=== PATIENT | male | born 1930 | race Caucasian/White ===

== ENCOUNTER 2018-03-20 14:55 | Emergency (ER) | payer OTHER ==
--- NOTE | 2018-03-20 15:31 | EDPHY ---
H & P Stated Complaint: increased tremors, fall, hx parkensons Time Seen by Provider: 03/20/18 15:22 HPI/ROS: CHIEF COMPLAINT: Fall, skin tear, Parkinson's HISTORY OF PRESENT ILLNESS: The patient is a 87-year-old man with a history of Parkinson's as well as atrial fibrillation on Xarelto. According to paramedics the patient had a fall several hours ago and had skin tears to both shins and both forearms. They were dressed. He did not hit his head. He denies neck pain. He is moving all extremities. He denies loss of consciousness or syncope. Family however called paramedics because his parkinsonian tremors or getting worse and he is having more frequent falls. Family is not here currently. Severity: Moderate Modifying factors: None REVIEW OF SYSTEMS: Constitutional: denies: chills, fever, recent illness, recent injury EENTM: denies: blurred vision, double vision, nose congestion Respiratory: denies: cough, shortness of breath Cardiac: denies: chest pain, irregular heart rate, lightheadedness, palpitations Gastrointestinal/Abdominal: denies: abdominal pain, diarrhea, nausea, vomiting, blood streaked stools Genitourinary: denies: dysuria, frequency, hematuria, pain Musculoskeletal: denies: joint pain, muscle pain Skin: Skin tear see above Neurological: denies: headache, numbness, paresthesia, tingling, dizziness, weakness Hematologic/Lymphatic: denies: blood clots, easy bleeding, easy bruising Immunologic/allergic: denies: HIV/AIDS, transplant 10 systems reviewed and negative except as noted EXAM: GENERAL: Well-appearing, well-nourished and in no acute distress. HEAD: Atraumatic, normocephalic. EYES: Pupils equal round and reactive to light, extraocular movements intact, sclera anicteric, conjunctiva are normal. ENT: TMs normal, nares patent, oropharynx clear without exudates. Moist mucous membranes. NECK: Normal range of motion, supple without lymphadenopathy or JVD. LUNGS: Breath sounds clear to auscultation bilaterally and equal. No wheezes rales or rhonchi. HEART: Regular rate and rhythm without murmurs, rubs or gallops. ABDOMEN: Soft, nontender, normoactive bowel sounds. No guarding, no rebound. No masses appreciated. BACK: No CVA tenderness, no spinal tenderness, step-offs or deformities EXTREMITIES: Chronic left shoulder pain but normal movement. Normal range of motion, no pitting or edema. No clubbing or cyanosis. NEUROLOGICAL: Significant intention tremor. Cranial nerves II through XII grossly intact. Normal speech, normal gait. 5/5 strength, normal movement in all extremities, normal sensation, normal reflexes PSYCH: Normal mood, normal affect. SKIN: Medium-sized skin tears to both shins and both forearms.. Source: Patient Exam Limitations: No limitations - Personal History Current Tetanus Diphtheria and Acellular Pertussis (TDAP): Yes - Medical/Surgical History Hx Asthma: No Hx Chronic Respiratory Disease: No Hx Diabetes: No Hx Cardiac Disease: Yes Hx Renal Disease: No Hx Cirrhosis: No Hx Alcoholism: No Hx HIV/AIDS: No Hx Splenectomy or Spleen Trauma: No Other PMH: spinal stenosis, SSS with pacemaker, parkensons, afib - Family History Significant Family History: No pertinent family hx - Social History Smoking Status: Never smoked Alcohol Use: Sober Drug Use: None Constitutional: Initial Vital Signs Temperature (C) 37.1 C 03/20/18 15:00 Heart Rate 70 03/20/18 15:00 Respiratory Rate 16 03/20/18 15:00 Blood Pressure 143/70 H 03/20/18 15:00 O2 Sat (%) 88 L 03/20/18 15:00 O2 Delivery Mode Room Air O2 (L/minute) 2 Allergies/Adverse Reactions: No Known Allergies Allergy (Verified 03/20/18 15:03) Home Medications: Medication Instructions Recorded Carbidopa/Levodopa [Carbidopa-Levo 1 each PO QID 03/20/18 25-100 mg Odt] Diltiazem Cd [Cardizem ER 120 MG 120 mg PO DAILY 03/20/18 (*)] Donepezil HCl [Aricept 5 MG (*)] 5 mg PO HS 03/20/18 Dutasteride [Avodart 0.5 MG (*)] 0.5 mg PO DAILY 03/20/18 Escitalopram Oxalate [Lexapro] 20 mg PO DAILY 03/20/18 Rivaroxaban [Xarelto] 20 mg PO DAILY 03/20/18 Medical Decision Making ED Course/Re-evaluation: 3:35 p.m. The patient's arrived and I spent significant amount of time talking to her and the patient together. They do not feel that his Parkinson's is severe enough that he needs to come into the hospital or be set up for rehabilitation. She wants to have his skin tears cleaned and dressed which is currently happening and then they feel safe going back home and would like to discuss arranging sometime a of home health with our continuous pillowcase cutter sure and who is here currently. They spoke with their Neurology office Dr. Hardwick earlier today who recommended the patient double up on his last 2 doses of Sinemet this evening. He did take a double dose in the afternoon is already having significant improvement. We discussed indications for returning to the ER. I do not find any indications for imaging in this patient. He denies headache or head injury or neck pain. He is moving all extremities at baseline. states that she will keep him downstairs and not let him upstairs until they see Dr. Bird again. 5:00 p.m. I discussed the case with Dr. Alisa Landa who will admit to the medical service. We tried to road test the patient here and he is completely unable to ambulate safely. 5:40 p.m. manager loan was able to get this patient admitted to a rehab facility which is what patient and family originally wanted rather than admission. We will plan to dispo there and discussed indications requiring return to the hospital. Differential Diagnosis: Partial list of the Differential diagnosis considered include but were not limited to; skin tear, Parkinson's, fall and although unlikely based on the history and physical exam, I also considered head injury, neck injury, infection. I discussed these differential diagnoses and the plan with the patient as well as the usual and expected course. The patient understands that the diagnosis is provisional and that in medicine we are not always correct and that further workup is often warranted. Usual and customary warnings were given. All of the patient's questions were answered. The patient was instructed to return to the emergency department should the symptoms at all worsen or return, otherwise to followup with the physician as we discussed. - Data Points Laboratory Results: Laboratory Results 03/20/18 15:00 03/20/18 15:00 03/20/18 03/20/18 15:00 15:00 WBC 10.29 10^3/uL H 10^3/uL (3.80-9.50) RBC 5.09 10^6/uL 10^6/uL (4.40-6.38) Hgb 16.1 g/dL g/dL (13.7-17.5) Hct 46.2 % % (40.0-51.0) MCV 90.8 fL fL (81.5-99.8) MCH 31.6 pg pg (27.9-34.1) MCHC 34.8 g/dL g/dL (32.4-36.7) RDW 12.4 % % (11.5-15.2) Plt Count 143 10^3/uL L 10^3/uL (150-400) MPV 9.8 fL fL (8.7-11.7) Neut % (Auto) 91.4 % H % (39.3-74.2) Lymph % (Auto) 1.9 % L % (15.0-45.0) [place] % (Auto) 6.3 % % (4.5-13.0) Eos % (Auto) 0.0 % L % (0.6-7.6) Baso % (Auto) 0.2 % L % (0.3-1.7) Nucleat RBC Rel Count 0.0 % % (0.0-0.2) Absolute Neuts (auto) 9.41 10^3/uL H 10^3/uL (1.70-6.50) Absolute Lymphs (auto) 0.20 10^3/uL L 10^3/uL (1.00-3.00) Absolute Monos (auto) 0.65 10^3/uL 10^3/uL (0.30-0.80) Absolute Eos (auto) 0.00 10^3/uL L 10^3/uL (0.03-0.40) Absolute Basos (auto) 0.02 10^3/uL 10^3/uL (0.02-0.10) Absolute Nucleated RBC 0.00 10^3/uL 10^3/uL (0-0.01) Immature Gran % 0.2 % % (0.0-1.1) Immature Gran # 0.02 10^3/uL 10^3/uL (0.00-0.10) RBC/WBC/PLT Morphology TNP Platelet Estimate ADEQUATE (ADEQ) Polychromasia 1+ H Tear Drop Cells 1+ H Echinocytes 1+ H Sodium 140 mEq/L mEq/L (135-145) Potassium 4.1 mEq/L mEq/L (3.3-5.0) Chloride 102 mEq/L mEq/L (97-110) Carbon Dioxide 26 mEq/l mEq/l (22-31) Anion Gap 12 mEq/L mEq/L (8-16) BUN 21 mg/dL mg/dL (7-23) Creatinine 1.0 mg/dL mg/dL (0.7-1.3) Estimated GFR > 60 Glucose 141 mg/dL H mg/dL (70-100) Calcium 9.2 mg/dL mg/dL (8.5-10.4) Departure - Departure Disposition: [facility] Inpatient Acute Clinical Impression: Multiple skin tears, Parkinson disease Fall Qualifiers: Encounter type: initial encounter Qualified Code(s): W19.XXXA - Unspecified fall, initial encounter Condition: Fair
[2018-03-20 17:16] LABS: PLATELET COUNT 143 10^3/uL (150-400)
[2018-03-20 18:24] VITALS: BP 138/76
--- NOTE | 2018-03-21 10:02 | ASMTCMCOM ---
CM Note CM Note Notes: Late Entry from 03/20/18 due to Allscripts being down: Pt presented to the ED via EMS after having a fall at home and sustained bilateral skin tears to his forearms and shins. Pt has a history of Parkinsons and per his , Aldo, pt has had increased weakness and falls at home. Pt is not able to ambulate independently while in the ED and is not safe to return home unless 24/7 homecare was arranged. CM spoke w/Aldo about 24/7 homecare and how it would most likely need to be a combination of skilled and non-skilled and that she would have to private pay for the non-skilled private duty to provide the majority of the 24/7 care; Aldo understands and is agreeable to this plan. CM informed her that it will be unlikely to find an agencie(s) that would be able to have available staff on such short notice and on the weekend but that CM was willing to give it a try. Aldo appreciative and really wants to take pt home. This CM sent referrals to various skilled and non-skilled agencies hoping to have a combination/collaboration in order to cover 24/7 care but was unsuccessful. CM spoke kai/ Maya at [facility] and she was very close to arranging 24/7 care to start this evening; Maya says they would definitely be able to start by Thursday; Aldo informed and provided their information to follow up. By that time it had been decided to try to direct admit pt to [facility]. Spoke Homero ([phone]) at and sent referral. Non-triggering PASSR completed. Admission orders scanned into Allscripts. Home med list reconciled by pharmacy. Hard copies of the ED Report, PASSR, Med List and admission order sent with WC transporter, Sedrick. accepted patient and arranged for WC transport. ED RN Kishan called and gave RN report. Aldo was present during WC pickup and provided information/location on . Aldo also provided various other home care resources including a Senior Blue Book. Aldo states pt is followed by Dr Stevo quinn/cardiology and considers him to be pt's PCP. Pt is also followed by Dr Mulu quinn/neurology. CM available for further assistance if needed. Date Signed: 03/21/2018 10:02 AM Electronically Signed By:Poppy Uribe RN
--- NOTE | 2018-03-21 10:06 | ASDISCHSUM ---
Discharge Information Plan Status:SNF Medically Cleared to Leave: Discharge Date: D/C Disposition:Fdc Facility [facility] D/C Disposition: Projected Discharge Date:03/20/2018 07:00 PM Transportation at D/C:Wheelchair Van Discharge Delay Reason: Follow-Up Date:03/20/2018 07:00 PM Discharge Slot: Final Diagnosis: Placement Information Referral Type:*Home Health Care Services Referral ID:[id number] Provider Name: Address 1: Phone Number: Address 2: Fax Number: City: Selection Factors: State: Referral Type:*Snf/SNF Referral ID:[id number] Provider Name:Jessika Thomason/[facility] Address 1:[address] [facility] Address 2: Fax Number: [facility]:[place] Selection Factors: State:[place] Patient Contact Information Contact Name:HERMILA Relationship: Address:[address] Work Phone: City:[place] Alternate Phone: State/Zip Code:[place] [address] Email: Financial Information Financial Class:Medicare [employer] Primary Plan Desc:[facility] [email or web address] ([employer] Primary Plan Number:[id number] Secondary Plan Desc: Secondary Plan Number: Assessment Information [facility] Progress Note CM Note CM Note Notes: Late Entry from 03/20/18 due to Allscripts being down: Pt presented to the ED via EMS after having a fall at home and sustained bilateral skin tears to his forearms and shins. Pt has a history of Parkinsons and per his , Aldo, pt has had increased weakness and falls at home. Pt is not able to ambulate independently while in the ED and is not safe to return home unless 02/02 homecare was arranged. DOMINGO spoke w/Aldo about 247 homecare and how it would most likely need to be a combination of skilled and non-skilled and that she would have to private pay for the non-skilled private duty to provide the majority of the 7 care; Aldo understands and is agreeable to this plan. DOMINGO informed her that it will be unlikely to find an agencie(s) that would be able to have available staff on such short notice and on the weekend but that CM was willing to give it a try. Aldo appreciative and really wants to take pt home. This CM sent referrals to various skilled and non-skilled agencies hoping to have a combination/collaboration in order to cover 24/7 care but was unsuccessful. CM spoke w/ Maya at [facility] and she was very close to arranging 24/7 care to start this evening; Maya says they would definitely be able to start by Thursday; Aldo informed and provided their information to follow up. By that time it had been decided to try to direct admit pt to [facility]. Spoke kai/Bandar ([phone]) at and sent referral. Non-triggering PASSR completed. Admission orders scanned into [employer]. Home med list reconciled by pharmacy. Hard copies of the ED Report, PASSR, Med List and admission order sent with WC transporter, Sedrick. accepted patient and arranged for WC transport. ED RN Kishan called and gave RN report. Aldo was present during WC pickup and provided information/location on . Aldo also provided various other home care resources including a Senior Blue Book. Aldo states pt is followed by Dr Stevo quinn/cardiology and considers him to be pt's PCP. Pt is also followed by Dr Mulu quinn/neurology. CM available for further assistance if needed. Date Signed: 03/21/2018 10:02 AM Electronically Signed By:Poppy Uribe RN Intervention Information Intervention Type:Education Family/Patient Date of Service:03/20/2018 06:00 PM Patient Type:Observation Staff Member:ROLAND Uribe, Poppy Hours:0.5 Discipline:Diesel Truck Driver Severity: Comment: Intervention Type:Community Resources Date of Service:03/20/2018 06:00 PM Patient Type:Observation Staff Member:ROLAND Uribe [place] Hours:0.5 Discipline:Diesel Truck Driver Severity: Comment: Intervention Type:Post Acute Communication Date of Service:03/20/2018 06:00 PM Patient Type:Observation Staff Member:ROLAND Uribe [place] Hours:0.5 Discipline:Diesel Truck Driver Severity: Comment:
== END 2018-03-20 18:30 ==
LOC: EDUNIT# → UNDOADMOB 17:03
DX: T14.8XXA Other injury of unspecified body region, initial encounter (principal); W19.XXXA Unspecified fall, initial encounter; Y99.8 Other external cause status; G20 Parkinson's disease; R29.6 Repeated falls; I48.91 Unspecified atrial fibrillation; Z79.01 Long term (current) use of anticoagulants

== ENCOUNTER 2018-03-21 21:53 | Inpatient (IN) | payer OTHER ==
[2018-03-21] MEDS ORDERED: NS 1,000 ML IV ONE ×2 (22:07→22:40)
[2018-03-21 22:33] LABS: PLATELET COUNT 92 10^3/uL (150-400)
--- NOTE | 2018-03-21 23:42 | EDPHY ---
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 He was seen in the emergency department yesterday after falling out of bed and sustaining abrasions to his legs. This was thought to be secondary to an episode from his Parkinson's disease. Patient was discharged to [facility] for rehabilitation purposes as he was unable to ambulate safely at discharge. Today the patient has become increasingly confused. He has worsening dehydrated has only had a couple small cups of water. He is complaining of low back pain. No nausea or vomiting. No abdominal pain. Family is also concerned that he has not gotten his other medications today. He did also have some urinary incontinence. ROS: 10 systems were reviewed and were negative except those elements noted in the HPI. PMH: Parkinson's disease, pacemaker, atrial fibrillation Social History: No smoking, no alcohol, no recreational drug use Family History: non-contributory Physical Exam: Gen: Awake, oriented x2, anxious HEENT: Nose: no rhinorrhea Eyes: PERRLA, EOMI Mouth: Moist mucosa Neck: Supple, no JVD Chest: nontender, lungs clear to auscultation Heart: S1, S2 normal, no murmur Abd: Soft, non-tender, no guarding Back: no CVA tenderness, no midline tenderness Ext: no edema, dressings on lower shins, no erythema, no discharge Skin: no rash Neuro: CN II-XII intact, Sensation grossly intact, Strength 5/5 in bilateral upper and lower extremities - Personal History Current Tetanus Diphtheria and Acellular Pertussis (TDAP): Yes - Medical/Surgical History Hx Asthma: No Hx Chronic Respiratory Disease: No Hx Diabetes: No Hx Cardiac Disease: Yes Hx Renal Disease: No Hx Cirrhosis: No Hx Alcoholism: No Hx HIV/AIDS: No Hx Splenectomy or Spleen Trauma: No Other PMH: spinal stenosis, SSS with pacemaker, parkensons, afib - Social History Smoking Status: Never smoked Constitutional: Initial Vital Signs Temperature (C) 37.0 C 03/21/18 21:58 Heart Rate 72 03/21/18 21:58 Respiratory Rate 28 H 03/21/18 21:58 Blood Pressure 153/76 H 03/21/18 21:58 O2 Sat (%) 92 03/21/18 21:58 O2 Delivery Mode Nasal Cannula O2 (L/minute) 4 Allergies/Adverse Reactions: No Known Allergies Allergy (Verified 03/20/18 15:03) Home Medications: Medication Instructions Recorded Carbidopa/Levodopa [Carbidopa-Levo 1 each PO QID 03/20/18 25-100 mg Odt] Diltiazem Cd [Cardizem ER 120 MG 120 mg PO DAILY 03/20/18 (*)] Donepezil HCl [Aricept 5 MG (*)] 5 mg PO HS 03/20/18 Dutasteride [Avodart 0.5 MG (*)] 0.5 mg PO DAILY 03/20/18 Escitalopram Oxalate [Lexapro] 20 mg PO DAILY 03/20/18 Rivaroxaban [Xarelto] 20 mg PO DAILY 03/20/18 Medical Decision Making - Diagnostics Imaging Results: Imaging Impressions Chest X-Ray 03/21/18 22:06 Impression: 1. Cardiomegaly and pulmonary venous hypertension. No conor failure. 2. Hypoventilation. 3. No pneumothorax or displaced rib fracture. Head CT 03/21/18 22:07 Impression: 1. No acute intracranial hemorrhage or subdural hematoma. 2. No acute fracture. 3. Atrophy and moderate nonspecific periventricular white matter disease. Findings discussed with Emergency Department physician, Rafael Ann MD at 03/21/2018 23:20. ED Course/Re-evaluation: CT scan of the head is negative. Patient's leukocytosis is noted. Urinalysis is consistent with UTI g of ceftriaxone. Urine cultures have been sent. I have discussed with Dr. Yarbrough, hospitalist. He will admit to his service for further care. - Data Points Laboratory Results: Laboratory Results 03/21/18 22:05 03/21/18 22:05 03/21/18 03/21/18 03/21/18 23:59 22:05 22:05 WBC 14.38 10^3/uL H 10^3/uL (3.80-9.50) RBC 4.71 10^6/uL 10^6/uL (4.40-6.38) Hgb 14.9 g/dL g/dL (13.7-17.5) Hct 42.8 % % (40.0-51.0) MCV 90.9 fL fL (81.5-99.8) MCH 31.6 pg pg (27.9-34.1) MCHC 34.8 g/dL g/dL (32.4-36.7) RDW 12.9 % % (11.5-15.2) Plt Count 92 10^3/uL L 10^3/uL (150-400) MPV 9.9 fL fL (8.7-11.7) Neut % (Auto) 94.9 % H % (39.3-74.2) Lymph % (Auto) 1.0 % L % (15.0-45.0) [place] % (Auto) 3.4 % L % (4.5-13.0) Eos % (Auto) 0.0 % L % (0.6-7.6) Baso % (Auto) 0.1 % L % (0.3-1.7) Nucleat RBC Rel Count 0.0 % % (0.0-0.2) Absolute Neuts (auto) 13.65 10^3/uL H 10^3/uL (1.70-6.50) Absolute Lymphs (auto) 0.14 10^3/uL L 10^3/uL (1.00-3.00) Absolute Monos (auto) 0.49 10^3/uL 10^3/uL (0.30-0.80) Absolute Eos (auto) 0.00 10^3/uL L 10^3/uL (0.03-0.40) Absolute Basos (auto) 0.01 10^3/uL L 10^3/uL (0.02-0.10) Absolute Nucleated RBC 0.00 10^3/uL 10^3/uL (0-0.01) Immature Gran % 0.6 % % (0.0-1.1) Immature Gran # 0.09 10^3/uL 10^3/uL (0.00-0.10) RBC/WBC/PLT Morphology TNP Platelet Estimate TNP Sodium 139 mEq/L mEq/L (135-145) Potassium 3.7 mEq/L mEq/L (3.3-5.0) Chloride 103 mEq/L mEq/L (97-110) Carbon Dioxide 26 mEq/l mEq/l (22-31) Anion Gap 10 mEq/L mEq/L (8-16) BUN 40 mg/dL H mg/dL (7-23) Creatinine 1.4 mg/dL H mg/dL (0.7-1.3) Estimated GFR 48 Glucose 172 mg/dL H mg/dL (70-100) Calcium 9.0 mg/dL mg/dL (8.5-10.4) Urine Color APRIL Urine Appearance MODERATELY TURBID Urine pH 5.0 (5.0-7.5) Ur Specific [place] 1.023 (1.002-1.030) Urine Protein 2+ H (NEGATIVE) Urine Ketones TRACE H (NEGATIVE) Urine Blood 2+ H (NEGATIVE) Urine Nitrate NEGATIVE (NEGATIVE) Urine Bilirubin NEGATIVE (NEGATIVE) Urine Urobilinogen 2.0 EU H EU (0.2-1.0) Ur Leukocyte Esterase 3+ H (NEGATIVE) Urine RBC 10-15 /hpf H /hpf (0-3) Urine WBC 50-182 /hpf H /hpf (0-3) Ur Epithelial Cells TRACE /lpf /lpf (NONE-1+) Granular Casts 5-15 /lpf /lpf (0-1) Urine Glucose NEGATIVE (NEGATIVE) Medications Given: Sodium Chloride (Ns) 1,000 mls @ 100 mls/hr IV CONT AMY Stop: 09/18/18 01:59 Last Admin: 03/22/18 03:15 Dose: 1,000 mls Discontinued Medications Sodium Chloride (Ns) 1,000 mls @ 0 mls/hr IV ONCE ONE; Wide Open PRN Reason: Protocol Stop: 03/21/18 22:08 Last Admin: 03/21/18 22:25 Dose: 1,000 mls Ceftriaxone Sodium/Dextrose (Rocephin 1 Gm (Premix)) 50 mls @ 100 mls/hr IV EDNOW ONE PRN Reason: Protocol Stop: 03/22/18 00:50 Last Admin: 03/22/18 00:10 Dose: 50 mls Sodium Chloride (Ns) 1,000 mls @ 0 mls/hr IV EDNOW ONE; Wide Open PRN Reason: Protocol Stop: 03/21/18 22:41 Last Admin: 03/21/18 22:40 Dose: 1,000 mls Morphine Sulfate (Morphine) 2 mg IVP EDNOW ONE Stop: 03/21/18 22:41 Last Admin: 03/21/18 22:44 Dose: 2 mg Departure - Departure Disposition: [facility] Inpatient Acute Clinical Impression: UTI (urinary tract infection), Dehydration Condition: Fair
[2018-03-22] MEDS ORDERED: ONDANSETRON DISINTEGRATING 4 MG TAB PO PRN (00:58)
[2018-03-22] MEDS ORDERED: ONDANSETRON 4 MG/2 ML VIAL IVP PRN (00:58)
--- NOTE | 2018-03-22 01:48 | PDGENHP ---
History and Physical - Chief Complaint AMS - History of Present Illness 87 yo M w/ hx of PD, AF, dCHF presents with altered mental status. He was seen in the ED yesterday after a fall. Patient was discharged back to [facility]. Today, the patient has become increasingly confused. At the time of my evaluation the patient is somnolent after receiving morphine in the ED. He is unable to provide further history. Work-up notable for UA suggestive of urinary tract infection. Case discussed with Ed physician Dr. Ann. Records reviewed in EMR. History Information - Allergies/Home Medication List Allergies/Adverse Reactions: No Known Allergies Allergy (Verified 03/20/18 15:03) Home Medications: Carbidopa/Levodopa [Carbidopa-Levo 25-100 mg Odt] 1 each PO QID 03/20/18 [Last Taken Unknown] Diltiazem Cd [Cardizem ER 120 MG (*)] 120 mg PO DAILY 03/20/18 [Last Taken Unknown] Donepezil HCl [Aricept 5 MG (*)] 5 mg PO HS 03/20/18 [Last Taken Unknown] Dutasteride [Avodart 0.5 MG (*)] 0.5 mg PO DAILY 03/20/18 [Last Taken Unknown] Escitalopram Oxalate [Lexapro] 20 mg PO DAILY 03/20/18 [Last Taken Unknown] Rivaroxaban [Xarelto] 20 mg PO DAILY 03/20/18 [Last Taken Unknown] I have personally reviewed and updated: family history, medical history - Past Medical History atrial fibrillation, CHF Additional medical history: Parkinson's Disease - Surgical History Additional surgical history: Unable to obtain 2/2 mental status - Family History Additional family history: Unable to obtain 2/2 mental status - Social History Smoking Status: Never smoked Review of Systems Review of Systems: Unable to obtain 2/2 mental status Physical Exam Physical Exam: Temp Pulse Resp BP Pulse Ox 37.0 C 71 18 109/70 94 03/21/18 21:58 03/22/18 01:29 03/22/18 01:29 03/22/18 01:29 03/22/18 01:29 Constitutional: no apparent distress, appears nourished Eyes: PERRL, anicteric sclera Ears, Nose, Mouth, Throat: moist mucous membranes, no oral mucosal ulcers Cardiovascular: regular rate and rhythym, no murmur, rub, or gallop Respiratory: no respiratory distress, clear to auscultation Gastrointestinal: normoactive bowel sounds, soft, non-tender abdomen Skin: warm, normal color Musculoskeletal: no muscle tenderness, no joint effusions Neurologic: CN II-XII Intact, other (Unable to assess orientation due to somnolence) Psychiatric: encephalopathic, poor insight Lab Data & Imaging Review 03/21/18 22:05 03/21/18 22:05 WBC 14.38 10^3/uL (3.80-9.50) H 03/21/18 22:05 RBC 4.71 10^6/uL (4.40-6.38) 03/21/18 22:05 Hgb 14.9 g/dL (13.7-17.5) 03/21/18 22:05 Hct 42.8 % (40.0-51.0) 03/21/18 22:05 MCV 90.9 fL (81.5-99.8) 03/21/18 22:05 MCH 31.6 pg (27.9-34.1) 03/21/18 22:05 MCHC 34.8 g/dL (32.4-36.7) 03/21/18 22:05 RDW 12.9 % (11.5-15.2) 03/21/18 22:05 Plt Count 92 10^3/uL (150-400) L 03/21/18 22:05 MPV 9.9 fL (8.7-11.7) 03/21/18 22:05 Neut % (Auto) 94.9 % (39.3-74.2) H 03/21/18 22:05 Lymph % (Auto) 1.0 % (15.0-45.0) L 03/21/18 22:05 [place] % (Auto) 3.4 % (4.5-13.0) L 03/21/18 22:05 Eos % (Auto) 0.0 % (0.6-7.6) L 03/21/18 22:05 Baso % (Auto) 0.1 % (0.3-1.7) L 03/21/18 22:05 Nucleat RBC Rel Count 0.0 % (0.0-0.2) 03/21/18 22:05 Absolute Neuts (auto) 13.65 10^3/uL (1.70-6.50) H 03/21/18 22:05 Absolute Lymphs (auto) 0.14 10^3/uL (1.00-3.00) L 03/21/18 22:05 Absolute Monos (auto) 0.49 10^3/uL (0.30-0.80) 03/21/18 22:05 Absolute Eos (auto) 0.00 10^3/uL (0.03-0.40) L 03/21/18 22:05 Absolute Basos (auto) 0.01 10^3/uL (0.02-0.10) L 03/21/18 22:05 Absolute Nucleated RBC 0.00 10^3/uL (0-0.01) 03/21/18 22:05 Immature Gran % 0.6 % (0.0-1.1) 03/21/18 22:05 Immature Gran # 0.09 10^3/uL (0.00-0.10) 03/21/18 22:05 RBC/WBC/PLT Morphology TNP 03/21/18 22:05 Platelet Estimate TNP 03/21/18 22:05 Sodium 139 mEq/L (135-145) 03/21/18 22:05 Potassium 3.7 mEq/L (3.3-5.0) 03/21/18 22:05 Chloride 103 mEq/L (97-110) 03/21/18 22:05 Carbon Dioxide 26 mEq/l (22-31) 03/21/18 22:05 Anion Gap 10 mEq/L (8-16) 03/21/18 22:05 BUN 40 mg/dL (7-23) H 03/21/18 22:05 Creatinine 1.4 mg/dL (0.7-1.3) H 03/21/18 22:05 Estimated GFR 48 03/21/18 22:05 Glucose 172 mg/dL (70-100) H 03/21/18 22:05 Calcium 9.0 mg/dL (8.5-10.4) 03/21/18 22:05 Urine Color APRIL 03/21/18 23:59 Urine Appearance MODERATELY TURBID 03/21/18 23:59 Urine pH 5.0 (5.0-7.5) 03/21/18 23:59 Ur Specific [place] 1.023 (1.002-1.030) 03/21/18 23:59 Urine Protein 2+ (NEGATIVE) H 03/21/18 23:59 Urine Ketones TRACE (NEGATIVE) H 03/21/18 23:59 Urine Blood 2+ (NEGATIVE) H 03/21/18 23:59 Urine Nitrate NEGATIVE (NEGATIVE) 03/21/18 23:59 Urine Bilirubin NEGATIVE (NEGATIVE) 03/21/18 23:59 Urine Urobilinogen 2.0 EU (0.2-1.0) H 03/21/18 23:59 Ur Leukocyte Esterase 3+ (NEGATIVE) H 03/21/18 23:59 Urine RBC 10-15 /hpf (0-3) H 03/21/18 23:59 Urine WBC 50-182 /hpf (0-3) H 03/21/18 23:59 Ur Epithelial Cells TRACE /lpf (NONE-1+) 03/21/18 23:59 Granular Casts 5-15 /lpf (0-1) 03/21/18 23:59 Urine Glucose NEGATIVE (NEGATIVE) 03/21/18 23:59 Imaging Review: Imaging Impressions Chest X-Ray 03/21/18 22:06 Impression: 1. Cardiomegaly and pulmonary venous hypertension. No conor failure. 2. Hypoventilation. 3. No pneumothorax or displaced rib fracture. Head CT 03/21/18 22:07 Impression: 1. No acute intracranial hemorrhage or subdural hematoma. 2. No acute fracture. 3. Atrophy and moderate nonspecific periventricular white matter disease. Findings discussed with Emergency Department physician, Rafael Ann MD at 03/21/2018 23:20. Assessment & Plan Assessment: 87 yo M w/ PD, AF, dCHF presents with altered mental status and likely UTI. Plan: 1. Urinary tract infection - Suspected based on appearance of UA; unable to assess for symptoms at this time due to altered mental status. - CTX 1 gD - Urine culture pending 2. Acute metabolic encephalopathy - Presumably 2/2 #1 with likely contribution from dehydration. - Treat infection as above - Continue rehydration with maintenance fluids - Avoid centrally acting medications 3. DESMOND - Serum creatinine 1.4 on admission, baseline appears to be near 1. I suspect this is related to dehydration and infection. - S/p IVF bolus, continue mIVF - Will check FeNa - Monitor BMP 4. Parkinson's Disease - Continue home medications pending reconciliation. 5. AF - On rivaroxaban as outpatient for anticoagulation. 6. dCHF - CXR reveals pulmonary venous hypertension but no conor failure. Diet - NPO pending improvement in mental status Code - Full per MOST form accompanying patient Ppx - rivaroxaban Dispo - Admit under observation status
[2018-03-22] MEDS ORDERED: NS 1,000 ML IV SCH (02:00)
[2018-03-22 07:05] LABS: PLATELET COUNT 82 10^3/uL (150-400)
--- NOTE | 2018-03-22 09:57 | ASMTCASEMG ---
Living Arrangements What is your living Answers: With Spouse arrangement? Who do you live with? Type Of Residence What kind of residence do Answers: House you live in? Discharge Plan Comments Coordination Status Comments Notes: Pt is a 87 y/o man admitted for a UTI, dehydration and AMS. Pt was recently admitted to [facility] this past Thursday for rehab. CM spoke to Bandar at [facility] and he reports that he can return once he is medically stable. Therapies have been ordered. CM to follow. Plan: TBD Date Signed: 03/22/2018 09:56 AM Electronically Signed By:JASMIN Alarcon
[2018-03-22] MEDS: CARBIDOPA/LEVODOPA 25 MG/100 MG TAB PO SCH ×3 (10:27→20:25)
[2018-03-22] MEDS: ACETAMINOPHEN 325 MG TAB PO PRN (10:28)
--- NOTE | 2018-03-22 13:03 | HOSPPROG ---
Hospitalist Progress Note Assessment/Plan: 87 yo M w/ PD, AF, dCHF presents with altered mental status and likely UTI. Plan: 1. Urinary tract infection - Suspected based on appearance of UA; unable to assess for symptoms at this time due to altered mental status. - CTX 1 gD - Urine culture pending 2. Acute metabolic encephalopathy - Presumably 2/2 #1 with likely contribution from dehydration. - Treat infection as above - Continue rehydration with maintenance fluids - Avoid centrally acting medications 3. DESMOND - Serum creatinine 1.4 on admission, baseline appears to be near 1. I suspect this is related to dehydration and infection. - S/p IVF bolus, continue mIVF - Will check FeNa - Monitor BMP 4. Parkinson's Disease - Continue home medications 5. AF - On rivaroxaban as outpatient for anticoagulation. 6. dCHF - CXR reveals pulmonary venous hypertension but no conor failure. Diet - Regular diet, was clear by speech this AM Code - Full per MOST form accompanying patient Ppx - rivaroxaban Dispo - Pending clinical course Subjective: Patient reports feeling improved this AM Objective: Vital Signs Temp Pulse Resp BP Pulse Ox 36.6 C 70 16 117/73 96 03/22/18 12:00 03/22/18 12:00 03/22/18 12:00 03/22/18 12:00 03/22/18 12:00 Laboratory Results 03/22/18 05:40 03/22/18 05:40 03/21/18 03/22/18 03/23/18 05:59 05:59 05:59 Intake Total 2325 Output Total 12 Balance 2313 - Physical Exam Constitutional: no apparent distress Eyes: PERRL Ears, Nose, Mouth, Throat: moist mucous membranes Cardiovascular: irregularly irregular Respiratory: no respiratory distress, clear to auscultation Gastrointestinal: soft, non-tender abdomen Genitourinary: no bladder tenderness, No toth in urethra Skin: warm Musculoskeletal: normal joint ROM Neurologic: AAOx3 Psychiatric: interacting appropriately ICD10 Worksheet Patient Problems: Problems Problem Status Onset Dehydration Acute UTI (urinary tract infection) Acute Fall Acute Multiple skin tears Acute Parkinson disease Acute Paroxysmal a-fib Acute
[2018-03-22] MEDS: ESCITALOPRAM OXALATE 10 MG TAB PO SCH (17:15)
[2018-03-22] MEDS: RIVAROXABAN 20 MG TAB PO SCH (17:16)
[2018-03-22] MEDS: DONEPEZIL HCL 5 MG TAB PO SCH (20:25)
[2018-03-23] MEDS: DUTASTERIDE 0.5 MG CAP PO SCH (07:22)
[2018-03-23] MEDS: DILTIAZEM CD 120 MG CAP PO SCH (07:22)
[2018-03-23] MEDS: CARBIDOPA/LEVODOPA 25 MG/100 MG TAB PO SCH ×4 (07:22→21:42)
[2018-03-23 09:55] LABS: PLATELET COUNT 80 10^3/uL (150-400)
[2018-03-23] MEDS: ACETAMINOPHEN 325 MG TAB PO PRN ×2 (10:59→21:41)
--- NOTE | 2018-03-23 11:37 | ASMTCMCOM ---
CM Note CM Note Notes: CM met w/ pts Aldo. Therapies are recommending HC w/ 24 hr supervision. CM provided Aldo w/ list of non skilled HC and skilled HC. Aldo would like to use [facility]. [facility] is able to accept. Aldo's cell is [phone]. Aldo plans on scheduling non skilled and calling around for places today. CM to follow. Plan: [facility]; PT, OT with private duty HC Date Signed: 03/23/2018 11:37 AM Electronically Signed By:JASMIN Alarcon
--- NOTE | 2018-03-23 13:21 | HOSPPROG ---
Hospitalist Progress Note Assessment/Plan: 87 yo M w/ PD, AF, dCHF presents with altered mental status and likely UTI. Plan: 1. Urinary tract infection - Suspected based on appearance of UA; unable to assess for symptoms at this time due to altered mental status. - CTX 1 gD - Urine culture pending, transition to PO abx based on culture data 2. Acute metabolic encephalopathy - Presumably 2/2 #1 with likely contribution from dehydration. - Treat infection as above - Continue rehydration with maintenance fluids - Avoid centrally acting medications 3. DESMOND - Serum creatinine 1.4 on admission, baseline appears to be near 1. I suspect this is related to dehydration and infection. - S/p IVF bolus, additional IVF prn - Monitor BMP 4. Parkinson's Disease - Continue home medications 5. AF - On rivaroxaban as outpatient for anticoagulation. 6. dCHF - CXR reveals pulmonary venous hypertension but no conor failure. Diet - Regular diet, was clear by speech this AM Code - Full per MOST form accompanying patient Ppx - rivaroxaban Dispo - Pending clinical course, likely transition to PO abx and d/c tomorrow, PT recommending Home with Home healthcare Subjective: Patient AAOx3 this AM Objective: Vital Signs Temp Pulse Resp BP Pulse Ox 36.8 C 80 19 118/64 93 03/23/18 12:00 03/23/18 12:00 03/23/18 12:00 03/23/18 12:00 03/23/18 12:00 Laboratory Results 03/23/18 09:45 03/23/18 09:45 03/22/18 03/23/18 03/24/18 05:59 05:59 05:59 Intake Total 2325 250 225 Output Total 12 200 Balance 2313 50 225 - Physical Exam Constitutional: no apparent distress Ears, Nose, Mouth, Throat: moist mucous membranes Cardiovascular: irregularly irregular Respiratory: no respiratory distress Gastrointestinal: soft, non-tender abdomen Genitourinary: no bladder fullness, no bladder tenderness Skin: warm Musculoskeletal: full muscle strength Neurologic: AAOx3 Psychiatric: interacting appropriately ICD10 Worksheet Patient Problems: Problems Problem Status Onset Dehydration Acute UTI (urinary tract infection) Acute Fall Acute Multiple skin tears Acute Parkinson disease Acute Paroxysmal a-fib Acute
[2018-03-23] MEDS: ESCITALOPRAM OXALATE 10 MG TAB PO SCH (16:43)
[2018-03-23] MEDS: RIVAROXABAN 20 MG TAB PO SCH (16:43)
[2018-03-23] MEDS: DONEPEZIL HCL 5 MG TAB PO SCH (21:42)
[2018-03-24 06:05] LABS: PLATELET COUNT 78 10^3/uL (150-400)
[2018-03-24] MEDS: DILTIAZEM CD 120 MG CAP PO SCH (08:37)
[2018-03-24] MEDS: CARBIDOPA/LEVODOPA 25 MG/100 MG TAB PO SCH ×4 (08:37→20:15)
[2018-03-24] MEDS: DUTASTERIDE 0.5 MG CAP PO SCH (08:37)
--- NOTE | 2018-03-24 10:34 | HOSPPROG ---
Hospitalist Progress Note Assessment/Plan: Mr Sykes is an 87 yo M w/ PD, AF, dCHF presents with altered mental status and likely UTI. Today is my first encounter w the patient, chart reviewed. *Urinary tract infection - - CTX #2 - Urine culture showing staph aureus and enterococcus faecalis - awaiting sensitivities *Acute metabolic encephalopathy - multifactorial, UTI, dehydration - Avoid centrally acting medications - resolved *hypoxia - patient says he is never on O2, will check a chest x ray - will check a BNP in a.m. *back pain -hx of spine surgery -reviewed his back x ray which showed nothing acute * DESMOND -creat on admission was 1.4, now 1.2, base is 1.1 *thrombocytopenia -follow, likely due to acute illness * Parkinson's Disease - Continue home medications * AF - On rivaroxaban as outpatient for anticoagulation. * dCHF - CXR reveals pulmonary venous hypertension but no conor failure. *Diet - Regular diet, was clear by speech this AM *plan: get a chest x ray today, check BNP Subjective: Scottie said his back is hurting, feeling tired. Objective: Vital Signs Temp Pulse Resp BP Pulse Ox 36.7 C 52 L 16 127/70 H 98 03/24/18 08:07 03/24/18 08:37 03/24/18 08:07 03/24/18 08:37 03/24/18 08:07 Laboratory Results 03/24/18 04:47 03/24/18 04:47 03/23/18 03/24/18 03/25/18 05:59 05:59 05:59 Intake Total 300 Balance 300 - Physical Exam Constitutional: uncomfortable, other (slender) Eyes: PERRL Ears, Nose, Mouth, Throat: hearing normal Cardiovascular: regular rate and rhythym Respiratory: no respiratory distress, reduced air movement Skin: warm Musculoskeletal: other (tremors with purposeful movments) Neurologic: AAOx3 Psychiatric: interacting appropriately ICD10 Worksheet Patient Problems: Problems Problem Status Onset Dehydration Acute UTI (urinary tract infection) Acute Fall Acute Multiple skin tears Acute Parkinson disease Acute Paroxysmal a-fib Acute
--- NOTE | 2018-03-24 11:59 | PDMN ---
Medical Necessity Medical necessity: Change to inpt as of 03/23/18 @ 15:13. Pt meets inpt criteria per MD order and MCG M-300, Urinary Tract Infection, A-2 days. Est LOS>2MN for management of acute metabolic encephalopathy and acute kidney injury in setting of UTI. ongoing altered mental status, bradycardia w/HR in 50's, urine cultures + for staph Aureus and Enterococcus Faecalis. IV ABX's, IVF, med nec inpt monitoring and treatment for above conditions.
[2018-03-24] MEDS: ACETAMINOPHEN 325 MG TAB PO PRN ×2 (12:16→20:14)
--- NOTE | 2018-03-24 18:10 | ASMTCMCOM ---
CM Note CM Note Notes: Pts case discussed w/ Ioana Chowdhury NP. Pt is not doing too well today. Pt will have a chest x-ray. CM notified [facility] that pt will most likely not d/c today. CM to follow. Plan: [facility]; PT, OT w02/02 private duty Date Signed: 03/24/2018 11:36 AM Electronically Signed By:JASMIN Alarcon
[2018-03-24] MEDS: ESCITALOPRAM OXALATE 10 MG TAB PO SCH (18:14)
[2018-03-24] MEDS: RIVAROXABAN 20 MG TAB PO SCH (18:15)
[2018-03-24] MEDS: DONEPEZIL HCL 5 MG TAB PO SCH (20:15)
[2018-03-25] MEDS: ACETAMINOPHEN 325 MG TAB PO PRN ×3 (05:54→21:38)
[2018-03-25] MEDS: CARBIDOPA/LEVODOPA 25 MG/100 MG TAB PO SCH ×4 (07:50→21:40)
[2018-03-25] MEDS: DUTASTERIDE 0.5 MG CAP PO SCH (07:50)
[2018-03-25] MEDS: DILTIAZEM CD 120 MG CAP PO SCH (07:50)
[2018-03-25] MEDS: LIDOCAINE 4%/MENTHOL 1% PATCH TD SCH ×2 (07:51→07:52)
[2018-03-25] MEDS ORDERED: FUROSEMIDE 20 MG/2 ML VIAL IVP ONE (09:52)
--- NOTE | 2018-03-25 09:55 | HOSPPROG ---
Hospitalist Progress Note Assessment/Plan: Mr Sykes is an 87 yo M w/ PD, AF, dCHF presents with altered mental status and likely UTI. Today is my first encounter w the patient, chart reviewed. *Urinary tract infection - - CTX #2 change to ancef, then will get doxy PO at time of DC - Urine culture showing staph aureus and enterococcus faecalis *Acute metabolic encephalopathy - multifactorial, UTI, dehydration - Avoid centrally acting medications - resolved *hypoxia - patient says he is never on O2, ATX, effusion - BNP elevated -lasix today *back pain -hx of spine surgery -reviewed his back x ray which showed nothing acute * DESMOND -creat on admission was 1.4, now 1.2, base is 1.1 *thrombocytopenia -follow, likely due to acute illness * Parkinson's Disease - Continue home medications * AF - On rivaroxaban as outpatient for anticoagulation. * dCHF - CXR reveals pulmonary venous hypertension but no conor failure. -dose of IV lasix toady *Diet - Regular diet, was clear by speech *plan: cont IV abx, lasix today -likely DC in am if doing well Subjective: Up in chair. No pain. Feels tired. Objective: Vital Signs Temp Pulse Resp BP Pulse Ox 36.3 C 49 L 14 104/64 99 03/25/18 07:54 03/25/18 07:54 03/25/18 07:54 03/25/18 07:54 03/25/18 07:54 Laboratory Results 03/24/18 04:47 03/24/18 04:47 03/24/18 03/25/18 03/26/18 05:59 05:59 05:59 Intake Total 300 Balance 300 - Physical Exam Constitutional: appears nourished, not in pain, chronically ill appearing Eyes: PERRL, anicteric sclera, EOMI Ears, Nose, Mouth, Throat: moist mucous membranes, hearing normal, ears appear normal Cardiovascular: No JVD, No tachycardia, No edema Respiratory: no respiratory distress, no rales or rhonchi, reduced air movement Gastrointestinal: normoactive bowel sounds, No tenderness, No ascites Skin: warm, rash, No mottled Musculoskeletal: normal joint ROM, no joint effusions, muscular tenderness, generalized weakness Psychiatric: interacting appropriately, not anxious, not encephalopathic, poor memory ICD10 Worksheet Patient Problems: Problems Problem Status Onset Paroxysmal a-fib Acute Multiple skin tears Acute Fall Acute Parkinson disease Acute UTI (urinary tract infection) Acute Dehydration Acute
--- NOTE | 2018-03-25 11:45 | ASMTCMCOM ---
CM Note CM Note Notes: Spoke with pt's Aldo [phone] and pt's hospitalist. Pt will possibly d/c tomorrow if he does well today. Adlo voiced concerns about ongoing back pain. Aldo confirmed she arranged for hospital bed and 02/02 unskilled supervision through [facility]. [facility] notified of potential d/c tomorrow. [facility] to evaluate regarding RN needs, planning on PT needs. Aldo to notify [facility] of potential d/c tomorrow. D/C Plan: Home with , [facility] and 02/02 unlicensed supervision Date Signed: 03/25/2018 11:38 AM Electronically Signed By:Lorraine Shaffer
--- NOTE | 2018-03-25 16:39 | ECHO ---
[email or web address] [address] [address] Main: [phone] Fax: Transthoracic Echocardiogram Name: CHAVEZ SCHUMACHER MR#: [id number] Study Date: 03/25/2018 Study Time: 03:38 PM Date of : 1930 Age: 87 year(s) Height: 182.9 cm (72 in.) Weight: 87.09 kg (192 lb.) BSA: 2.09 m2 Gender: Male Examination: Echo Indication: staph infection Image Quality: Adequate Contrast: Requested by: Sonam Bergeron BP: / Heart Rate: Rhythm: Indication: staph infection Procedure Staff Jump Iron Machine Presser: Nicole Valenzuela [facility] Reading Physician: Herminio Connell MD Requesting Provider: Conclusions: Normal size left ventricle. Mild concentric LV hypertrophy. Normal global systolic LV function. EF is 61 %. No regional wall motion abnormality. There is a pacemaker lead noted in the right ventricle. There is mild thickening of the mitral valve leaflets. Mild mitral valve regurgitation is present. Mild to moderate aortic valve regurgitation. Aortic valve sclerosis. Moderate to severe tricuspid valve regurgitation. The pulmonary artery pressure is moderately increased. Right ventricular systolic pressure measures 56mmHg. Small pericardial effusion. The rhythm appears to be atrial fibrillation. Measurements: Chambers Valvular Assessment AV/MV Valvular Assessment TV/PV Normal Normal Normal Name Value Range Name Value Range Name Value Range Ao Julia (2D): 3.5 cm (1.4 cm-2.6 AV Vmax: 2.00 m/s (1 m/s-1.7 TR Vmax: 3.57 mm/s ( - ) cm) m/s) TR PGmax: 51 mmHg ( - ) IVSd (2D): 1.2 cm (0.6 cm-1.1 AV maxP mmHg ( - ) syst. PAP: 56 mmHg ( - ) cm) AV meanP mmHg ( - ) PV Vmax: 0.83 m/s (0.6 m/s-0.9 LVDd (2D): 5.2 cm (4.2 cm-5.9 KAMERON (VTI): 2.0 cm ( - ) m/s) cm) MV E Vmax: 1.13 m/s ( - ) PV PGmax: 3 mmHg ( - ) LVDs (2D): 3.1 cm (2.1 cm-4 MV A Vmax: 0.29 m/s ( - ) cm) MV E/A: 3.90 ( - ) LVPWd (2D): 1.1 cm (0.6 cm-1 cm) MV PHT: 0.060 s ( - ) MVA (PHT): 3.7 s ( - ) Patient: CHAVEZ SCHUMACHER Study Date: 03/25/2018 Page 1 of 3 03:38 PM LVOTd 2.1 cm 2.1 cm mm LVEF (BP): 61 % (>=55 %) RVDd(2D): 3.3 cm (1.9 cm-3.8 cmmm) Continued Measurements: Chambers Valvular Assessment AV/MV Valvular Assessment TV/PV Name Value Name Value Name Value LADs: 4.3 cm MV DecTime: 208 m/s CVP (est.): 5 mmHg LADs Lon.3 cm MV E' Septal: 0.08 m/s LA Area: 35.4 cm2 MV E/E' Septal: 15.00 LA Volume: 124 ml LA Volume Index: 59.3 ml/m2 RA Area: 32.0 cm2 Additional Vessels Name Value Ao Ascendin.5 cm Inferior Vena Cava: 1.5 cm Findings: Left Ventricle: Normal size left ventricle. Mild concentric LV hypertrophy. Normal global systolic LV function. EF is 61 %. No regional wall motion abnormality. UNABLE TO DETERMINE DIASTOLIC DYSFUNCTION DUE TO CRITERIA. Right Ventricle: Normal size right ventricle. Normal RV function. There is a pacemaker lead noted in the right ventricle. Left Atrium: The left atrium is severely dilated. Right Atrium: Right atrial enlargement. Mitral Valve: The mitral valve is normal in appearance and function. There is mild thickening of the mitral valve leaflets. Mild mitral valve regurgitation is present. No mitral stenosis is present. Aortic Valve: The aortic valve is tri-leaflet. Mild to moderate aortic valve regurgitation. Aortic valve sclerosis. Tricuspid Valve: The tricuspid valve is normal in appearance and function. Moderate to severe tricuspid valve regurgitation. The pulmonary artery pressure is moderately increased. Right ventricular systolic pressure measures 56mmHg. Pulmonic Valve: The pulmonic valve is normal in appearance and function. There is no pulmonic regurgitation seen. Aorta: The aorta is normal. Normal size aortic root measuring 3.5 cm. Normal size ascending aorta measuring 3.5 cm. IVC: The IVC is normal sized. Pericardium: Small pericardial effusion. Exam Comments: The rhythm appears to be atrial fibrillation. (No Signature Object) Patient: CHAVEZ SCHUMACHER Study Date: 03/25/2018 Page 2 of 3 03:38 PM Patient: CHAVEZ SCHUMACHER Study Date: 03/25/2018 Page 3 of 3 03:38 PM [id number]
[2018-03-25] MEDS: ESCITALOPRAM OXALATE 10 MG TAB PO SCH (16:58)
[2018-03-25] MEDS: RIVAROXABAN 20 MG TAB PO SCH (16:58)
--- NOTE | 2018-03-25 17:31 | ASMTCMCOM ---
CM Note CM Note Notes: Addendum to note: Spoke with Nikunj of the [facility] and relayed pt's care needs for 02/02 supervision. Date Signed: 03/25/2018 05:30 PM Electronically Signed By:Lorraine Shaffer
[2018-03-25] MEDS ORDERED: PATCH REMOVAL 1 EA PATCH TD SCH (21:00)
[2018-03-25] MEDS: DONEPEZIL HCL 5 MG TAB PO SCH (21:40)
[2018-03-26] MEDS: DIPHENHYDRAMINE CREAM TP PRN ×2 (02:56→08:35)
[2018-03-26] MEDS ORDERED: DOXYCYCLINE HYCLATE 100 MG CAP/TAB PO SCH (06:00)
[2018-03-26] MEDS: DUTASTERIDE 0.5 MG CAP PO SCH (07:32)
[2018-03-26] MEDS: CARBIDOPA/LEVODOPA 25 MG/100 MG TAB PO SCH (07:32)
[2018-03-26] MEDS: LIDOCAINE 4%/MENTHOL 1% PATCH TD SCH (07:33)
[2018-03-26 08:01] VITALS: BP 120/53
[2018-03-26] MEDS: DILTIAZEM CD 120 MG CAP PO SCH (08:34)
--- NOTE | 2018-03-26 09:43 | PDIAF ---
- Diagnosis Diagnosis: uti Code Status: Full Code - Medication Management Discharge Medications: Medications to Continue on Transfer Diltiazem Cd [Cardizem ER 120 MG (*)] 120 mg PO DAILY@0730 03/20/18 [Last Taken Unknown] Donepezil HCl [Aricept 5 MG (*)] 10 mg PO HS 03/20/18 [Last Taken Unknown] Dutasteride [Avodart 0.5 MG (*)] 0.5 mg PO DAILY@30 03/20/18 [Last Taken Unknown] Escitalopram Oxalate [Lexapro] 20 mg PO DAILY@03/20/18 [Last Taken Unknown] Rivaroxaban [Xarelto] 20 mg PO DAILY@03/20/18 [Last Taken Unknown] Carbidopa/Levodopa 25/100Mg [Sinemet 25/100 MG (*)] 1 tab PO QID@0730,12,17,03/22/18 [Last Taken Unknown] Acetaminophen [Tylenol 325mg (*)] 650 mg PO Q4HRS PRN tab 03/26/18 [Last Taken Unknown] Doxycycline Hyclate [Vibramycin 100 MG (*)] 100 mg PO BID #27 capsule 03/26/18 [ Last Taken Unknown] Lidocaine 4%/Menthol 1% [Icy Hot Lidocaine/Menthol 4%/1% Patch (*)] 1 patch TD DAILY patch 03/26/18 [Last Taken Unknown] Patch Removal 1 ea TD DAILY21 patch 03/26/18 [Last Taken Unknown] diphenhydrAMINE [Benadryl Cream] 1 sarah TP QID PRN cream 03/26/18 [Last Taken Unknown] Telephone Station Repairer Antibiotics: doxy 100mg po bid Discharge Medications: Refer to the Discharge Home Medication list for PRN reason. PICC Care - Routine: N/A - Orders Services needed: Home Care, Registered Nurse, Physical Therapy, Occupational Therapy Home Care Face to Face: I certify that this patient was under my care and that I had the required keib-ti-edap encounter meeting the encounter requirements on the discharge day. My findings support the fact that the patient is homebound as defined in Home Care Face to Face Continued: CMS Chapter 7 Medicare Benefits Manual 30.1.1 , The condition of the patient is such that there exists a normal inability to leave home and consequently, leaving home would require a considerable and taxing effort. Isolation Type: None Diet Recommendation: no restrictions on diet Diet Texture: Regular Texture Diet, Thin Liquids, Meds Whole w/Liquids - Follow Up Care Current Providers and Referrals: Luis Alberto Whiteside MD [Primary Care Provider] - As per Instructions
--- NOTE | 2018-03-26 09:53 | ASMTLACE ---
LACE Length of stay for Answers: 2 days current admission Acuity / Level of Answers: Yes Care: Did the patient have an inpatient admission? Comorbidities - select Answers: Congestive heart failure all that apply Other Notes: Parkinson's disease; AF ib # of Emergency department Answers: 1-2 visits in the last 6 months Score: 9 Date Signed: 03/26/2018 09:52 AM Electronically Signed By:Mirta Good RN
--- NOTE | 2018-03-26 10:00 | ASMTDCNOTE ---
Case Management Discharge Discharge Order Complete? Answers: Yes Patient to Obtain Answers: via Family Medications Transportation Arranged Answers: Family/Friends Faxed Final Orders Answers: Yes Family Notified Answers: Yes Discharge Comments Notes: D/w RN, final orders in. Tamera at [facility] notified, RN to call report. Discussed transportation options with , CM told Medicare does not cover wheelchair and cannot guarantee they will cover stretcher transport. states she has 2 people to help get him in the house. Offered other options for $60 but they cannot help get him in the home. will pick pt up. Pt will have 24/hr care with [facility] and [facility] Date Signed: 03/26/2018 09:59 AM Electronically Signed By:Mirta Good RN
--- NOTE | 2018-03-26 14:44 | ASDISCHSUM ---
Discharge Information Plan Status:Home with Home Health Medically Cleared to Leave: Discharge Date:03/26/2018 11:16 AM CM D/C Disposition:Home Health Service ADT D/C Disposition:Home Health Service Projected Discharge Date:03/24/2018 11:00 AM Transportation at D/C:Family Discharge Delay Reason: Follow-Up Date:03/24/2018 11:00 AM Discharge Slot: Final Diagnosis: Placement Information Referral Type:*Home Health Care Services Referral ID:[facility]-[id number] Provider Name:[facility] Address 1[address] Address 2: City:[place] Selection Factors: State:[place] Patient Contact Information Contact Name:HERMILA Relationship: Address:[address] Work Phone: [facility] General:[place] Alternate Phone: [facility]/Zip Code:[place] [address] Email: Financial Information Financial Class:Medicare Advantage Plans Primary Plan Desc:[facility] I and love and you Primary Plan Number:[id number] Secondary Plan Desc: Secondary Plan Number: Assessment Information LACE LACE Length of stay for Answers: 2 days current admission Acuity / Level of Answers: Yes Care: Did the patient have an inpatient admission? Comorbidities - select Answers: Congestive heart failure all that apply Other Notes: Parkinson's disease; AF ib # of Emergency department Answers: 1-2 visits in the last 6 months Score: 9 Date Signed: 03/26/2018 09:52 AM Electronically Signed By:Mirta Good RN [facility] Initial CM Assessment Living Arrangements What is your living Answers: With Spouse arrangement? Who do you live with? Type Of Residence What kind of residence do Answers: House you live in? Discharge Plan Comments Coordination Status Comments Notes: Pt is a 87 y/o man admitted for a UTI, dehydration and AMS. Pt was recently admitted to [facility] this past Thursday for rehab. CM spoke to Bandar at [facility] and he reports that he can return once he is medically stable. Therapies have been ordered. CM to follow. Plan: TBD Date Signed: 03/22/2018 09:56 AM Electronically Signed By:JASMIN Alarcon [facility] CM Progress Note CM Note CM Note Notes: CM met w/ pts Aldo. Therapies are recommending HC w/ 24 hr supervision. provided Aldo w/ list of non skilled HC and skilled HC. Aldo would like to use [facility]. [facility] is able to accept. Aldo's cell is [phone]. Aldo plans on scheduling non skilled and calling around for places today. CM to follow. Plan: [facility]; PT, OT with private duty HC Date Signed: 03/23/2018 11:37 AM Electronically Signed By:JASMIN Alarcon [facility] CM Progress Note CM Note CM Note Notes: Pts case discussed w/ Ioana Chowdhury NP. Pt is not doing too well today. Pt will have a chest x-ray. CM notified [facility] that pt will most likely not d/c today. CM to follow. Plan: [facility]; PT, OT w/ 02/02 private duty Date Signed: 03/24/2018 11:36 AM Electronically Signed By:JASMIN Alarcon [facility] CM Progress Note CM Note CM Note Notes: Spoke with pt's Aldo [phone] and pt's hospitalist. Pt will possibly d/c tomorrow if he does well today. Aldo voiced concerns about ongoing back pain. Aldo confirmed she arranged for hospital bed and 02/02 unskilled supervision through [employer] [facility] notified of potential d/c tomorrow. [facility] to evaluate regarding RN needs, planning on PT needs. Aldo to notify [place] of potential d/c tomorrow. D/C Plan: Home with , [facility] and 02/02 unlicensed supervision Date Signed: 03/25/2018 11:38 AM Electronically Signed By:Lorraine Shaffer [facility] CM Progress Note CM Note CM Note Notes: Addendum to note: Spoke with Nikunj of the [employer] and relayed pt's care needs for 02/02 supervision. Date Signed: 03/25/2018 05:30 PM Electronically Signed By:Lorraine Shaffer Case Management Discharge Plan Note Case Management Discharge Discharge Order Complete? Answers: Yes Patient to Obtain Answers: via Family Medications Transportation Arranged Answers: Family/Friends Faxed Final Orders Answers: Yes Family Notified Answers: Yes Discharge Comments Notes: D/w RN, final orders inDoyle Philip at [facility] notified, RN to call report. Discussed transportation options with , CM told Medicare does not cover wheelchair and cannot guarantee they will cover stretcher transport. states she has 2 people to help get him in the house. Offered other options for $60 but they cannot help get him in the home. will pick pt up. Pt will have 24/hr care with [facility] and [facility] Date Signed: 03/26/2018 09:59 AM Electronically Signed By:Mirta Good RN Intervention Information Intervention Type:*Incorrect Registration Date of Service:03/22/2018 10:32 AM Patient Type:Inpatient Staff Member:Ana Gordon Hours: Discipline: Severity: Comment:
--- NOTE | 2018-03-26 17:39 | GDS ---
DISCHARGE DIAGNOSES: 1. Staph aureus urinary tract infection. 2. Acute metabolic encephalopathy. 3. Acute hypoxemia. 4. Back pain. 5. Acute kidney injury. 6. Thrombocytopenia. 7. History of Parkinson disease. 8. History of atrial fibrillation. 9. Diastolic congestive heart failure. STUDIES AND PROCEDURES DONE: 1. Echocardiogram. 2. CT of the head. 3. Lumbar spine x-ray. 4. CT of the lumbar spine and cervical spine. PHYSICAL EXAM: GENERAL: The patient is alert. VITAL SIGNS: Afebrile at 36.3, pulse is 55, respira tory rate 16, blood pressure is 120/53, saturating greater than 90% on room air. I have seen and naomi luated patient on the day of discharge. HOSPITAL COURSE: The patient is an 87-year-old male, brought to the hospital secondary to confusion. He was evaluated and diagnosed with: 1. Staph aureus urinary tract infection. During this hospitalization, he had initially been treated with Rocephin. He was transitioned to Ancef where there was potentially a reaction. He has now bee n transitioned to doxycycline. He will continue doxycycline for a total of 14 days given that he is male, and there is unknown source of origin. He is tolerating this medication well and is responding to treatment. 2. Acute metabolic encephalopathy. This is multifactorial in the setting of dehydration, as well as urinary tract infection. This is significantly improved. 3. Acute hypoxemia. This is in the setting of atelectasis, as well as congestive heart failure. He has been diuresed and has responded well. He is no longer hypoxic. 4. Back pain. This is an ongoing problem for the patient. He did have a CT of his lumbar spine, as well as his cervical spine, with no acute abnormalities identified. MRI is unable to be performed s econdary to the patient's pacemaker. 5. Acute kidney injury. Patient is close to baseline at the time of disposition. 6. Thrombocytopenia. This is in the setting of acute illness and has stabilized. 7. History of Parkinson disease. Patient has received physical therapy, as well as occupational the rapy, during this hospitalization. It is recommended that he have 24-hour care at home, which his wi fe has arranged. He will continue his previously prescribed Parkinson's medications. 8. History of atrial fibrillation. The patient is anticoagulated with Xarelto. He will continue th is at the time of disposition. 9. Diastolic congestive heart failure. Chest x-ray, as well as echocardiogram, reveal pleural effus ions. The patient did receive a dose of Lasix and diuresed well. He does not require ongoing Lasix therapy in the outpatient setting at this time. Please refer to echocardiogram report. DISPOSITION: He will be discharged home with his . She has arranged 24-hour care for him at the time of disposition. I have also ordered some home care for the patient prior to discharge. FOLLOWUP: Will be with Dr. Luis Alberto Whiteside, his primary nail feeder. There are no pending studies. DISCHARGE MEDICATIONS: Please refer to EMR form. I have provided the patient a prescription for dox ycycline at the time of disposition. I spent greater than 35 minutes in the care, coordination, and management of this patient's discharge . /[id number]/MODL
== END 2018-03-26 11:16 | disposition home health service (06) | DRG 689 ==
LOC: EDUNIT# → INTOOBSV 03-22 00:51 → F3E 03-22 02:20 → OBSVTOIN 03-23 15:13
PROVIDERS: ADMIT Student in an Organized Health Care Education/Training Program; ATTEND Student in an Organized Health Care Education/Training Program
DX: N39.0 Urinary tract infection, site not specified (principal); B95.8 Unspecified staphylococcus as the cause of diseases classified elsewhere; B95.2 Enterococcus as the cause of diseases classified elsewhere; G93.41 Metabolic encephalopathy; N17.9 Acute kidney failure, unspecified; E86.0 Dehydration; R09.02 Hypoxemia; M54.9 Dorsalgia, unspecified; G20 Parkinson's disease; J98.11 Atelectasis; I50.32 Chronic diastolic (congestive) heart failure; I48.91 Unspecified atrial fibrillation; D69.6 Thrombocytopenia, unspecified; I27.20 Pulmonary hypertension, unspecified; Z95.0 Presence of cardiac pacemaker
CPT/HCPCS: 92507-GN; 92523-GN; 92610-GN; 96365; 97116-GP; 97162-GP; 97166-GO; 97530-GP; 97535-GO; G8978-GP-CJ; G8978-GP-CL; G8979-GP-CJ; G8980-GP-CJ; G8987-GO-CK; G8988-GO-CJ; G8996-GN-CI; G8997-GN-CI; G9165-GN-CI; G9166-GN-CI; G9167-GN-CI; J0690; J0696; J1940; J2270

== ENCOUNTER 2018-03-31 16:09 | Inpatient (IN) | payer OTHER ==
--- NOTE | 2018-03-31 15:56 | EDPHY ---
H & P Time Seen by Provider: 03/31/18 16:12 Constitutional: Initial Vital Signs Temperature (C) 36.9 C 03/31/18 16:22 Heart Rate 47 L 03/31/18 16:22 Respiratory Rate 20 03/31/18 16:22 Blood Pressure 119/61 03/31/18 16:22 O2 Sat (%) 99 03/31/18 16:22 O2 Delivery Mode Room Air Allergies/Adverse Reactions: No Known Allergies Allergy (Verified 03/20/18 15:03) Home Medications: Medication Instructions Recorded Diltiazem Cd [Cardizem ER 120 MG 120 mg PO DAILY@72903/20/18 (*)] Donepezil HCl [Aricept 5 MG (*)] 10 mg PO HS 03/20/18 Dutasteride [Avodart 0.5 MG (*)] 0.5 mg PO DAILY@72903/20/18 Escitalopram Oxalate [Lexapro] 20 mg PO DAILY@03/20/18 Rivaroxaban [Xarelto] 20 mg PO DAILY@03/20/18 Carbidopa/Levodopa 25/100Mg 1 tab PO QID@30,12,17,21 03/22/18 [Sinemet 25/100 MG (*)] Acetaminophen [Tylenol 325mg (*)] 650 mg PO Q4HRS PRN tab 03/26/18 Doxycycline Hyclate [Vibramycin 100 mg PO BID #27 capsule 03/26/18 100 MG (*)] Patch Removal 1 ea TD DAILY21 patch 03/26/18 diphenhydrAMINE [Benadryl Cream] 1 sarah TP QID PRN cream 03/26/18 Lidocaine 4%/Menthol 1% [Icy Hot 1 patch TD DAILY PRN 03/31/18 Lidocaine/Menthol 4%/1% Patch (*)] Medical Decision Making - Diagnostics Imaging Results: Imaging Impressions Chest X-Ray 03/31/18 16:20 Impression:1. Borderline CHF +- right lower lobe pneumonia. 2. Stable pacemaker position x7 days. Imaging: I viewed and interpreted images myself ED Course/Re-evaluation: CHIEF COMPLAINT: Pacemaker malfunction HISTORY OF PRESENT ILLNESS: This patient is an 87 year old male with history of Parkinson's disease with memory impairment and atrial fibrillation s/p pacer placement. He presents today via EMS for evaluation of his pacemaker. 03/21/18, ten days ago, he was admitted here to [facility] for UTI and fall. Today, the patient seemed lethargic and was noted to be bradycardic around 50 beats per minute despite his pacer being set around 70. Reports uploaded to Dr. Whiteside's office suggested pacemaker failure and staff recommended he present to the ED for evaluation. The patient states his pacer is about 5 years old. He denies any other recent falls or trauma. He denies weakness, lightheadedness, chest pain, shortness of breath, or other associated symptoms. REVIEW OF SYSTEMS: A comprehensive 10 system review of systems is otherwise negative aside from elements mentioned in the history of present illness and medical decision making. PHYSICAL EXAM: HR, BP, O2 Sat, RR. Temp noted General Appearance: Alert, well hydrated, appropriate, and non-toxic appearing. Head: Atraumatic without scalp tenderness or obvious injury Eyes: Pupils equal, round, reactive to light and accommodation, EOMI, no trauma , no injection. Ears: Clear bilaterally, no perforation, normal landmarks Nose: Atraumatic, no rhinorrhea, clear. Throat: There is no erythema or exudates, no lesions, normal tonsils, mucus membranes moist. Neck: Supple, 2+ carotid upstroke, nontender, no lymphadenopathy. Respiratory: No retractions, no distress, no wheezes, and no accessory muscle use. Lungs are clear to auscultation bilaterally. Cardiovascular: Regular rate and rhythm, no murmurs, rubs, or gallops. Bilateral carotid, radial, dorsalis pedis, and posterior tibial pulses intact. Good capillary refill all extremities. Gastrointestinal: Abdomen is soft, nontender, non-distended, no masses, no rebound, no guarding, no peritoneal signs. Musculoskeletal: Normal active ROM of all extremities, atraumatic. Neurological: Alert, appropriate, and interactive. The patient has normal DTRs and non-focal cranial nerves, motor, sensory, and cerebellar exam. Skin: No rashes, good turgor, no nodules on palpation. Past medical history: Atrial fibrillation. Parkinson's disease. Congestive heart failure. Recet admission for UTI, fall. Past surgical history: Pacemaker placed. Family history: Noncontributory. Social history: . Lives in [place]. Retired. DIAGNOSTICS/PROCEDURES/CRITICAL CARE TIME: The 12 lead EKG was interpreted by myself. Bradycardia with unassociated pacer spikes. See hard copy and/or "tracemaster" electronic copy for interpretation. DIFFERENTIAL DIAGNOSIS: Includes but not limited to pacemaker malfunction, pacer lead displacement. MEDICAL DECISION MAKIN87 year old male presents with reported pacemaker issue. Plan for EKG. Plan for chest x-ray to evaluate pacemaker lead placement. Plan to consult with cardiology. 16:20 Spoke with Doug BIRD for cardiology. A nurse trained to query the patient's [employer] device will come down. EKG shows bradycardic rhythm with pacer spikes not associated with the patient' s rhythm. 16:49 [employer] nurse at bedside. RV lead does not seem to be functioning properly. Plan to admit patient to PCU for further evaluation. Reviewed x-ray with cardiology PA and [employer] rep. Evidence of pacer lead detachment; this may have occurred during the patients recent fall. Plan to admit for further evaluation and pacer maintenance. 16:54 Consulted with hospitalist service. Dr Irwin accepts admission to PCU for pacemaker malfunction, bradycardia. Cardiology to consult. - Data Points Laboratory Results: Laboratory Results 03/31/18 16:20 18 16:20 03/31/1818 18 16:20 16:20 16:20 WBC 15.61 10^3/uL H 10^3/uL (3.80-9.50) RBC 4.35 10^6/uL L 10^6/uL (4.40-6.38) Hgb 13.6 g/dL L g/dL (13.7-17.5) Hct 40.5 % % (40.0-51.0) MCV 93.1 fL fL (81.5-99.8) MCH 31.3 pg pg (27.9-34.1) MCHC 33.6 g/dL g/dL (32.4-36.7) RDW 13.0 % % (11.5-15.2) Plt Count 229 10^3/uL 10^3/uL (150-400) MPV 10.4 fL fL (8.7-11.7) Neut % (Auto) Not Reported Lymph % (Auto) Not Reported [place] % (Auto) Not Reported Eos % (Auto) Not Reported Baso % (Auto) Not Reported Nucleat RBC Rel Count Not Reported Absolute Neuts (auto) Not Reported Absolute Lymphs (auto) Not Reported Absolute Monos (auto) Not Reported Absolute Eos (auto) Not Reported Absolute Basos (auto) Not Reported Absolute Nucleated RBC Not Reported Immature Gran % Not Reported Seg Neutrophils % 87.9 % % Band Neutrophils % 2.0 % % Lymphocytes % 2.0 % % Monocytes % 6.1 % % Eosinophils % 2.0 % % Basophils % 0.0 % % Metamyelocytes % 0.0 % % Myelocytes % 0.0 % % Promyelocytes % 0.0 % % Blast Cells % 0.0 % % Immature Gran # Not Reported Absolute Seg Neuts 13.72 10^/uL H 10^/uL (1.70-6.50) Absolute Band Neuts 0.31 10^3/uL 10^3/uL (0.00-0.70) Absolute Lymphocytes 0.31 10^3/uL L 10^3/uL (1.00-3.00) Absolute Monocytes 0.95 10^3/uL H 10^3/uL (0.30-0.80) Absolute Eosinophils 0.31 10^3/uL 10^3/uL (0.03-0.40) Absolute Basophils 0.00 10^3/uL L 10^3/uL (0.02-0.10) Absolute Metamyelocyte 0.00 10^3/mL 10^3/mL (0.00-0.00) Absolute Myelocytes 0.00 10^3/mL 10^3/mL (0.00-0.00) Absolute Promyelocytes 0.00 10^3/uL 10^3/uL (0.00-0.00) Absolute Plasma Cells 0.00 10^3/uL 10^3/uL (0.00-0.00) Nucleated RBCs 0 /100 WBC /100 WBC (0-0) Absolute Blast Cells 0.00 10^3/uL 10^3/uL (0.00-0.00) Plasma Cells % 0.0 % % Platelet Estimate ADEQUATE (ADEQ) Polychromasia 1+ H Tear Drop Cells 1+ H Echinocytes 2+ H Smear Review By Pending PT 22.7 SEC H SEC (12.0-15.0) INR 1.99 H (0.83-1.16) Sodium 139 mEq/L mEq/L (135-145) Potassium 4.0 mEq/L mEq/L (3.3-5.0) Chloride 99 mEq/L mEq/L (97-110) Carbon Dioxide 29 mEq/l mEq/l (22-31) Anion Gap 11 mEq/L mEq/L (8-16) BUN 36 mg/dL H mg/dL (7-23) Creatinine 1.1 mg/dL mg/dL (0.7-1.3) Estimated GFR > 60 Glucose 98 mg/dL mg/dL (70-100) Calcium 8.7 mg/dL mg/dL (8.5-10.4) Total Bilirubin 1.0 mg/dL mg/dL (0.1-1.4) AST 21 IU/L IU/L (17-59) ALT 23 IU/L IU/L (21-72) Alkaline Phosphatase 116 IU/L IU/L (38-126) Total Protein 5.4 g/dL L g/dL (6.3-8.2) Albumin 2.6 g/dL L g/dL (3.5-5.0) TSH 1.990 uIU/mL uIU/mL (0.465-4.680) Medications Given: Acetaminophen (Tylenol) 650 mg PO Q4HRS PRN PRN Reason: Pain, Mild/Fever, Can Take PO Stop: 09/27/18 17:29 Last Admin: 03/31/18 19:35 Dose: 650 mg Carbidopa/Levodopa (Sinemet) 1 tab PO QID@0730,12,17,21 AMY Stop: 09/27/18 20:59 Last Admin: 03/31/18 21:42 Dose: 1 tab Donepezil HCl (Aricept) 10 mg PO HS AMY Stop: 09/27/18 20:59 Last Admin: 03/31/18 22:24 Dose: 10 mg Doxycycline Hyclate (Doxycycline Hyclate) 100 mg PO BID AMY PRN Reason: Protocol Stop: 04/30/18 20:59 Last Admin: 03/31/18 21:42 Dose: 100 mg Miscellaneous Information (Patch Removal) 1 ea TD DAILY21 AMY Stop: 09/27/18 20:59 Last Admin: 03/31/18 22:25 Dose: Not Given Discontinued Medications Furosemide (Lasix Injection) 20 mg IVP ONCE ONE Stop: 03/31/18 19:02 Last Admin: 03/31/18 19:35 Dose: 20 mg Departure - Departure Disposition: [facility] Inpatient Acute Clinical Impression: Pacemaker malfunction Qualifiers: Encounter type: initial encounter Qualified Code(s): T82.111A - Breakdown ( mechanical) of cardiac pulse generator (battery), initial encounter Condition: Fair Report Scribed for: Killian Campos Report Scribed by: Susan Roberto Date of Report: 03/31/18 Time of Report: 23:38
[2018-03-31 17:23] LABS: PLATELET COUNT 229 10^3/uL (150-400)
[2018-03-31 17:29] LABS: INR 1.99 (0.83-1.16); PROTIME(PATIENT) 22.7 SEC (12.0-15.0)
[2018-03-31] MEDS ORDERED: ATROPINE SULFATE 1 MG/10 ML SYR IVP PRN (17:37)
[2018-03-31] MEDS ORDERED: DIPHENHYDRAMINE CREAM TP PRN (18:10)
--- NOTE | 2018-03-31 18:43 | CPEKG ---
Test Reason : OPEN Blood Pressure : / mmHG Vent. Rate : 048 BPM Atrial Rate : 000 BPM P-R Int : 140 ms QRS Dur : 089 ms QT Int : 630 ms P-R-T Axes : 000 021 068 degrees QTc Int : 563 ms Bradycardia with irregular rate Abnrm T, consider ischemia, anterolateral lds Prolonged QT interval Confirmed by Killian Campos ([id number]) on 03/31/2018 6:42:35 PM Referred By: Confirmed By:Killian Campos
[2018-03-31] MEDS ORDERED: FUROSEMIDE 20 MG/2 ML VIAL IVP ONE (19:01)
[2018-03-31] MEDS: ACETAMINOPHEN 325 MG TAB PO PRN (19:35)
--- NOTE | 2018-03-31 21:30 | GHP ---
DATE OF ADMISSION: 03/31/2018 HISTORY OF PRESENT ILLNESS: The patient is an 87-year-old gentleman with a history of Parkinson's wi th memory impairment, pacemaker, atrial fibrillation, recent admission for urinary tract infection th at ultimately grew Staphylococcus aureus and Enterococcus. He was sent home and has done well. Ther e was a fall associated with that admission. This enterococcus and Staph aureus were both pansensiti ve organisms. They were MSSA and pansensitive enterococcus faecalis. He was seen in Dr. Whiteside's office today, and he had evidence of failure of capture on his right pacemaker lead. The patient den ies dizziness, falls, weakness, lightheadedness. It is notable that the patient is intelligent, and he held a high-level job, but he is confused and confabulating now. He denies fever, chills, cough, sputum, nausea, vomiting, diarrhea. REVIEW OF SYSTEMS: Complete 10-point review of systems conducted and negative except as noted in the HPI. PAST MEDICAL HISTORY: Atrial fibrillation, Parkinson disease, diastolic congestive heart failure, re cent UTI. He has a Chao catheter in now for unclear reasons. ALLERGIES: No known drug allergies. HOME MEDICATIONS: Acetaminophen, diltiazem, rivaroxaban, carbidopa/levodopa, Benadryl cream, donepez il, doxycycline which was the antibiotic for his last UTI, dutasteride, escitalopram, lidocaine patch . SOCIAL HISTORY: No tobacco, no alcohol. He is originally from [place], [place]. 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 FAMILY HISTORY: Parents . PHYSICAL EXAMINATION: VITAL SIGNS: Temp 37, blood pressure 119/61, pulse in the 40s, breathing 20 t imes a minute, 98% on room air. GENERAL: No acute distress. Sclerae anicteric. Oropharynx clear. Mucous membranes moist. NECK: Supple without lymphadenopathy or JVD. LUNGS: Clear to auscultation bilaterally. HEART: S1, S2. ABDOMEN: Soft, nontender, nondistended. LOWER EXTREMITIES: Without edema. Calves are nontender. SKIN: Without rash. NEUROLOGIC: A patient who is confabulating and somewhat confused but pleasant. LABORATORY DATA: White count 15.6, which is elevated, but he has a chronic leukocytosis. Hematocrit 40, platelets 229,000. INR is 2. Sodium 139, potassium 4.0, chloride 99, bicarb 29, BUN 36, creati nine 1.1. LFTs normal. BNP is 9900, which is up from 4300. Troponin less than 0.012. There is uri nalysis pending. Chest x-ray interpreted by me shows borderline CHF plus or minus right lower lobe pneumonia, per Radi ology with atelectasis and a poor inspiratory effort. EKG interpreted by me shows bradycardia with i rregular rate, pacer spikes that are not capturing. He has no ST or T-wave changes. I discussed the case with Doug Villarreal, Cardiology, PROFESSOR OF PHILOSOPHY. ASSESSMENT AND PLAN: This 87-year-old gentleman with Parkinson's here with pacer lead detachment wit h bradycardia, possible infectious issues. 1. Pacer lead detachment. Note: It was interrogated, showing the right lead had come out. This pro bably occurred during the fall. He is currently stable from a blood pressure standpoint. He is portillo ycardic, , cardiology to see. 2. Query infection. The patient has an abnormal chest x-ray recently that was more consistent with atelectasis. Urinalysis is pending. He is currently on a course of antibiotics. He has a leukocyto sis, but no localizing symptoms. He has evidence of an old wound from a fall on his left mendes which is clean, dry and intact without evidence of infection. 3. Blood cultures have been drawn. Infectious Disease will see him in the morning. We will not com plete further workup at this time. 4. Atelectasis. Add incentive spirometry. 5. Urinary tract infection. Continue his course of doxycycline. DISPOSITION: Inpatient status. Parkinson's. Continue his carbidopa/levodopa. Bradycardia. He rec eived a dose of atropine. We will follow. Cardiology is aware of him. /[id number]/MODL
[2018-03-31] MEDS: DOXYCYCLINE HYCLATE 100 MG CAP/TAB PO SCH (21:42)
[2018-03-31] MEDS: CARBIDOPA/LEVODOPA 25 MG/100 MG TAB PO SCH (21:42)
[2018-03-31] MEDS: DONEPEZIL HCL 5 MG TAB PO SCH (22:24)
[2018-03-31] MEDS: PATCH REMOVAL 1 EA PATCH TD SCH (22:25)
[2018-04-01 03:49] LABS: INR 3.04 (0.83-1.16); PROTIME(PATIENT) 31.3 SEC (12.0-15.0)
[2018-04-01] MEDS ORDERED: ceFAZolin 2 GM/DEXTROSE 100 ML IV ONE (06:00)
[2018-04-01] MEDS ORDERED: NS 1,000 ML IV ONE (06:00)
[2018-04-01] MEDS ORDERED: BACITRACIN IRRIGATION/NS 50,000 UNITS/1,000 ML BTL IRR ONE (06:00)
--- NOTE | 2018-04-01 06:01 | GCON ---
CARDIOLOGY CONSULTATION. REFERRING PHYSICIAN: Killian Campos MD REASON FOR CONSULTATION: RV lead failure to capture. SUPERVISING PHYSICIAN: Dr. Curtis Dickens HISTORY OF PRESENT ILLNESS: Mr. Sykes is an 87-year-old male, who is known to our service. His primary bed bug exterminator is Dr. Luis Alberto Whiteside. He has a significant past history that includes Parkinson's disease, permanent atrial fibrillation, chronic diastolic heart failure, and hypertension. He also has a significant history of recent with hospitalization of urinary tract infection with altered mental status with discharge March 23, 2018. The patient and informed me today that since hospitalization he has been noticing continuation of fatigue symptoms, but his mentality is improved. He remains on oral antibiotics for a recent UTI. He reports no chest pain or pressure. He does report ongoing lightheadedness with positional changes and fatigue. A remote device check was done by our office today showing RV lead failure to capture, and he was advised to come into the hospital for further evaluation. Upon arrival to the ER, electrocardiogram was done, which noted the patient to be with an underlying rhythm of atrial fibrillation and what appears to be a junctional escape rhythm with a rate of 40 BPM with pacemakers spike that are nonconductive. Cristela Lewis NP, [facility]'s device device clinic, evaluated the patient's PPM in the ED, stating that she feels lead is dislodged , she was unable to capture ventricular pacing unless she was at maximum threshold, and this was only partially successful. The patient reports no history of chest pain or pressure, does report ongoing fatigue symptoms and shortness of breath. Denies of any orthopnea, significant edema. Continues to have trace pedal edema but feels that this has not worsened. Reports no symptoms suggestive of recent TIA or CVA. PAST MEDICAL HISTORY: 1. Third-degree heart block, remote pacemaker implantation done in [place], [facility]. 2. From his records permanent atrial fibrillation. 3. Hypertension. 4. Parkinson's disease. 5. Depression. 6. Recent hospitalization with urinary tract infection, Staph aureus. 7. Remote history of brain tumor. PAST SURGICAL HISTORY: 1. Back surgery x2. 2. Brain surgery for tumor removal, patient reports tumor was nonmalignant. SOCIAL HISTORY: The patient denies any tobacco use, occasionally drinks alcohol , denies any illicit drug use. He is . ALLERGIES: He has no known drug allergies. MEDICATIONS: At home include 1. Avodart 0.5 mg p.o. daily. 2. Doxycycline 100 mg p.o. twice daily. 3. 10 mg p.o. h.s. 4. Diltiazem 120 mg p.o. daily. 5. Sinemet 25/100 mg p.o. four times daily. 6. Acetaminophen 650 mg p.o. q.4 hours p.r.n. 7. Benadryl topical four times daily p.r.n. 8. Xarelto 20 mg p.o. daily. 9. Lidocaine IcyHot medicated patch daily p.r.n. 10. Lexapro 20 mg p.o. daily. REVIEW OF SYSTEMS: A 10-point review of systems done on patient all negative except as mentioned above. PHYSICAL EXAMINATION: GENERAL APPEARANCE: Tall, thin, male. He is alert and oriented to person, place, time, and situation, speaks with mild slurred speech and per this is normal. CURRENT VITAL SIGNS: Blood pressure of 128/73, heart rate 44, appears to be junctional escape rhythm, respirations 18, saturating 97% on 2 L nasal cannula, temperature 36.9 degrees Celsius. HEENT: Head is normocephalic. Lips and tongue are pink and moist with no signs of cyanosis. Conjunctivae pink. NECK: Trachea is midline, +2 carotid pulses bilateral, no auscultated bruits, jugular vein elevation 5-6 cm above sternal notch. RESPIRATORY: Mild rales noted in bases bilateral, no rhonchi or wheezing noted. No accessory muscle use, no intercostal muscle retraction noted. CARDIAC: Bradycardic rate, regular rhythm, S1, S2, 2/6 systolic murmur noted along the left sternal border. ABDOMEN: Soft, nontender , bowel sounds x4 quadrants, no organomegaly, no palpable masses. SKIN: [place], warm, dry, no cyanosis, no clubbing, trace to +1 peripheral edema bilateral lower extremities. VASCULAR: +2 carotids bilateral, +2 radials bilateral, +1 dorsal pedal and posterior tibial pulses bilateral. LABORATORY STUDIES: Laboratory studies drawn today show WBC of 15.61, hemoglobin of 13.6, hematocrit 40.5, platelet count 229, INR 1.99, sodium of 139 , potassium 4.0, chloride 99, CO2 of 29, BUN 36, creatinine 1.1, glucose 98, calcium 8.7, total bilirubin 1.0, AST 21, ALT 23, alkaline phosphate 166, currently troponin and BNP pending, total protein 5.4, albumin 2.6. TSH 1.990. IMAGING: Electrocardiogram as mentioned above. Chest x-ray showing stable pacemaker position, borderline CHF with possible right lower lobe pneumonia. Device interrogation as mentioned above. Echocardiogram done on March 25, 2018 showing normal LV size, mild concentric LVH, normal LV systolic function, EF of 61%, with no wall motion abnormalities, mild MR, mild to moderate AI, moderate to severe TR, elevated pulmonary pressures with RVSP at 56 mmHg, small pericardial effusion. ASSESSMENT AND PLAN: 1. Third-degree heart block: Patient's electrocardiogram demonstrates underlying rhythm of atrial fibrillation with junctional escape rhythm in the 40 's, pacemaker is failure to capture. His blood pressure is stable, he does report some shortness of breath and fatigue symptoms for the last 10 days. He does state that he did have a fall approximately 10 days ago in which he landed on his right shoulder. Questioning possible lead dislodgement. Ultimately, would be beneficial for him to have RV lead revision done, but concerning with his recent urinary tract infection and elevated white blood cell count, at this time recommend admission to the PCU, transcutaneous pads should be place, and transcutaneous pacing should be used if necessary, atropine on order. Would like Infectious Disease to evaluate patient tomorrow risks with proceeding with implantable device. Will discontinue his home dose of diltiazem at this time. 2. Permanent atrial fibrillation: Underlying EKG shows that he remains in atrial fibrillation, he has a junctional escape rhythm. Discontinue diltiazem as mentioned above. With potential needing of surgery, will hold his Xarelto at this time. 3. Hypertension: Blood pressure appears to be well within normal limits, will continue to monitor. Discontinue diltiazem as mentioned above. 4. History of chronic diastolic heart failure: BNP is currently pending, chest x-ray appears that he is wet and noted mild rales in bases. Will give him 1 dose of IV Lasix at this time. More than likely, this is caused by his lower heart rate. Most recent echocardiogram did note his LV systolic function at 61% with mild concentric LVH, normal LV systolic function, he was noted to have mild MR, mild to moderate AI, moderate to sever TR (03/25/2018). 5. Parkinson's disease: Patient has been resumed on home medications. 6. Urinary tract infection: Patient has been resumed on doxycycline as ordered post discharge. I defer treatment to hospital services, Infectious Disease consultation requested. Thank you for this consultation. We will be glad to follow along with you. /[id number]/MODL MTDD
[2018-04-01] MEDS: DOXYCYCLINE HYCLATE 100 MG CAP/TAB PO SCH ×2 (08:29→21:17)
[2018-04-01] MEDS: CARBIDOPA/LEVODOPA 25 MG/100 MG TAB PO SCH ×4 (08:29→21:17)
[2018-04-01] MEDS: DUTASTERIDE 0.5 MG CAP PO SCH (08:29)
[2018-04-01] MEDS: ACETAMINOPHEN 325 MG TAB PO PRN (09:40)
[2018-04-01] MEDS: LIDOCAINE 4%/MENTHOL 1% PATCH TD PRN (09:40)
[2018-04-01] MEDS ORDERED: HYDROmorphONE/DILAUDID 1 MG/ML INJ IVP PRN (09:47)
--- NOTE | 2018-04-01 10:17 | PDMN ---
Medical Necessity Medical necessity: Pt meets inpt criteria per MD order and MCG M-510, Supraventricular Arrhythmias. 87 y/o admitted w/bradycardia HR 40's-50's - in third degree heart block, R lead pacemaker detachment, confusion, increasing fatigue, leukocytosis (recent hospitalization for UTI, dc'd 03/23/18). Cardiology consult, RV lead revision pending Inf Disease consult, blood cultures pending. Hx Parkinsons, afib, chronic diastolic heart failure, HTN. Anticipate >2MN stay for further workup/treatment.
--- NOTE | 2018-04-01 10:18 | WOCRNPDOC ---
WOCRN Advanced Assessment Note - Skin Integrity Problem, Advanced Assess Left Anterior Lower Leg Dressing Type: Allevyn Life, Hydrofera Blue Ready Dressing Description: Clean/Dry, Intact Exudate Amount: Scant Exudate Characteristic(s): Serosanguinous Integumentary Issue Intervention: Dressing Changed Wound Bed Color: [place] Wound Bed Constitution: Red/[place] - Non Granular Tissue Site Measurement - Head-to-Toe Length X Width X Depth (cm): 6.5x4.2x0.1 Skin Integrity Problem Comment: Patient confused and unable to clearly report where he had been receiving wound care previously. Category 2B skin tear present with flap re-adhered. Follow skin tear policy. Please reconsult prn. Reported to Lorraine WATKINS. Right Anterior Lower Leg Dressing Type: Open to Air Closure Description: Steri Strips Exudate Amount: None Skin Integrity Problem Comment: Dried skin tear. Do not disturb. Steri strips will fall off at some point. Leave open to air.
--- NOTE | 2018-04-01 12:01 | PDCONSULT ---
Full Time Babysitter Note: # Recent UTI w MSSA and now with elevated WBC, hypoxia. Cardiology requested eval for clearance for replacing pacer. There is concern that prior UTI showing MSSA could have reflected bacteremia at that time but no blood cx were collected. Reviewed TTE from 03/25 which show multi-valve dysfunction which could pre-dispose to endocarditis --Chest CT to eval for pulmonary infiltrates that would be suggestive of right- sided endocarditis --follow blood cx but could be falsely negative because on doxycycline --may need additional cardiac imaging will discuss w cards, significant valve disease on echo from 03/25/2018 --hemodynamically stable, leave on doxycycline; hold off on antibiotic changes at this point as it may just confuse the current picture # Pacemaker dysfunction/bradycardia/nl BP: hold off on fixing pacemaker until above issues can be sorted out Chief complaint: Pacemaker dysfunction, query is there underlying infection MD requested consult: Doug Villarreal PA-C History of presents illness: 87 y/o M, with pacemaker and hx of Parkinsons since January 2017, presents for evaluation of bradycardia and possible systemic infection s/p recent UTI. Pt was hospitalized earlier this month from 03/21 to 03/26/2018 for altered-mental- status and abrasions sustained to R-lower lateral arm s/p fall. At that time, he was dx with UTI with MSSA and Enterococcus spp. and initially given IV ceftriaxone in hospital but DC on doxycycline and reports patient seems to be doing better with this. Of note, no blood cultures were performed. Preceding admission 03/21/18, patient did well all summer while in [place] but pts notes that he became increasing confused and "froze" compared to baseline and initially it was felt to be related to Parkinsons but then returned. He does not admit to any urinary changes such as dysuria that preceded the UTI. Denies hx of bladder infections and never had a toth. Pt was feeling better with improved thought process s/p being d/c on 03/26/2018 for about 4-5 days. He had his physical therapist come and visit him at home who noted his bradycardia preceding exercises and s/p physical exertion. Subsequently, she suggested he come to the hospital for evaluation. Today he states that he is feeling better since being admitted on 03/31/2018, but has difficulty characterizing. Denies associated intestinal issues such has nausea, vomiting, or diarrhea. ID is asked for evaluate for underlying infection. ROS: Complete 10-point review of systems conducted and negative except as noted in the HPI. Allergies: 3 Allergy/AdvReac Type Severity Reaction Status Date / Time No Known Allergies Allergy Verified 03/20/18 15:03 Medications: 3 Generic Name Dose Route Start Last Admin Trade Name Freq PRN Reason Stop Dose Admin Acetaminophen 650 mg 03/31/18 17:30 04/01/18 09:40 Tylenol PO 09/27/18 17:29 650 mg Q4HRS PRN Administration Pain, Mild/Fever, Can Take PO Atropine Sulfate 1 mg 03/31/18 17:37 Atropine 1 Mg/10 Ml Syringe IVP 09/27/18 17:36 ONCE PRN HR <40 and symptoms Carbidopa/Levodopa 1 tab 03/31/18 21:00 04/01/18 08:29 Sinemet PO 09/27/18 20:59 1 tab QID@0730,12,17,21 AMY Administration Diphenhydramine HCl 1 sarah 03/31/18 18:10 Benadryl Cream TP 09/27/18 18:09 QID PRN Itching Donepezil HCl 10 mg 03/31/18 21:00 03/31/18 22:24 Aricept PO 09/27/18 20:59 10 mg HS AMY Administration Doxycycline Hyclate 100 mg 03/31/18 21:00 04/01/18 08:29 Doxycycline Hyclate PO 04/30/18 20:59 100 mg BID AMY Administration Protocol Dutasteride 0.5 mg 04/01/18 07:30 04/01/18 08:29 Avodart PO 09/28/18 07:29 0.5 mg DAILY@0730 AMY Administration Escitalopram Oxalate 20 mg 04/01/18 17:00 Lexapro PO 09/28/18 16:59 DAILY@1700 AMY Hydromorphone HCl 0.5 - 1 mg 04/01/18 09:47 Dilaudid IVP 04/11/18 09:46 Q2HRS PRN Pain, Severe Miscellaneous Information 1 ea 03/31/18 21:00 03/31/18 22:25 Patch Removal TD 09/27/18 20:59 Not Given DAILY21 AMY Miscellaneous Medication 1 patch 03/31/18 18:10 04/01/18 09:40 Icy Hot Lidocaine/Menthol 4%/1% Patch TD 09/27/18 18:09 1 patch DAILY PRN Administration Pain, Breakthrough Oxycodone HCl 5 - 10 mg 04/01/18 09:47 Oxycodone Ir PO 04/11/18 09:46 Q3HRS PRN Pain, Severe Able to Take PO Tramadol HCl 50 mg 04/01/18 09:47 Ultram PO 09/28/18 09:46 Q6HRS PRN Pain, Moderate Able to Take PO PMHx: A. fib, Parkinson disease dx 2017, diastolic congestive heart failure, HTN , recent UTI as per HPI SHx: Pacemaker placement s/p 3rd degree heart block. Back surgery x2. Brain surgery for nonmalignant tumor removal. Family hx: Father of [place] at 86. Mother in 97 with multiple complications including CAD. Grandmother at 97. Social hx: No ETOH or tobacco use. Originally from [place] [employer]. 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 present in the room. Vitals: 3 Temp Pulse Resp BP Pulse Ox 36.3 C 52 L 16 140/76 H 91 L 04/01/18 10:29 04/01/18 10:29 04/01/18 10:29 04/01/18 10:29 04/01/18 10:29 3 O2 (L/minute) 2 Physical exam: General: Well-nourished, well-developed in no acute distress. Appears nontoxic. Delirious - pt waving to this brandt at bedside. HEENT: No scleral icterus, conjunctival injection, conjunctiva petechiae. Oropharynx shows mildly dry MM with no thrush. Neck: Supple without palpable lymphadenopathy. Chest: Clear to auscultation bilaterally without adventitious sounds. Respiratory effort is normal. Pt is currently on oxygen via nasal cannula. Cardiovascular: Bradycardia 55bpm, regular rhythm without murmurs, gallops or rubs. Abdomen: Soft, nontender, nondistended. Normal bowel sounds present. Musculoskeletal: No cyanosis, clubbing or edema. Back: Surgical incision well healed without palpable point tenderness. Skin: Warm and dry. Normal color. No stigmata of endocarditis. Neurological: Oriented to time and place. Microbiology: 03/31/2018 blood cx 1 set, pending. 04/01/2018 blood cx 1 set , pending. Radiology: 03/31/2018 Echocardiogram 03/25/18 : MR : mild thickening, mild MR; AV: mild to mod AVR, AV sclerosis, TVR mod to severe; small pericardial effusion; 03/31/2018 CXR 2V impression: 1) Borderline CHF +- right lower lobe pneumonia. 2 ) Stable pacemaker position x7 days. Laboratory results: 3 WBC 15.61 10^3/uL (3.80-9.50) H 03/31/18 16:20 RBC 4.35 10^6/uL (4.40-6.38) L 03/31/18 16:20 Hgb 13.6 g/dL (13.7-17.5) L 03/31/18 16:20 Hct 40.5 % (40.0-51.0) 03/31/18 16:20 MCV 93.1 fL (81.5-99.8) 03/31/18 16:20 MCH 31.3 pg (27.9-34.1) 03/31/18 16:20 MCHC 33.6 g/dL (32.4-36.7) 03/31/18 16:20 RDW 13.0 % (11.5-15.2) 03/31/18 16:20 Plt Count 229 10^3/uL (150-400) 03/31/18 16:20 MPV 10.4 fL (8.7-11.7) 03/31/18 16:20 Neut % (Auto) Not Reported 03/31/18 16:20 Lymph % (Auto) Not Reported 03/31/18 16:20 [place] % (Auto) Not Reported 03/31/18 16:20 Eos % (Auto) Not Reported 03/31/18 16:20 Baso % (Auto) Not Reported 03/31/18 16:20 Nucleat RBC Rel Count Not Reported 03/31/18 16:20 Absolute Neuts (auto) Not Reported 03/31/18 16:20 Absolute Lymphs (auto) Not Reported 03/31/18 16:20 Absolute Monos (auto) Not Reported 03/31/18 16:20 Absolute Eos (auto) Not Reported 03/31/18 16:20 Absolute Basos (auto) Not Reported 03/31/18 16:20 Absolute Nucleated RBC Not Reported 03/31/18 16:20 Immature Gran % Not Reported 03/31/18 16:20 Seg Neutrophils % 87.9 % 03/31/18 16:20 Band Neutrophils % 2.0 % 03/31/18 16:20 Lymphocytes % 2.0 % 03/31/18 16:20 Monocytes % 6.1 % 03/31/18 16:20 Eosinophils % 2.0 % 03/31/18 16:20 Basophils % 0.0 % 03/31/18 16:20 Metamyelocytes % 0.0 % 03/31/18 16:20 Myelocytes % 0.0 % 03/31/18 16:20 Promyelocytes % 0.0 % 03/31/18 16:20 Blast Cells % 0.0 % 03/31/18 16:20 Immature Gran # Not Reported 03/31/18 16:20 Absolute Seg Neuts 13.72 10^/uL (1.70-6.50) H 03/31/18 16:20 Absolute Band Neuts 0.31 10^3/uL (0.00-0.70) 03/31/18 16:20 Absolute Lymphocytes 0.31 10^3/uL (1.00-3.00) L 03/31/18 16:20 Absolute Monocytes 0.95 10^3/uL (0.30-0.80) H 03/31/18 16:20 Absolute Eosinophils 0.31 10^3/uL (0.03-0.40) 03/31/18 16:20 Absolute Basophils 0.00 10^3/uL (0.02-0.10) L 03/31/18 16:20 Absolute Metamyelocyte 0.00 10^3/mL (0.00-0.00) 03/31/18 16:20 Absolute Myelocytes 0.00 10^3/mL (0.00-0.00) 03/31/18 16:20 Absolute Promyelocytes 0.00 10^3/uL (0.00-0.00) 03/31/18 16:20 Absolute Plasma Cells 0.00 10^3/uL (0.00-0.00) 03/31/18 16:20 Nucleated RBCs 0 /100 WBC (0-0) 03/31/18 16:20 Absolute Blast Cells 0.00 10^3/uL (0.00-0.00) 03/31/18 16:20 Plasma Cells % 0.0 % 03/31/18 16:20 Platelet Estimate ADEQUATE (ADEQ) 03/31/18 16:20 Polychromasia 1+ H 03/31/18 16:20 Tear Drop Cells 1+ H 03/31/18 16:20 Echinocytes 2+ H 03/31/18 16:20 Smear Review By Brenda MARIN MD 03/31/18 16:20 PT 31.3 SEC (12.0-15.0) H 04/01/18 03:15 INR 3.04 (0.83-1.16) H 04/01/18 03:15 APTT 55.7 SEC (23.0-38.0) H 04/01/18 03:15 Sodium 138 mEq/L (135-145) 04/01/18 03:15 Potassium 3.8 mEq/L (3.3-5.0) 04/01/18 03:15 Chloride 100 mEq/L (97-110) 04/01/18 03:15 Carbon Dioxide 29 mEq/l (22-31) 04/01/18 03:15 Anion Gap 9 mEq/L (8-16) 04/01/18 03:15 BUN 32 mg/dL (7-23) H 04/01/18 03:15 Creatinine 1.0 mg/dL (0.7-1.3) 04/01/18 03:15 Estimated GFR > 60 04/01/18 03:15 Glucose 109 mg/dL (70-100) H 04/01/18 03:15 Calcium 8.5 mg/dL (8.5-10.4) 04/01/18 03:15 Magnesium 1.9 mg/dL (1.6-2.3) 04/01/18 03:15 Total Bilirubin 1.0 mg/dL (0.1-1.4) 03/31/18 16:20 AST 21 IU/L (17-59) 03/31/18 16:20 ALT 23 IU/L (21-72) 03/31/18 16:20 Alkaline Phosphatase 116 IU/L (38-126) 03/31/18 16:20 Troponin I < 0.012 ng/mL (0.000-0.034) 03/31/18 17:30 NT-Pro-B Natriuret Pep 9970 pg/mL (0-450) H 03/31/18 17:30 Total Protein 5.4 g/dL (6.3-8.2) L 03/31/18 16:20 Albumin 2.6 g/dL (3.5-5.0) L 03/31/18 16:20 TSH 1.990 uIU/mL (0.465-4.680) 03/31/18 16:20 Urine Color YELLOW 03/31/18 22:55 Urine Appearance HAZY 03/31/18 22:55 Urine pH 5.0 (5.0-7.5) 03/31/18 22:55 Ur Specific [place] 1.012 (1.002-1.030) 03/31/18 22:55 Urine Protein NEGATIVE (NEGATIVE) 03/31/18 22:55 Urine Ketones NEGATIVE (NEGATIVE) 03/31/18 22:55 Urine Blood 3+ (NEGATIVE) H 03/31/18 22:55 Urine Nitrate NEGATIVE (NEGATIVE) 03/31/18 22:55 Urine Bilirubin NEGATIVE (NEGATIVE) 03/31/18 22:55 Urine Urobilinogen NEGATIVE EU (0.2-1.0) 03/31/18 22:55 Ur Leukocyte Esterase 2+ (NEGATIVE) H 03/31/18 22:55 Urine RBC 50-182 /hpf (0-3) H 03/31/18 22:55 Urine WBC 10-15 /hpf (0-3) H 03/31/18 22:55 Ur Epithelial Cells TRACE /lpf (NONE-1+) 03/31/18 22:55 Urine Mucus TRACE /lpf (NONE-1+) 03/31/18 22:55 Urine Glucose NEGATIVE (NEGATIVE) 03/31/18 22:55 Scribe attestation: IDasia, am scribing for, and in the presence of, Maria A Chandler MD I, Amie Meditz, MD, personally performed the services described in this documentation, as scribed by Dasia Dodson in my presence, and it is both accurate and complete. Greater than 70 minutes spent on this patients care, greater than 50% of time spent counseling, educating, and coordinating care regarding the above mentioned plan.
--- NOTE | 2018-04-01 14:48 | ASMTCASEMG ---
Living Arrangements What is your living Answers: With Spouse arrangement? Who do you live with? Type Of Residence What kind of residence do Answers: House you live in? Discharge Plan Comments Coordination Status Comments Notes: Pt is a 87 y/o man admitted for pacemaker malfunction. Pt has a hx of parkinson's with memory impairments, afib, recent admission for UTI. Pt was previously d/c with [facility] and private duty. ID has been consulted.Therapies have been ordered and awaiting recommendations. CM met w/ pts and introduced self. Needs are TBD at this time. CM to follow. Plan: TBD Date Signed: 04/01/2018 02:48 PM Electronically Signed By:JASMIN Alarcon
--- NOTE | 2018-04-01 15:13 | HOSPPROG ---
Hospitalist Progress Note Assessment/Plan: 87 yo M with hx of Parkinson's dementia, permanent a fib presenting with pacer lead detachment # pacer lead detachment: noted to be in a slow junctional escape rhythm and pacer with non capture, will need lead revision however with concerns over possible infection this is being delayed until that can be ruled out. Can proceed to temporary pacer if decompensates, pacer pads in place, atropine if needed # complete heart block/permanent a fib: as above # Recent UTI w MSSA: now with elevated wbc, UA mildly abnormal. Patient has been on doxy and there is a chance that prior UTI actually represented bacteremia and if so that pacer should not be placed now. Chest CT ordered by ID , blood cultures pending, consider GARCIA if lingering uncertainty # PD: with underlying dementia that is currently worse than baseline # acute encephalopathy: with what appears to be delirium in the setting of chronic dementia, monitoring # IP status Patient new to my care. Care plan reviewed with ID/cardiology as above. Further hx obtained from patients present at bedside. Subjective: no acute overnight events, patient confused but denies pain or dizzyness Objective: Vital Signs Temp Pulse Resp BP Pulse Ox 36.5 C 70 16 112/64 91 L 04/01/18 13:15 04/01/18 13:15 04/01/18 13:15 04/01/18 13:15 04/01/18 13:15 Laboratory Results 04/01/18 03:15 03/31/18 04/01/18 04/02/18 05:59 05:59 05:59 Intake Total 200 Output Total 375 Balance -175 PT 31.3 SEC (12.0-15.0) H 04/01/18 03:15 INR 3.04 (0.83-1.16) H 04/01/18 03:15 awake alert anicteric op clear suzanne regular no mrg cta b soft nt nd no cce warm dry well perfused oriented x 1, appears to be hallucinating ICD10 Worksheet Patient Problems: Problems Problem Status Onset Pacemaker malfunction Acute Dehydration Acute Fall Acute Multiple skin tears Acute Parkinson disease Acute Paroxysmal a-fib Acute UTI (urinary tract infection) Acute
--- NOTE | 2018-04-01 15:18 | PDCARPN ---
Cardiology Progress Note Chief Complaint: Patient reports feeling mildly better, but confused Assessment/Plan: Assessment: 87-year-old male with history of Parkinson's dementia, permanent AFib, complete heart block with remote ppm implantation, chronic diastolic heart failure, and hypertension. Admitted 03/31/2018 for fatigue, and remote ppm check showing failure to capture of RV lead, questioning RV lead dislodgement. Patient and state fall approximately 10 days ago, on left side at pacer site. Correspond to when device 1st fail to capture. Patient with also significant history of recent UTI with MSSA and now elevated WBC. Patient noted to be in underlying rhythm of atrial fibrillation, with junctional escape rhythm 40s to 50s on admission. 04/01/2018: Patient more confused today. Continuous cardiac monitoring showing improvement in rate with discontinuation of diltiazem, continues to be accelerated junctional rhythm and 50s. Patient states no chest pressure or pain. Appears to be more euvolemic today. Blood pressure stable. Plan: 1. RV lead dislodgement: Patient continues to be in junctional escape rhythm, but improved rate since the scene diltiazem. Concerns over recent infection, will delay lead revision. Discussed with Dr. Dickens, was noted last evening, in emergency department, of partial capture with maximum output from device. Will set device up into the VVI mode with max output in attempt to increase patient's heart rate. If necessary, patient can be taken to geochemical laboratory technician for temporary transvenous pacing. Transcutaneous pads on standby. P.r.n. Atropine. 2. Complete heart block: Ppm as above. 3. Permanent atrial fibrillation: Underlying rhythm, no RVR. DC diltiazem. Hold anticoagulation (Xarelto), INR noted to be elevated today, questionable beginning of right-sided failure due to bradycardia. Repeat CMP in a.m.. 4. Recent UTI with MSSA: Patient now elevated WBC. Questioning previous hospitalization as bacteremia. Appreciate ID consultation. Patient will remain on doxycycline. Blood cultures are pending. UA mildly abnormal. Chest CT ordered by ID, pending results, may consider GARCIA. 5. Hypertension: Blood pressure appears to be mildly elevated, probably due to discontinue until ties a.m.. Continue to monitor. 6. Chronic diastolic heart failure: Noted elevated BNP on admission with chest x-ray appearing to be wet. Mild rales in bases last evening. Per nursing staff , patient was incontinent, but appears that JVD is improved. Will repeat 20 mg IV Lasix tonight. 04/01/18 15:18 Subjective: He reports no chest pressure or pain. Mildly confused to person place and time. Reviewed/Discussed With: hospitalist (Dr Garza and Dr Chandler), other (Dr Dickens) Objective: Vital Signs (8 Hrs) Temp Pulse Resp BP Pulse Ox 04/01/18 13:15 36.5 C 70 16 112/64 91 L 04/01/18 10:29 36.3 C 52 L 16 140/76 H 91 L Intake/Output (24 Hrs) 03/31/18 04/01/18 04/02/18 05:59 05:59 05:59 Intake Total 200 Output Total 375 Balance -175 Intake: Oral (ml) 200 Output: Urine (ml) 375 Catheter 375 Other: Weight 83.915 kg Number of Voids Incontinence 3 Number of Stools Bedside Commode 1 Result Diagrams: 03/31/18 16:20 04/01/18 03:15 - Physical Exam Constitutional: no apparent distress, obese Ears, Nose, Mouth, Throat: moist mucous membranes Cardiovascular: regular rate and rhythm, jugular vein distention (4-5 cm above sternal notch), pulses symmetric bilat, No carotid bruit Peripheral Pulses: 1+: dorsalis-pedis (R), dorsalis-pedis (L), 2+: carotid (R), carotid (L) Respiratory: other (Diminished in bases bilateral, no wheezing noted. No accessary muscle use.) Gastrointestinal: normoactive bowel sounds Skin: warm, No no edema (Trace pedal edema bilateral lower extremities) Neurologic: No AAOx3 (Answers questions, but not alert of person place or time.) Psychiatric: cooperative, interactive, following commands ICD10 Worksheet Patient Problems: Problems Problem Status Onset Paroxysmal a-fib Acute Multiple skin tears Acute Fall Acute Parkinson disease Acute UTI (urinary tract infection) Acute Dehydration Acute Pacemaker malfunction Acute
[2018-04-01] MEDS: traMADol 50 MG TAB PO PRN (16:36)
[2018-04-01] MEDS: ESCITALOPRAM OXALATE 10 MG TAB PO SCH (16:36)
[2018-04-01] MEDS ORDERED: FUROSEMIDE 20 MG/2 ML VIAL IVP ONE (19:23)
[2018-04-01] MEDS ORDERED: POTASSIUM CL 10 MEQ TAB PO ONE (19:24)
[2018-04-01] MEDS: DONEPEZIL HCL 5 MG TAB PO SCH (21:16)
[2018-04-01] MEDS: oxyCODONE IR 5 MG TAB PO PRN (21:16)
[2018-04-01] MEDS: PATCH REMOVAL 1 EA PATCH TD SCH (21:18)
[2018-04-02 04:22] LABS: PLATELET COUNT 230 10^3/uL (150-400)
[2018-04-02] MEDS: oxyCODONE IR 5 MG TAB PO PRN (04:53)
[2018-04-02 08:07] LABS: INR 1.45 (0.83-1.16); PROTIME(PATIENT) 17.8 SEC (12.0-15.0)
[2018-04-02] MEDS: DUTASTERIDE 0.5 MG CAP PO SCH (08:18)
[2018-04-02] MEDS: DOXYCYCLINE HYCLATE 100 MG CAP/TAB PO SCH (08:18)
[2018-04-02] MEDS: CARBIDOPA/LEVODOPA 25 MG/100 MG TAB PO SCH ×4 (08:18→21:48)
[2018-04-02] MEDS: ACETAMINOPHEN 325 MG TAB PO PRN ×2 (08:19→16:37)
[2018-04-02] MEDS: LIDOCAINE 4%/MENTHOL 1% PATCH TD PRN (08:19)
--- NOTE | 2018-04-02 11:00 | PCMIDPN ---
Assessment/Plan: Assessment/Plan: * Recent MSSA UTI with leukocytosis: Given presence of MSSA in urine, raises question if patient had transient bacteremia leading to finding of MSSA in urine. CT scan of chest shows possibly complex pleural effusion on the right. Echocardiographic findings reviewed. Blood cultures remain negative although potentially impacted by use of doxycycline. Review of prior lumbar CT shows no evidence of renal abscess. Next step will be proceeding with thoracentesis to further assess right pleural effusion. Continue to hold off on pacemaker replacement pending ongoing evaluation although suspect this may be feasible early next week if no evidence of empyema; GARCIA could potentially be done simultaneously with pacemaker changed to ensure no evidence of valvular vegetation. Continue doxycycline in interim. Time spent, 45 min, which greater than half was spent in education/counseling/ coordination of care related to above findings including discussion with Cardiology service, hospitalist service, patient and , and patient's daughter Eladia by phone. 04/02/18 10:54 04/02/18 10:55 Subjective: Patient complains of left-sided shoulder pain. Cardiology notes that pacemaker capturing with higher voltage. Objective: Vital Signs Temp Pulse Resp BP Pulse Ox 36.8 C 70 14 141/90 H 91 L 04/02/18 04:00 04/02/18 04:00 04/02/18 04:00 04/02/18 04:00 04/02/18 04:00 Laboratory Results 04/02/18 04:08 04/02/18 04:08 04/01/18 04/02/18 04/03/18 05:59 05:59 05:59 Intake Total 200 450 240 Output Total 375 775 Balance -175 -325 240 Doxycycline Blood cultures x2 no growth CT scan of chest reviewed and interpreted by me with Radiology showing complex right pleural effusion with small peripheral right upper lobe nodule; small left effusion also present - Physical Exam General Appearance: alert, no apparent distress EENT: No scleral icterus, No thrush, No conjunctival petechiae Respiratory: other (Decreased breath sounds right base), No respiratory distress Cardiac/Chest: regular rate, rhythm, systolic murmur (2/6 right and left upper sternal border), other (Pacemaker site nontender) Extremities: No inflammation Abdomen: non-tender, No distended Skin: other (Skin tear along left anterior mendes without surrounding cellulitis) ICD10 Worksheet Patient Problems: Problems Problem Status Onset Pacemaker malfunction Acute Dehydration Acute Fall Acute Multiple skin tears Acute Parkinson disease Acute Paroxysmal a-fib Acute UTI (urinary tract infection) Acute
--- NOTE | 2018-04-02 11:07 | HOSPPROG ---
Hospitalist Progress Note Assessment/Plan: # pacer lead detachment - currently getting capture at high voltage, presented in junctional escape rhythm - plan revision when infectious concerns sorted out # permanent a-fib - hold xarelto # MSSA UTI - concern that this was d/t bacteremia - echo with abnormal valves - notably he has hardware in his spine # pleural effusion - plan thora today to assess # PD - cont sinement # dementia - unclear how significant this is at baseline - cont aricept # dvt ppx - start lovenox post-thoracentesis, likely tomorrow Subjective: no complaints today; nursing worried about his impulsivity Objective: Vital Signs Temp Pulse Resp BP Pulse Ox 36.8 C 70 14 141/90 H 91 L 04/02/18 04:00 04/02/18 04:00 04/02/18 04:00 04/02/18 04:00 04/02/18 04:00 Laboratory Results 04/02/18 04:08 04/02/18 04:08 04/01/18 04/02/18 04/03/18 05:59 05:59 05:59 Intake Total 200 450 240 Output Total 375 775 Balance -175 -325 240 PT 17.8 SEC (12.0-15.0) H 04/02/18 07:42 INR 1.45 (0.83-1.16) H 04/02/18 07:[address] reviewed discussed with Dr Mi - Physical Exam Constitutional: no apparent distress, not in pain Cardiovascular: regular rate and rhythym, systolic murmur Respiratory: no respiratory distress, no rales or rhonchi, clear to auscultation Gastrointestinal: soft, non-tender abdomen, no palpable masses, No guarding, No rebound, No distension ICD10 Worksheet Patient Problems: Problems Problem Status Onset Pacemaker malfunction Acute Dehydration Acute Fall Acute Multiple skin tears Acute Parkinson disease Acute Paroxysmal a-fib Acute UTI (urinary tract infection) Acute
[2018-04-02] MEDS ORDERED: LIDOCAINE 1% 300 MG/30 ML SDV ONE (13:39)
--- NOTE | 2018-04-02 13:49 | PDCARPN ---
Cardiology Progress Note Chief Complaint: Patient reports no pain, feeling fatigue. Assessment/Plan: Assessment: 87-year-old male with history of Parkinson's dementia, permanent AFib, complete heart block with remote ppm implantation, chronic diastolic heart failure, and hypertension. Admitted 03/31/2018 for fatigue, and remote ppm check showing failure to capture of RV lead, questioning RV lead dislodgement. Patient and state fall approximately 10 days ago, on left side at pacer site. Correspond to when device 1st fail to capture. Patient with also significant history of recent UTI with MSSA and now elevated WBC. Patient noted to be in underlying rhythm of atrial fibrillation, with junctional escape rhythm 40s to 50s on admission. Most recent echocardiogram 03/25/18 showing normal LV size, mild concentric LVH, normal LV systolic function with EF of 61%. No regional wall motion abnormalities. Mild thickening of mitral valve leaflets, mild MR, mild-to- moderate AI, moderate to severe TR, RVSP of 56 mm Hg, small pericardial effusion. Past echocardiogram dated 08/07/2014, normal LV systolic function with EF of 64%, diastolic dysfunction was noted elevated LV filling pressures, LA was [id number] dilated, mitral valve is normal, there is mild MR, trace mild TR, RVSP at 40 mm Hg, trace to mild AI, trivial pericardial effusion. In comparison to more recent echocardiogram done 03/25/2018, MR has not worsen AI has worsened from mild to moderate. TR has worsen from trace/mild to moderate to severe. Pulmonary pressures are also higher at 56 mm Hg. 04/02/2018: Patient is alert but confused to person place time. Reviewing continuous laboratory monitor, with increasing to max output, patient is 100% V paced. Underlying rhythm atrial fibrillation. Chest CT done showing pleural effusion, no definitive septic embolisms noted. Patient's weight is unchanged. He is incontinent. Laboratory studies showing mild improvement of WBCs down to 12.26. INR also improved down to 1.45. No significant JVD on physical examination. Plan: 1. RV lead dislodgement: Concerns over recent infection, will delay lead revision. Yesterday increasing PPM to max output VVI mode, appears to be mostly capturing with improved heart rate. If necessary, patient can be taken to feed mill lab technician for temporary transvenous pacing. Transcutaneous pads on standby. P.r.n. Atropine. Discussed with Dr. Mi of Infectious Disease and Dr. Schulz , may potentially be able to perform lead revision early next week. 2. Complete heart block: PPM as above. 3. Permanent atrial fibrillation: Underlying rhythm, no RVR. DC diltiazem. Hold anticoagulation (Xarelto), 4. Recent UTI with MSSA: Patient now elevated WBC. Questioning previous hospitalization as bacteremia. Appreciate ID consultation. Patient will remain on doxycycline. Blood cultures are negative, but potentially impacted by the use of doxycycline. UA mildly abnormal. CT of chest showing pleural effusion. Thoracentesis planned this afternoon for further evaluation. Patient may need GARCIA prior to ppm implantation for further evaluation of valves ensure no evidence of valvular vegetation. 5. Hypertension: Blood pressure appears to be mildly elevated, probably due to discontinue diltiazem. Continue to monitor. 6. Chronic diastolic heart failure: Appears to be fairly euvolemic today. Improvement probably due to better cardiac output with recent pacemaker adjustment. 04/02/18 13:59 Subjective: Denies of any chest pressure, palpitations, lightheadedness, orthopnea, SOB. Reported ongoing fatigue. Reviewed/Discussed With: hospitalist (Dr Schulz), other (Dr Mi (Infectious Disease), Dr Dickens) Objective: Vital Signs (8 Hrs) Temp Pulse Resp BP Pulse Ox 04/02/18 11:41 36.8 C 70 12 131/74 H 95 04/02/18 08:00 36.9 C 67 19 167/97 H 97 Intake/Output (24 Hrs) 04/01/18 04/02/18 04/03/18 05:59 05:59 05:59 Intake Total 200 450 240 Output Total 375 775 Balance -175 -325 240 Intake: Oral (ml) 200 450 240 Output: Urine (ml) 375 775 Catheter 375 775 Other: Weight 83.915 kg 85.9 kg Number of Voids Incontinence 3 2 1 Number of Stools Bedside Commode 1 Result Diagrams: 04/02/18 04:08 04/02/18 04:08 - Physical Exam Constitutional: no apparent distress Ears, Nose, Mouth, Throat: moist mucous membranes Cardiovascular: regular rate and rhythm (100% V paced), no rubs, no gallops, systolic murmur (2/6 systolic murmur along left sternal border.), pulses symmetric bilat, No jugular vein distention Peripheral Pulses: 0: dorsalis-pedis (L), 1+: dorsalis-pedis (R), 2+: carotid (R ), carotid (L) Respiratory: other (Clear but diminished in bases bilateral, no rhonchi, rales, or wheezing noted.) Gastrointestinal: normoactive bowel sounds, no masses Neurologic: other (Alert, but not orientated to person place or time.) Psychiatric: cooperative, interactive ICD10 Worksheet Patient Problems: Problems Problem Status Onset Pacemaker malfunction Acute Dehydration Acute Fall Acute Multiple skin tears Acute Parkinson disease Acute Paroxysmal a-fib Acute UTI (urinary tract infection) Acute
--- NOTE | 2018-04-02 14:35 | ASMTCMCOM ---
CM Note CM Note Notes: 04/02/2018 Case Management Note Reviewed pt during rounds this morning. Pt to have thoracentesis today. Planning for pacemaker lead revision early next week. Confirmed with [facility] that pt is current. [facility] provides RN PT. Per previous case management note, family also has unskilled care in the home. PT is recommending inpatient rehab. Notified RN for MD order. Left for Ivette. Case Management d/c poc: to be determined. Case Management to follow. Date Signed: 04/02/2018 02:34 PM Electronically Signed By:Jeannine Mcnulty RN
[2018-04-02] MEDS ORDERED: BISACODYL 10 MG SUPP PR PRN (14:40)
[2018-04-02] MEDS ORDERED: MAGNESIUM HYDROXIDE 30 ML UDCUP PO PRN (14:40)
[2018-04-02] MEDS ORDERED: LACTULOSE 20 GM/30 ML UDCUP PO PRN (14:40)
[2018-04-02] MEDS ORDERED: POLYETHYLENE GLYCOL 3350 17 GM PKT PO PRN (14:40)
[2018-04-02] MEDS: ESCITALOPRAM OXALATE 10 MG TAB PO SCH (16:37)
[2018-04-02] MEDS: DONEPEZIL HCL 5 MG TAB PO SCH (21:48)
[2018-04-02] MEDS: SENNOSIDES/DOCUSATE SODIUM TAB PO SCH (21:48)
[2018-04-03 04:28] LABS: PLATELET COUNT 246 10^3/uL (150-400)
[2018-04-03] MEDS: PATCH REMOVAL 1 EA PATCH TD SCH ×2 (05:21→19:47)
[2018-04-03] MEDS: CARBIDOPA/LEVODOPA 25 MG/100 MG TAB PO SCH ×4 (08:08→23:13)
[2018-04-03] MEDS: SENNOSIDES/DOCUSATE SODIUM TAB PO SCH ×2 (08:08→19:47)
[2018-04-03] MEDS: DUTASTERIDE 0.5 MG CAP PO SCH (08:08)
--- NOTE | 2018-04-03 10:19 | HOSPPROG ---
Hospitalist Progress Note Assessment/Plan: # pacer lead detachment - currently getting capture at high voltage, presented in junctional escape rhythm - plan revision when infectious concerns sorted out # permanent a-fib - hold xarelto # MSSA UTI - concern that this was d/t hematogenous spread in setting of bacteremia - echo with abnormal valves - notably he has hardware in his spine - doxy stopped yesterday - follow clinical course # pleural effusion - thoracentesis unsuccessful; will likely just follow clinically # PD - cont sinement # dementia - unclear how significant this is at baseline - cont aricept # dvt ppx - start lovenox today Subjective: no complaints today, wants to watch the [employer] game Objective: Vital Signs Temp Pulse Resp BP Pulse Ox 36.9 C 70 18 156/77 H 99 04/03/18 07:16 04/03/18 07:16 04/03/18 07:16 04/03/18 07:16 04/03/18 07:16 Laboratory Results 04/03/18 03:17 04/03/18 03:17 04/02/18 04/03/18 04/04/18 05:59 05:59 05:59 Intake Total 450 915 Output Total 775 Balance -325 915 PT 17.8 SEC (12.0-15.0) H 04/02/18 07:42 INR 1.45 (0.83-1.16) H 04/02/18 07:42 CXR personally reviewed tele reviewed ICD10 Worksheet Patient Problems: Problems Problem Status Onset Paroxysmal a-fib Acute Multiple skin tears Acute Fall Acute Parkinson disease Acute UTI (urinary tract infection) Acute Dehydration Acute Pacemaker malfunction Acute
--- NOTE | 2018-04-03 11:06 | PCMIDPN ---
Assessment/Plan: Assessment: Right-sided pleural effusion. Appears loculated. Attempted aspiration yesterday was unsuccessful. Appears that VATS procedure would be needed in order to get sampling. Given he does not have any symptoms of infection and negative blood cultures thus far that seems to be somewhat aggressive in an 87- year-old. At this point we will continue the Plan of holding antibiotics and observing over the weekend. If he shows no clinical signs or symptoms of infection we will clear Cardiology to repair the pacer issue. Plan: 1. Continue to observe off antibiotics. 2. Follow blood cultures as well as temp curve and CBC. 04/03/18 10:59 Subjective: Patient is resting in his hospital bed. He reports no new complaints or concerns. Denies fevers or chills. States he normally feels great but the last 3 weeks he has felt very bad. Today he feels fair. Objective: No antibiotics Vital Signs Temp Pulse Resp BP Pulse Ox 36.9 C 70 18 156/77 H 99 04/03/18 07:16 04/03/18 07:16 04/03/18 07:16 04/03/18 07:16 04/03/18 07:16 Laboratory Results 04/03/18 03:17 04/03/18 03:17 04/02/18 04/03/18 04/04/18 05:59 05:59 05:59 Intake Total 450 915 Output Total 775 Balance -325 915 - Physical Exam General Appearance: WD/WN, alert, no apparent distress, non-toxic Respiratory: lungs clear, crackles (Scattered), No normal breath sounds, No respiratory distress Cardiac/Chest: regular rate, rhythm, No tachycardia Skin: normal color, warm/dry, No rash Neuro/Psych: alert, normal mood/affect, oriented x 3 ICD10 Worksheet Patient Problems: Problems Problem Status Onset Pacemaker malfunction Acute Dehydration Acute Fall Acute Multiple skin tears Acute Parkinson disease Acute Paroxysmal a-fib Acute UTI (urinary tract infection) Acute
[2018-04-03] MEDS: ENOXAPARIN 40 MG/0.4 ML SYR SC SCH (11:51)
--- NOTE | 2018-04-03 12:22 | PDCARPN ---
Cardiology Progress Note Chief Complaint: RV lead dislodgment Assessment/Plan: Assessment: 87-year-old male PMH PD, dementia, permanent AFib, complete heart block with remote ppm implantation, chronic diastolic heart failure, and hypertension. Admitted 03/31/2018 for fatigue with remote ppm check showing failure to capture of RV lead, questioning RV lead dislodgement. Patient had a fall approximately 10 days preceding hospitalization. Recent history of UTI with MSSA and leukocytosis on presentation. Initial rhythm in ED was junctional escape 40s to 50s. Most recent echocardiogram 03/25/18 showing normal LV size, mild concentric LVH, normal LV systolic function with EF of 61%. No regional wall motion abnormalities. Mild thickening of mitral valve leaflets, mild MR, mild-to- moderate AI, moderate to severe TR, RVSP of 56 mm Hg, small pericardial effusion. Plan: #. RV lead dislodgement: Concerns over recent infection delaying lead revision. PPM changed to max output VVI mode, appears to be mostly capturing with improved heart rate. If necessary, patient can be taken to track laborer for temporary transvenous pacing. Transcutaneous pads on standby. P.r.n. Atropine. Discussed with Dr. Schulz, may potentially be able to perform lead revision early next week. #. Complete heart block: PPM as above. #. Permanent atrial fibrillation: Underlying rhythm, no RVR. Hold anticoagulation (Xarelto), #. Recent UTI with MSSA: Questioning previous hospitalization as bacteremia. Appreciate ID consultation. Patient may need GARCIA prior to ppm implantation for further evaluation of valves ensure no evidence of valvular vegetation. #. Hypertension: Blood pressure appears to be mildly elevated, probably due to discontinue diltiazem. Continue to monitor. #. Chronic diastolic heart failure: Appears to be fairly euvolemic today. #. Pleural effusion: attempt at thoracentesis unsuccessful due to loculation 04/03/18 12:09 Subjective: No discomfort, no dyspnea/pnd/orthopnea, edema. Objective: Vital Signs (8 Hrs) Temp Pulse Resp BP Pulse Ox 04/03/18 11:45 98.0 F 70 16 142/82 H 97 04/03/18 07:16 98.5 F 70 18 156/77 H 99 Intake/Output (24 Hrs) 04/02/18 04/03/18 04/04/18 05:59 05:59 05:59 Intake Total 450 915 Output Total 775 Balance -325 915 Intake: Oral (ml) 450 915 Output: Urine (ml) 775 Catheter 775 Other: Weight 96 kg 84.8 kg Number of Voids Bedside Commode 1 Incontinence 2 1 1 Toilet 1 Number of Stools Toilet 1 Result Diagrams: 04/03/18 03:17 04/03/18 03:17 Telemetry: paced/ AF - Physical Exam Constitutional: healthy appearing, no apparent distress Eyes: anicteric sclera Ears, Nose, Mouth, Throat: moist mucous membranes Cardiovascular: regular rate and rhythm Respiratory: reduced air movement Skin: warm, no edema Psychiatric: cooperative, interactive ICD10 Worksheet Patient Problems: Problems Problem Status Onset Paroxysmal a-fib Acute Multiple skin tears Acute Fall Acute Parkinson disease Acute UTI (urinary tract infection) Acute Dehydration Acute Pacemaker malfunction Acute
[2018-04-03] MEDS: ESCITALOPRAM OXALATE 10 MG TAB PO SCH (17:56)
[2018-04-03] MEDS: ACETAMINOPHEN 325 MG TAB PO PRN (19:26)
[2018-04-03] MEDS: DONEPEZIL HCL 5 MG TAB PO SCH (19:46)
[2018-04-03] MEDS: traMADol 50 MG TAB PO PRN (23:29)
[2018-04-04 03:45] LABS: PLATELET COUNT 253 10^3/uL (150-400)
[2018-04-04] MEDS: traMADol 50 MG TAB PO PRN ×2 (05:04→20:17)
[2018-04-04] MEDS: ENOXAPARIN 40 MG/0.4 ML SYR SC SCH (07:22)
[2018-04-04] MEDS: DUTASTERIDE 0.5 MG CAP PO SCH (07:22)
[2018-04-04] MEDS: CARBIDOPA/LEVODOPA 25 MG/100 MG TAB PO SCH ×4 (07:22→20:17)
[2018-04-04] MEDS: SENNOSIDES/DOCUSATE SODIUM TAB PO SCH ×2 (07:32→21:08)
--- NOTE | 2018-04-04 09:16 | PDCARPN ---
Cardiology Progress Note Assessment/Plan: Assessment: 1. RV lead dislogement 2. MSSA bactermeia 3. VVI at max out put, (V paced on telemetry) 4. Complete Heart Block 5. Permanent Afib Plan: -plan for RV lead revision once cleared from ID 04/04/18 09:16 Subjective: Mr. Sykes is doing well this AM. No new complaints. Telemetry demonstrates V pacing. Currently at VVI at max output. Underlying CHB. Admitted with MSSA. Currently on Abx. Followed by Hospitalist and ID service. Known RV lead dislodgement most likely due to recent fall. plan for RV lead revision once cleared from ID. Reviewed/Discussed With: hospitalist Objective: Vital Signs (8 Hrs) Temp Pulse Resp BP Pulse Ox 04/04/18 07:30 36.5 C 74 12 154/94 H 92 04/04/18 03:10 35.9 C L 71 12 137/92 H 96 Intake/Output (24 Hrs) 04/03/18 04/04/18 04/05/18 05:59 05:59 05:59 Intake Total 915 980 Output Total 450 400 Balance 915 530 -400 Intake: Oral (ml) 915 980 Output: Urine (ml) 450 400 Urinal 450 400 Other: Weight 96 kg 84.8 kg Number of Voids Bedside Commode 1 Incontinence 1 1 Toilet 1 Number of Stools Toilet 1 Result Diagrams: 04/04/18 03:36 04/04/18 03:36 - Physical Exam Ears, Nose, Mouth, Throat: moist mucous membranes Cardiovascular: other (V paced. ) Neurologic: AAOx3 Psychiatric: cooperative, interactive, following commands ICD10 Worksheet Patient Problems: Problems Problem Status Onset Pacemaker malfunction Acute Dehydration Acute Fall Acute Multiple skin tears Acute Parkinson disease Acute Paroxysmal a-fib Acute UTI (urinary tract infection) Acute
--- NOTE | 2018-04-04 10:08 | HOSPPROG ---
Hospitalist Progress Note Assessment/Plan: # pacer lead detachment - currently getting capture at high voltage, presented in junctional escape rhythm - plan revision when infectious concerns sorted out, likely early next week # permanent a-fib - hold xarelto # MSSA UTI - concern that this was d/t hematogenous spread in setting of bacteremia - echo with abnormal valves - notably he has hardware in his spine - doxy stopped - follow clinical course # pleural effusion - thoracentesis unsuccessful; will likely just follow clinically # PD - cont sinement # dementia - unclear how significant this is at baseline - cont aricept # dvt ppx - start lovenox today Subjective: no complaints; no CP or SOB; tolerating PO Objective: Vital Signs Temp Pulse Resp BP Pulse Ox 36.5 C 74 12 154/94 H 92 04/04/18 07:30 04/04/18 07:30 04/04/18 07:30 04/04/18 07:30 04/04/18 07:30 Laboratory Results 04/04/18 03:36 04/04/18 03:36 04/03/18 04/04/18 04/05/18 05:59 05:59 05:59 Intake Total 915 980 Output Total 450 400 Balance 915 530 -400 PT 17.8 SEC (12.0-15.0) H 04/02/18 07:42 INR 1.45 (0.83-1.16) H 04/02/18 07:[address] Randell khan personally reviewed - lead capture ICD10 Worksheet Patient Problems: Problems Problem Status Onset Paroxysmal a-fib Acute Multiple skin tears Acute Fall Acute Parkinson disease Acute UTI (urinary tract infection) Acute Dehydration Acute Pacemaker malfunction Acute
--- NOTE | 2018-04-04 12:09 | PCMIDPN ---
Assessment/Plan: Assessment/Plan: * Recent MSSA UTI with leukocytosis: Given presence of MSSA in urine, raises question if patient had transient bacteremia leading to finding of MSSA in urine. CT scan of chest shows possibly complex pleural effusion on the right. No fluid was yielded on attempted thoracentesis. Patient currently asymptomatic without active signs of infection. Agree with Dr. Esparza that only way to sample fluid would require VATS which in current circumstances feel risk would outweigh benefits. Given persistently negative blood cultures and stable clinical course, think can proceed with pacemaker revision at this point in time. If feasible, would suggest GARCIA at time of pacemaker revision to ensure no evidence of endocarditis. Plan continued observation off antibiotic therapy. 04/04/18 12:06 Subjective: Patient without specific complaints other than pain from rotator cuff in left shoulder. Objective: Vital Signs Temp Pulse Resp BP Pulse Ox 36.8 C 70 14 151/89 H 96 04/04/18 11:55 04/04/18 11:55 04/04/18 11:55 04/04/18 11:55 04/04/18 11:55 Laboratory Results 04/04/18 03:36 04/04/18 03:36 04/03/18 04/04/18 04/05/18 05:59 05:59 05:59 Intake Total 915 980 Output Total 450 400 Balance 915 530 -400 No antibiotic therapy Blood cultures x2 no growth - Physical Exam General Appearance: alert, no apparent distress EENT: No scleral icterus, No conjunctival petechiae Respiratory: other (Decreased breath sounds left base although overall air movement improved) Cardiac/Chest: regular rate, rhythm, systolic murmur Extremities: No inflammation Abdomen: non-tender, No distended Skin: No embolic lesions ICD10 Worksheet Patient Problems: Problems Problem Status Onset Pacemaker malfunction Acute Dehydration Acute Fall Acute Multiple skin tears Acute Parkinson disease Acute Paroxysmal a-fib Acute UTI (urinary tract infection) Acute
[2018-04-04] MEDS: ESCITALOPRAM OXALATE 10 MG TAB PO SCH (17:58)
[2018-04-04] MEDS: ACETAMINOPHEN 325 MG TAB PO PRN (20:16)
[2018-04-04] MEDS: DONEPEZIL HCL 5 MG TAB PO SCH (20:17)
[2018-04-04] MEDS: PATCH REMOVAL 1 EA PATCH TD SCH (21:07)
[2018-04-05] MEDS: traMADol 50 MG TAB PO PRN (06:10)
[2018-04-05] MEDS: CARBIDOPA/LEVODOPA 25 MG/100 MG TAB PO SCH ×4 (06:11→20:18)
[2018-04-05] MEDS: DUTASTERIDE 0.5 MG CAP PO SCH (06:14)
[2018-04-05 06:16] LABS: PLATELET COUNT 257 10^3/uL (150-400)
[2018-04-05] MEDS: SENNOSIDES/DOCUSATE SODIUM TAB PO SCH ×2 (07:22→20:17)
[2018-04-05] MEDS: LIDOCAINE 4%/MENTHOL 1% PATCH TD PRN (08:09)
--- NOTE | 2018-04-05 08:24 | HOSPPROG ---
Hospitalist Progress Note Assessment/Plan: # pacer lead detachment - currently getting capture at high voltage, presented in junctional escape rhythm/CHB - ok'd for revision by ID - will d/w cards; currently NPO # permanent a-fib - hold xarelto - currently holding dilt given CHB # htn - start low dose norvasc today and follow # MSSA UTI - cleared by ID for ppm - concern that this was d/t hematogenous spread in setting of bacteremia - echo with abnormal valves - notably he has hardware in his spine - doxy stopped - follow clinical course # pleural effusion - thoracentesis unsuccessful; will likely just follow clinically; no indication for VATS # PD - cont sinement # dementia - unclear how significant this is at baseline - cont aricept # dvt ppx - cont lovenox Subjective: complains of thirst Objective: Vital Signs Temp Pulse Resp BP Pulse Ox 36.6 C 75 16 158/90 H 98 04/05/18 07:23 04/05/18 07:23 04/05/18 07:23 04/05/18 07:23 04/05/18 07:23 Laboratory Results 04/05/18 05:50 04/05/18 05:50 04/04/18 04/05/18 04/06/18 05:59 05:59 05:59 Intake Total 980 250 Output Total 450 1100 Balance 530 -850 PT 17.8 SEC (12.0-15.0) H 04/02/18 07:42 INR 1.45 (0.83-1.16) H 04/02/18 07:[address] Mi's note tele personally reviewed - still getting capture - Physical Exam Constitutional: no apparent distress Cardiovascular: systolic murmur, irregularly irregular, No carotid bruit, No tachycardia, No bradycardia Respiratory: no respiratory distress, no rales or rhonchi, clear to auscultation Gastrointestinal: soft, non-tender abdomen, no palpable masses, No guarding, No rebound, No distension ICD10 Worksheet Patient Problems: Problems Problem Status Onset Paroxysmal a-fib Acute Multiple skin tears Acute Fall Acute Parkinson disease Acute UTI (urinary tract infection) Acute Dehydration Acute Pacemaker malfunction Acute
[2018-04-05] MEDS ORDERED: NS 1,000 ML IV ONE (09:15)
--- NOTE | 2018-04-05 09:48 | PCMIDPN ---
Assessment/Plan: Assessment: Right-sided pleural effusion. Appears loculated. Attempted aspiration was unsuccessful likely due to viscosity of the fluid. Appears that VATS procedure would be needed in order to get sampling. Given he does not have any symptoms of infection and negative blood cultures thus far that seems to be somewhat aggressive in an 87-year-old. At this point we will continue holding antibiotics and observing. Planned GARCIA today. Pacer repair tomorrow if GARCIA is reassuring. Plan: 1. Continue to observe off antibiotics. 2. Follow blood cultures as well as temp curve and CBC. Subjective: Patient is sitting up in his chair in his hospital room. He states that he feels great. No new fevers. No new complaints. Objective: No antibiotics Vital Signs Temp Pulse Resp BP Pulse Ox 36.6 C 75 16 158/90 H 98 04/05/18 07:23 04/05/18 07:23 04/05/18 07:23 04/05/18 07:23 04/05/18 07:23 Laboratory Results 04/05/18 05:50 04/05/18 05:50 04/04/18 04/05/18 04/06/18 05:59 05:59 05:59 Intake Total 980 250 Output Total 450 1100 Balance 530 -850 - Physical Exam General Appearance: WD/WN, alert, no apparent distress, non-toxic Neuro/Psych: alert, normal mood/affect, oriented x 3 ICD10 Worksheet Patient Problems: Problems Problem Status Onset Pacemaker malfunction Acute Dehydration Acute Fall Acute Multiple skin tears Acute Parkinson disease Acute Paroxysmal a-fib Acute UTI (urinary tract infection) Acute
--- NOTE | 2018-04-05 09:55 | PDCARPN ---
Cardiology Progress Note Chief Complaint: RV lead dislodgment Assessment/Plan: Assessment: 87-year-old male PMH PD, dementia, permanent AFib, complete heart block with remote ppm implantation, chronic diastolic heart failure, and hypertension. Admitted 03/31/2018 for fatigue with remote ppm check showing failure to capture of RV lead, questioning RV lead dislodgement. Patient had a fall approximately 10 days preceding hospitalization. Recent history of UTI with MSSA and leukocytosis on presentation. Initial rhythm in ED was junctional escape 40s to 50s. Most recent echocardiogram 03/25/18 showing normal LV size, mild concentric LVH, normal LV systolic function with EF of 61%. No regional wall motion abnormalities. Mild thickening of mitral valve leaflets, mild MR, mild-to- moderate AI, moderate to severe TR, RVSP of 56 mm Hg, small pericardial effusion. Plan: #. RV lead dislodgement: Concerns over recent infection delaying lead revision PPM changed to max output VVI mode, appears to be mostly capturing with improved heart rate Plan for GARCIA today and lead revision tomorrow Discussed with Dr. Schulz #. Complete heart block: PPM as above #. Permanent atrial fibrillation: Underlying rhythm, no RVR Hold anticoagulation (Xarelto) #. Recent UTI with MSSA: Questioning previous hospitalization as bacteremia Appreciate ID consultation - spoke with Dr. Esparza who recommends that if no discrete echodensity found on GARCIA to go ahead with lead revision #. Hypertension: Blood pressure appears to be mildly elevated agree with start Amlodipine #. Chronic diastolic heart failure: Appears to be fairly euvolemic today #. Pleural effusion: attempt at thoracentesis unsuccessful due to loculation 04/05/18 09:51 Subjective: No complaints other than back pain. Objective: Vital Signs (8 Hrs) Temp Pulse Resp BP Pulse Ox 04/05/18 07:23 97.8 F 75 16 158/90 H 98 04/05/18 05:40 98.2 F 75 17 175/89 H 94 Intake/Output (24 Hrs) 04/04/18 04/05/18 04/06/18 05:59 05:59 05:59 Intake Total 980 250 Output Total 450 1100 Balance 530 -850 Intake: Oral (ml) 980 250 Output: Urine (ml) 450 1100 Urinal 450 1100 Other: Weight 84.8 kg 84.277 kg Number of Voids Incontinence 1 1 Toilet 1 Urinal 1 Number of Stools Toilet 1 Result Diagrams: 04/05/18 05:50 04/05/18 05:50 Telemetry: Paced - Physical Exam Constitutional: healthy appearing, no apparent distress Eyes: anicteric sclera Cardiovascular: regular rate and rhythm, systolic murmur Respiratory: clear to auscultate bilat, no crackles Gastrointestinal: normoactive bowel sounds Skin: warm, other (wearing compressive stockings) Psychiatric: cooperative, interactive ICD10 Worksheet Patient Problems: Problems Problem Status Onset Paroxysmal a-fib Acute Multiple skin tears Acute Fall Acute Parkinson disease Acute UTI (urinary tract infection) Acute Dehydration Acute Pacemaker malfunction Acute
[2018-04-05] MEDS: ENOXAPARIN 40 MG/0.4 ML SYR SC SCH (09:56)
[2018-04-05] MEDS: POTASSIUM Cl (KCl) 100 ML IV SCH ×2 (10:12→12:42)
[2018-04-05] MEDS ORDERED: PROPOFOL 200 MG/20 ML VIAL ONE (13:53)
[2018-04-05] MEDS ORDERED: MIDAZOLAM 2 MG/2 ML VIAL ONE (13:54)
[2018-04-05] MEDS ORDERED: LIDOCAINE 1% 5 ML SDV ONE (13:54)
--- NOTE | 2018-04-05 14:02 | PDANEPAE ---
ANE History of Present Illness 87 year old male for GARCIA and cardioversion. History significant for htn and parkinson's. ANE Past Medical History - Pulmonary History Hx Oxygen in Use at Home: No Hx Sleep Apnea: No - Endocrine History Hx Diabetes: No - Chronic Pain History Chronic Pain: Yes ANE Review of Systems Review of systems is: negative Review of Systems: - Pacemaker Date Pacemaker Last Checked: 03/31/2018 ANE Patient History - Allergies Allergies/Adverse Reactions: No Known Allergies Allergy (Verified 03/20/18 15:03) - Home Medications Home Medications: Diltiazem Cd [Cardizem ER 120 MG (*)] 120 mg PO DAILY@0730 03/20/18 [Last Taken 03/31/18] Donepezil HCl [Aricept 5 MG (*)] 10 mg PO HS 03/20/18 [Last Taken 03/30/18] Dutasteride [Avodart 0.5 MG (*)] 0.5 mg PO DAILY@0730 03/20/18 [Last Taken 03/31] Escitalopram Oxalate [Lexapro] 20 mg PO DAILY@03/20/18 [Last Taken 03/31/18] Rivaroxaban [Xarelto] 20 mg PO DAILY@17 03/20/18 [Last Taken 03/31/18] Carbidopa/Levodopa 25/100Mg [Sinemet 25/100 MG (*)] 1 tab PO QID@0730,12,17,21 03/22/18 [Last Taken 03/31/18] Lidocaine 4%/Menthol 1% [Icy Hot Lidocaine/Menthol 4%/1% Patch (*)] 1 patch TD DAILY PRN 03/31/18 [Last Taken Unknown] - Smoking Hx Smoking Status: Never smoked ANE Labs/Vital Signs - Labs Result Diagrams: 04/05/18 05:50 04/05/18 05:50 - Vital Signs Blood Pressure: 140/83 Heart Rate: 70 Respiratory Rate: 15 O2 Sat (%): 91 Height: 185.42 cm Weight: 84.277 kg ANE Physical Exam - Airway Neck exam: FROM Mallampati Score: Class 2 - Pulmonary Pulmonary: no respiratory distress - Cardiovascular Cardiovascular: irregularly irregular - ASA Status ASA Status: III ANE Anesthesia Plan Anesthesia Plan: MAC
[2018-04-05] MEDS ORDERED: NALOXONE HCL 0.4 MG/ML INJ IVP PRN (14:03)
--- NOTE | 2018-04-05 14:14 | PDHPUP ---
History & Physical Update H&P update statement: This history and physical update is based on an assessment of the patient which was completed after admission or registration (within 24 hours), but prior to the surgery/procedure. H&P update: H&P reviewed & patient examined, no change in patient's condition since H&P completed (please see Rae Granda, PAC's progress note dated 2017)
--- NOTE | 2018-04-05 16:54 | ASMTCMCOM ---
CM Note CM Note Notes: 04/05/2018 Case Management Note Met w/pt to discuss d/c needs. Pt deferred decision to Aldo, requested case management call daughter Eladia for updates. Eladia identifies as MDPOA, however there is no paperwork to verify and per Aldo, there has not been paperwork signed by pt designating Eladia MDPOA. Requested paperwork from Eladia who repeatedly stated her brother was an trademark attorney and her sister was an trademark attorney. Eladia did not want the fax number for 2W, requested a text with fax number, case management declined and offered instead to send a fax, which Eladia stated she does not have access to a fax machine. Informed Eladia that until MDPOA paperwork was provided she was not designated as spokesperson for pt. Pt is decisional today and is deferring decisions to Aldo. Eladia abruptly ended call with family independence case manager. Aldo prefers pt enter inpatient rehab on [place]. Offerred to private pay. Discussed with Ivette, who is following case. Discussed SNF rehab options. Aldo unhappy with recent pt admission at [facility]. Faxed referrals to 3 facilities in [place]. Aldo to visit facilities and make choice in the morning. Will need auth from [employer]. Pt is current with [facility] RN and PT. Updated on the phone. Aldo and Eladia want to private pay for daily PT. [facility] unable to provide that service. Informed Aldo. Aldo is comfortable with PT visits resuming from [facility]. Pt has unskilled caregivers 02/02 in the home. Aldo prefers pt return home with unskilled supervision and [facility] RN and PT rather than a SNF rehab stay. Discussed above with Eladia. Eladia stated pt is a "man of means" who can afford to pay for private medical transport to [place] where Eladia resides. There are difficult family dynamics at play. Eladia requested several things of case management including placing pt in rehab in [place]. Informed Eladia that it is unclear if pt will be cleared to fly and that case management would need name of facility to send records and pt would need to be agreement with Eladia. Aldo is not in favor of this option, pt declined option immediately as unneccessary. Eladia offered to private pay for inpatient rehab. Eladia offered to private pay for daily PT at home. See above explanation. Pt stated he wanted Aldo to be MDPOA. Informed RN for mems device scientist order and assistance with MDPOA paperwork. Encouraged Aldo to consult with trademark attorney due to pt dementia status and ongoing difficult interactions with Eladia regarding care of patient. Case Management d/c poc: to be determined. Inpatient rehab vs SNF rehab vs home resuming [facility] and unskilled care. Case Management to follow. Date Signed: 04/05/2018 04:54 PM Electronically Signed By:Jeannine Mcnulty RN
[2018-04-05] MEDS: ESCITALOPRAM OXALATE 10 MG TAB PO SCH (17:04)
--- NOTE | 2018-04-05 17:14 | ECHO ---
[email or web address] [address] [address] Main: [phone] Fax: Transesophageal Echocardiography Name: CHAVEZ SCHUMACHER MR#: [id number] Study Date: 04/05/2018 Study Time: 01:57 PM Date of : 1930 Age: 87 year(s) Height: ( ) Weight: ( ) BSA: Gender: Male Examination: GARCIA Indication: Eval Pacer lead Image Quality: Contrast: Requested by: Rae Granda Heart Rate: Rhythm: BP: / Procedure Staff Transportation Lead: Yosef Borges RDCS Reading Physician: Delilah Mi MD Requesting Provider: GARCIA Exam Details Conclusions: Normal global systolic LV function. Normal size right ventricle. There is a pacemaker lead noted in the right ventricle. Spontaneous contrast in the right ventricle. There is no obvious vegetation on the pacemaker wire.. Spontaneous contrast in the left atrium. Good color flow doppler in the left atrial appendage. No thrombus in left appendage. Mild mitral valve regurgitation is present. Trivial to mild aortic valve regurgitation. Mild tricuspid regurgitation is present. The pulmonic valve is normal in appearance and function. No obvious valvular vegetation Measurements: Chambers Valvular Assessment AV/MV Valvular Assessment TV/PV Normal Normal Normal Name Value Range Name Value Range Name Value Range TR Vmax: 2.76 mm/s ( - ) TR PGmax: 30 mmHg ( - ) syst. PAP: 35 mmHg ( - ) Additional Measurements: Valvular Assessment TV/PV Patient: CHAVEZ SCHUMACHER Study Date: 04/05/2018 Page 1 of 2 01:57 PM Name Value CVP (est.): 5 mmHg Findings: Left Ventricle: Normal global systolic LV function. Right Ventricle: Normal size right ventricle. There is a pacemaker lead noted in the right ventricle. Spontaneous contrast in the right ventricle. There is no obvious vegetation on the pacemaker wire.. Left Atrium: Spontaneous contrast in the left atrium. Left Atrial Appendage: Good color flow doppler in the left atrial appendage. No thrombus in left appendage. Mitral Valve: Mild mitral valve regurgitation is present. Aortic Valve: The aortic valve is tri-leaflet. Trivial to mild aortic valve regurgitation. Tricuspid Valve: The tricuspid valve is normal in appearance and function. Mild tricuspid regurgitation is present. Pulmonic Valve: The pulmonic valve is normal in appearance and function. Aorta: The aorta is normal. Pericardium: No pericardial effusion. l1n (No Signature Object) Patient: CHAVEZ SCHUMACHER Study Date: 04/05/2018 Page 2 of 2 01:57 PM [id number]
[2018-04-05] MEDS: DONEPEZIL HCL 5 MG TAB PO SCH (20:17)
[2018-04-05] MEDS: ACETAMINOPHEN 325 MG TAB PO PRN (20:17)
[2018-04-05] MEDS: PATCH REMOVAL 1 EA PATCH TD SCH (20:18)
[2018-04-06] MEDS: ACETAMINOPHEN 325 MG TAB PO PRN ×2 (05:45→20:16)
[2018-04-06] MEDS ORDERED: NS 1,000 ML IV ONE (06:00)
[2018-04-06] MEDS ORDERED: BACITRACIN IRRIGATION/NS 50,000 UNITS/1,000 ML BTL IRR ONE (06:00)
[2018-04-06] MEDS ORDERED: ceFAZolin 2 GM/DEXTROSE 100 ML IV ONE (06:00)
[2018-04-06 06:15] LABS: PLATELET COUNT 272 10^3/uL (150-400)
[2018-04-06 06:23] LABS: INR 1.26 (0.83-1.16)
[2018-04-06] MEDS: CARBIDOPA/LEVODOPA 25 MG/100 MG TAB PO SCH ×4 (06:33→20:16)
--- NOTE | 2018-04-06 07:25 | PDPROPOC ---
Sedation Plan of Care Sedation Plan of Care: vital signs stable, mental status noted, patient educated of risks, benefits, alternatives, patient can tolerate sedation ASA Classification: ASA 3 Planned drugs: fentanyl, midazolam Mallampati Score: Class 1 Mallampati Reference Image: Patient passed 3-3-2 rule?: Yes
--- NOTE | 2018-04-06 07:27 | PDHPUP ---
History & Physical Update H&P update statement: This history and physical update is based on an assessment of the patient which was completed after admission or registration (within 24 hours), but prior to the surgery/procedure. H&P update: H&P reviewed & patient examined (Plan for lead revision today in the setting of recent bacteremia. Patient has been cleared by Infectious Disease for proceeding. On examination today the site is free of erythema or edema. There is no tenderness. Will plan for RV lead revision. Risks and benefits were discussed with the patient his .), no change in patient's condition since H&P completed
[2018-04-06] MEDS ORDERED: IOPAMIDOL (ISOVUE-300) 50 ML VIAL ONE (07:48)
[2018-04-06] MEDS ORDERED: LIDOCAINE 1% 300 MG/30 ML SDV ONE (07:48)
[2018-04-06] MEDS ORDERED: fentaNYL 100 MCG/2 ML INJ ONE ×2 (07:48→08:40)
[2018-04-06] MEDS ORDERED: MIDAZOLAM 2 MG/2 ML VIAL ONE (07:49)
[2018-04-06] MEDS ORDERED: BUPIVACAINE 0.5% 30 ML SDV ONE (07:49)
[2018-04-06] MEDS ORDERED: LIDO/EPI 1% **for epidural** 30 ML SDV ONE (07:49)
--- NOTE | 2018-04-06 08:47 | PDCTREPORT ---
Cardiothoracic Procedure Rpt Cardiothoracic Procedure Report: Procedure: Left subclavian venogram. Implantation of a new right ventricular lead. Pocket revision. Capping of a chronic right ventricular lead. Implantation of a new pulse generator. Indications: Lead fracture in the setting of complete heart block After obtaining informed consent patient was brought to the cardiac catheterization lab in the fasting state. Venogram was performed. The old pacemaker site in the left subclavian fossa was sterilely prepped and draped. The old scar was anesthetized with 2% xylocaine. Using a 10 blade an incision was made through the old scar. Using a combination of sharp and blunt dissection the Bovie catheter the old pacemaker pocket was entered. The device was delivered to the field. The ventricular lead was removed and attached to an external pacing device. There was an underlying escape rhythm of 30 beats per minute. Right atrial lead was removed from the generator. The old device was removed from the field. Using an 18 gauge percutaneous needle subclavian vein on the left was entered again. Guidewire advanced into the right heart. Right ventricular lead was advanced through a tear-away sheath and placed in the RV apex. Appropriate sensitivities and thresholds were confirmed. The sheath was torn away. The lead was secured to the fascia using 0 Ethibond x2. The right ventricular lead was capped. It was coiled into the pocket. A culture was obtained of the pocket. It was then copiously irrigated. A new generator was brought to the field. Right atrial right ventricular leads were attached to the pulse generator. Set screws were tightened per industry standards. The entire system was coiled into the pocket. Standard three-layer closure was used to close the incision. Pressure dressing was applied the patient is taken to recovery for continued care. Chest x-ray pending. The new device is a [employer] [facility] [id number]. The new right ventricular lead is a tendril SDS 2088 PC/58 cm. Serial number [id number] Right ventricular sensing was 12.5 mV. Right ventricular capture was at 0.4 volts with a pulse with a 0.5 milliseconds impedance was 520 Ohms. 10 volt revealed no stimulation of the diaphragm. Conclusions: Successful right ventricular lead placement with pacemaker generator change. Pending: Pocket g stain, a aerobic and anaerobic cultures. Pending: Postoperative chest x-ray. Estimated blood loss less than 10 cc. No complications identified. Patient Problems: Problems Problem Status Onset Paroxysmal a-fib Acute Multiple skin tears Acute Fall Acute Parkinson disease Acute UTI (urinary tract infection) Acute Dehydration Acute Pacemaker malfunction Acute
[2018-04-06] MEDS: SENNOSIDES/DOCUSATE SODIUM TAB PO SCH ×2 (11:45→20:17)
[2018-04-06] MEDS: ENOXAPARIN 40 MG/0.4 ML SYR SC SCH (11:48)
[2018-04-06] MEDS: DUTASTERIDE 0.5 MG CAP PO SCH (12:10)
--- NOTE | 2018-04-06 13:02 | HOSPPROG ---
Hospitalist Progress Note Assessment/Plan: # pacer lead detachment - s/p revision and generator change # permanent a-fib - hold xarelto and diltiazem - restart per cardiology # htn - norvasc was started here; can likely stop norvasc when dilt restarted # MSSA UTI - cleared by ID for ppm - pacer pocket culture sent - concern that this was d/t hematogenous spread in setting of bacteremia - echo with abnormal valves - notably he has hardware in his spine - s/p course of doxy # pleural effusion - thoracentesis unsuccessful; will likely just follow clinically; no indication for VATS # PD - cont sinement # dementia - unclear how significant this is at baseline - cont aricept # dvt ppx - cont lovenox # dispo - should be able to discharge to SNF tomorrow if no procedural complications Subjective: s/p pacemaker; does not complain of pain Objective: Vital Signs Temp Pulse Resp BP Pulse Ox 36.4 C 72 16 127/74 H 91 L 04/06/18 12:32 04/06/18 12:32 04/06/18 12:32 04/06/18 12:32 04/06/18 12:32 Microbiology 04/06/18 08:46 Gram Stain - Final Other - Anaerobic Tube/Swab Anaerobic Culture - Final 04/01/18 03:15 Blood Culture - Final Blood 03/31/18 23:15 Blood Culture - Final Blood Laboratory Results 04/06/18 05:50 04/06/18 05:50 04/05/18 04/06/18 04/07/18 05:59 05:59 05:59 Intake Total 250 300 Output Total 1100 355 50 Balance -850 -55 -50 PT 16.0 SEC (12.0-15.0) H 04/06/18 05:50 INR 1.26 (0.83-1.16) H 04/06/18 05:50 chart reviewed op note reviewed CXR personally reviewed - Physical Exam Constitutional: not in pain Cardiovascular: regular rate and rhythym, no murmur, rub, or gallop Respiratory: no respiratory distress, no rales or rhonchi, clear to auscultation Gastrointestinal: soft, non-tender abdomen, no palpable masses, No guarding, No rebound, No distension ICD10 Worksheet Patient Problems: Problems Problem Status Onset Paroxysmal a-fib Acute Multiple skin tears Acute Fall Acute Parkinson disease Acute UTI (urinary tract infection) Acute Dehydration Acute Pacemaker malfunction Acute
--- NOTE | 2018-04-06 13:46 | ASMTCMCOM ---
CM Note CM Note Notes: Pt is decisional and has deferred d/c placement decisions to his Aldo. Aldo has now decided that she'd like a rehab facility in [place]. [facility] has accepted and is submitting his insurance. D/C is probable for tomorrow. D/C Plan: [facility]. Date Signed: 04/06/2018 01:46 PM Electronically Signed By:Any Hartley
[2018-04-06] MEDS: ESCITALOPRAM OXALATE 10 MG TAB PO SCH (16:38)
[2018-04-06] MEDS: traMADol 50 MG TAB PO PRN (17:11)
--- NOTE | 2018-04-06 17:49 | CPEKG ---
Test Reason : OPEN Blood Pressure : / mmHG Vent. Rate : 070 BPM Atrial Rate : 073 BPM P-R Int : 211 ms QRS Dur : 168 ms QT Int : 506 ms P-R-T Axes : 253 -83 082 degrees QTc Int : 547 ms Ventricular-paced rhythm Confirmed by Abbe Mills ([id number]) on 04/06/2018 5:49:13 PM Referred By: Confirmed By:Abbe Mills
[2018-04-06] MEDS: LIDOCAINE 4%/MENTHOL 1% PATCH TD PRN (20:16)
[2018-04-06] MEDS: DONEPEZIL HCL 5 MG TAB PO SCH (20:16)
[2018-04-06] MEDS: PATCH REMOVAL 1 EA PATCH TD SCH (21:22)
[2018-04-07 04:04] LABS: PLATELET COUNT 261 10^3/uL (150-400)
[2018-04-07] MEDS: CARBIDOPA/LEVODOPA 25 MG/100 MG TAB PO SCH ×2 (07:38→11:56)
[2018-04-07] MEDS: DUTASTERIDE 0.5 MG CAP PO SCH (07:38)
[2018-04-07] MEDS: SENNOSIDES/DOCUSATE SODIUM TAB PO SCH (09:16)
[2018-04-07] MEDS: ENOXAPARIN 40 MG/0.4 ML SYR SC SCH (09:24)
--- NOTE | 2018-04-07 10:46 | PDDCSUM ---
Discharge Summary Discharge Summary: Date of Admission: 03/31/2019 Date of Discharge: 04/07/2018 Consults: Cardiology Procedures: PPM Replacement Followup: Cardiology, PCP, plan to restart Xarelto after 1 week (start date: 04/14/2018), monitor BP- started on Amlodipine during hospitalization Hospital Course Problem List: # pacer lead detachment - s/p revision and generator change on 04/06/2018 # permanent a-fib - hold xarelto - restart per cardiology in 1 week # htn - norvasc was started here; monitor BP, could possibly d/c amlodipine after restarting diltiazem in the future # MSSA UTI - cleared by ID for ppm - pacer pocket culture sent - concern that this was d/t hematogenous spread in setting of bacteremia - echo with abnormal valves - notably he has hardware in his spine - s/p course of doxy # pleural effusion - thoracentesis unsuccessful; will likely just follow clinically; no indication for VATS # PD - cont sinemet # dementia - unclear how significant this is at baseline - cont aricept # dvt ppx - cont lovenox Time spent on discharge >35 minutes with >50% of time spent on patient education and counseling
--- NOTE | 2018-04-07 11:42 | PDIAF ---
- Diagnosis Diagnosis: Pacemaker Replacement Code Status: Full Code - Medication Management Discharge Medications: Medications to Continue on Transfer Diltiazem Cd [Cardizem ER 120 MG (*)] 120 mg PO DAILY@30 03/20/18 [Last Taken 03/31/18] Donepezil HCl [Aricept 5 MG (*)] 10 mg PO HS 03/20/18 [Last Taken 03/30/18] Dutasteride [Avodart 0.5 MG (*)] 0.5 mg PO DAILY@72903/20/18 [Last Taken 03/31] Escitalopram Oxalate [Lexapro] 20 mg PO DAILY@17 03/20/18 [Last Taken 03/31/18] Carbidopa/Levodopa 25/100Mg [Sinemet 25/100 MG (*)] 1 tab PO QID@0730,12,17,03/22/18 [Last Taken 03/31/18] Acetaminophen [Tylenol 325mg (*)] 650 mg PO Q4HRS PRN tab 03/26/18 [Last Taken Unknown] Patch Removal 1 ea TD DAILY21 patch 03/26/18 [Last Taken Unknown] diphenhydrAMINE [Benadryl Cream] 1 sarah TP QID PRN cream 03/26/18 [Last Taken Unknown] Lidocaine 4%/Menthol 1% [Icy Hot Lidocaine/Menthol 4%/1% Patch (*)] 1 patch TD DAILY PRN 03/31/18 [Last Taken Unknown] amLODIPine BESYLATE [Norvasc 2.5 mg (*)] 2.5 mg PO DAILY #0 tab 04/07/18 [Last Taken Unknown] Discharge Medications: Refer to the Discharge Home Medication list for PRN reason. - Orders Services needed: Physical Therapy, Occupational Therapy Isolation Type: None - Follow Up Care Current Providers and Referrals: Patient,NotPresent [Primary Care Provider] - As per Instructions
--- NOTE | 2018-04-07 12:27 | ASMTLACE ---
LACE Length of stay for Answers: 4-6 days current admission Comorbidities - select Answers: Congestive heart failure all that apply History of falls Opioid dependence / Chronic pain Other Notes: Hx of Parkinson's disease; AFib # of Emergency department Answers: 3-4 visits in the last 6 months Score: 17 Date Signed: 04/07/2018 12:26 PM Electronically Signed By:Jeannine Mcnulty RN
--- NOTE | 2018-04-07 12:30 | ASMTDCNOTE ---
Case Management Discharge Discharge Order Complete? Answers: Yes Patient to Obtain Answers: Other Notes: [facility] Medications Transportation Arranged Answers: Other Notes: w/c from [place] arranged by Teressa at [facility] will Pick (Date 04/07/2018 02:30 PM & Time) Faxed Final Orders Answers: Yes Agency/Facility Transfer Answers: Yes Report Printed & Faxed to Receiving Agency Family Notified Answers: Yes Notes: called Aldo [phone] Discharge Comments Notes: 04/07/2018 Case Management Note MDPOA completed by hydraulic jack operator designating Aldo. Sent copy to [facility]. Faxed final orders to [facility]. [facility] RN to call report. Aldo to meet him at [facility]. Date Signed: 04/07/2018 12:29 PM Electronically Signed By:Jeannine Mcnulty RN
--- NOTE | 2018-04-07 12:31 | ASDISCHSUM ---
Discharge Information Plan Status:SNF Medically Cleared to Leave:04/07/2018 Discharge Date:04/07/2018 CM D/C Disposition:Prison Facility ADT D/C Disposition:Prison Facility Projected Discharge Date:04/07/2018 11:00 AM Transportation at D/C:Wheelchair Van Discharge Delay Reason: Follow-Up Date:04/07/2018 11:00 AM Discharge Slot: Final Diagnosis: Placement Information Referral Type:*Home Health Care Services Referral ID:[id number] Provider Name: Address 1: Phone Number: Address 2: Fax Number: City: Selection Factors: State: Referral Type:*Snf/SNF Referral ID:[id number] Provider Name:[facility] Address 1:[address] Address 2: City:[place] Selection Factors: State:[place] Patient Contact Information Contact Name:HERMILA Relationship: Address:[address] Work Phone: City:[place] Alternate Phone: State/Zip Code:[place] [address] Email: Financial Information Financial Class:Medicare Advantage Plans Primary Plan Desc:[employer] Primary Plan Number:[id number] Secondary Plan Desc: Secondary Plan Number: Assessment Information LACE LACE Length of stay for Answers: 4-6 days current admission Comorbidities - select Answers: Congestive heart failure all that apply History of falls Opioid dependence / Chronic pain Other Notes: Hx of Parkinson's disease; AFib # of Emergency department Answers: 3-4 visits in the last 6 months Score: 17 Date Signed: 04/07/2018 12:26 PM Electronically Signed By:Jeannine Mcnulty RN [facility] Initial CM Assessment Living Arrangements What is your living Answers: With Spouse arrangement? Who do you live with? Type Of Residence What kind of residence do Answers: House you live in? Discharge Plan Comments Coordination Status Comments Notes: Pt is a 87 y/o man admitted for pacemaker malfunction. Pt has a hx of parkinson's with memory impairments, afib, recent admission for UTI. Pt was previously d/c with [facility] and private duty. ID has been consulted.Therapies have been ordered and awaiting recommendations. CM met w/ pts and introduced self. Needs are TBD at this time. CM to follow. Plan: TBD Date Signed: 04/01/2018 02:48 PM Electronically Signed By:JASMIN Alarcon [facility] CM Progress Note CM Note CM Note Notes: 04/02/2018 Case Management Note Reviewed pt during rounds this morning. Pt to have thoracentesis today. Planning for pacemaker lead revision early next week. Confirmed with [facility] that pt is current. [facility] provides RN PT. Per previous case management note, family also has unskilled care in the home. PT is recommending inpatient rehab. Notified RN for MD order. Left for Ivette. Case Management d/c poc: to be determined. Case Management to follow. Date Signed: 04/02/2018 02:34 PM Electronically Signed By:Jeannine Mcnulty RN [facility] CM Progress Note CM Note CM Note Notes: 04/05/2018 Case Management Note Met w/pt to discuss d/c needs. Pt deferred decision to Aldo, requested case management call daughter Eladia for updates. Eladia identifies as MDPOA, however there is no paperwork to verify and per Aldo, there has not been paperwork signed by pt designating Eladia MDPPITO. Requested paperwork from Eladia who repeatedly stated her brother was an banking attorney and her sister was an banking attorney. Eladia did not want the fax number for 2W, requested a text with fax number, case management declined and offered instead to send a fax, which Eladia stated she does not have access to a fax machine. Informed Eladia that until MDPOA paperwork was provided she was not designated as spokesperson for pt. Pt is decisional today and is deferring decisions to Aldo. Eladia abruptly ended call with patient case manager. Aldo prefers pt enter inpatient rehab on [facility]. Offerred to private pay. Discussed with Ivette, who is following case. Discussed SNF rehab options. Aldo unhappy with recent pt admission at [facility]. Faxed referrals to 3 facilities in [place]. Aldo to visit facilities and make choice in the morning. Will need auth from [employer]. Pt is current with [facility] RN and PT. Updated on the phone. Aldo and Eladia want to private pay for daily PT. [facility] unable to provide that service. Informed Aldo. Aldo is comfortable with PT visits resuming from [facility]. Pt has unskilled caregivers 02/02 in the home. Aldo prefers pt return home with unskilled supervision and [facility] RN and PT rather than a SNF rehab stay. Discussed above with Eladia. Eladia stated pt is a "man of means" who can afford to pay for private medical transport to [place] where Eladia resides. There are difficult family dynamics at play. Eladia requested several things of case management including placing pt in rehab in [place]. Informed Eladia that it is unclear if pt will be cleared to fly and that case management would need name of facility to send records and pt would need to be agreement with Eladia. Aldo is not in favor of this option, pt declined option immediately as unneccessary. Eladia offered to private pay for inpatient rehab. Eladia offered to private pay for daily PT at home. See above explanation. Pt stated he wanted Aldo to be MDPOA. Informed RN for assistant administrator order and assistance with [facility] paperwork. Encouraged Aldo to consult with banking attorney due to pt dementia status and ongoing difficult interactions with Eladia regarding care of patient. Case Management d/c poc: to be determined. Inpatient rehab vs SNF rehab vs home resuming [facility] and unskilled care. Case Management to follow. Date Signed: 04/05/2018 04:54 PM Electronically Signed By:Jeannine Mcnulty RN [facility] CM Progress Note CM Note CM Note Notes: Pt is decisional and has deferred d/c placement decisions to his Aldo. Aldo has now decided that she'd like a rehab facility in [place]. [facility] has accepted and is submitting his insurance. D/C is probable for tomorrow. D/C Plan: [facility]. Date Signed: 04/06/2018 01:46 PM Electronically Signed By:Any Hartley Case Management Discharge Plan Note Case Management Discharge Discharge Order Complete? Answers: Yes Patient to Obtain Answers: Other Notes: [facility] Medications Transportation Arranged Answers: Other Notes: w/c from [place] arranged by Teressa at [place] or [facility] will Pick (Date 04/07/2018 02:30 PM & Time) Faxed Final Orders Answers: Yes Agency/Facility Transfer Answers: Yes Report Printed & Faxed to Receiving Agency Family Notified Answers: Yes Notes: chely Carlson [phone] Discharge Comments Notes: 04/07/2018 Case Management Note MDPOA completed by designating antoni Carlson. Sent copy to [facility]. Faxed final orders to [facility]. Teressa arranged transport [facility]. RN to call report. Aldo to meet him at [facility]. Date Signed: 04/07/2018 12:29 PM Electronically Signed By:Jeannine Mcnulty RN Intervention Information Intervention Type:*Incorrect Registration Date of Service:04/01/2018 10:24 AM Patient Type:Inpatient Staff Member:ROLAND Perrin, Antonieta Hours: Discipline: Severity: Comment: Intervention Type:*IM-Signed Date of Service:04/07/2018 12:00 PM Patient Type:Inpatient Staff Member:Rosi Rosales Hours: Discipline: Severity: Comment:
[2018-04-07 13:16] VITALS: BP 123/59
--- NOTE | 2018-04-07 13:21 | PDCARPN ---
Cardiology Progress Note Chief Complaint: RV lead dislodgment Assessment/Plan: Assessment: 87-year-old male PMH PD, dementia, permanent AFib, complete heart block with remote ppm implantation, chronic diastolic heart failure, and hypertension. Admitted 03/31/2018 for fatigue with remote ppm check showing failure to capture of RV lead, questioning RV lead dislodgement. Patient had a fall approximately 10 days preceding hospitalization. Recent history of UTI with MSSA and leukocytosis on presentation. Initial rhythm in ED was junctional escape 40s to 50s. Most recent echocardiogram 03/25/18 showing normal LV size, mild concentric LVH, normal LV systolic function with EF of 61%. No regional wall motion abnormalities. Mild thickening of mitral valve leaflets, mild MR, mild-to- moderate AI, moderate to severe TR, RVSP of 56 mm Hg, small pericardial effusion. Plan: #. RV lead dislodgement: Concerns over recent infection delaying lead revision s/p gen change and RV lead replacement will need arm precautions and office visit in a week for wound check #. Complete heart block: PPM as above #. Permanent atrial fibrillation: Underlying rhythm, no RVR Hold Xarelto until 04/12 #. Recent UTI with MSSA: Questioning previous hospitalization as bacteremia Appreciate ID consultation - spoke with Dr. Esparza who recommends that if no discrete echodensity found on GARCIA to go ahead with lead revision #. Hypertension: Blood pressure appears to be mildly elevated agree with start Amlodipine/ stop Dilt CD #. Chronic diastolic heart failure: Appears to be fairly euvolemic today #. Pleural effusion: attempt at thoracentesis unsuccessful due to loculation 04/07/18 13:24 Subjective: Feels well. Objective: Vital Signs (8 Hrs) Temp Pulse Resp BP Pulse Ox 04/07/18 11:15 73 123/59 H 94 04/07/18 07:43 97.2 F 69 18 143/74 H 92 Intake/Output (24 Hrs) 04/06/18 04/07/18 04/08/18 05:59 05:59 05:59 Intake Total 300 550 Output Total 355 325 Balance -55 225 Intake: Oral (ml) 550 IV Infused (ml) 300 POTASSIUM Cl (KCl) 100 ml 300 @ 100 mls/hr IV Q1H AMY Rx#:[id number] Output: Urine (ml) 355 325 Incontinence 200 Urinal 155 325 Other: Weight 84.187 kg 85.1 kg Intake Quantity Yes Yes Sufficient Number of Voids Incontinence 2 Toilet 1 1 Urinal 1 2 Number of Stools Toilet 1 1 Result Diagrams: 04/07/18 03:10 04/07/18 03:10 Telemetry: reviewed. AF with paced rhythm - Physical Exam Constitutional: no apparent distress Eyes: PERRL Ears, Nose, Mouth, Throat: moist mucous membranes Cardiovascular: regular rate and rhythm Respiratory: clear to auscultate bilat Gastrointestinal: normoactive bowel sounds ICD10 Worksheet Patient Problems: Problems Problem Status Onset Paroxysmal a-fib Acute Multiple skin tears Acute Fall Acute Parkinson disease Acute UTI (urinary tract infection) Acute Dehydration Acute Pacemaker malfunction Acute
--- NOTE | 2018-04-07 13:24 | PDIAF ---
- Diagnosis Diagnosis: Pacemaker Replacement Code Status: Full Code - Medication Management Discharge Medications: Medications to Continue on Transfer Diltiazem Cd [Cardizem ER 120 MG (*)] 120 mg PO DAILY@30 03/20/18 [Last Taken 03/31/18] Donepezil HCl [Aricept 5 MG (*)] 10 mg PO HS 03/20/18 [Last Taken 03/30/18] Dutasteride [Avodart 0.5 MG (*)] 0.5 mg PO DAILY@30 03/20/18 [Last Taken 03/31] Escitalopram Oxalate [Lexapro] 20 mg PO DAILY@17 03/20/18 [Last Taken 03/31/18] Carbidopa/Levodopa 25/100Mg [Sinemet 25/100 MG (*)] 1 tab PO QID@0730,12,17,21 03/22/18 [Last Taken 03/31/18] Acetaminophen [Tylenol 325mg (*)] 650 mg PO Q4HRS PRN tab 03/26/18 [Last Taken Unknown] Patch Removal 1 ea TD DAILY21 patch 03/26/18 [Last Taken Unknown] diphenhydrAMINE [Benadryl Cream] 1 sarah TP QID PRN cream 03/26/18 [Last Taken Unknown] Lidocaine 4%/Menthol 1% [Icy Hot Lidocaine/Menthol 4%/1% Patch (*)] 1 patch TD DAILY PRN 03/31/18 [Last Taken Unknown] Rivaroxaban [Xarelto] 20 mg PO DAILY #30 tab 04/12/18 [Last Taken Unknown] Discharge Medications: Refer to the Discharge Home Medication list for PRN reason. - Orders Services needed: Physical Therapy, Occupational Therapy Isolation Type: None Additional Instructions: Left arm precautions for the next 10 days: 1) no lifting arm above head or behind 2) try to wear sling most of the time as reminder to immobilize arm 3) no shower for another 24 hours (until 04/08); after that, try not to saturate pacer site 4) our office will call you to schedule office visit - Follow Up Care Current Providers and Referrals: Patient,NotPresent [Primary Care Provider] - As per Instructions
--- NOTE | 2018-04-08 06:13 | CPEKG ---
Test Reason : OPEN Blood Pressure : / mmHG Vent. Rate : 070 BPM Atrial Rate : 099 BPM P-R Int : 163 ms QRS Dur : 159 ms QT Int : 499 ms P-R-T Axes : 000 269 089 degrees QTc Int : 539 ms Afib/flut and V-paced complexes Confirmed by Abbe Mills ([id number]) on 04/08/2018 6:12:35 AM Referred By: Confirmed By:Abbe Mills
== END 2018-04-07 14:49 | DRG 243 ==
LOC: EDUNIT# → F2W 18:58 → OBSVTOIN 20:29 → F2W 04-02 14:08
PROVIDERS: ADMIT Internal Medicine; ATTEND Internal Medicine
PROC: 0W993ZZ Drainage of Right Pleural Cavity, Percutaneous Approach (ICD-10-PCS; 2018-04-02)
PROC: B246ZZ4 Ultrasonography of Right and Left Heart, Transesophageal (ICD-10-PCS; 2018-04-05)
PROC: 0JPT0PZ Removal of Cardiac Rhythm Related Device from Trunk Subcutaneous Tissue and Fascia, Open Approach (ICD-10-PCS; principal; 2018-04-06)
PROC: 02HK3JZ Insertion of Pacemaker Lead into Right Ventricle, Percutaneous Approach (ICD-10-PCS; principal; 2018-04-06)
PROC: 0JH606Z Insertion of Pacemaker, Dual Chamber into Chest Subcutaneous Tissue and Fascia, Open Approach (ICD-10-PCS; principal; 2018-04-06)
DX: T82.110A Breakdown (mechanical) of cardiac electrode, initial encounter (principal); N39.0 Urinary tract infection, site not specified; B95.61 Methicillin susceptible Staphylococcus aureus infection as the cause of diseases classified elsewhere; I50.32 Chronic diastolic (congestive) heart failure; G20 Parkinson's disease; F02.80 Dementia in other diseases classified elsewhere, unspecified severity, without behavioral disturbance, psychotic disturbance, mood disturbance, and anxiety; I48.2 Chronic atrial fibrillation; I11.0 Hypertensive heart disease with heart failure; M25.512 Pain in left shoulder; Z98.1 Arthrodesis status
CPT/HCPCS: 96374; 97110-GP; 97116-GP; 97162-GP; 97166-GO; 97530-GP; 97535-GO; C1785; C1898; G8978-GP-CL; G8979-GP-CI; G8987-GO-CL; G8988-GO-CJ; J0690; J1650; J1940; J2250; J2704; J3010; J3480; Q9967

== ENCOUNTER 2018-04-20 15:37 | Inpatient (IN) | payer OTHER ==
--- NOTE | 2018-04-20 15:56 | EDPHY ---
H & P Time Seen by Provider: 04/20/18 15:37 HPI/ROS: CHIEF COMPLAINT: From [facility] with renal insufficiency HISTORY OF PRESENT ILLNESS: The patient is an 87-year-old man with a history of atrial fibrillation on Xarelto as well as pacemaker with an admission 1 month ago for urosepsis. He was treated successfully with Levaquin. He was discharged returned 2 weeks ago for a pacemaker bleed that had become displaced. That was repaired and he returned back to [facility]. He was doing well until yesterday when staff said he had decreased mental status and appeared very fatigued. He was unable to urinate. They placed a Chao catheter that revealed clots and hematuria. His creatinine is normal at baseline but yesterday was 2.8. They gave him gentle IV 2 L rehydration because a history of CHF and recheck describe need today and found that it was 3.7. This concerned them enough to sent to the emergency department. Also they obtained a chest x-ray yesterday which was read as a right lower lobe infiltrate. He was started on Levaquin again. He has been requiring 2 L of oxygen which she usually only requires at night. states however that he has had chronic pleural effusions and it is unclear whether was seen on x-ray yesterday represents the chronic pleural effusion. The patient himself has no complaints and states that he feels well. No fevers. No cough. No shortness of breath. No chest pain. No abdominal pain. Patient and do not remember if he had a Chao catheter placed while he was in the hospital. He does have a history of enlarged prostate. Severity: Moderate Modifying factors: None REVIEW OF SYSTEMS: Constitutional: denies: chills, fever, recent illness, recent injury EENTM: denies: blurred vision, double vision, nose congestion Respiratory: See HPI Cardiac: denies: chest pain, irregular heart rate, lightheadedness, palpitations Gastrointestinal/Abdominal: denies: abdominal pain, diarrhea, nausea, vomiting, blood streaked stools Genitourinary: See HPI Musculoskeletal: denies: joint pain, muscle pain Skin: denies: lesions, rash, jaundice, bruising Neurological: denies: headache, numbness, paresthesia, tingling, dizziness, weakness Hematologic/Lymphatic: denies: blood clots, easy bleeding, easy bruising Immunologic/allergic: denies: HIV/AIDS, transplant 10 systems reviewed and negative except as noted EXAM: GENERAL: Well-appearing, well-nourished and in no acute distress. HEAD: Atraumatic, normocephalic. EYES: Pupils equal round and reactive to light, extraocular movements intact, sclera anicteric, conjunctiva are normal. ENT: TMs normal, nares patent, oropharynx clear without exudates. Moist mucous membranes. NECK: Normal range of motion, supple without lymphadenopathy or JVD. LUNGS: Right lower lobe rhonchi HEART: Regular rate and rhythm without murmurs, rubs or gallops. ABDOMEN: Soft, nontender, normoactive bowel sounds. No guarding, no rebound. No masses appreciated. Chao in place with punch colored urine. BACK: No CVA tenderness, no spinal tenderness, step-offs or deformities EXTREMITIES: Normal range of motion, no pitting or edema. No clubbing or cyanosis. NEUROLOGICAL: Cranial nerves II through XII grossly intact. Normal speech, normal gait. 5/5 strength, normal movement in all extremities, normal sensation , normal reflexes PSYCH: Normal mood, normal affect. SKIN: Warm, dry, normal turgor, no visible rashes or lesions. Source: Patient Exam Limitations: No limitations - Medical/Surgical History Hx Asthma: No Hx Chronic Respiratory Disease: No Hx Diabetes: No Hx Cardiac Disease: Yes Hx Renal Disease: No Hx Cirrhosis: No Hx Alcoholism: No Hx HIV/AIDS: No Hx Splenectomy or Spleen Trauma: No Other PMH: spinal stenosis, SSS with pacemaker, parkensons, afib, CHF - Family History Significant Family History: No pertinent family hx - Social History Smoking Status: Never smoked Alcohol Use: Sober Drug Use: None Constitutional: Initial Vital Signs Temperature (C) 36.5 C 04/20/18 15:57 Heart Rate 72 04/20/18 15:57 Respiratory Rate 18 04/20/18 15:57 Blood Pressure 101/57 L 04/20/18 15:57 O2 Sat (%) 97 04/20/18 15:57 O2 Delivery Mode Room Air Allergies/Adverse Reactions: No Known Allergies Allergy (Verified 04/20/18 16:03) Home Medications: Medication Instructions Recorded Diltiazem Cd [Cardizem ER 120 MG 120 mg PO DAILY@0730 03/20/18 (*)] Donepezil HCl [Aricept 5 MG (*)] 10 mg PO HS 03/20/18 Dutasteride [Avodart 0.5 MG (*)] 0.5 mg PO DAILY@0730 03/20/18 Escitalopram Oxalate [Lexapro] 20 mg PO DAILY@17 03/20/18 Carbidopa/Levodopa 25/100Mg 1 tab PO QID@0730,12,17,21 03/22/18 [Sinemet 25/100 MG (*)] Acetaminophen [Tylenol 325mg (*)] 650 mg PO Q4HRS PRN tab 03/26/18 Patch Removal 1 ea TD DAILY21 patch 03/26/18 diphenhydrAMINE [Benadryl Cream] 1 sarah TP QID PRN cream 03/26/18 Lidocaine 4%/Menthol 1% [Icy Hot 1 patch TD DAILY PRN 03/31/18 Lidocaine/Menthol 4%/1% Patch (*)] Rivaroxaban [Xarelto] 20 mg PO DAILY #30 tab 04/12/18 Medical Decision Making - Diagnostics EKG Interpretation: An EKG obtained and was read and documented in trace view. Please see trace view for full reading and report. Atrial fibrillation with ventricular paced rhythm. Imaging Results: Imaging Impressions Chest CT 04/20/18 15:47 Impression: 1. Stable loculated pleural effusions bilaterally right side greater than left.. 2. Mild increase in dependent edema or atelectasis at the lung bases posteriorly. Consider mild fluid overload. 3 stable cardiomegaly with moderate enlargement of the right and left atria and mild enlargement of the right left ventricles. 3. Stable mild splenomegaly. Findings discussed with Antonio Art M.D. at 16:45 hour, 04/20/2018. Imaging: Discussed imaging studies w/ manager call Radiologist ED Course/Re-evaluation: The patient appears not to have pneumonia but a clinic pleural effusion. It is a little bit unclear to me whether he has SIRS criteria. Initially he presented with the report of pneumonia. but he does have an elevated INR and creatinine which would put him in the severe sepsis category. He may have urinary tract infection although it is grossly contaminated with blood. I will send for cultures. I discussed the case with Dr. Nicole Kevin who will admit. I will order the bolus but over a longer period of time because reported history of CHF. Patient and understand and agree with this plan. I will also consult Urology. 7:00 p.m. the patient's Chao placed at the residential was seen on CT scan not completely and in the balloon was inflated in the prostate. This was removed. We attempted to place a new Chao with multiple times with nursing staff and myself with several size of catheter and coude catheter. We were unable to pass the prostate. I will page Urology about coming in for scope. Patient does see to be emptying his bladder now though. His bladder scan is 0. 7:20 p.m. I placed a ultrasound over the patient's bladder. There is a 4 x 4 cm clot in his bladder but no distension and no significant urine collection. I discussed the case with Dr. Saldana from Urology again. He will come to the floor tried to scope the patient. Differential Diagnosis: Partial list of the Differential diagnosis considered include but were not limited to; sepsis, pneumonia, renal insufficiency, obstruction and although unlikely based on the history and physical exam, I also considered PE, dissection. Critical Care Time: Critical care time spent by me, Dr. Art exclusive with this patient was 35 minutes, exclusive of the PA time exclusive of procedures. The organ system that was at risk was cardiovascular renal and I gave medications, fluids, consultation and admission to prevent worsening of the patient's condition - Data Points Laboratory Results: Laboratory Results 04/20/18 16:01 04/20/18 16:01 04/20/18 04/20/18 04/20/18 16:58 16:55 16:01 WBC RBC Hgb Hct MCV MCH MCHC RDW Plt Count MPV Neut % (Auto) Lymph % (Auto) Patrick % (Auto) Eos % (Auto) Baso % (Auto) Nucleat RBC Rel Count Absolute Neuts (auto) Absolute Lymphs (auto) Absolute Monos (auto) Absolute Eos (auto) Absolute Basos (auto) Absolute Nucleated RBC Immature Gran % Seg Neutrophils % Band Neutrophils % Lymphocytes % Monocytes % Eosinophils % Basophils % Metamyelocytes % Myelocytes % Promyelocytes % Blast Cells % Immature Gran # Absolute Seg Neuts Absolute Band Neuts Absolute Lymphocytes Absolute Monocytes Absolute Eosinophils Absolute Basophils Absolute Metamyelocyte Absolute Myelocytes Absolute Promyelocytes Absolute Plasma Cells Nucleated RBCs RBC/WBC/PLT Morphology Absolute Blast Cells Plasma Cells % Platelet Estimate PT 49.9 SEC H SEC (12.0-15.0) INR 5.60 H* (0.83-1.16) APTT 77.3 SEC H SEC (23.0-38.0) VBG Lactic Acid Sodium Potassium Chloride Carbon Dioxide Anion Gap BUN Creatinine Estimated GFR Glucose Calcium Phosphorus Iron TIBC Iron Saturation Total Bilirubin Conjugated Bilirubin Unconjugated Bilirubin AST ALT Alkaline Phosphatase Total Protein Albumin Prolactin Urine Color RED Urine Appearance MODERATELY TURBID Urine pH 6.0 (5.0-7.5) Ur Specific [place] 1.019 (1.002-1.030) Urine Protein 1+ H (NEGATIVE) Urine Ketones NEGATIVE (NEGATIVE) Urine Blood 3+ H (NEGATIVE) Urine Nitrate NEGATIVE (NEGATIVE) Urine Bilirubin NEGATIVE (NEGATIVE) Urine Urobilinogen NEGATIVE EU EU (0.2-1.0) Ur Leukocyte Esterase NEGATIVE (NEGATIVE) Urine RBC 50-182 /hpf H /hpf (0-3) Urine WBC 25-50 /hpf H /hpf (0-3) Ur Epithelial Cells NONE SEEN /lpf /lpf (NONE-1+) Hyaline Casts 50-182 /lpf H /lpf (0-1) Ur Random Creatinine 121.1 mg/dL mg/dL Ur Random Sodium 54 mEq/L mEq/L (30-90) Ur Random Urea Nitrogn 85.0 mg/dL mg/dL Urine Glucose 1+ H (NEGATIVE) 04/20/18 04/20/18 04/20/18 16:01 16:01 16:01 WBC 10.29 10^3/uL H 10^3/uL (3.80-9.50) RBC 2.83 10^6/uL L 10^6/uL (4.40-6.38) Hgb 9.0 g/dL L g/dL (13.7-17.5) Hct 26.8 % L % (40.0-51.0) MCV 94.7 fL fL (81.5-99.8) MCH 31.8 pg pg (27.9-34.1) MCHC 33.6 g/dL g/dL (32.4-36.7) RDW 13.7 % % (11.5-15.2) Plt Count 117 10^3/uL L 10^3/uL (150-400) MPV 9.5 fL fL (8.7-11.7) Neut % (Auto) 88.0 % H % (39.3-74.2) Lymph % (Auto) 3.3 % L % (15.0-45.0) Patrick % (Auto) 6.0 % % (4.5-13.0) Eos % (Auto) 0.8 % % (0.6-7.6) Baso % (Auto) 0.1 % L % (0.3-1.7) Nucleat RBC Rel Count 0.0 % % (0.0-0.2) Absolute Neuts (auto) 9.05 10^3/uL H 10^3/uL (1.70-6.50) Absolute Lymphs (auto) 0.34 10^3/uL L 10^3/uL (1.00-3.00) Absolute Monos (auto) 0.62 10^3/uL 10^3/uL (0.30-0.80) Absolute Eos (auto) 0.08 10^3/uL 10^3/uL (0.03-0.40) Absolute Basos (auto) 0.01 10^3/uL L 10^3/uL (0.02-0.10) Absolute Nucleated RBC 0.00 10^3/uL 10^3/uL (0-0.01) Immature Gran % 1.8 % H % (0.0-1.1) Seg Neutrophils % 87.9 % % Band Neutrophils % 5.1 % % Lymphocytes % 2.0 % % Monocytes % 4.0 % % Eosinophils % 0.0 % % Basophils % 0.0 % % Metamyelocytes % 1.0 % % Myelocytes % 0.0 % % Promyelocytes % 0.0 % % Blast Cells % 0.0 % % Immature Gran # 0.19 10^3/uL H 10^3/uL (0.00-0.10) Absolute Seg Neuts 9.04 10^/uL H 10^/uL (1.70-6.50) Absolute Band Neuts 0.52 10^3/uL 10^3/uL (0.00-0.70) Absolute Lymphocytes 0.21 10^3/uL L 10^3/uL (1.00-3.00) Absolute Monocytes 0.41 10^3/uL 10^3/uL (0.30-0.80) Absolute Eosinophils 0.00 10^3/uL L 10^3/uL (0.03-0.40) Absolute Basophils 0.00 10^3/uL L 10^3/uL (0.02-0.10) Absolute Metamyelocyte 0.10 10^3/mL H 10^3/mL (0.00-0.00) Absolute Myelocytes 0.00 10^3/mL 10^3/mL (0.00-0.00) Absolute Promyelocytes 0.00 10^3/uL 10^3/uL (0.00-0.00) Absolute Plasma Cells 0.00 10^3/uL 10^3/uL (0.00-0.00) Nucleated RBCs 0 /100 WBC /100 WBC (0-0) RBC/WBC/PLT Morphology NORMAL (NORMAL) Absolute Blast Cells 0.00 10^3/uL 10^3/uL (0.00-0.00) Plasma Cells % 0.0 % % Platelet Estimate DECREASED L (ADEQ) PT INR APTT VBG Lactic Acid 1.6 mmol/L mmol/L (0.7-2.1) Sodium 134 mEq/L L mEq/L (135-145) Potassium 4.4 mEq/L mEq/L (3.3-5.0) Chloride 104 mEq/L mEq/L (97-110) Carbon Dioxide 22 mEq/l mEq/l (22-31) Anion Gap 8 mEq/L mEq/L (8-16) BUN 53 mg/dL H mg/dL (7-23) Creatinine 3.5 mg/dL H mg/dL (0.7-1.3) Estimated GFR 17 Glucose 108 mg/dL H mg/dL (70-100) Calcium 8.1 mg/dL L mg/dL (8.5-10.4) Phosphorus Iron TIBC Iron Saturation Total Bilirubin 1.0 mg/dL mg/dL (0.1-1.4) Conjugated Bilirubin Unconjugated Bilirubin AST ALT Alkaline Phosphatase Total Protein Albumin Prolactin Urine Color Urine Appearance Urine pH Ur Specific Sel[place] Urine Protein Urine Ketones Urine Blood Urine Nitrate Urine Bilirubin Urine Urobilinogen Ur Leukocyte Esterase Urine RBC Urine WBC Ur Epithelial Cells Hyaline Casts Ur Random Creatinine Ur Random Sodium Ur Random Urea Nitrogn Urine Glucose 04/20/18 04/20/18 16:00 16:00 WBC RBC Hgb 9.0 g/dL L g/dL (13.7-17.5) Hct 27.3 % L % (40.0-51.0) MCV MCH MCHC RDW Plt Count MPV Neut % (Auto) Lymph % (Auto) Patrick % (Auto) Eos % (Auto) Baso % (Auto) Nucleat RBC Rel Count Absolute Neuts (auto) Absolute Lymphs (auto) Absolute Monos (auto) Absolute Eos (auto) Absolute Basos (auto) Absolute Nucleated RBC Immature Gran % Seg Neutrophils % Band Neutrophils % Lymphocytes % Monocytes % Eosinophils % Basophils % Metamyelocytes % Myelocytes % Promyelocytes % Blast Cells % Immature Gran # Absolute Seg Neuts Absolute Band Neuts Absolute Lymphocytes Absolute Monocytes Absolute Eosinophils Absolute Basophils Absolute Metamyelocyte Absolute Myelocytes Absolute Promyelocytes Absolute Plasma Cells Nucleated RBCs RBC/WBC/PLT Morphology Absolute Blast Cells Plasma Cells % Platelet Estimate PT INR APTT VBG Lactic Acid Sodium Potassium Chloride Carbon Dioxide Anion Gap BUN Creatinine Estimated GFR Glucose Calcium Phosphorus 4.5 mg/dL mg/dL (2.5-4.5) Iron 26.0 mcg/dL L mcg/dL (49.0-199.0) TIBC 201 ug/dL L ug/dL (260-490) Iron Saturation 13 % L % (20-55) Total Bilirubin 1.0 mg/dL mg/dL (0.1-1.4) Conjugated Bilirubin 0.7 mg/dL H mg/dL (0.0-0.5) Unconjugated Bilirubin 0.3 mg/dL mg/dL (0.0-1.1) AST 25 IU/L IU/L (17-59) ALT 25 IU/L IU/L (21-72) Alkaline Phosphatase 154 IU/L H IU/L (38-126) Total Protein 4.8 g/dL L g/dL (6.3-8.2) Albumin 2.1 g/dL L g/dL (3.5-5.0) Prolactin 44.5 ng/mL H ng/mL (3.7-17.9) Urine Color Urine Appearance Urine pH Ur Specific [place] Urine Protein Urine Ketones Urine Blood Urine Nitrate Urine Bilirubin Urine Urobilinogen Ur Leukocyte Esterase Urine RBC Urine WBC Ur Epithelial Cells Hyaline Casts Ur Random Creatinine Ur Random Sodium Ur Random Urea Nitrogn Urine Glucose Medications Given: Discontinued Medications Cefepime HCl 2 gm/ Sodium (Chloride) 100 mls @ 200 mls/hr IV EDNOW ONE PRN Reason: Protocol Stop: 04/20/18 17:55 Last Admin: 04/20/18 18:17 Dose: 100 mls Lactated Ringer's (Lr) 2,500 mls @ 416.6666 mls/hr 30 ml/kg infuse over 6 hr ( 2500 ml) IV EDNOW ONE PRN Reason: Protocol Stop: 04/20/18 23:25 Last Admin: 04/20/18 17:32 Dose: 2,500 mls Departure - Departure Disposition: [facility] Inpatient Acute Clinical Impression: Acute renal insufficiency Sepsis Qualifiers: Sepsis type: sepsis due to unspecified organism Qualified Code(s): A41.9 - Sepsis, unspecified organism Condition: Critical
[2018-04-20 16:16] LABS: PLATELET COUNT 117 10^3/uL (150-400)
--- NOTE | 2018-04-20 17:18 | CPEKG ---
Test Reason : OPEN Blood Pressure : / mmHG Vent. Rate : 069 BPM Atrial Rate : 000 BPM P-R Int : 079 ms QRS Dur : 163 ms QT Int : 474 ms P-R-T Axes : 000 269 116 degrees QTc Int : 508 ms Afib/flutter and ventricular-paced rhythm Confirmed by Antonio Art ([id number]) on 04/20/2018 5:18:10 PM Referred By: Confirmed By:Antonio Art
[2018-04-20] MEDS ORDERED: ONDANSETRON 4 MG/2 ML VIAL IVP PRN (17:25)
[2018-04-20] MEDS ORDERED: ONDANSETRON DISINTEGRATING 4 MG TAB PO PRN (17:25)
[2018-04-20] MEDS ORDERED: CEFEPIME HCL 2 GM in NS 100 ML IV ONE (17:26)
[2018-04-20] MEDS ORDERED: LR 2,500 ML IV ONE (17:26)
[2018-04-20 17:30] LABS: INR 5.6 (0.83-1.16); PROTIME(PATIENT) 49.9 SEC (12.0-15.0)
--- NOTE | 2018-04-20 19:00 | GHP ---
DATE OF ADMISSION: 04/20/2018 CHIEF COMPLAINT: Hematuria, DESMOND. HISTORY OF PRESENT ILLNESS: An 87-year-old male with dementia, permanent atrial fibrillation, diastolic heart failure, who was admitted 03/31-04/07 at [facility] for a failed RV lead and replacement. Discharged to [facility] and has clinically declined over the last couple of days. I spoke to nursing staff there, who said he has been more lethargic and confused for past 2 days. Low-grade fever yesterday, and x-ray revealed infiltrate, thus was started on Levaquin. Urinary catheter was placed due to retention and hematuria was noted. Has been off Xarelto since his procedure. Stopped Xanaflex due to confusion. Per his , he does not eat much and has minimal fluid intake. When I interview him, he endorses fatigue but denies fevers, chills, or sweats. No nausea, vomiting, cough. REVIEW OF SYSTEMS: I completed a 10-point review of systems, negative except as noted in HPI. PAST MEDICAL HISTORY: Dementia, permanent atrial fibrillation, complete heart block status post pacemaker replacement earlier this month, diastolic heart failure, hypertension, recent MSSA UTI, chronic loculated pleural effusions, Parkinson disease. PAST SURGICAL HISTORY: Pacemaker with replacement, spinal surgeries, knee surgeries. SOCIAL HISTORY: Lives at [facility]. He is . 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 Denies alcohol, tobacco, or illicits. FAMILY HISTORY: Noncontributory. HOME MEDICATIONS: Benadryl cream, Xarelto has not been taken since pacemaker revision, lidocaine patch, Lexapro, Avodart, Aricept 10 mg q.h.s., diltiazem 120 mg daily, Sinemet, Tylenol. ALLERGIES: None. PHYSICAL EXAM: VITAL SIGNS: Temperature 36.5, blood pressure is 101/57, heart rate is in the 70s, respirations 18, 97% on room air. GENERAL: He is fatigued , lying in bed, no acute distress. HEENT: PERRLA. Dry mucous membranes. Oropharynx is clear. CV: Regular rate and rhythm. Pacemaker site clean, dry, and intact. Mild ankle edema bilaterally. LUNGS: Decreased breath sounds, right base. No crackles or rhonchi. ABDOMEN: Soft, nontender, nondistended. Positive bowel sounds. : Toth with hematuria. No suprapubic or CVA tenderness. MUSCULOSKELETAL: Moving all 4 extremities. NEUROLOGIC: 2 through 12 intact. PSYCH: Alert and oriented x3. SKIN: Scabbed-over lesions over left mendes. LABS: WBCs 10, hemoglobin 9, hematocrit is 26, platelets 117 (baseline H and H 12 and 36 on 04/07/2018). INR is 5.6, PT is 49. Lactate is 1.6. Sodium 134, potassium 4.4, chloride 104, carbon dioxide 22. BUN is 15, creatinine is 3.5 ( baseline 0.9), glucose 108, calcium 8.1. Bilirubin is 1. Urine 50- RBCs, 25-50 WBCs. Urine culture, 03/21: MSSA, enterococcus. Chest CT: Stable loculated pleural effusions bilaterally, right greater than left. Mild increase in dependent edema or atelectasis at the lung base. Mild stable splenomegaly. EKG is personally reviewed by me. V-paced atrial fibrillation. ASSESSMENT AND PLAN: 1. Acute kidney injury: Multifactorial with decreased p.o. intake, acute blood loss anemia and obstruction. Toth catheter balloon up in prostate. New toth could not be replaced in ER; Urology to do cystoscopy this evening. Gentle hydration 2. Fever: yesterday at NH. Mild pyuria. Lower suspicion for PNA as CT shows stable loculated pleural effusions. ID consulted last admission and thoracentesis was unsuccessful due to loculations. He was monitored off abx. Afebrile here, but procalcitonin 44, so will cover for HCAP & UTI until culture data back, h/o MSSA/Entercocccus UTI sensitive to Vanc, Blood/urine cultures pending. Normal lactate. Acute bleeding can cause fever and review of literature shows procalcitonin can be elevated with hemorrhaging/blood loss. 3. Hematuria: due to toth trauma as stated above. Has been off Xarelto. Urology consulted, serial H/H. 4. Permanent atrial fibrillation: Hold Xarelto and diltiazem with soft blood pressure. 5. History of complete heart block: Right lead was replaced recently. Site healing well. 6. Compensated diastolic heart failure: mild ankle edema. Will monitor closely with IV fluids. 7. Hypertension: Hold antihypertensives with soft blood pressure. 8. History of MSSA UTI: Cultures are pending. Will cover with Vanc, given recent fever yesterday. 9. Loculated pleural effusions: as stated in #2. Blood cultures pending. Next step would be VATs, which could be high-risk given his comorbidities. 10. Parkinson disease: Continue home medications. 11. Dementia: A&Ox 3 now 12. Diet: Low potassium. 13. Deep venous thrombosis prophylaxis: Sequential compression devices. Disposition: Inpatient admission, given acute blood loss anemia, hematuria requiring [facility] Urology consult and hydration. Critical care time spent: 60min bedside examining patient, reviewing records d/ w [facility] staff and Dr. Art. /[id number]/MODL MTDD
[2018-04-20] MEDS: NS 1,000 ML IV SCH (19:50)
[2018-04-20] MEDS ORDERED: LIDOCAINE 2% JELLY 20 ML (UROJECT) ONE (21:41)
[2018-04-20] MEDS ORDERED: LIDOCAINE 2% JELLY 20 ML (UROJECT) UR ONE (21:45)
[2018-04-20] MEDS ORDERED: VANCOMYCIN 1.25 GM in NS 250 ML IV ONE (22:00)
[2018-04-20] MEDS: DONEPEZIL HCL 5 MG TAB PO SCH (22:47)
--- NOTE | 2018-04-21 00:35 | SOAPPROG ---
SOAP Progress Note Assessment/Plan: Assessment: Gross hemturia w/ inability to catheterize. Plan: 1. Unable to catheterize nor dilate urethra at bedside. 2. Proceed with introperative mgmt. in AM. See dictated consult note (# [id number]). Objective: Vital Signs Temp Pulse Resp BP Pulse Ox 36.4 C 68 17 122/73 H 97 04/20/18 23:21 04/20/18 23:21 04/20/18 23:21 04/20/18 23:21 04/20/18 23:21 Laboratory Results 04/20/18 22:24 04/19/18 04/20/18 04/21/18 05:59 05:59 05:59 Intake Total 500 Output Total 200 Balance 300 PT 49.9 SEC (12.0-15.0) H 04/20/18 16:01 INR 5.60 (0.83-1.16) H* 04/20/18 16:01 ICD10 Worksheet Patient Problems: Problems Problem Status Onset Acute renal insufficiency Acute Sepsis Acute Dehydration Acute Fall Acute Multiple skin tears Acute Pacemaker malfunction Acute Parkinson disease Acute Paroxysmal a-fib Acute UTI (urinary tract infection) Acute
--- NOTE | 2018-04-21 02:56 | GCON ---
UROLOGY CONSULTATION. DATE OF CONSULTATION: 04/20/2018 REFERRING PHYSICIAN: Hospitalist service REASON FOR CONSULTATION: Gross hematuria, inability to catheterize. HISTORY: This is an 87-year-old gentleman who has a history of gross hematuria historically thought to be due to BPH based on prior office evaluation by Dr. Dumont in approximately 2014. More recently, the patient was noted to have gross hematuria in the [facility]. The patient was also noted to have elevation in his baseline creatinine. A Chao catheter was inserted; however, the patient continued to have gross hematuria without improvement in his creatinine after 24 hours of catheterization. The patient was brought to the operating room for further management. The patient underwent radiographic imaging in the emergency room, which revealed indwelling Chao catheter to be incorrectly placed. This catheter was removed and subsequent attempts to replace the Chao catheter in the emergency room were unsuccessful. I was asked to see the patient as a result. The patient is unaware of experiencing recent gross hematuria. He denies any pain nor tenderness currently. According to review of the chart, the patient recently underwent pacemaker replacement earlier this month at [facility] where he was hospitalized from March 31 to April 07. Patient prior to that time was on Xarelto, but this has not been restarted since hospital discharge. A review of [facility] office notes reveals that the patient underwent transrectal and prostate ultrasonography in May 2014 and was found have a prostate volume of approximately 60 mL at that time. Cystoscopy was also performed around that same time, which revealed mild BPH but no other abnormalities, other than possibly some friability to the prostatic fossa mucosa that resulted in gross hematuria at that time. The patient was subsequently placed on Avodart in an effort to reduce his risk of subsequent BPH-related gross hematuria. According to admission records, it does appear the patient was placed on finasteride 5 mg daily while hospitalized since Avodart is not on formulary. PAST MEDICAL HISTORY: Notable for atrial fibrillation, dementia, heart block, diastolic heart failure, hypertension, recent methicillin sensitive Staph aureus UTI, Parkinson's disease, chronic pleural effusions. PAST SURGICAL HISTORY: Includes orthopedic procedures along with recent pacemaker replacement (as noted above). ADMISSION MEDICATIONS: Include lidocaine patch, Lexapro, dutasteride, Aricept, diltiazem, Sinemet. ALLERGIES: None known. FAMILY HISTORY: Unknown. SOCIAL HISTORY: According to review of records, the patient lives at [facility]. He is and denies current use of alcohol nor tobacco products. His Aldo lives in [place]. REVIEW OF SYSTEMS: Unable to obtain from the patient due to confusion. PHYSICAL EXAM: GENERAL: Pleasant, alert white male lying supine in bed in no acute distress presently. VITAL SIGNS: Blood pressure 122/73, pulse 68, respirations 17, oxygen saturations 97% on 2 L nasal cannula, temperature 36.4 Celsius. HEENT: Normocephalic, atraumatic. NECK: Normal appearance. HEART: Regular rate. CHEST: Unlabored respiratory pattern. ABDOMEN: Soft without palpable masses. No obvious organomegaly. There is no significant suprapubic tenderness nor distention consistent with conor retention. GENITALIA: Circumcised phallus with normal urethral meatus in proper position. Scrotal structures are normal. VASCULAR: Normal femoral pulses bilaterally. BACK: No CVA tenderness. NEUROLOGIC: He is alert and answers questions when asked. IMAGING: Noncontrast abdominopelvic CT scan today: Upon my review, notable for solitary small right upper pole renal calculus, no hydronephrosis, no obvious abnormal renal cortical masses. Evaluation of the bladder reveals a fair amount of clot within the bladder, but the bladder does not appear to be distended nor full of urine. There is a Chao catheter where the balloon and tip terminate within the prostatic urethra (this catheter has been subsequently removed). The prostate is noted to be mildly enlarged. LABORATORIES: CBC this evening notable for hemoglobin 8.5 and hematocrit 25.6, compared to 9.0 and 27.3 at 4:00 p.m. today, respectively. INR today is 5.6, PTT 50, PTT 77. Chemistry panel today notable for creatinine 3.5. Urinalysis today notable for 50-182 red blood cells, 25-50 white blood cells, but no bacteria noted. IMPRESSION: 1. Gross hematuria with bladder clot. 2. Acute kidney injury. 3. Recurrent history of gross hematuria, thought to be secondary to benign prostatic hypertrophy. 4. Prostatic urethral trauma due to incorrect Chao placement. PROCEDURES: Under sterile conditions, 20 mL of 2% lidocaine was injected transurethrally followed by placement of a penile clamp for approximately 15 minutes. I then attempted to place a 22-Guatemalan through a 3-way Chao catheter. Resistance was met in the proximal urethra through which I was unable to further advance the catheter. This catheter was withdrawn. I then attempted to place a 4-Guatemalan spiral tip filiform; however, resistance was met in the same location within the proximal urethra. The procedure was then terminated at this time. PLAN: 1. Attempted but unsuccessful complex urethral catheterization and urethral dilation. 2. Since the patient has not been n.p.o. and is currently comfortable without evidence of conor retention, we will wait until the morning, and at that time we will proceed with intraoperative cystoscopy, evacuation of bladder clot, possible bladder or prostatic fossa fulguration, and Chao catheter placement at that time. 3. Patient will remain n.p.o. at this time in preparation for surgery tomorrow. Thank you for this consultation. /[id number]/MODL MTDMalini
[2018-04-21] MEDS: DICLOFENAC SODIUM 1% 100 GM GEL TP SCH ×4 (06:19→21:47)
--- NOTE | 2018-04-21 06:30 | PDMN ---
Medical Necessity Medical necessity: Pt meets inpt criteria per MD order and [id number], Renal Failure, Acute, 3 days. 87 y/o admitted w/acute kidney injury, creatinine 3.5 ( baseline is 0.9), BUN 53: multi factorial w/decreased po intake, acute blood loss anemia (H&H9,26), and obstruction w/gross hematuria, urology consult: unsuccessful complex urethral catheterization and urethral dilation, plan for intraoperative cystoscopy today. Hx recent hospitalization (03/31/18-04/07/18) for failed RV lead and replacement, diastolic heart failure, dementia, recent MSSA UTI, chronic loculated pleural effusions, and Parkinsons. Anticipate>2MN given acute blood loss anemia, hematuria requiring surg intervention, DESMOND, and comorbidities.
[2018-04-21] MEDS: DILTIAZEM CD 120 MG CAP PO SCH (07:45)
[2018-04-21] MEDS: CARBIDOPA/LEVODOPA 25 MG/100 MG TAB PO SCH ×4 (07:46→21:46)
[2018-04-21] MEDS: FINASTERIDE 5 MG TAB PO SCH (07:46)
[2018-04-21] MEDS: NS 1,000 ML IV SCH ×2 (07:48→08:38)
[2018-04-21] MEDS ORDERED: LR 1,000 ML IV ONE (08:22)
[2018-04-21] MEDS ORDERED: NS 1,000 ML IV ONE (08:35)
[2018-04-21] MEDS ORDERED: Herbals/Supplements -Info Only PO SCH (09:00)
--- NOTE | 2018-04-21 09:17 | ASMTCMCOM ---
CM Note CM Note Notes: 87yr old male recently admitted to replace pacemaker, now with Lethargy, DESMOND. Patient has a Hx of Chronic Afib, Hrt block, HTN, MSSA, UTI, PE's, Parkinson's, Dementia. He was at [facility] for Rehab before admitting to [facility]. Patient has a and a son. CM to follow for possible discharge needs. Date Signed: 04/21/2018 09:16 AM Electronically Signed By:Nicolette Lopez LCSW
--- NOTE | 2018-04-21 09:18 | PDANEPAE ---
ANE History of Present Illness 87 yo for cyst evac hematoma ANE Past Medical History - Cardiovascular History Hx Hypertension: Yes Hx Arrhythmias: Yes Hx Coronary Artery / Peripheral Vascular Disease: No Hx CHF / Valvular Disease: No Hx Palpitations: No - Pulmonary History Hx COPD: No Hx Asthma/Reactive Airway Disease: No Hx Oxygen in Use at Home: No Hx Sleep Apnea: Yes Sleep Apnea Screening Result - Last Documented: Positive - Endocrine History Hx Diabetes: No - Chronic Pain History Chronic Pain: Yes ANE Review of Systems Review of Systems: - Exercise capacity METS (RN): 2 METS - Pacemaker Pacemaker Sybase Developer: Abbot Pacemaker Model: [id number] Date Pacemaker Last Checked: 04/06/18 ANE Patient History - Allergies Allergies/Adverse Reactions: No Known Allergies Allergy (Verified 04/20/18 16:03) - Home Medications Home Medications: Diltiazem Cd [Cardizem ER 120 MG (*)] 120 mg PO DAILY@0730 03/20/18 [Last Taken 04/20/18 09:00] Donepezil HCl [Aricept 5 MG (*)] 10 mg PO HS 03/20/18 [Last Taken 04/19/18] Carbidopa/Levodopa 25/100Mg [Sinemet 25/100 MG (*)] 1 tab PO QID@0730,12,17,21 03/22/18 [Last Taken 04/20/18 12:00] Lidocaine 4%/Menthol 1% [Icy Hot Lidocaine/Menthol 4%/1% Patch (*)] 1 patch TD DAILY PRN 03/31/18 [Last Taken 04/20/18 05:00] Acetaminophen [Tylenol 325mg (*)] 650 mg PO TID 04/20/18 [Last Taken 04/20/18 14 :00] Diclofenac Sodium 1% [Voltaren Gel (*)] 4 gm TP QID 04/20/18 [Last Taken 12:00] Escitalopram Oxalate [Lexapro] 20 mg PO 1700 04/20/18 [Last Taken 04/19/18 17:00 ] Finasteride [Proscar 5 MG (*)] 5 mg PO DAILY 04/20/18 [Last Taken 04/20/18 09:00 ] Gabapentin [Neurontin 100 MG (*)] 200 mg PO TID 04/20/18 [Last Taken 04/20/18 12 :00] Herbals/Supplements -Info Only 1 ea PO DAILY 04/20/18 [Last Taken 04/20/18 09:00 ] amLODIPine BESYLATE [Norvasc 2.5 mg (*)] 2.5 mg PO DAILY 04/20/18 [Last Taken 09:00] levOFLOXACIN [Levaquin] 500 mg PO DAILY 04/20/18 [Last Taken 04/20/18 09:00] - NPO status NPO Since - Liquids (Date): 04/21/18 NPO Since - Liquids (Time): 00:00 NPO Since - Solids (Date): 04/20/18 NPO Since - Solids (Time): 07:54 - Smoking Hx Smoking Status: Never smoked - Alcohol Use Alcohol Use: Sober ANE Labs/Vital Signs - Labs Result Diagrams: 04/21/18 04:30 04/21/18 04:30 - Vital Signs Blood Pressure: 124/70 Heart Rate: 73 Respiratory Rate: 16 O2 Sat (%): 92 Height: 6 ft Weight: 91 kg ANE Physical Exam - Airway Mallampati Score: Class 2 Mouth exam: normal dental/mouth exam - Pulmonary Pulmonary: no respiratory distress - Cardiovascular Cardiovascular: regular rate and rhythym - ASA Status ASA Status: III ANE Anesthesia Plan Anesthesia Plan: GA w LMA
[2018-04-21] MEDS ORDERED: PROPOFOL/EMULSION 500 MG/50 ML BOTTLE IV ONE (09:27)
[2018-04-21] MEDS ORDERED: fentaNYL 100 MCG/2 ML INJ ONE (09:27)
--- NOTE | 2018-04-21 09:54 | POSTOPPROG ---
Post Op Note Date of Operation: 04/21/18 Surgeon: Andrea Arana Anesthesia: LMA Pre-op Diagnosis: Clot retention, urethral trauma Findings: See op note Inf/Abcess present in the surg proc area at time of surgery?: No EBL: Minimal Complications: None
[2018-04-21] MEDS ORDERED: fentaNYL 100 MCG/2 ML INJ IVP PRN (10:18)
[2018-04-21] MEDS ORDERED: ONDANSETRON 4 MG/2 ML VIAL IVP PRN (10:18)
[2018-04-21] MEDS ORDERED: NALOXONE HCL 0.4 MG/ML INJ IVP PRN (10:18)
--- NOTE | 2018-04-21 11:18 | GOP ---
DATE OF OPERATION: 04/21/2018 SURGEON: Andrea Arana MD ANESTHESIA: Laryngeal mask. PREOPERATIVE DIAGNOSIS: 1. Clot urinary retention. 2. Urethral trauma due to incorrect Chao catheter placement. POSTOPERATIVE DIAGNOSIS: 1. Clot urinary retention. 2. Urethral trauma due to incorrect Chao catheter placement. 3. Small left lateral wall bladder perforation. 4. Mild bladder neck contracture. PROCEDURE PERFORMED: Cystourethroscopy with evacuation of multiple obstructing bladder clots. FINDINGS: 1. Large amount of organized clot within the bladder. 2. Membranous urethral trauma related to prior unsuccessful Chao catheter placement. 3. Mildly restricting bladder neck contracture. 4. Small left lateral wall bladder perforation. It is unclear where this perforation was present prior to surgery or developed during the course of evacuation of clot during surgery. SPECIMENS: None. ESTIMATED BLOOD LOSS: Intraoperative, minimal. INDICATIONS: This gentleman who was admitted yesterday with gross hematuria and a bladder full of clot. Chao catheter had been placed at an outside facility was noted to be incorrectly placed within the prostatic urethra. Subsequent attempts on the floor to replace a Chao catheter last night were unsuccessful due to urethral trauma. It was recommended the patient undergo intraoperative management at this time. The indications for the procedures, as well as potential risks and complications were discussed with the patient preoperatively. He appeared to understand, his questions were answered, and he wished to proceed. Written informed surgical consent was thereafter obtained. DESCRIPTION OF PROCEDURE: The patient was brought to the operating room and administered laryngeal mask anesthesia. He was carefully placed in the dorsal lithotomy position on the cystoscopic table. The genital area was sterilely prepped with Betadine scrub and paint and then draped in the usual sterile fashion. Cystoscopy was performed with a 30-degree lens through a 25-Luxembourger sheath. Anterior urethra was normal until the bulbar region was reached, at which point there was some slight disruption of the mucosa at the 6 o'clock position. There was some associated edema of the membranous urethra. There was some small blood clot noted along the floor of the prostatic urethra. I was able to advance the scope through the prostatic urethra and into the bladder. The prostatic urethra revealed mild BPH. There was some mildly restricting bladder neck contracture. The bladder was noted to be a full of a large amount of organized clot. I used an [employer] evacuator to systematically evacuated all the clot from the bladder. This required a fair amount of time with the Ellik evacuator. It should be mentioned that prior to evacuating the clot, I was unable to examine the bladder due to the extent of the clot that inhibited visualization of the bladder. It should be mentioned that prior to evacuating the clot, I replaced the cystoscope with a 28-Luxembourger resectoscopic sheath using the visual obturator and the 30-degree lens. Once the clot was evacuated, the Luc resectoscope with a standard resecting loop were inserted. My thought was to resect the bladder neck contracture as this was possibly reason why a Chao catheter could not be placed in proper position prior to admission; however, I examined the bladder before doing so looking for any tumors or areas of bleeding. There was no active bleeding appreciated; however, along the left lateral wall, there did appear to be a small bladder perforation that extended through the bladder wall. Ureteral orifices were normal in regards to shape and position along the trigone. The bladder was mildly to moderately trabeculated. No other areas of abnormal erythema, nor tumors were definitely identified. Because of the small perforation, I decided not to perform the bladder neck resection. The instruments were removed and I attempted to insert a 22-Luxembourger, 3-way Chao catheter; however, some resistance was met at the membranous urethra. Therefore , I reinserted the cystoscope and advanced a 0.035 inch Amplatz superstiff guidewire into the bladder. The cystoscope was removed while keeping the guidewire in place. The tip of the 3-way Chao catheter was cut free. The catheter was advanced over the Amplatz guidewire and into the bladder successfully. 20 cc of sterile fluid was placed in the balloon. The catheter irrigated manually and the return was clear to light pink. Continuous irrigation was started and the catheter was connected to bag drainage. I am quite hopeful that the bladder perforation will spontaneous heal with bladder decompression using a properly placed indwelling Chao catheter. COMPLICATIONS: None. DISPOSITION: He was transferred to the recovery room in stable condition and will be maintained on continuous bladder irrigation at least until tomorrow. He will also need to maintain an indwelling Chao catheter for approximately 2 weeks with a cystogram performed prior to removal to ensure bladder integrity is intact. /[id number]/MODL MTDD
--- NOTE | 2018-04-21 13:28 | WOCRNPDOC ---
WOCRN Advanced Assessment Note - Skin Integrity Problem, Advanced Assess Left Lower Leg Scab Dressing Type: Open to Air Wound Bed Constitution: Scab Site Measurement - Head-to-Toe Length X Width X Depth (cm): [id number] Skin Integrity Problem Comment: Healing traumatic injury. No concerns. Leave DRESS CAP MAKER. Wound care will sign off. Right Lower Leg Scab Dressing Type: Open to Air Closure Description: Steri Strips Site Measurement - Head-to-Toe Length X Width X Depth (cm): [id number] Skin Integrity Problem Comment: Healing skin tear. Do not disturb area. Wound care will sign off.
[2018-04-21] MEDS ORDERED: CEFEPIME HCL 1 GM in NS 50 ML IV SCH (17:30)
--- NOTE | 2018-04-21 17:44 | HOSPPROG ---
Hospitalist Progress Note Assessment/Plan: 87yo M with permanent atrial fibrillation on AC, Parkinson's disease, 2 recent hospitalizations (1st for encephalopathy in setting of MSSA UTI, 2nd for pacemaker lead dislodgment and replacement) who re-presents for hematuria and DESMOND after being recently diagnosed with urinary infection at his living facility and having toth placement. #DESMOND: Obstructive and possibly pre-renal. - S/p cystoscopy with removal of bladder clots - IVF #Hematuria: Related to toth urethral trauma and small left lateral bladder wall perforation. - CBI per urology #Acute blood loss anemia: Hgb 9, down from 12 previously - Recheck H/H in AM #Coagulopathy: INR 5.6 on admit, unclear etiology. - Repeat in AM, if still elevated or issues with bladder bleeding will give vitamin K #Fever: Reported at [facility], none here. Mild leukocytosis. Reportedly diagnosed with UTI recently. - Stop vancomycin/cefepime - Start ceftriaxone for urinary infection, track down records with recent UA - Follow up blood/urine cultures #Atrial fibrillation: Permanent. [id number] = at least 3. Has been on xarelto - Holding xarelto with above bleeding. Had discussion with patient and family re: weighing risks and benefits of xarelto moving forward. They would like to think about this. #Loculated pleural effusions: Bilateral.Unclear etiology of these. Not changed on CT. #Parkinson's disease: Continue home meds. There is reports of him having mild dementia related to this. Per family, he is mentally sharp at baseline. #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 Diet: renal VTE ppx: SCDs Code: full Dispo: Remain inpatient, transfer to med/surg for ongoing management of above. Subjective: Doing well after procedure. He denies pain or abdominal fullness. Minimal blood in toth bag. Had long discussion with patient and 2 daughters. They are concerned about his re-admissions. Objective: Vital Signs Temp Pulse Resp BP Pulse Ox 36.9 C 78 14 99/64 L 97 04/21/18 12:00 04/21/18 17:05 04/21/18 17:05 04/21/18 17:05 04/21/18 17:05 Laboratory Results 04/21/18 04:30 04/21/18 04:30 04/20/18 04/21/18 04/22/18 05:59 05:59 05:59 Intake Total 2335 580 Output Total 350 20 Balance 1984 560 PT 49.9 SEC (12.0-15.0) H 04/20/18 16:01 INR 5.60 (0.83-1.16) H* 04/20/18 16:01 - Physical Exam Constitutional: no apparent distress, appears nourished, not in pain Eyes: PERRL, anicteric sclera, EOMI Ears, Nose, Mouth, Throat: moist mucous membranes, hearing normal, ears appear normal, no oral mucosal ulcers Cardiovascular: regular rate and rhythym, no murmur, rub, or gallop Respiratory: no respiratory distress, no rales or rhonchi, clear to auscultation Gastrointestinal: normoactive bowel sounds, soft, non-tender abdomen, no palpable masses Genitourinary: toth in urethra Skin: no rashes or abrasions, no fluctuance, no induration Musculoskeletal: full muscle strength, no muscle tenderness, normal joint ROM Neurologic: AAOx3, other (intermittent mild arm tremors) Psychiatric: interacting appropriately, not anxious, not encephalopathic, thought process linear ICD10 Worksheet Patient Problems: Problems Problem Status Onset Acute renal insufficiency Acute Sepsis Acute Dehydration Acute Fall Acute Multiple skin tears Acute Pacemaker malfunction Acute Parkinson disease Acute Paroxysmal a-fib Acute UTI (urinary tract infection) Acute
[2018-04-21] MEDS: ESCITALOPRAM OXALATE 10 MG TAB PO SCH (19:04)
[2018-04-21] MEDS: DONEPEZIL HCL 5 MG TAB PO SCH (21:46)
[2018-04-21] MEDS: PATCH REMOVAL 1 EA PATCH TD SCH (21:55)
[2018-04-22] MEDS: NS 1,000 ML IV SCH ×2 (00:04→09:35)
[2018-04-22] MEDS: DICLOFENAC SODIUM 1% 100 GM GEL TP SCH ×4 (05:58→22:33)
[2018-04-22 06:14] LABS: INR 2.11 (0.83-1.16); PROTIME(PATIENT) 23.7 SEC (12.0-15.0)
[2018-04-22] MEDS: DILTIAZEM CD 120 MG CAP PO SCH (09:33)
[2018-04-22] MEDS: CARBIDOPA/LEVODOPA 25 MG/100 MG TAB PO SCH ×4 (09:33→22:31)
[2018-04-22] MEDS: FINASTERIDE 5 MG TAB PO SCH (09:33)
--- NOTE | 2018-04-22 10:28 | HOSPPROG ---
Hospitalist Progress Note Assessment/Plan: 87yo M with permanent atrial fibrillation on AC, Parkinson's disease, 2 recent hospitalizations (1st for MSSA UTI, 2nd for pacemaker wire replacement) here with hematuria and DESMOND after being diagnosed with urinary infection and urinary retention at his living facility and having toth placed. He now has MSSA growing in his blood. #MSSA bacteremia: Had MSSA in urine 1 month ago, blood cultures not checked at that time. Then had pacemaker lead revision about 2 weeks ago. At this point, may need to treat as bacterial endocarditis and thus need PICC. He has been clinically stable without fever or leukocytosis. - ID consulted, switched to cefazolin - Needs repeat cultures to monitor for clearance #DESMOND: Improving with hydration and removal of obstruction (clots). - Decrease IVF, encourage PO intake, recheck in AM #Hematuria: Related to toth urethral trauma and small left lateral bladder wall perforation. - CBI per urology #Acute blood loss anemia: H/H stable but lower than baseline. - Recheck H/H in AM #Coagulopathy: INR 5.6->2. - No indication for vit K at present #Atrial fibrillation: Permanent. [id number] = at least 3. Has been on xarelto - Holding xarelto with above bleeding. Had discussion with patient and family re: weighing risks and benefits of xarelto moving forward. They would like to think about this. #Loculated pleural effusions: Bilateral. Unclear etiology of these. Unable to tap last admission. Not changed on CT. #Parkinson's disease: Continue home meds. There is reports of him having mild dementia related to this. Per family, he is mentally sharp at baseline. - PT/OT #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 Diet: renal VTE ppx: SCDs Code: full Dispo: Remain inpatient (med/surg) for ongoing management of above. PT/OT ordered to determine needs. I updated patient and daughters at bedside. Subjective: Feeling well this morning. Had some back pain last night. Nurse helped him eat breakfast this morning. Minimal blood in toth bag. Objective: Vital Signs Temp Pulse Resp BP Pulse Ox 36.5 C 72 20 102/49 L 90 L 04/22/18 08:00 04/22/18 08:00 04/22/18 08:00 04/22/18 08:00 04/22/18 08:00 Laboratory Results 04/22/18 05:23 04/22/18 05:23 04/21/18 04/22/18 04/23/18 05:59 05:59 05:59 Intake Total 2335 1887 1363 Output Total 350 545 450 Balance 1985 1342 913 PT 23.7 SEC (12.0-15.0) H 04/22/18 05:23 INR 2.11 (0.83-1.16) H 04/22/18 05:23 - Physical Exam Constitutional: no apparent distress, appears nourished, not in pain Eyes: PERRL, anicteric sclera, EOMI Ears, Nose, Mouth, Throat: moist mucous membranes, hearing normal, ears appear normal, no oral mucosal ulcers Cardiovascular: regular rate and rhythym, no murmur, rub, or gallop, No JVD, No edema Respiratory: no respiratory distress, no rales or rhonchi, clear to auscultation Gastrointestinal: normoactive bowel sounds, soft, non-tender abdomen, no palpable masses Genitourinary: toth in urethra Musculoskeletal: full muscle strength, no muscle tenderness, normal joint ROM Neurologic: other (alert, answers questions appropriately, occasional upper extremity pill rolling tremor) Psychiatric: interacting appropriately, not encephalopathic ICD10 Worksheet Patient Problems: Problems Problem Status Onset Acute renal insufficiency Acute Sepsis Acute Dehydration Acute Fall Acute Multiple skin tears Acute Pacemaker malfunction Acute Parkinson disease Acute Paroxysmal a-fib Acute UTI (urinary tract infection) Acute
[2018-04-22] MEDS: ceFAZolin 2 GM/DEXTROSE 100 ML IV SCH ×2 (11:41→22:45)
--- NOTE | 2018-04-22 12:46 | PCMIDPN ---
Assessment/Plan: # MSSA bacteremia, unclear source. Past urine culture with MSSA unclear if this is primary or secondary. More likely his source is the skin as patient has longstanding issues with skin tears and clumsiness due to Parkinson's. --would obtain a TTE --adjust antibiotics to renal dosed cefazolin 2 g IV q.12. 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 Would be important to know if vegetation present on lead as my experience shows that this increases likelihood of failure/breakthru of suppressive antibiotics. --repeat blood cultures after 48 hr of antibiotics --continue to assess the need for BHAVIK based on result of TTE and concern for pacemaker endocarditis # back pain: I reviewed CT scans with radiology no clear evidence of osteomyelitis diskitis on non contrasted CT scan. At this point it is not clear whether patient could undergo an MRI with pacemaker in place, will discuss with Cardiology # LUE swelling: Doppler is negative for DVT # ARF due to obstruction now s/p evacuation of clot within bladder. Renal dose antibiotics, suspect will adjust have to adjust going forward with recovery of renal function. Subjective: 87 y/o M, with pacemaker and hx of Parkinsons since January 2017, presents for evaluation of bradycardia and possible systemic infection s/p recent UTI. Pt was hospitalized earlier this month from 03/21 to 03/26/2018 for altered-mental- status and abrasions sustained to R-lower lateral arm s/p fall. At that time, he was dx with UTI with MSSA and Enterococcus spp. and initially given IV ceftriaxone in hospital but DC on doxycycline. ID was consulted during his last hospitalization from 03/31/2018 through 04/07/2018 to evaluate safety of replacement of his right atrial lead associated with his pacemaker. To evaluate this patient underwent a CT of his chest, blood cultures and a BHAVIK. A loculated effusion was identified in his right lower chest that was unable to be tapped. Blood cultures were negative but patient was on doxycycline when there were collected on the and 01 of April. Bhavik was negative for evidence of endocarditis. The following procedures were performed on 04/06/2018 : Left subclavian venogram. Implantation of a new right ventricular lead. Pocket revision. Capping of a chronic right ventricular lead. Implantation of a new pulse generator. Patient was discharged from the hospital off antibiotics. The day prior to this current admission 04/19/2018 patient had decreased mental status, malaise and inability to urinate, underwent chest x-ray where a right lower lobe infiltrate was identified, patient received 1 dose of Levaquin and was transferred to [facility] for further evaluation. Patient underwent blood cultures on admission 04/20/2018 which grew MSSA. Patient was started on ceftriaxone 1 g IV daily. Patient is feeling significantly improved today and is back to his baseline mental status. His most significant complaint is lumbar back pain. ID is asked to consult regarding therapy of MSSA bacteremia in the setting of pacemaker. Objective: Vital Signs Temp Pulse Resp BP Pulse Ox 36.5 C 72 20 102/49 L 90 L 04/22/18 08:00 04/22/18 08:00 04/22/18 08:00 04/22/18 08:00 04/22/18 08:00 Laboratory Results 04/22/18 05:23 04/22/18 05:23 04/21/18 04/22/18 04/23/18 05:59 05:59 05:59 Intake Total 2335 1887 1363 Output Total 350 545 450 Balance 1985 1342 913 - Physical Exam General Appearance: alert EENT: pale conjunctiva, dry mucous membranes, No scleral icterus, No thrush Respiratory: other (Decreased breath sounds in the bilateral base), No accessory muscle use Cardiac/Chest: regular rate, rhythm, systolic murmur Extremities: pedal edema (Mild), swelling (Left arm) Abdomen: normal bowel sounds, non-tender, soft Male Genitalia: toth Skin: pallor, other (Scattered ecchymosis), No diaphoresis, No jaundice, No rash Neuro/Psych: alert, normal mood/affect, oriented x 3 - Time Spent With Patient Time Spent with Patient: greater than 35 minutes (Reviewed planned therapy with patient and his 2 daughters at bedside.) Time Spent with Patient: Greater than 35 minutes spent on this patients care, greater than 50% of time spent counseling, educating, and coordinating care regarding the above mentioned plan. ICD10 Worksheet Patient Problems: Problems Problem Status Onset Acute renal insufficiency Acute Sepsis Acute Dehydration Acute Fall Acute Multiple skin tears Acute Pacemaker malfunction Acute Parkinson disease Acute Paroxysmal a-fib Acute UTI (urinary tract infection) Acute
[2018-04-22] MEDS ORDERED: PERFLUTREN LIPID MICROSPHERES 1.1 MG/ML VIAL IV ONE (14:00)
--- NOTE | 2018-04-22 15:57 | ECHO ---
[email or web address] [address] [address] Main: [phone] Fax: Transthoracic Echocardiogram Name: CHAVEZ SCHUMACHER MR#: [id number] Study Date: 04/22/2018 Study Time: 01:20 PM Date of : 1930 Age: 87 year(s) Height: 182.9 cm (72 in.) Weight: 90.72 kg (200 lb.) BSA: 2.13 m2 Gender: Male Examination: Echo with Contrast Indication: MSSA bacteremia w pacemaker in place Image Quality: Adequate Contrast: 0.165 mg I.V. dose of Definity was administered to improve endocardial border definition. Requested by: Maria A Chandler BP: / Heart Rate: Rhythm: Indication: MSSA bacteremia w pacemaker in place Procedure Staff Station Chief: Nicole Valenzuela RDCS Reading Physician: Grant Somers MD Requesting Provider: Conclusions: Mildly reduced systolic LV function. EF is 47 %. Mild to moderate mitral regurgitation. Mild aortic valve regurgitation is present. Moderate to severe tricuspid valve regurgitation. Right ventricular systolic pressure measures 60mmHg. Trivial pericardial effusion. Measurements: Chambers Valvular Assessment AV/MV Valvular Assessment TV/PV Normal Normal Normal Name Value Range Name Value Range Name Value Range Ao Julia (2D): 3.5 cm (1.4 cm-2.6 AV Vmax: 1.36 m/s (1 m/s-1.7 TR Vmax: 3.71 mm/s ( - ) cm) m/s) TR PGmax: 55 mmHg ( - ) IVSd (2D): 1.2 cm (0.6 cm-1.1 AV maxP mmHg ( - ) syst. PAP: 60 mmHg ( - ) cm) AV meanP mmHg ( - ) PV Vmax: 0.79 m/s (0.6 m/s-0.9 LVDd (2D): 5.2 cm (4.2 cm-5.9 KAMERON (VTI): 2.0 cm ( - ) m/s) cm) MV E Vmax: 0.99 m/s ( - ) PV PGmax: 2 mmHg ( - ) LVDs (2D): 3.9 cm (2.1 cm-4 MV PHT: 0.053 s ( - ) cm) MVA (PHT): 4.2 s ( - ) LVPWd (2D): 1.2 cm (0.6 cm-1 cm) LVOTd 2.1 cm 2.1 cm mm LVEF (MOD4): 47 % (>=55 %) RVDd(2D): 3.4 cm (1.9 cm-3.8 cmmm) Continued Measurements: Patient: CHAVEZ SCHUMACHER Study Date: 04/22/2018 Page 1 of 2 01:20 PM Chambers Valvular Assessment AV/MV Valvular Assessment TV/PV Name Value Name Value Name Value LADs: 4.5 cm MV DecTime: 180 m/s CVP (est.): 5 mmHg LADs Lon.5 cm LA Area: 29.8 cm2 LA Volume: 123 ml LA Volume Index: 57.7 ml/m2 RA Area: 30.6 cm2 Additional Vessels Name Value Ao Ascendin.8 cm Findings: Left Ventricle: Normal size left ventricle. Mild concentric LV hypertrophy. Mildly reduced systolic LV function. EF is 47 %. No regional wall motion abnormality. Unable to assess diastolic dysfunction. Right Ventricle: Normal size right ventricle. Normal RV function. Left Atrium: The left atrium is severely dilated. Right Atrium: The right atrium is moderately dilated. Mitral Valve: The mitral valve is normal in appearance and function. Mild to moderate mitral regurgitation. No mitral stenosis is present. Aortic Valve: The aortic valve is tri-leaflet. Aortic sclerosis is present. Mild aortic valve regurgitation is present. No aortic valve stenosis is present. Tricuspid Valve: The tricuspid valve is normal in appearance and function. Moderate to severe tricuspid valve regurgitation. The pulmonary artery pressure is moderately to severely increased. Right ventricular systolic pressure measures 60mmHg. Pulmonic Valve: The pulmonic valve is normal in appearance and function. Trivial pulmonic valve regurgitation. Aorta: The aorta is normal. Normal size aortic root measuring 3.5 cm. Normal size ascending aorta measuring 3.8 cm. Pericardium: Trivial pericardial effusion. There is pericardial fat. No pleural effusion. (No Signature Object) Patient: CHAVEZ SCHUMACHER Study Date: 04/22/2018 Page 2 of 2 01:20 PM [id number]
[2018-04-22] MEDS: ESCITALOPRAM OXALATE 10 MG TAB PO SCH (17:18)
--- NOTE | 2018-04-22 22:02 | SOAPPROG ---
SOAP Progress Note Assessment/Plan: Assessment: 1. Gross hemautria & clot retention w/ urethral trauma (the latter due to incorrectly-positioned Chao catheter), s/p intraoperative cystoscopy w/ clot evacuation on 04/21. Appears stable from this standpoint. 2. Left lateral wall, probable retroperitoneal, bladder perforation -- noted intraoperatively. This should spontaneously heal w/ indwelling Chao. Plan: 1. Continue indwelling Chao for 2 weeks. Will stop CBI in AM. 2. He will need to undergo cystogram in 2 weeks (to ensure bladder perforation resolution) then FU in my office thereafter for Chao removal. Subjective: Denies abdominal nor bladder pain. Objective: Vital Signs Temp Pulse Resp BP Pulse Ox 36.5 C 73 16 118/68 96 04/22/18 19:19 04/22/18 20:49 04/22/18 21:05 04/22/18 19:19 04/22/18 21:05 Laboratory Results 04/22/18 05:23 04/22/18 05:23 04/21/18 04/22/18 04/23/18 05:59 05:59 05:59 Intake Total 2335 1887 1413 Output Total 350 545 450 Balance 1985 1342 963 PT 23.7 SEC (12.0-15.0) H 04/22/18 05:23 INR 2.11 (0.83-1.16) H 04/22/18 05:23 Physical Exam - Physical Exam General Appearance: alert, no apparent distress Abdomen: non-tender, soft Male Genitalia: other (mild penile edema, Chao in place draining clear urine on low-rate CBI) ICD10 Worksheet Patient Problems: Problems Problem Status Onset Acute renal insufficiency Acute Sepsis Acute Dehydration Acute Fall Acute Multiple skin tears Acute Pacemaker malfunction Acute Parkinson disease Acute Paroxysmal a-fib Acute UTI (urinary tract infection) Acute
[2018-04-22] MEDS: DONEPEZIL HCL 5 MG TAB PO SCH (22:31)
[2018-04-22] MEDS: PATCH REMOVAL 1 EA PATCH TD SCH (22:34)
[2018-04-23] MEDS: DICLOFENAC SODIUM 1% 100 GM GEL TP SCH ×4 (05:24→20:02)
[2018-04-23] MEDS: ACETAMINOPHEN 325 MG TAB PO PRN (07:41)
[2018-04-23] MEDS: CARBIDOPA/LEVODOPA 25 MG/100 MG TAB PO SCH ×4 (07:41→20:05)
[2018-04-23] MEDS: DILTIAZEM CD 120 MG CAP PO SCH (07:41)
[2018-04-23] MEDS: LIDOCAINE 4%/MENTHOL 1% PATCH TD PRN (07:42)
[2018-04-23] MEDS: ceFAZolin 2 GM/DEXTROSE 100 ML IV SCH ×2 (09:40→19:59)
[2018-04-23] MEDS: FINASTERIDE 5 MG TAB PO SCH (09:49)
--- NOTE | 2018-04-23 10:39 | PCMIDPN ---
Assessment/Plan: Assessment/Plan: * MSSA bacteremia with recent pacemaker revision, loculated right pleural fluid , and low back pain: Continue cefazolin at 2 g IV q.12 hours with likelihood can change to q.8 hours if creatinine continues to improve. Given recent pacemaker revision, think GARCIA would be of utility to ensure no evidence of pacemaker involvement as previously outlined by Dr. Chandler. In discussion with him this morning, he is amenable to this study. Given low back pain which is his primary complaint, think further imaging would be of utility to assess for diskitis/osteomyelitis or epidural abscess; cardiology to review his pacemaker to determine if it allows for MRI versus if he will need to have repeat CT studies. Favor allowing creatinine to improved prior to imaging as this would allow for use of gadolinium if MRI possible. Repeat blood cultures performed today to assess for clearing of bacteremia. Pleural fluid has similar characteristics to that noted previously which was not amenable to thoracentesis. Will continue to observe this with antibiotic therapy. Time spent, greater than 35 min, of which greater than half was spent in education/counseling/coordination of care related to MSSA bacteremia and plan of care. Care coordinated with hospitalist and power supply engineer services and also discussed ongoing plan with daughter by phone. 04/23/18 10:36 04/23/18 14:44 Subjective: Patient known to me from recent hospitalization as outlined by Dr. Chandler in her note yesterday. Prior hospitalization and clinical course have been reviewed. Patient currently complains of low back pain. States he felt "lousy " this morning but better as the day has gone on. Chao trauma and possible perforation of bladder as outlined by Dr. Arana also reviewed. Objective: Vital Signs Temp Pulse Resp BP Pulse Ox 36.4 C 73 20 145/77 H 88 L 04/23/18 10:04 04/23/18 07:41 04/23/18 07:32 04/23/18 07:41 04/23/18 07:32 Laboratory Results 04/23/18 04:44 04/23/18 04:44 04/22/18 04/23/18 04/24/18 05:59 05:59 05:59 Intake Total 1887 2578 Output Total 545 1100 Balance 1342 1478 Cefazolin # 2 Blood cultures x2 04/20/2018 2/2 MSSA Blood cultures 04/23/2018 pending Urine culture 3000 colony-forming units of yeast - Physical Exam General Appearance: alert, no apparent distress EENT: No scleral icterus, No thrush, No conjunctival petechiae Respiratory: crackles (Bilaterally), No respiratory distress Cardiac/Chest: regular rate, rhythm, systolic murmur (2/6 right upper sternal border), other (Pacemaker site without erythema, tenderness, or drainage with intact incision line present) Extremities: No inflammation Abdomen: non-tender, No distended Back: spine tenderness (Lumbosacral region) ICD10 Worksheet Patient Problems: Problems Problem Status Onset Acute renal insufficiency Acute Sepsis Acute Dehydration Acute Fall Acute Multiple skin tears Acute Pacemaker malfunction Acute Parkinson disease Acute Paroxysmal a-fib Acute UTI (urinary tract infection) Acute
--- NOTE | 2018-04-23 11:29 | HOSPPROG ---
Hospitalist Progress Note Assessment/Plan: 87yo M with permanent atrial fibrillation on AC, Parkinson's disease diagnosed with UTI at living facility and had toth placed with urethral trauma leading to bleeding and obstructive nephropathy. He now has MSSA growing in his blood. Of note, had MSSA in urine 1 month ago, blood cultures not checked at that time. Then had pacemaker lead revision about 2 weeks ago. #MSSA bacteremia: Unclear source. He has been clinically stable without fever or leukocytosis. - ID consulted, continue cefazolin, dosed per renal function - Plan for GARCIA - Needs back imaging, discuss with cardiology if able to get MRI vs CT with pacemaker - Surveillance blood cultures sent this morning, if remain negative will need PICC #DESMOND: Improving with hydration and removal of obstruction (clots). - Decrease IVF, encourage PO intake #Acute hypoxemic resp insufficiency: On 4-5L now. - CXR, slow down fluids, would like to improve resp status prior to GARCIA #Hematuria: Related to toth urethral trauma and small left lateral bladder wall perforation. - CBI now stopped per urology #Deconditioning: Very weak - PT/OT #Acute blood loss anemia: H/H stable but lower than baseline. - Monitor #Coagulopathy: INR 5.6->2. - No indication for vit K at present #Atrial fibrillation: Permanent. [id number] = at least 3. Has been on xarelto - Continue home diltiazem. - Holding xarelto with above bleeding. Had discussion with patient and family re: weighing risks and benefits of xarelto moving forward. They would like to think about this. #Loculated pleural effusions: Bilateral. Unclear etiology of these. Unable to tap last admission. Not changed on CT. #Parkinson's disease, mild cog impairment: Fully oriented. Per family, he is mentally sharp at baseline. 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 Diet: renal VTE ppx: SCDs Code: full Dispo: Remain inpatient for ongoing management of above. PT/OT ordered to determine needs, will likely need outpatient IV antibiotics. Subjective: Was "out of it this morning" but feeling better now. Had some shortness of breath. No pain at moment. Objective: Vital Signs Temp Pulse Resp BP Pulse Ox 36.4 C 88 18 126/76 H 86 L 10/12/18 10:04 04/23/18 08:00 04/23/18 08:00 04/23/18 08:00 04/23/18 08:00 Laboratory Results 04/23/18 04:44 04/23/18 04:44 04/22/18 04/23/18 04/24/18 05:59 05:59 05:59 Intake Total 1887 2578 50 Output Total 545 1100 560 Balance 1342 1478 -510 PT 23.7 SEC (12.0-15.0) H 04/22/18 05:23 INR 2.11 (0.83-1.16) H 04/22/18 05:23 - Physical Exam Constitutional: no apparent distress, appears nourished, not in pain Eyes: PERRL, anicteric sclera, EOMI Ears, Nose, Mouth, Throat: moist mucous membranes, hearing normal, ears appear normal, no oral mucosal ulcers Cardiovascular: regular rate and rhythym, no murmur, rub, or gallop, No edema Respiratory: no respiratory distress, reduced air movement, rhonchi ( anterolaterally) Gastrointestinal: normoactive bowel sounds, soft, non-tender abdomen, no palpable masses Genitourinary: toth in urethra Skin: no rashes or abrasions, no fluctuance, no induration Musculoskeletal: other (LUE mild edema) Neurologic: AAOx3, weakness (generalized) Psychiatric: interacting appropriately, not anxious, not encephalopathic, thought process linear ICD10 Worksheet Patient Problems: Problems Problem Status Onset Acute renal insufficiency Acute Sepsis Acute Dehydration Acute Fall Acute Multiple skin tears Acute Pacemaker malfunction Acute Parkinson disease Acute Paroxysmal a-fib Acute UTI (urinary tract infection) Acute
--- NOTE | 2018-04-23 14:48 | ASMTCMCOM ---
CM Note CM Note Notes: Family states that pt is "mentally sharp" at baseline. He will likely need out-pt IV antibiotics. PT and OT recommend rehab. [facility] is planning to accept him back when he is ready for d/c. CM to follow. D/C Plan: Anticipate [facility]. Date Signed: 04/23/2018 02:47 PM Electronically Signed By:Any Hartley
[2018-04-23] MEDS ORDERED: FUROSEMIDE 40 MG/4 ML VIAL IVP ONE (14:55)
[2018-04-23] MEDS: ESCITALOPRAM OXALATE 10 MG TAB PO SCH (17:04)
[2018-04-23] MEDS: DONEPEZIL HCL 5 MG TAB PO SCH (20:04)
[2018-04-23] MEDS: PATCH REMOVAL 1 EA PATCH TD SCH (20:19)
[2018-04-24] MEDS: DICLOFENAC SODIUM 1% 100 GM GEL TP SCH ×4 (05:26→21:04)
[2018-04-24] MEDS: CARBIDOPA/LEVODOPA 25 MG/100 MG TAB PO SCH ×4 (09:11→21:04)
[2018-04-24] MEDS: ceFAZolin 2 GM/DEXTROSE 100 ML IV SCH ×3 (09:11→23:38)
[2018-04-24] MEDS: DILTIAZEM CD 120 MG CAP PO SCH (09:11)
[2018-04-24] MEDS: FINASTERIDE 5 MG TAB PO SCH (09:12)
[2018-04-24] MEDS: ACETAMINOPHEN 325 MG TAB PO PRN ×2 (09:16→16:46)
[2018-04-24] MEDS: LIDOCAINE 4%/MENTHOL 1% PATCH TD PRN (09:17)
--- NOTE | 2018-04-24 13:11 | PCMIDPN ---
Assessment/Plan: Assessment/Plan: * MSSA bacteremia with recent pacemaker revision, loculated right pleural fluid , and low back pain: Creatinine improved today so will increase cefazolin to 2 g IV Q 8 hr. Plan GARCIA and MRI of L/S spine once pulmonary edema improved. Reviewed with Cardiology yesterday and pacemaker allows for MRI. Continue to follow repeat blood cultures to document clearing of bacteremia. * Confusion: Intermittent confusion consistent with delirium. Continue to monitor over time. 04/24/18 13:08 Subjective: Patient without complaints. Notes back pain has decreased. Intermittently confused and noted to be restless overnight. Objective: Vital Signs Temp Pulse Resp BP Pulse Ox 36.6 C 73 15 143/83 H 94 04/24/18 08:00 04/24/18 09:11 04/24/18 08:00 04/24/18 09:11 04/24/18 08:00 Laboratory Results 04/24/18 08:25 04/24/18 08:25 04/23/18 04/24/18 04/25/18 05:59 05:59 05:59 Intake Total 2578 650 Output Total 1100 3260 Balance 1478 -2610 Cefazolin # 3 Blood cultures x2 04/20/2018 2/2 MSSA Blood cultures 04/23/2018 pending Chest x-ray with pulmonary edema - Physical Exam General Appearance: non-toxic, other (Sleepy but interacts when engaged) EENT: No scleral icterus, No thrush, No conjunctival petechiae Respiratory: crackles (Bilateral) Cardiac/Chest: regular rate, rhythm, systolic murmur, other (Pacemaker site nontender without erythema) Extremities: No inflammation Abdomen: non-tender, No distended Back: No spine tenderness ICD10 Worksheet Patient Problems: Problems Problem Status Onset Acute renal insufficiency Acute Sepsis Acute Dehydration Acute Fall Acute Multiple skin tears Acute Pacemaker malfunction Acute Parkinson disease Acute Paroxysmal a-fib Acute UTI (urinary tract infection) Acute
--- NOTE | 2018-04-24 13:54 | HOSPPROG ---
Hospitalist Progress Note Assessment/Plan: 87yo M with permanent atrial fibrillation on AC, Parkinson's disease diagnosed with UTI at living facility and had toth placed with urethral trauma leading to bleeding and obstructive nephropathy. He now has MSSA growing in his blood. Of note, had MSSA in urine 1 month ago, blood cultures not checked at that time. Then had pacemaker lead revision about 2 weeks ago. #MSSA bacteremia: Unclear source. He has been clinically stable without fever or leukocytosis. - ID consulted, continue cefazolin - Plan for GARCIA, MRI L spine when resp status better - Surveillance blood cultures sent this morning, if remain negative will need PICC #DESMOND: Improving with hydration and removal of obstruction (clots). - Decrease IVF, encourage PO intake #Acute hypoxemic resp insufficiency: On 4-5L now. - CXR shows pulm edema * lasix x 3 doses #Hematuria: Related to toth urethral trauma and small left lateral bladder wall perforation. - CBI now stopped per urology #Deconditioning: Very weak - PT/OT #Acute blood loss anemia: H/H stable but lower than baseline. - Monitor #Coagulopathy: INR 5.6->2. - No indication for vit K at present #Atrial fibrillation: Permanent. [id number] = at least 3. Has been on xarelto - Continue home diltiazem. - Holding xarelto with above bleeding. Had discussion with patient and family re: weighing risks and benefits of xarelto moving forward. They would like to think about this. #Loculated pleural effusions: Bilateral. Unclear etiology of these. Unable to tap last admission. Not changed on CT. #Parkinson's disease, mild cog impairment: Fully oriented. Per family, he is mentally sharp at baseline. 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 Diet: renal VTE ppx: SCDs Code: full Dispo: Remain inpatient for ongoing management of above. PT/OT ordered to determine needs, will likely need outpatient IV antibiotics. Subjective: Intermittent delirium Objective: Vital Signs Temp Pulse Resp BP Pulse Ox 36.6 C 73 15 143/83 H 94 04/24/18 08:00 04/24/18 09:11 04/24/18 08:00 04/24/18 09:11 04/24/18 08:00 Laboratory Results 04/24/18 08:25 04/24/18 08:25 04/23/18 04/24/18 04/25/18 05:59 05:59 05:59 Intake Total 2578 650 100 Output Total 1100 3260 650 Balance 1478 -2610 -550 PT 23.7 SEC (12.0-15.0) H 04/22/18 05:23 INR 2.11 (0.83-1.16) H 04/22/18 05:23 - Physical Exam Constitutional: no apparent distress, appears nourished, not in pain Eyes: anicteric sclera, EOMI Ears, Nose, Mouth, Throat: moist mucous membranes, hearing normal Cardiovascular: regular rate and rhythym Respiratory: no respiratory distress, inspiratory crackles Gastrointestinal: normoactive bowel sounds, soft, non-tender abdomen, no palpable masses Genitourinary: other (pink urine in toth bag) Skin: warm Psychiatric: interacting appropriately, not anxious, not encephalopathic ICD10 Worksheet Patient Problems: Problems Problem Status Onset Acute renal insufficiency Acute Sepsis Acute Dehydration Acute Fall Acute Multiple skin tears Acute Pacemaker malfunction Acute Parkinson disease Acute Paroxysmal a-fib Acute UTI (urinary tract infection) Acute
[2018-04-24] MEDS: ESCITALOPRAM OXALATE 10 MG TAB PO SCH (16:46)
[2018-04-24] MEDS: FUROSEMIDE 40 MG/4 ML VIAL IVP SCH (16:47)
[2018-04-24] MEDS: DONEPEZIL HCL 5 MG TAB PO SCH (21:04)
[2018-04-24] MEDS: PATCH REMOVAL 1 EA PATCH TD SCH (21:06)
[2018-04-25] MEDS ORDERED: LORazepam 0.5 MG TAB PO ONE (02:34)
[2018-04-25] MEDS: DICLOFENAC SODIUM 1% 100 GM GEL TP SCH ×4 (05:00→21:08)
[2018-04-25 05:55] LABS: PLATELET COUNT 149 10^3/uL (150-400)
[2018-04-25] MEDS: CARBIDOPA/LEVODOPA 25 MG/100 MG TAB PO SCH ×4 (07:51→21:14)
[2018-04-25] MEDS: DILTIAZEM CD 120 MG CAP PO SCH (07:51)
[2018-04-25] MEDS: ceFAZolin 2 GM/DEXTROSE 100 ML IV SCH ×2 (07:52→15:36)
[2018-04-25] MEDS: ACETAMINOPHEN 325 MG TAB PO PRN (07:52)
[2018-04-25] MEDS: FINASTERIDE 5 MG TAB PO SCH (07:52)
[2018-04-25] MEDS: FUROSEMIDE 40 MG/4 ML VIAL IVP SCH ×2 (07:52→15:36)
--- NOTE | 2018-04-25 09:54 | PCMIDPN ---
Assessment/Plan: Assessment: Plan: Objective: Vital Signs Temp Pulse Resp BP Pulse Ox 35.6 C L 74 18 140/80 H 97 04/25/18 04:42 04/25/18 08:00 04/25/18 08:00 04/25/18 08:00 04/25/18 08:00 Laboratory Results 04/25/18 05:44 04/25/18 05:44 04/24/18 04/25/18 04/26/18 05:59 05:59 05:59 Intake Total 650 575 Output Total 6111 1727 Balance -2610 -1150 ICD10 Worksheet Patient Problems: Problems Problem Status Onset Acute renal insufficiency Acute Sepsis Acute Dehydration Acute Fall Acute Multiple skin tears Acute Pacemaker malfunction Acute Parkinson disease Acute Paroxysmal a-fib Acute UTI (urinary tract infection) Acute
--- NOTE | 2018-04-25 14:29 | HOSPPROG ---
Hospitalist Progress Note Assessment/Plan: DIAGNOSES: # MSSA bacteremia: Unclear source, though organism was seen in urine recently. - on IV cefazolin at present; Surveillance blood cultures 04/23 with no growth so far - Plan for GARCIA to assess for possible endocarditis when CHF and respiratory status stabilized - regarding MRI of spine, I reviewed our records and I can confirm that his new right ventricular pacer lead is MRI compatible, but so far I am unable to find documentation related to his old remaining left ventricular lead, so will not order MRI till can confirm - duration of antibiotics depending on further diagnostic findings as above # Acute hypoxemic resp insufficiency/acute systolic congestive heart failure and pulmonary edema - likely triggered in part by IV fluid resuscitation here -continue diuresis for now -repeat chest x-ray in the morning # new onset of left ventricular systolic dysfunction 61% EF last month now 47% without chest pain, paced EKG at presentation -will review with Cardiology regarding assessment of this change and to arrange careful follow-up -will add low-dose Coreg, and consider possible lisinopril low-dose as renal function allows # acute urinary retention causing acute renal failure # subsequent urethral injury with attempted placement of urethral catheter at nursing facility / gross hematuria due to above / status post removal of catheter, cystoscopy with removal of multiple bladder clots followed by continuous bladder irrigation - at this time does not appear to have any significant ongoing bleeding -small bladder perforation was noted at the time surgery unclear if this was complication of the surgery or the initial Chao catheter placement efforts, repaired intraoperatively; Chao drainage until urology f/u due to presence of this cystotomy # acute encephalopathy in the setting of Parkinson's disease and acute illness as above -multifactorial etiology -did have significant sundowning overnight last 2 nights with considerable agitation # Deconditioning, gait instability and high fall risk # Acute blood loss anemia due to above -currently stable # chronic atrial fibrillation with anticoagulation on Xarelto; diltiazem rate control -Xarelto currently held due to his bleeding episode # Loculated pleural effusions, chronic: Bilateral -these appear stable at present # Parkinson's disease, mild cog impairment -home meds include aricept, lexapro #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 Seen by me today on hospitals rounds as well as multidisciplinary team rounds Reviewed with Dr. 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: Exam: alert oriented with good attention span, normal interactions and is fairly conversant skin warm dry color ok resps not labored lungs diminished but clear BSs heart regular abd soft nondistended nontender, bowel sounds present limbs warm, still with mild bilateral ankle edema iv site ok Laboratory data: Potassium low at 3.1 otherwise stable basic met panel Stable platelets and hemoglobin on CBC White count remains elevated at 10,000 IMAGING: I reviewed most recent chest x-ray from 2 days ago, which shows market pulmonary edema and some pleural effusions Microbiology: Blood cultures from 04/23 are negative to date Original blood cultures with MSSA Negative respiratory pathogen panel I reviewed his medical records at this hospital from March of this year. He did indeed have replacement of his pacemaker generator and broken right ventricular lead at that time. We have the model number serial number from the pacemaker generator and the right ventricular lead. However it looks like the original left ventricular lead placed 5 years ago in [place] is still in place, and we do have in our hospital records here specific information regarding the left ventricular lead, so that I cannot confirm MRI compatibility of that lead at this time. Objective: Vital Signs Temp Pulse Resp BP Pulse Ox 35.6 C L 74 18 140/80 H 97 04/25/18 04:42 04/25/18 08:00 04/25/18 08:00 04/25/18 08:00 04/25/18 08:00 Laboratory Results 04/25/18 05:44 04/25/18 05:44 04/24/18 04/25/18 04/26/18 06:59 06:59 06:59 Intake Total 650 575 Output Total 3260 1725 Balance -2610 -1150 PT 23.7 SEC (12.0-15.0) H 04/22/18 05:23 INR 2.11 (0.83-1.16) H 04/22/18 05:23 - Time Spent With Patient Time Spent with Patient: greater than 35 minutes Time Spent with Patient: Greater than 35 minutes spent on this patients care, greater than 50% of time spent counseling, educating, and coordinating care regarding the above mentioned plan. ICD10 Worksheet Patient Problems: Problems Problem Status Onset Acute renal insufficiency Acute Sepsis Acute Dehydration Acute Fall Acute Multiple skin tears Acute Pacemaker malfunction Acute Parkinson disease Acute Paroxysmal a-fib Acute UTI (urinary tract infection) Acute
[2018-04-25] MEDS ORDERED: PROTOCOL POTASSIUM 1 DOSE MISC PRN (15:24)
[2018-04-25] MEDS ORDERED: POTASSIUM CL 10 MEQ TAB PO ONE ×3 (15:39→23:15)
[2018-04-25] MEDS: ESCITALOPRAM OXALATE 10 MG TAB PO SCH (17:07)
[2018-04-25] MEDS: DONEPEZIL HCL 5 MG TAB PO SCH (21:14)
[2018-04-25] MEDS: PATCH REMOVAL 1 EA PATCH TD SCH (21:15)
[2018-04-26] MEDS: ceFAZolin 2 GM/DEXTROSE 100 ML IV SCH ×3 (00:05→16:06)
[2018-04-26] MEDS: DICLOFENAC SODIUM 1% 100 GM GEL TP SCH ×4 (05:44→22:20)
[2018-04-26] MEDS ORDERED: POTASSIUM CL 10 MEQ TAB PO ONE ×3 (07:41→22:15)
[2018-04-26] MEDS: CARBIDOPA/LEVODOPA 25 MG/100 MG TAB PO SCH ×4 (08:02→22:14)
[2018-04-26] MEDS: DILTIAZEM CD 120 MG CAP PO SCH (08:02)
[2018-04-26] MEDS: FINASTERIDE 5 MG TAB PO SCH (09:12)
[2018-04-26] MEDS ORDERED: MAGNESIUM SULF 2 GM/WATER 50 ML IV ONE (10:30)
--- NOTE | 2018-04-26 10:44 | PCMIDPN ---
Assessment/Plan: Assessment: MSSA bacteremia-in setting of recent pacemaker revision and left pleural space collection that was not drainable at prior admission. Patient is continuing on cefazolin 2 g IV q.8 hours. Creatinine had normalized as of yesterday. He continues to have some shortness of breath greater than baseline. His chest x- ray that was repeated this morning shows improvement of pulmonary edema but moderate amount is still present. We are interested in doing a transesophageal echocardiogram as well as a possible MRI of his spine given the Staph aureus bacteremia however it is probably sen to wait another 1-2 days for improvement in the pulmonary edema before attempting either of the studies. Regardless we are still investigating the MRI compatibility of an old pacemaker lead that is in his left ventricle. Plan: 1. Continue IV Ancef at present dose. 2. Follow his shortness of breath improvement. 3. Transesophageal echocardiogram as well as an MRI (if compatible) of his back once clinically more improved. 04/26/18 10:40 04/26/18 10:43 Subjective: Patient is resting comfortably in his hospital bed. He is awake alert and pleasantly conversant. His is present in the room. He has no new complaints and states that he is feeling better than yesterday and even better than the day before. He still has some shortness of breath but is interested in increasing his physical activity and effort today. Objective: Cefazolin # 5 Vital Signs Temp Pulse Resp BP Pulse Ox 36.9 C 74 16 137/85 H 97 04/26/18 07:59 04/26/18 08:02 04/26/18 07:59 04/26/18 08:02 04/26/18 07:59 Laboratory Results 04/25/18 05:44 04/26/18 04:40 04/25/18 04/26/18 04/27/18 05:59 05:59 05:59 Intake Total 575 800 Output Total 1725 3550 Balance -1150 -2750 - Physical Exam General Appearance: WD/WN, alert, no apparent distress, non-toxic Respiratory: lungs clear, crackles, No normal breath sounds, No respiratory distress, No stridor, No coarse breath sounds Cardiac/Chest: regular rate, rhythm, No tachycardia Skin: normal color, warm/dry, No rash Neuro/Psych: alert, normal mood/affect, oriented x 3 ICD10 Worksheet Patient Problems: Problems Problem Status Onset Acute renal insufficiency Acute Sepsis Acute Dehydration Acute Fall Acute Multiple skin tears Acute Pacemaker malfunction Acute Parkinson disease Acute Paroxysmal a-fib Acute UTI (urinary tract infection) Acute
--- NOTE | 2018-04-26 14:54 | ASMTCMCOM ---
CM Note CM Note Notes: Pt referred to [facility]; there is a mtg at hospital Thursday at 1:30PM. CM to follow. D/C Plan: [facility] Date Signed: 04/26/2018 02:54 PM Electronically Signed By:Any Hartley
[2018-04-26] MEDS: ESCITALOPRAM OXALATE 10 MG TAB PO SCH (16:52)
[2018-04-26] MEDS ORDERED: FUROSEMIDE 40 MG/4 ML VIAL IVP ONE (17:10)
--- NOTE | 2018-04-26 17:20 | HOSPPROG ---
Hospitalist Progress Note Assessment/Plan: DIAGNOSES: # MSSA bacteremia: Unclear source, though organism was seen in urine recently. - on IV cefazolin at present; Surveillance blood cultures 04/23 with no growth so far - Plan for GARCIA to assess for possible endocarditis when CHF and respiratory status stabilized - regarding MRI of spine, I reviewed our records and I can confirm that his new right ventricular pacer lead is MRI compatible, but so far I am unable to find documentation related to his old remaining left ventricular lead, so will not order MRI till can confirm - duration of antibiotics depending on further diagnostic findings as above # Acute hypoxemic resp insufficiency/acute systolic congestive heart failure and pulmonary edema -likely triggered in part by IV fluid resuscitation here -responding well to Lasix diuresis which will continue at this time # new onset of left ventricular systolic dysfunction 61% EF last month now 47% without chest pain, paced EKG at presentation -will review with Cardiology regarding assessment of this change and to arrange careful follow-up -will add low-dose Coreg, and consider possible lisinopril low-dose as renal function allows # acute urinary retention causing acute renal failure # subsequent urethral injury with attempted placement of urethral catheter at nursing facility / gross hematuria due to above / status post removal of catheter, cystoscopy with removal of multiple bladder clots followed by continuous bladder irrigation - at this time does not appear to have any significant ongoing bleeding -small bladder perforation was noted at the time surgery unclear if this was complication of the surgery or the initial Chao catheter placement efforts, repaired intraoperatively; Chao drainage until urology f/u due to presence of this cystotomy # acute encephalopathy in the setting of Parkinson's disease and acute illness as above -multifactorial etiology, resolving very nicely so far with treatment of acute illnesses # Deconditioning, gait instability and high fall risk -improving with physical therapy and treatment of acute conditions but still fairly debilitated # Acute blood loss anemia due to above -currently stable # chronic atrial fibrillation with anticoagulation on Xarelto; diltiazem rate control -Xarelto currently held due to his bleeding episode - will review with Dr. 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 Seen by me today on hospitals rounds as well as multidisciplinary team rounds Reviewed with Dr. 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: Exam: alert oriented conversant relaxed skin warm dry color ok resps not labored, lungs diminished breath sounds with some rales heart regular abd soft nondistended nontender, bowel sounds present limbs warm, still with bilateral ankle edema iv site ok Laboratory data: Potassium good at 3.6, magnesium low 1.3 IMAGING: Repeat chest x-ray today I reviewed images and there is still significant pulmonary edema though notably improved from the previous x-ray Microbiology: Blood cultures from 04/23 are negative to date Original blood cultures with MSSA Negative respiratory pathogen panel I reviewed his medical records at this hospital from March of this year. He did indeed have replacement of his pacemaker generator and broken right ventricular lead at that time. We have the model number serial number from the pacemaker generator and the right ventricular lead. However it looks like the original left ventricular lead placed 5 years ago in [place] is still in place, and we do have in our hospital records here specific information regarding the left ventricular lead, so that I cannot confirm MRI compatibility of that lead at this time. Objective: Vital Signs Temp Pulse Resp BP Pulse Ox 36.4 C 73 18 128/76 H 95 04/26/18 16:54 04/26/18 16:54 04/26/18 16:54 04/26/18 16:54 04/26/18 16:54 Laboratory Results 04/25/18 05:44 04/26/18 04:40 04/25/18 04/26/18 04/27/18 06:59 06:59 06:59 Intake Total 575 800 Output Total 1725 3550 Balance -1150 -2750 PT 23.7 SEC (12.0-15.0) H 04/22/18 05:23 INR 2.11 (0.83-1.16) H 04/22/18 05:23 - Time Spent With Patient Time Spent with Patient: greater than 35 minutes Time Spent with Patient: Greater than 35 minutes spent on this patients care, greater than 50% of time spent counseling, educating, and coordinating care regarding the above mentioned plan. ICD10 Worksheet Patient Problems: Problems Problem Status Onset Acute renal insufficiency Acute Sepsis Acute Dehydration Acute Fall Acute Multiple skin tears Acute Pacemaker malfunction Acute Parkinson disease Acute Paroxysmal a-fib Acute UTI (urinary tract infection) Acute
[2018-04-26 18:49] LABS: PLATELET COUNT 188 10^3/uL (150-400)
[2018-04-26] MEDS: DONEPEZIL HCL 5 MG TAB PO SCH (22:14)
[2018-04-26] MEDS: PATCH REMOVAL 1 EA PATCH TD SCH (22:25)
[2018-04-27] MEDS: ceFAZolin 2 GM/DEXTROSE 100 ML IV SCH ×4 (00:05→23:59)
[2018-04-27] MEDS: DICLOFENAC SODIUM 1% 100 GM GEL TP SCH ×4 (06:34→21:00)
[2018-04-27] MEDS ORDERED: POTASSIUM CL 10 MEQ TAB PO ONE ×2 (08:13→10:15)
[2018-04-27] MEDS: CARBIDOPA/LEVODOPA 25 MG/100 MG TAB PO SCH ×4 (10:07→20:59)
[2018-04-27] MEDS: DILTIAZEM CD 120 MG CAP PO SCH (10:07)
[2018-04-27] MEDS: FUROSEMIDE 40 MG/4 ML VIAL IVP SCH ×2 (10:08→15:53)
[2018-04-27] MEDS: CARVEDILOL 3.125 MG TAB PO SCH (10:08)
[2018-04-27] MEDS: FINASTERIDE 5 MG TAB PO SCH (10:08)
--- NOTE | 2018-04-27 15:01 | ASMTCMCOM ---
CM Note CM Note Notes: Patient plan of care reviewed in rounds. He is to have a palliative care evaluation today with the plan being going to [facility] as previously planned. CM to follow for needs, Plan: TBD Date Signed: 04/27/2018 02:38 PM Electronically Signed By:Ebony Polo RN
--- NOTE | 2018-04-27 15:13 | PCMIDPN ---
Assessment/Plan: # MSSA bacteremia, unclear source. Past urine culture with MSSA unclear if this is primary or secondary. More likely his source is the skin as patient has longstanding issues with skin tears and clumsiness due to Parkinson's. Blood cx cleared 04/23 --can place PICC Line --requested GARCIA --still assessing if can get MRI of back, probably cannot due to old lead # ARF :resolved. Large hematoma and bladder due to bladder trauma, urology recommending a urogram in 2 weeks with possible Chao removal following that # Ploy in the urine consistent with colonization. meds cefazolin 2gm IV q8h #5 Microbiology 04/20 blood cultures 2 sets MSSA 04/20 urine cultures Poly 04/23 blood cultures 2 sets no growth to maurice Subjective: patient doing well, less back pain no diarrhea Objective: Vital Signs Temp Pulse Resp BP Pulse Ox 36.6 C 76 18 143/83 H 94 04/27/18 08:00 04/27/18 12:07 04/27/18 08:00 04/27/18 10:08 04/27/18 12:07 Laboratory Results 04/26/18 18:30 04/27/18 04:35 04/26/18 04/27/18 04/28/18 05:59 05:59 05:59 Intake Total 800 1230 Output Total 3550 2100 1300 Balance -2750 870 1300 - Physical Exam General Appearance: alert, no apparent distress Respiratory: other (decreased BS bases), No accessory muscle use Neck: supple Cardiac/Chest: regular rate, rhythm, other (L upper chest pacer pocket with steri strips) Extremities: No pedal edema Abdomen: non-tender, soft Skin: other (Scattered ecchymosis) Neuro/Psych: alert, normal mood/affect, oriented x 3 - Time Spent With Patient Time Spent with Patient: greater than 35 minutes (Care coordinated with hospitalist and Cardiology. Reviewed plan of care with patient, in person. Also called daughter over the phone,Hilton at [phone]. Reviewed the risks and benefits of antibiotics, PICC line placement and plan for further evaluation with GARCIA. Specifically discussed implications of finding vegetation on the pacer wire.) Time Spent with Patient: Greater than 35 minutes spent on this patients care, greater than 50% of time spent counseling, educating, and coordinating care regarding the above mentioned plan. ICD10 Worksheet Patient Problems: Problems Problem Status Onset Acute renal insufficiency Acute Sepsis Acute Dehydration Acute Fall Acute Multiple skin tears Acute Pacemaker malfunction Acute Parkinson disease Acute Paroxysmal a-fib Acute UTI (urinary tract infection) Acute
[2018-04-27] MEDS ORDERED: ALTEPLASE 2 MG VIAL IVP PRN (15:24)
[2018-04-27] MEDS: ESCITALOPRAM OXALATE 10 MG TAB PO SCH (18:10)
--- NOTE | 2018-04-27 19:22 | HOSPPROG ---
Hospitalist Progress Note Assessment/Plan: DIAGNOSES: # MSSA bacteremia: Unclear source, though organism was seen in urine recently. - on IV cefazolin at present; Surveillance blood cultures 04/23 with no growth so far - Plan for GARCIA to assess for possible endocarditis probably on 04/28 ( reviewed today with Dr. Serg English) - regarding MRI of spine (has back pain), it appears we likely can safely do an MRI due to pacer, but will check further with Cardiology -if GARCIA without signs of endocarditis or lead infection, likely give 8 weeks of antibiotics to cover for possibility of the spine infection But if GARCIA shows any concerning signs will need to assess for possible need for other interventions based on the specifics seen # Acute hypoxemic resp insufficiency/acute systolic congestive heart failure and pulmonary edema -likely triggered in part by IV fluid resuscitation here -responding well to Lasix diuresis which will continue at this time # left ventricular systolic dysfunction 61% EF last month now 47% without chest pain, paced EKG at presentation -I had Dr. Serg English review all the echocardiograms from this admission and last month, it does not appear that there is likely a real change in systolic function, but technical issues leading to difficult images for interpretation at this time # acute urinary retention causing acute renal failure -currently resolved and has Chao catheter in place # subsequent urethral injury with attempted placement of urethral catheter at nursing facility / gross hematuria due to above / status post removal of catheter, cystoscopy with removal of multiple bladder clots followed by continuous bladder irrigation - at this time does not appear to have any significant ongoing bleeding -a small bladder perforation was noted at the time surgery unclear if this was complication of the surgery or the initial Chao catheter placement efforts, repaired intraoperatively; Chao drainage until urology f/u due to presence of this cystotomy # acute encephalopathy in the setting of Parkinson's disease and acute illness as above -multifactorial etiology, resolving very nicely so far with treatment of acute illnesses -much improved probably at baseline now # Deconditioning, gait instability and high fall risk -improving with physical therapy and treatment of acute conditions but still fairly debilitated # Acute blood loss anemia due to above -currently stable # chronic atrial fibrillation with anticoagulation on Xarelto; diltiazem rate control -Xarelto currently held due to his bleeding episode - currently urology is recommending 3 4 weeks off Xarelto, probably restart after Chao catheter removed in clinic as outpatient # Loculated pleural effusions, chronic: Bilateral -these appear stable at present # Parkinson's disease, mild cog impairment -home meds include aricept, lexapro #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 Seen by me today on hospitals rounds as well as multidisciplinary team rounds Reviewed with Dr. Maria A Chandler and Serg English SUBJECTIVE: States he feels better today Walked a bit better today eating okay OBJECTIVE Vitals reviewed: All stable without fever Psych Rn, my review: Sinus I& O number showing ongoing excellent diuresis Exam: alert oriented conversant relaxed skin warm dry color ok resps not labored, lungs diminished breath sounds with currently heart regular abd soft nondistended nontender, bowel sounds present limbs warm, still with bilateral ankle edema but notably better iv site ok Laboratory data: Metabolic panel unremarkable Microbiology: Blood cultures from 04/23 are negative to date Original blood cultures with MSSA Negative respiratory pathogen panel Objective: Vital Signs Temp Pulse Resp BP Pulse Ox 36.4 C 77 16 121/70 H 97 04/27/18 18:20 04/27/18 18:20 04/27/18 18:20 04/27/18 18:20 04/27/18 18:20 Laboratory Results 04/26/18 18:30 04/27/18 18:32 04/26/18 04/27/18 04/28/18 06:59 06:59 06:59 Intake Total 800 1230 Output Total 3550 2100 2100 Balance -2750 -870 -2100 PT 23.7 SEC (12.0-15.0) H 04/22/18 05:23 INR 2.11 (0.83-1.16) H 04/22/18 05:23 - Time Spent With Patient Time Spent with Patient: greater than 35 minutes Time Spent with Patient: Greater than 35 minutes spent on this patients care, greater than 50% of time spent counseling, educating, and coordinating care regarding the above mentioned plan. ICD10 Worksheet Patient Problems: Problems Problem Status Onset Acute renal insufficiency Acute Sepsis Acute Dehydration Acute Fall Acute Multiple skin tears Acute Pacemaker malfunction Acute Parkinson disease Acute Paroxysmal a-fib Acute UTI (urinary tract infection) Acute
[2018-04-27] MEDS: DONEPEZIL HCL 5 MG TAB PO SCH (21:00)
[2018-04-27] MEDS: PATCH REMOVAL 1 EA PATCH TD SCH (21:04)
[2018-04-28 03:39] LABS: PLATELET COUNT 171 10^3/uL (150-400)
[2018-04-28] MEDS: DICLOFENAC SODIUM 1% 100 GM GEL TP SCH ×3 (05:46→20:55)
[2018-04-28] MEDS: FUROSEMIDE 40 MG/4 ML VIAL IVP SCH (08:52)
[2018-04-28] MEDS: CARVEDILOL 3.125 MG TAB PO SCH (08:53)
[2018-04-28] MEDS: DILTIAZEM CD 120 MG CAP PO SCH (08:53)
[2018-04-28] MEDS: CARBIDOPA/LEVODOPA 25 MG/100 MG TAB PO SCH ×4 (08:53→20:57)
[2018-04-28] MEDS: FINASTERIDE 5 MG TAB PO SCH (08:53)
[2018-04-28] MEDS: ceFAZolin 2 GM/DEXTROSE 100 ML IV SCH ×3 (09:01→23:56)
[2018-04-28] MEDS ORDERED: BENZOCAINE UNIT DOSE SPRAY HURRICAINE MM ONE (10:33)
[2018-04-28] MEDS ORDERED: fentaNYL 100 MCG/2 ML INJ IVP ONE (10:33)
[2018-04-28] MEDS ORDERED: NS 500 ML IV ONE (10:33)
[2018-04-28] MEDS ORDERED: MIDAZOLAM 2 MG/2 ML VIAL IVP ONE (10:33)
--- NOTE | 2018-04-28 11:24 | PDPROPOC ---
Sedation Plan of Care Sedation Plan of Care: vital signs stable, mental status noted, patient educated of risks, benefits, alternatives, patient can tolerate sedation ASA Classification: ASA 2 Planned drugs: fentanyl, midazolam Mallampati Score: Class 2 Mallampati Reference Image:
--- NOTE | 2018-04-28 11:24 | PDHPUP ---
History & Physical Update H&P update statement: This history and physical update is based on an assessment of the patient which was completed after admission or registration (within 24 hours), but prior to the surgery/procedure. H&P update: H&P reviewed & patient examined, no change in patient's condition since H&P completed
--- NOTE | 2018-04-28 13:01 | PDCARPN ---
Cardiology Progress Note Assessment/Plan: 87 year old male with dementia, chronic atrial fibrillation, chronic diastolic CHF, and sick sinus syndrome with prior pacemaker implantation and recent revision. Discussed with Dr. Grubbs yesterday and Dr. Chandler this a.m. He had a methicillin sensitive staph aureus UTI last month. Currently, he has a methicillin sensitive staph aureus bacteremia. Possible Endocarditis: A GARCIA was just repeated and is concerning for a vegitation attached to the base of the septal leaflet of the tricuspid valve. Will review at our case conference tomorrow morning. Chronic Diastolic CHF: Dr. Grubbs had expressed concerns that a transthoracic echo report from earlier in this hospital stay indicated a decrease in his left ventricular systolic function compared to last month. I personally reviewed both sets of images. The most recent TTE was somewhat technically limited. His LV function does not appear to have changed. This is confirmed by the images on today's GARCIA. Permanent Pacemaker: Various notes in the chart indicate that the patient has a left ventricular lead. To clarify, he underwent dual chamber pacemaker implantation in November of 2013 in [place]. At that time, standard right atrial and right ventricular leads were placed. Last month, he presented with failure to capture and was felt to have had a right ventricular lead fracture. He underwent pacemaker revision consisting of generator replacement and implantation of a new right ventricular lead. The original right ventricular lead was capped and coiled in the pocket. There is a current diagnostic consideration of spinal discitis. The question was posed as to her whether or not the patient could safely undergo an MRI scan. His current pacemaker system is an MRI contingent system. The FUNCTION of his original RA and RV leads is not relevant since he is in chronic a-fib and his device is programmed for ventricular pacing only. However, I spoke with Dr. Mills yesterday. When a patient has an abandoned pacemaker lead coiled in the pocket it can act as an electromagnet in an MRI field. This is a contraindication to MRI imaging. 04/28/18 13:01 Subjective: No complaints. Objective: Vital Signs (8 Hrs) Temp Pulse Resp BP Pulse Ox 04/28/18 07:41 36.8 C 74 16 150/90 H 96 Intake/Output (24 Hrs) 04/27/18 04/28/18 04/29/18 05:59 05:59 05:59 Intake Total 1230 100 Output Total 2100 2900 Balance -870 -2900 100 Intake: Oral (ml) 1030 IV Intake (ml) 100 IV Infused (ml) 200 ceFAZolin 2 GM/DEXTROSE 200 100 ml @ 200 mls/hr IV Q8H [facility] Rx#:[id number] Output: Urine (ml) 2100 2900 Catheter 2100 2900 Result Diagrams: 04/28/18 03:30 04/28/18 03:30 - Physical Exam Constitutional: no apparent distress Eyes: anicteric sclera Ears, Nose, Mouth, Throat: moist mucous membranes Cardiovascular: regular rate and rhythm, no murmurs, no gallops Respiratory: clear to auscultate bilat Gastrointestinal: normoactive bowel sounds, no tenderness, no masses Skin: other (mild edema) ICD10 Worksheet Patient Problems: Problems Problem Status Onset Acute renal insufficiency Acute Sepsis Acute Dehydration Acute Fall Acute Multiple skin tears Acute Pacemaker malfunction Acute Parkinson disease Acute Paroxysmal a-fib Acute UTI (urinary tract infection) Acute
--- NOTE | 2018-04-28 15:11 | ASMTCMCOM ---
CM Note CM Note Notes: Patient plan of care reviewed in rounds. He is currently in [facility] for GARCIA with Dr. English. I met with his earlier and she voices concerns about his grown children having separate wishes from hers. I verified that she is the acting POA and we also discussed that the ultimate decision is up to Scottie as long as he has the ability to make his decisions. ID also following for bacteremia,PICC placed yesterday. expressed she was fine with the care he was receiving at [facility]. Plan: TBD Date Signed: 04/28/2018 03:11 PM Electronically Signed By:Ebony Polo RN
--- NOTE | 2018-04-28 15:55 | HOSPPROG ---
Hospitalist Progress Note Assessment/Plan: #MSSA Bacteremia -source unclear -cont IV Cefazolin -Await GARCIA today -ID is following -unable to obtain an MRI, cannot r/o discitis #Systolic CHF with pulm edema -on IV Lasix BID -We may be able to slow this down -will repeat a CXR in a.m. to eval #Acute kidney injury, resolved #urethral injury with attempted placement of urethral catheter at nursing facility / gross hematuria due to above / status post removal of catheter, cystoscopy with removal of multiple bladder clots followed by continuous bladder irrigation - at this time does not appear to have any significant ongoing bleeding -a small bladder perforation was noted at the time surgery unclear if this was complication of the surgery or the initial Toth catheter placement efforts, repaired intraoperatively; Toth drainage until urology f/u due to presence of this cystotomy #Encephalopathy resolved #Parkinsons #ABLA, stable #chronic Afib with AC -holding Xarelto x 3-4 weeks. probably restart after toth catheter removed in clinic as outpatient #Hx of SSS, s/p PPM Subjective: Had GARCIA today. Results pending. Cr ok. Does not feel SOB. no cp. Objective: Vital Signs Temp Pulse Resp BP Pulse Ox 36.4 C 76 18 123/73 H 98 04/28/18 13:25 04/28/18 13:25 04/28/18 13:25 04/28/18 13:25 04/28/18 13:25 Laboratory Results 04/28/18 03:30 04/28/18 03:30 04/27/18 04/28/18 04/29/18 05:59 05:59 05:59 Intake Total 1230 100 Output Total 2100 2900 Balance -870 -2900 100 PT 23.7 SEC (12.0-15.0) H 04/22/18 05:23 INR 2.11 (0.83-1.16) H 04/22/18 05:23 - Physical Exam Constitutional: no apparent distress Eyes: PERRL Ears, Nose, Mouth, Throat: moist mucous membranes, hearing normal Cardiovascular: regular rate and rhythym Respiratory: no respiratory distress, reduced air movement Gastrointestinal: normoactive bowel sounds, soft, non-tender abdomen Skin: warm Neurologic: AAOx3 Psychiatric: interacting appropriately, not anxious, not encephalopathic Lymph, Heme, Immunologic: No petechiae ICD10 Worksheet Patient Problems: Problems Problem Status Onset Acute renal insufficiency Acute Sepsis Acute Dehydration Acute Fall Acute Multiple skin tears Acute Pacemaker malfunction Acute Parkinson disease Acute Paroxysmal a-fib Acute UTI (urinary tract infection) Acute
--- NOTE | 2018-04-28 16:02 | ECHO ---
[email or web address] [address] [address] Main: [phone] Fax: Transesophageal Echocardiography Name: CHAVEZ SCHUMACHER MR#: [id number] Study Date: 04/28/2018 Study Time: 11:43 AM Date of : 1930 Age: 87 year(s) Height: ( ) Weight: ( ) BSA: Gender: Male Examination: GARCIA Indication: bacteremia; r/o vegetation Image Quality: Adequate Contrast: Requested by: Serg English Heart Rate: Rhythm: BP: / Procedure Staff Regional Agronomist: Trini Evans [facility] Reading Physician: Serg English MD Requesting Provider: GARCIA Exam Details Conclusions: Normal size left ventricle. Normal global systolic LV function. Normal size right ventricle. Normal RV function. The left atrium is severely dilated. Spontaneous contrast in the left atrium. The right atrium is severely dilated. 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 The mitral valve is normal in appearance. Mild to moderate mitral regurgitation. There is no mitral valve vegetation. Mild aortic valve regurgitation is present. There is no aortic valve vegetation. There is a large mobile vegetation which appears to be attached to the atrial side of the septal tricuspid leaflet and or annulus. The vegetation protudes through the TV leaflets during diastole. Measurements: Chambers Valvular Assessment AV/MV Valvular Assessment TV/PV Normal Normal Normal Name Value Range Name Value Range Name Value Range TR Vmax: 2.64 mm/s ( - ) TR PGmax: 28 mmHg ( - ) Additional Measurements: Patient: CHAVEZ SCHUMACHER Study Date: 04/28/2018 Page 1 of 2 11:43 AM Findings: Left Ventricle: Normal size left ventricle. Normal global systolic LV function. Right Ventricle: Normal size right ventricle. Normal RV function. Left Atrium: The left atrium is severely dilated. Spontaneous contrast in the left atrium. Right Atrium: The right atrium is severely dilated. 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 Mitral Valve: The mitral valve is normal in appearance. Mild to moderate mitral regurgitation. There is no mitral valve vegetation. Aortic Valve: The aortic valve is tri-leaflet. Mild aortic valve regurgitation is present. There is no aortic valve vegetation. Tricuspid Valve: Moderate to severe tricuspid valve regurgitation. There is a large mobile vegetation which appears to be attached to the atrial side of the septal tricuspid leaflet and or annulus. The vegetation protudes through the TV leaflets during diastole. Pulmonic Valve: The pulmonic valve is normal in appearance. There is no pulmonary valve vegetation. l1n (No Signature Object) Patient: CHAVEZ SCHUMACHER Study Date: 04/28/2018 Page 2 of 2 11:43 AM [id number]
--- NOTE | 2018-04-28 17:05 | PCMIDPN ---
Assessment/Plan: # MSSA bacteremia, unclear source. Past urine culture with MSSA unclear if this is primary or secondary. More likely his source is the skin as patient has longstanding issues with skin tears and clumsiness due to Parkinson's. Blood cx cleared 04/23. Back pain much improved --discussed GARCIA findings w family, somewhat surprising findings of TV veg; awaiting review by cardiology group tomorrow --plan 6-8 weeks IV high cefazolin followed by suppressive antibiotics --Cannot get MRI due to retained old pacer lead that is not MRI compatible # ARF :resolved. Large hematoma and bladder due to bladder trauma, urology recommending a urogram in 2 weeks with possible Chao removal following that # Poly in the urine consistent with colonization. meds cefazolin 2gm IV q8h #6 Microbiology 04/20 blood cultures 2 sets MSSA 04/20 urine cultures Poly 04/23 blood cultures 2 sets no growth to date Subjective: no c/o back pain much better Objective: Vital Signs Temp Pulse Resp BP Pulse Ox 36.8 C 79 16 95/52 L 93 04/28/18 16:29 04/28/18 16:29 04/28/18 16:29 04/28/18 16:29 04/28/18 16:29 Laboratory Results 04/28/18 03:30 04/28/18 03:30 04/27/18 04/28/18 04/29/18 05:59 05:59 05:59 Intake Total 1230 100 Output Total 2100 2900 Balance -870 -2900 100 General Appearance: alert, no apparent distress Respiratory: decreased BS bases, No accessory muscle use Neck: supple Cardiac/Chest: regular rate, rhythm, L upper chest pacer pocket with steri strips c/d/i Extremities: No pedal edema Abdomen: non-tender, soft Skin: Scattered ecchymosis Neuro/Psych: alert, normal mood/affect, oriented x 3 RUE PICC c/d/i - Time Spent With Patient Time Spent with Patient: greater than 35 minutes Time Spent with Patient: Greater than 35 minutes spent on this patients care, greater than 50% of time spent counseling, educating, and coordinating care regarding the above mentioned plan. ICD10 Worksheet Patient Problems: Problems Problem Status Onset Acute renal insufficiency Acute Sepsis Acute Dehydration Acute Fall Acute Multiple skin tears Acute Pacemaker malfunction Acute Parkinson disease Acute Paroxysmal a-fib Acute UTI (urinary tract infection) Acute
[2018-04-28] MEDS: ESCITALOPRAM OXALATE 10 MG TAB PO SCH (19:11)
[2018-04-28] MEDS: DONEPEZIL HCL 5 MG TAB PO SCH (20:55)
[2018-04-28] MEDS: PATCH REMOVAL 1 EA PATCH TD SCH (20:59)
[2018-04-29] MEDS: FUROSEMIDE 40 MG/4 ML VIAL IVP SCH (02:14)
[2018-04-29] MEDS: DICLOFENAC SODIUM 1% 100 GM GEL TP SCH ×4 (06:01→20:42)
[2018-04-29] MEDS ORDERED: POTASSIUM CL 10 MEQ TAB PO ONE ×3 (06:41→20:27)
[2018-04-29] MEDS: ceFAZolin 2 GM/DEXTROSE 100 ML IV SCH ×2 (08:47→16:34)
[2018-04-29] MEDS: FINASTERIDE 5 MG TAB PO SCH (08:49)
[2018-04-29] MEDS: CARVEDILOL 3.125 MG TAB PO SCH (08:49)
[2018-04-29] MEDS: DILTIAZEM CD 120 MG CAP PO SCH (08:50)
[2018-04-29] MEDS: CARBIDOPA/LEVODOPA 25 MG/100 MG TAB PO SCH ×4 (08:51→20:42)
--- NOTE | 2018-04-29 14:32 | ASMTCMCOM ---
CM Note CM Note Notes: Patient plan of care reviewed in interdisciplinary rounds. 87 year old male admitted from [facility] with bacteremia. He has had a palliative consult with Viviana. His grown children would like to see him return to [place]. His Aldo would prefer to stay in this area. He may have some vegetation on his valve per GARCIA. ID following . Plan of care still uncertain at this time. CM to follow for needs. Plan: TBD Date Signed: 04/29/2018 02:30 PM Electronically Signed By:Ebony Pool RN
--- NOTE | 2018-04-29 14:44 | PCMIDPN ---
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 For cure will need lead extraction, which could be quite difficult and require open heart as back up. Patient currently does not want lead extraction. Blood cx 04/23 are negative establishing clearance --this is now a MSSA prosthetic valve equivalent and would change to Nafcillin bc it is the gold standard. I will discuss addition synergistic agents Rif and gent with rest of ID team. Risk of renal toxicity with Gentamicin probably not worth the risk, but could be reasonable to add rifampin --labs to be checked tomorrow # large veg: may have to reconsider re-starting anticoag earlier, hospitalist to discuss anticoag w urology # ARF :resolved. Large hematoma and bladder due to bladder trauma, urology recommending a urogram in 2 weeks with possible Chao removal following that # Poly in the urine consistent with colonization. meds cefazolin 2gm IV q8h #7 Microbiology 04/20 blood cultures 2 sets MSSA 04/20 urine cultures Poly 04/23 blood cultures negative Subjective: had episode of hypotension today but "feels better" Objective: Vital Signs Temp Pulse Resp BP Pulse Ox 36.6 C 76 14 80/53 L 97 04/29/18 12:24 04/29/18 12:24 04/29/18 12:24 04/29/18 12:24 04/29/18 12:24 Microbiology 04/23/18 09:10 Blood Culture - Final Blood 04/23/18 09:00 Blood Culture - Final Blood Laboratory Results 04/28/18 03:30 04/29/18 06:00 04/28/18 04/29/18 04/30/18 05:59 05:59 05:59 Intake Total 100 Output Total 2900 1050 Balance -2900 -950 - Physical Exam General Appearance: alert, no apparent distress Respiratory: No respiratory distress, No accessory muscle use Neuro/Psych: alert, normal mood/affect - Time Spent With Patient Time Spent with Patient: greater than 35 minutes (reviewed results of GARCIA with patient and his daughter Eladia over phone with Dr. English.) Time Spent with Patient: Greater than 35 minutes spent on this patients care, greater than 50% of time spent counseling, educating, and coordinating care regarding the above mentioned plan. ICD10 Worksheet Patient Problems: Problems Problem Status Onset Acute renal insufficiency Acute Sepsis Acute Dehydration Acute Fall Acute Multiple skin tears Acute Pacemaker malfunction Acute Parkinson disease Acute Paroxysmal a-fib Acute UTI (urinary tract infection) Acute
--- NOTE | 2018-04-29 15:00 | HOSPPROG ---
Hospitalist Progress Note Assessment/Plan: #MSSA Bacteremia -source unclear -cont IV Cefazolin -Awaiting official GARCIA results -ID is following -unable to obtain an MRI, cannot r/o discitis #Systolic CHF with pulm edema -off IV Lasix -CXR reviewed today c/w pulm edema but on minimal O2 supplemental requirements. -Plan was to restart oral Lasix but became hypotensive first #Hypotension -not symptomatic -no resp issues, afebrile -appears to have responded appropriately to a 500 ml bolus. If recurs, will attempt more fluid -Hold CCB tomorrow if still hypotensive #Acute kidney injury, resolved #urethral injury with attempted placement of urethral catheter at nursing facility / gross hematuria due to above / status post removal of catheter, cystoscopy with removal of multiple bladder clots followed by continuous bladder irrigation - at this time does not appear to have any significant ongoing bleeding -a small bladder perforation was noted at the time surgery unclear if this was complication of the surgery or the initial Toth catheter placement efforts, repaired intraoperatively; Toth drainage until urology f/u due to presence of this cystotomy. #Encephalopathy resolved #Parkinsons #ABLA, stable #chronic Afib with AC -holding Xarelto x 3-4 weeks. probably restart after toth catheter removed in clinic as outpatient #Hx of SSS, s/p PPM Subjective: no cp or sob. no n/v Objective: Vital Signs Temp Pulse Resp BP Pulse Ox 36.6 C 76 14 80/53 L 97 04/29/18 12:24 04/29/18 12:24 04/29/18 12:24 04/29/18 12:24 04/29/18 12:24 Microbiology 04/23/18 09:10 Blood Culture - Final Blood 04/23/18 09:00 Blood Culture - Final Blood Laboratory Results 04/28/18 03:30 04/29/18 06:00 04/28/18 04/29/18 04/30/18 05:59 05:59 05:59 Intake Total 100 Output Total 2900 1050 Balance -2900 -950 PT 23.7 SEC (12.0-15.0) H 04/22/18 05:23 INR 2.11 (0.83-1.16) H 04/22/18 05:23 - Physical Exam Constitutional: no apparent distress Eyes: PERRL Ears, Nose, Mouth, Throat: moist mucous membranes, hearing normal Cardiovascular: regular rate and rhythym, No edema Respiratory: no respiratory distress, no rales or rhonchi, reduced air movement Gastrointestinal: normoactive bowel sounds, soft, non-tender abdomen Skin: warm Musculoskeletal: generalized weakness Neurologic: AAOx3 Psychiatric: interacting appropriately, not anxious, not encephalopathic Lymph, Heme, Immunologic: No petechiae ICD10 Worksheet Patient Problems: Problems Problem Status Onset Acute renal insufficiency Acute Sepsis Acute Dehydration Acute Fall Acute Multiple skin tears Acute Pacemaker malfunction Acute Parkinson disease Acute Paroxysmal a-fib Acute UTI (urinary tract infection) Acute
--- NOTE | 2018-04-29 15:03 | HOSPPROG ---
Hospitalist Progress Note Assessment/Plan: called to pts bedside as BP is 78/50 x 2 the pt feels weak but unchanged from earlier all other vital signs are appropriate no signs of resp distress. no cp normal work of breathing NAD RRR DECREASED LUNGS SOUNDS S/NT/ND NO LE EDEMA Acute hypotension, unclear etiology -provided a stat 500ml bolus which he responded well. If it recurs, he will need another 500 ml. -hold off on diuretics today d/w nursing total critical care time spent on this pt with acute hypotension is 35 mins Objective: Vital Signs Temp Pulse Resp BP Pulse Ox 36.6 C 76 14 80/53 L 97 04/29/18 12:24 04/29/18 12:24 04/29/18 12:24 04/29/18 12:24 04/29/18 12:24 Microbiology 04/23/18 09:10 Blood Culture - Final Blood 04/23/18 09:00 Blood Culture - Final Blood Laboratory Results 04/28/18 03:30 04/29/18 06:00 04/28/18 04/29/18 04/30/18 05:59 05:59 05:59 Intake Total 100 Output Total 2900 1050 Balance -2900 -950 PT 23.7 SEC (12.0-15.0) H 04/22/18 05:23 INR 2.11 (0.83-1.16) H 04/22/18 05:23 ICD10 Worksheet Patient Problems: Problems Problem Status Onset Acute renal insufficiency Acute Sepsis Acute Dehydration Acute Fall Acute Multiple skin tears Acute Pacemaker malfunction Acute Parkinson disease Acute Paroxysmal a-fib Acute UTI (urinary tract infection) Acute
[2018-04-29] MEDS: ESCITALOPRAM OXALATE 10 MG TAB PO SCH (16:34)
[2018-04-29] MEDS: NAFCILLIN SODIUM 2 GM in D5W 100 ML IV SCH ×2 (17:36→21:06)
[2018-04-29] MEDS: DONEPEZIL HCL 5 MG TAB PO SCH (20:42)
[2018-04-29] MEDS: PATCH REMOVAL 1 EA PATCH TD SCH (20:42)
--- NOTE | 2018-04-29 22:13 | PDCARPN ---
Cardiology Progress Note Assessment/Plan: Late entry: patient beginning at 16:[address] Chandler. 87 year old male with Parkinson's disease with a component of dementia, chronic atrial fibrillation, chronic diastolic CHF, and sick sinus syndrome with prior pacemaker implantation and recent revision. Had a methicillin sensitive staph aureus UTI last month. Currently, he has a methicillin sensitive staph aureus bacteremia. Endocarditis: GARCIA on 04/28 demonstrated a large, serpiginous vegetation in the right atrium with an attachment point the base of the septal leaflet of the tricuspid valve. The patient's pacemaker leads were not visualized well enough to determine whether or not the infectious vegetation is contiguous with his hardware. The patient's case was reviewed this morning at our cardiology case conference. The consensus opinion was that the patient needs explantation of his entire pacemaker system including the generator, his recently placed right ventricular lead, and his chronic right atrial and right ventricular leads from 2013. An explantation of his magnitude entails significantly increased risk of a complication which could require major open heart surgery. Had a conference call this afternoon with the patient, his daughter Eladia, and Dr. Chandler from Infectious Disease. Options are for explantation of his pacemaker system which would entail increased risk and could only be done if the patient were a candidate for and willing to accept the possibility of emergency open-heart surgery should there be a life-threatening complication. If such a procedure was to be considered, it should ideally be performed at a center with experience in explantation of chronic pacemaker leads. Given patient's advanced age, Parkinson's disease, and mild dementia, I am not sure that he is a candidate for such a procedure. His daughter, Eladia, has significant hospital administrative experience in [facility]. She inquired as to the best places to have a complicated pacemaker extraction performed. Following our phone conversation, I spoke with Dr. Mills from our electrophysiology service. If he wished to have such a procedure performed locally, the recommendation would be for Dr. Damion Sevilla at [facility]. If a nationally, medically-renowned center was preferred, the recommendation would be for Dr. Emmanuel Pritchard at [facility]. During our phone call, the patient expressed that he was not interested in pursuing an aggressive procedural approach. The alternative would be for continued intravenous antibiotics for a few weeks followed by chronic, oral suppressive antibiotic therapy. However, in that scenario, the concern is for breakthrough/failure of antibiotic therapy with potential for progressive and life-threatening infection. The patient and his family will discuss the options. Tentatively, we plan for another phone conference tomorrow to help clarify his treatment path. Chronic Diastolic CHF: Dr. Grubbs had expressed concerns that a transthoracic echo report from earlier in this hospital stay indicated a decrease in his left ventricular systolic function compared to last month. I personally reviewed both sets of images. The most recent TTE was somewhat technically limited. His LV function does not appear to have changed. This is confirmed by the images on 04/28 GARCIA. Permanent Pacemaker: Various notes in the chart indicate that the patient has a left ventricular lead. To clarify, he underwent dual chamber pacemaker implantation in November of 2013 in [place]. At that time, standard right atrial and right ventricular leads were placed. Last month, he presented with failure to capture and was felt to have had a right ventricular lead fracture. He underwent pacemaker revision consisting of generator replacement and implantation of a new right ventricular lead. The original right ventricular lead was capped and coiled in the pocket. There is a current diagnostic consideration of spinal discitis. The question was posed as to her whether or not the patient could safely undergo an MRI scan. His current pacemaker system is an MRI contingent system. The FUNCTION of his original RA and RV leads is not relevant since he is in chronic a-fib and his device is programmed for ventricular pacing only. However, I spoke with Dr. Mills yesterday. When a patient has an abandoned pacemaker lead coiled in the pocket it can act as an electromagnet in an MRI field. This is a contraindication to MRI imaging. 04/28/18 13:01 04/29/18 20:52 Subjective: No complaints. Reviewed/Discussed With: family Objective: Vital Signs (8 Hrs) Temp Pulse Resp BP Pulse Ox 04/29/18 20:32 36.5 C 73 16 114/69 98 04/29/18 15:54 36.8 C 72 14 97/53 L 100 04/29/18 13:30 74 76/47 L 98 Intake/Output (24 Hrs) 04/28/18 04/29/18 04/30/18 05:59 05:59 05:59 Intake Total 100 200 Output Total 2900 1050 250 Balance -2900 -950 -50 Intake: Oral (ml) 200 IV Intake (ml) 100 Output: Urine (ml) 2900 1050 250 Catheter 2900 1050 250 Other: Number of Stools Catheter 1 Result Diagrams: 04/28/18 03:30 04/29/18 19:25 - Physical Exam Constitutional: no apparent distress Eyes: anicteric sclera Ears, Nose, Mouth, Throat: moist mucous membranes Cardiovascular: regular rate and rhythm, no murmurs, no gallops Respiratory: clear to auscultate bilat Gastrointestinal: normoactive bowel sounds, no tenderness, no masses Skin: no edema Psychiatric: not anxious ICD10 Worksheet Patient Problems: Problems Problem Status Onset Acute renal insufficiency Acute Sepsis Acute Dehydration Acute Fall Acute Multiple skin tears Acute Pacemaker malfunction Acute Parkinson disease Acute Paroxysmal a-fib Acute UTI (urinary tract infection) Acute
[2018-04-30] MEDS: NAFCILLIN SODIUM 2 GM in D5W 100 ML IV SCH ×6 (01:38→22:06)
[2018-04-30] MEDS: ACETAMINOPHEN 325 MG TAB PO PRN ×2 (01:40→16:09)
[2018-04-30 06:01] LABS: PLATELET COUNT 168 10^3/uL (150-400)
[2018-04-30 06:10] LABS: INR 1.3 (0.83-1.16); PROTIME(PATIENT) 16.4 SEC (12.0-15.0)
[2018-04-30] MEDS: DICLOFENAC SODIUM 1% 100 GM GEL TP SCH ×4 (06:36→22:13)
[2018-04-30] MEDS: FINASTERIDE 5 MG TAB PO SCH (08:13)
[2018-04-30] MEDS: CARVEDILOL 3.125 MG TAB PO SCH ×2 (08:14→20:58)
[2018-04-30] MEDS: CARBIDOPA/LEVODOPA 25 MG/100 MG TAB PO SCH ×4 (08:14→20:58)
--- NOTE | 2018-04-30 12:51 | ASMTCMCOM ---
CM Note CM Note Notes: Patient plan of care reviewed in rounds. He has large vegetation on valve. Cardiology and ID involved and had prolonged discussion with family . Curative treatment would require the removal of his pacemaker apparatus and potentially emergency open heart surgery. No definitive plans yet. MD to start anti-coagulation . Patient wishes to remain Full Code as that is what family wishes. CM to follow. Plan: TBD Date Signed: 04/30/2018 12:51 PM Electronically Signed By:Ebony Polo RN
--- NOTE | 2018-04-30 16:01 | PCMIDPN ---
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 For cure will need lead extraction, which could be quite difficult and require open heart as back up. At this point, patient currently does not want lead extraction. Blood cx 04/23 are negative establishing clearance --this is now a MSSA prosthetic valve equivalent , continue Nafcillin bc it is the gold standard. Risk of renal toxicity with Gentamicin probably not worth the risk, but could be reasonable to add rifampin, but will first assess tolerance of Nafcillin --wbc up a bit, will recheck Thursday # large veg: may have to reconsider re-starting anticoag await urologic studies # ARF :resolved. Large hematoma and bladder due to bladder trauma, urology recommending a urogram in 2 weeks with possible Chao removal following that meds, Abx #8 nafcillin 2gm IV q4h Microbiology 04/20 blood cultures 2 sets MSSA 04/20 urine cultures Poly 04/23 blood cultures negative Time 25 min >50% time spent with family meeting including Dr. English, Dr Zuñiga, discussed GARCIA findings options of lead extraction and medical therapy alone. Discussed indications for anticoagulation. Subjective: no specific c/o today Objective: Vital Signs Temp Pulse Resp BP Pulse Ox 36.3 C 75 16 122/79 H 95 04/30/18 08:51 04/30/18 08:51 04/30/18 08:51 04/30/18 08:51 04/30/18 08:51 Laboratory Results 04/30/18 05:45 04/30/18 05:45 04/29/18 04/30/18 05/01/18 05:59 05:59 05:59 Intake Total 100 450 210 Output Total 1050 250 500 Balance -950 200 -290 - Physical Exam General Appearance: alert, non-toxic Respiratory: No accessory muscle use ICD10 Worksheet Patient Problems: Problems Problem Status Onset Acute renal insufficiency Acute Sepsis Acute Dehydration Acute Fall Acute Multiple skin tears Acute Pacemaker malfunction Acute Parkinson disease Acute Paroxysmal a-fib Acute UTI (urinary tract infection) Acute
[2018-04-30] MEDS ORDERED: POTASSIUM CL 10 MEQ TAB PO ONE ×2 (16:04→21:14)
[2018-04-30] MEDS: ESCITALOPRAM OXALATE 10 MG TAB PO SCH (16:09)
--- NOTE | 2018-04-30 16:15 | HOSPPROG ---
Hospitalist Progress Note Assessment/Plan: #MSSA Bacteremia, Tricuspid Valve Endocarditis -abx per ID #Systolic CHF with pulm edema -off IV Lasix -BP better today, but no resp issues. Will recheck CXR in a.m. Hold diuretics today #Hypotension -resolved -cont to hold CCB #Acute kidney injury, resolved #urethral injury with attempted placement of urethral catheter at nursing facility / gross hematuria due to above / status post removal of catheter, cystoscopy with removal of multiple bladder clots followed by continuous bladder irrigation - Hematuria resolved -a small bladder perforation was noted at the time surgery unclear if this was complication of the surgery or the initial Chao catheter placement efforts, repaired intraoperatively; Chao drainage until urology f/u due to presence of this cystotomy. #Encephalopathy resolved #Parkinsons #ABLA, stable #chronic Afib with AC -holding Xarelto #Hx of SSS, s/p PPM Plan: It is unclear if the TV vegetation is contiguous with the PM leads. Options include explantation of the PM vs antibiotic treatment. The pt does not want surgery. IR is managing antibiotics. Eventually make have breakthrough He needs anticoagulation restarted and Dr. Arana will evaluate if ok from Urological standpoint He is still a full code. The family will discuss this Ok to increase BB. Holding CCB repeat CXR in a.m.. May need more diuretics Objective: Vital Signs Temp Pulse Resp BP Pulse Ox 36.3 C 75 16 122/79 H 95 04/30/18 08:51 04/30/18 08:51 04/30/18 08:51 04/30/18 08:51 04/30/18 08:51 Laboratory Results 04/30/18 05:45 04/30/18 05:45 04/29/18 04/30/18 05/01/18 05:59 05:59 05:59 Intake Total 100 450 210 Output Total 1050 250 500 Balance -950 200 -290 PT 16.4 SEC (12.0-15.0) H 04/30/18 05:45 INR 1.30 (0.83-1.16) H 04/30/18 05:45 - Time Spent With Patient Time Spent with Patient: greater than 35 minutes Time Spent with Patient: Greater than 35 minutes spent on this patients care, greater than 50% of time spent counseling, educating, and coordinating care regarding the above mentioned plan. - Physical Exam Constitutional: no apparent distress Eyes: PERRL Ears, Nose, Mouth, Throat: moist mucous membranes, hearing normal Cardiovascular: regular rate and rhythym, No edema Respiratory: no respiratory distress, no rales or rhonchi Gastrointestinal: normoactive bowel sounds, soft, non-tender abdomen Skin: warm Musculoskeletal: generalized weakness Neurologic: AAOx3 Psychiatric: interacting appropriately, not anxious, not encephalopathic Lymph, Heme, Immunologic: No petechiae ICD10 Worksheet Patient Problems: Problems Problem Status Onset Acute renal insufficiency Acute Sepsis Acute Dehydration Acute Fall Acute Multiple skin tears Acute Pacemaker malfunction Acute Parkinson disease Acute Paroxysmal a-fib Acute UTI (urinary tract infection) Acute
[2018-04-30] MEDS ORDERED: HEPARIN 10,000 UNIT/10 ML MDV (1,000 UNIT/ML) IVP PRN (16:21)
[2018-04-30 17:36] LABS: PLATELET COUNT 176 10^3/uL (150-400)
--- NOTE | 2018-04-30 17:43 | SOAPPROG ---
SOAP Progress Note Assessment/Plan: Assessment: 1. Gross hemautria & clot retention w/ urethral trauma (the latter due to incorrectly-positioned Chao catheter), s/p intraoperative cystoscopy w/ clot evacuation on 04/21. Remains stable from this standpoint. 2. Left lateral wall, probable retroperitoneal, bladder perforation -- noted intraoperatively on 04/21. This should spontaneously heal w/ indwelling Chao. Plan: 1. Continue indwelling Chao until next week. 2. Will schedule cystogram for Thursday (to ensure bladder perforation resolution ). 3. Okay to anticoagulate from my standpoint. Chart reviewed and discussed w/ Dr. Chandler and hospitalist service. Objective: Vital Signs Temp Pulse Resp BP Pulse Ox 36.3 C 73 16 102/59 L 95 04/30/18 08:51 04/30/18 16:00 04/30/18 16:00 04/30/18 16:00 04/30/18 16:00 Laboratory Results 04/30/18 17:15 04/29/18 04/30/18 05/01/18 05:59 05:59 05:59 Intake Total 100 450 710 Output Total 0971 345 0428 Balance -950 200 -340 PT 16.4 SEC (12.0-15.0) H 04/30/18 05:45 INR 1.30 (0.83-1.16) H 04/30/18 05:45 ICD10 Worksheet Patient Problems: Problems Problem Status Onset Acute renal insufficiency Acute Sepsis Acute Dehydration Acute Fall Acute Multiple skin tears Acute Pacemaker malfunction Acute Parkinson disease Acute Paroxysmal a-fib Acute UTI (urinary tract infection) Acute
[2018-04-30 18:00] LABS: INR 1.76 (0.83-1.16); PROTIME(PATIENT) 20.6 SEC (12.0-15.0)
[2018-04-30] MEDS: DONEPEZIL HCL 5 MG TAB PO SCH (20:58)
[2018-04-30] MEDS: HEPARIN/DEXTROSE 500 ML IV SCH (20:59)
[2018-04-30] MEDS: PATCH REMOVAL 1 EA PATCH TD SCH (21:00)
[2018-05-01] MEDS: NAFCILLIN SODIUM 2 GM in D5W 100 ML IV SCH ×6 (02:46→21:03)
[2018-05-01 04:03] LABS: PLATELET COUNT 160 10^3/uL (150-400)
[2018-05-01] MEDS: CARBIDOPA/LEVODOPA 25 MG/100 MG TAB PO SCH ×4 (06:16→20:21)
[2018-05-01] MEDS: DICLOFENAC SODIUM 1% 100 GM GEL TP SCH ×4 (06:16→20:23)
[2018-05-01] MEDS: FINASTERIDE 5 MG TAB PO SCH (09:34)
[2018-05-01] MEDS: CARVEDILOL 3.125 MG TAB PO SCH ×2 (09:34→20:25)
--- NOTE | 2018-05-01 14:59 | PCMIDPN ---
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 For cure will need lead extraction, which could be quite difficult and require open heart as back up. confirms today that he does not want lead extraction. Blood cx 04/23 are negative establishing clearance --continue Nafcillin 2gm IV q4. Holding off on Rifampin for now to assess tolerance of Nafcillin --updated daughter # ARF :resolved. Slight trend up to Cr 0.7-->1.0, monitor closely in light of nafcillin therapy # mild hypoxia, abnormal chest x-ray:I personally reviewed chest x-ray, some findings may be related to right-sided endocarditis. O2 requirements have been stable meds, Abx #9 nafcillin 2gm IV q4h, #2 Microbiology 04/20 blood cultures 2 sets MSSA 04/20 urine cultures Poly 04/23 blood cultures negative Subjective: Patient is doing well. States he has had no change in his desire for medical therapy alone. He does not even wish to hear from an expert who can perform a lead extraction Objective: Vital Signs Temp Pulse Resp BP Pulse Ox 36.5 C 84 16 106/71 94 05/01/18 12:43 05/01/18 12:43 05/01/18 12:43 05/01/18 12:43 05/01/18 12:43 Laboratory Results 05/01/18 03:50 05/01/18 00:22 04/30/18 05/01/18 05/02/18 05:59 05:59 05:59 Intake Total 450 910 Output Total 250 1550 Balance 200 -640 - Physical Exam General Appearance: alert, no apparent distress Respiratory: coarse breath sounds, other (Decreased breath sounds right base), No accessory muscle use Cardiac/Chest: regular rate, rhythm, other (No pain or abnormality over left chest wall pacer pocket) Extremities: pedal edema (Minimal, much improved) Abdomen: non-tender, soft Male Genitalia: toth (No hematuria) Skin: other (Ecchymosis in various stages of healing), No rash Neuro/Psych: alert, normal mood/affect - Line/s RUE PICC Lines: No drainage, No erythema - Time Spent With Patient Time Spent with Patient: greater than 35 minutes Time Spent with Patient: Greater than 35 minutes spent on this patients care, greater than 50% of time spent counseling, educating, and coordinating care regarding the above mentioned plan. ICD10 Worksheet Patient Problems: Problems Problem Status Onset Acute renal insufficiency Acute Sepsis Acute Dehydration Acute Fall Acute Multiple skin tears Acute Pacemaker malfunction Acute Parkinson disease Acute Paroxysmal a-fib Acute UTI (urinary tract infection) Acute
--- NOTE | 2018-05-01 15:08 | HOSPPROG ---
Hospitalist Progress Note Assessment/Plan: #MSSA Bacteremia, Tricuspid Valve Endocarditis -abx per ID #Systolic CHF with pulm edema -off IV Lasix -BP better today, but no resp issues. -Has been doing well off Lasix and has not needed any over the past 3 days. #Hypotension -resolved -cont to hold CCB #Acute kidney injury, resolved #urethral injury with attempted placement of urethral catheter at nursing facility / gross hematuria due to above / status post removal of catheter, cystoscopy with removal of multiple bladder clots followed by continuous bladder irrigation - Hematuria resolved -a small bladder perforation was noted at the time surgery unclear if this was complication of the surgery or the initial Chao catheter placement efforts, repaired intraoperatively; Chao drainage until urology f/u due to presence of this cystotomy. -cystogram to be done on Thursday #Encephalopathy resolved #Parkinsons #ABLA, stable #chronic Afib with AC -holding Xarelto -did not tolerate CCB due to hypotension -now on BB #Hx of SSS, s/p PPM Plan: -He does not want PM extraction or heart surgery -cont with IV abx -AC restarted yesterday. He has tolerated well with no hematuria. Will cont for now. At the time of discharge could consider changing to Lovenox vs Coumadin -Cystogram on Thursday per Urology -Lasix PRN. none today Still a full code. He initially wanted to change to a DNR but then decided that he would defer to his family Subjective: no cp or sob. no hematuria Objective: Vital Signs Temp Pulse Resp BP Pulse Ox 36.5 C 84 16 106/71 94 05/01/18 12:43 05/01/18 12:43 05/01/18 12:43 05/01/18 12:43 05/01/18 12:43 Laboratory Results 05/01/18 03:50 05/01/18 00:22 04/30/18 05/01/18 05/02/18 05:59 05:59 05:59 Intake Total 450 910 Output Total 250 1550 Balance 200 -640 PT 20.6 SEC (12.0-15.0) H 04/30/18 17:15 INR 1.76 (0.83-1.16) H 04/30/18 17:15 - Physical Exam Constitutional: no apparent distress Eyes: PERRL, EOMI Ears, Nose, Mouth, Throat: moist mucous membranes, hearing normal Cardiovascular: regular rate and rhythym, No edema Respiratory: no respiratory distress, no rales or rhonchi Gastrointestinal: normoactive bowel sounds, soft, non-tender abdomen Skin: warm Neurologic: AAOx3 Psychiatric: interacting appropriately, not anxious, not encephalopathic Lymph, Heme, Immunologic: No petechiae ICD10 Worksheet Patient Problems: Problems Problem Status Onset Acute renal insufficiency Acute Sepsis Acute Dehydration Acute Fall Acute Multiple skin tears Acute Pacemaker malfunction Acute Parkinson disease Acute Paroxysmal a-fib Acute UTI (urinary tract infection) Acute
[2018-05-01] MEDS: HEPARIN/DEXTROSE 500 ML IV SCH (15:38)
[2018-05-01] MEDS: ESCITALOPRAM OXALATE 10 MG TAB PO SCH (18:03)
[2018-05-01] MEDS: DONEPEZIL HCL 5 MG TAB PO SCH (20:21)
[2018-05-01] MEDS: PATCH REMOVAL 1 EA PATCH TD SCH (20:26)
[2018-05-01] MEDS ORDERED: POTASSIUM CL 10 MEQ TAB PO ONE (21:47)
[2018-05-02] MEDS: NAFCILLIN SODIUM 2 GM in D5W 100 ML IV SCH ×6 (02:04→22:48)
[2018-05-02] MEDS: DICLOFENAC SODIUM 1% 100 GM GEL TP SCH ×4 (05:41→21:10)
[2018-05-02 05:48] LABS: PLATELET COUNT 186 10^3/uL (150-400)
[2018-05-02] MEDS: HEPARIN/DEXTROSE 500 ML IV SCH (08:58)
[2018-05-02] MEDS: CARBIDOPA/LEVODOPA 25 MG/100 MG TAB PO SCH ×4 (08:59→20:43)
[2018-05-02] MEDS: FINASTERIDE 5 MG TAB PO SCH (09:00)
[2018-05-02] MEDS: CARVEDILOL 3.125 MG TAB PO SCH ×2 (09:00→20:43)
--- NOTE | 2018-05-02 09:03 | PDIAF ---
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 Code Status: Full Code - Medication Management Discharge Medications: Medications to Continue on Transfer Diltiazem Cd [Cardizem ER 120 MG (*)] 120 mg PO DAILY@0730 03/20/18 [Last Taken 04/20/18 09:00] Donepezil HCl [Aricept 5 MG (*)] 10 mg PO HS 03/20/18 [Last Taken 04/19/18] Carbidopa/Levodopa 25/100Mg [Sinemet 25/100 MG (*)] 1 tab PO QID@0730,12,17,21 03/22/18 [Last Taken 04/20/18 12:00] Patch Removal 1 ea TD DAILY21 patch 03/26/18 [Last Taken 04/19/18] Lidocaine 4%/Menthol 1% [Icy Hot Lidocaine/Menthol 4%/1% Patch (*)] 1 patch TD DAILY PRN 03/31/18 [Last Taken 04/20/18 05:00] Rivaroxaban [Xarelto] 20 mg PO DAILY #30 tab 04/12/18 [Last Taken 04/20/18 09:00 ] Acetaminophen [Tylenol 325mg (*)] 650 mg PO TID 04/20/18 [Last Taken 04/20/18 14 :00] Diclofenac Sodium 1% [Voltaren Gel (*)] 4 gm TP QID 04/20/18 [Last Taken 12:00] Escitalopram Oxalate [Lexapro] 20 mg PO 1700 04/20/18 [Last Taken 04/19/18 17:00 ] Finasteride [Proscar 5 MG (*)] 5 mg PO DAILY 04/20/18 [Last Taken 04/20/18 09:00 ] Gabapentin [Neurontin 100 MG (*)] 200 mg PO TID 04/20/18 [Last Taken 04/20/18 12 :00] Herbals/Supplements -Info Only 1 ea PO DAILY 04/20/18 [Last Taken 04/20/18 09:00 ] amLODIPine BESYLATE [Norvasc 2.5 mg (*)] 2.5 mg PO DAILY 04/20/18 [Last Taken 09:00] Public Policy Associate Antibiotics: nafcillin 2gm IV [id number] Public Policy Associate Antibiotic Stop Date: 06/10/18 Discharge Medications: Refer to the Discharge Home Medication list for PRN reason. PICC Care - Routine: Yes - Orders Isolation Type: None Diet Texture: Regular Texture Diet, Thin Liquids, Meds Whole in Puree - Labs/Radiology CBC w/diff Date: 05/10/18 (Weekly Thursday) CMP Date: 05/10/18 (Weekly Thursday) Call or Fax Lab and Imaging Results to: Dr Maria A Chandler at [facility] [phone] - Follow Up Care Current Providers and Referrals: Patient,NotPresent [Unknown] - As per Instructions Maria A Chandler MD [Medical Doctor] - 05/12/18 2:00 pm
[2018-05-02] MEDS ORDERED: POTASSIUM CL 10 MEQ TAB PO ONE ×3 (09:47→20:23)
--- NOTE | 2018-05-02 10:25 | HOSPPROG ---
Hospitalist Progress Note Assessment/Plan: #MSSA Bacteremia: very large TR vegetation involving pacer leads. On Nafcillin, but Cr rising. -Dr. Chandler reviewed echo with Dr. Mi who will contact CT surg for surgical options. #Chronic diastolic HF: Dr. English reviewed echo and no significant change in EF from prior -did not tolerate CCB due to hypotension #Hypotension -resolved -cont to hold CCB #DESMOND: Cr up a little 1.1 #Urethral injury with attempted placement of urethral catheter at nursing facility. Hematuria resolved. -s/p cystoscopy with removal of multiple bladder clots complicated by small bladder perforation; unclear if due to surgery or the initial Toth -cystogram to be done on Thursday #Encephalopathy: resolved #Parkinson's: stable #ABLA, stable #Permanent Afib with AC -currently on heparin gtt. Will have to determine if Lovenox or Coumadin safer agent based on cystogram results #h/o of SSS, s/p PPM #Deconditioning: plan for SNF Inpatient admission for IV abx Subjective: no acute issues overnight Objective: Vital Signs Temp Pulse Resp BP Pulse Ox 36.8 C 72 16 130/81 H 96 05/02/18 07:29 05/02/18 07:29 05/02/18 07:29 05/02/18 07:29 05/02/18 07:29 Laboratory Results 05/02/18 05:40 05/02/18 05:40 05/01/18 05/02/18 05/03/18 05:59 05:59 05:59 Intake Total 910 200 Output Total 1550 1500 Balance -640 -1300 PT 20.6 SEC (12.0-15.0) H 04/30/18 17:15 INR 1.76 (0.83-1.16) H 04/30/18 17:15 - Time Spent With Patient Time Spent with Patient: greater than 35 minutes Time Spent with Patient: Greater than 35 minutes spent on this patients care, greater than 50% of time spent counseling, educating, and coordinating care regarding the above mentioned plan. - Physical Exam Constitutional: no apparent distress Eyes: PERRL Ears, Nose, Mouth, Throat: moist mucous membranes Cardiovascular: regular rate and rhythym Respiratory: no respiratory distress Gastrointestinal: normoactive bowel sounds Genitourinary: no bladder fullness, toth in urethra (clear, yellow urine) Skin: warm Neurologic: AAOx3, CN II-XII Intact Psychiatric: interacting appropriately ICD10 Worksheet Patient Problems: Problems Problem Status Onset Acute renal insufficiency Acute Sepsis Acute Dehydration Acute Fall Acute Multiple skin tears Acute Pacemaker malfunction Acute Parkinson disease Acute Paroxysmal a-fib Acute UTI (urinary tract infection) Acute
--- NOTE | 2018-05-02 12:07 | PCMIDPN ---
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 For cure will need lead extraction, which could be quite difficult and require open heart as back up. confirms today that he does not want lead extraction. Blood cx 04/23 are negative establishing clearance --continue Nafcillin 2gm IV q4. LFTs stable today, ANC 4400 Holding off on Rifampin for now to assess tolerance of Nafcillin --updated daughter --will have CT surgery come by and give opinion # ARF :Trending up to Cr 0.7-->1.0-->1.1, monitor closely in light of nafcillin therapy # mild hypoxia, abnormal chest x-ray:I personally reviewed chest x-ray, some findings may be related to right-sided endocarditis. O2 requirements have been stable meds, Abx #10 nafcillin 2gm IV q4h, #3 Microbiology 04/20 blood cultures 2 sets MSSA 04/20 urine cultures Poly 04/23 blood cultures negative Subjective: patient continuing to feel well Objective: Vital Signs Temp Pulse Resp BP Pulse Ox 36.8 C 72 16 130/81 H 96 05/02/18 07:29 05/02/18 07:29 05/02/18 07:29 05/02/18 07:29 05/02/18 07:29 Laboratory Results 05/02/18 05:40 05/02/18 05:40 05/01/18 05/02/18 05/03/18 05:59 05:59 05:59 Intake Total 910 200 Output Total 1550 1500 Balance -640 -1300 - Physical Exam General Appearance: alert, no apparent distress EENT: No scleral icterus Cardiac/Chest: regular rate, rhythm Male Genitalia: toth (no hematuria) Skin: No rash Neuro/Psych: alert, normal mood/affect, oriented x 3 - Line/s RUE PICC Lines: No drainage, No erythema - Time Spent With Patient Time Spent with Patient: greater than 35 minutes Time Spent with Patient: Greater than 35 minutes spent on this patients care, greater than 50% of time spent counseling, educating, and coordinating care regarding the above mentioned plan. ICD10 Worksheet Patient Problems: Problems Problem Status Onset Acute renal insufficiency Acute Sepsis Acute Dehydration Acute Fall Acute Multiple skin tears Acute Pacemaker malfunction Acute Parkinson disease Acute Paroxysmal a-fib Acute UTI (urinary tract infection) Acute
[2018-05-02] MEDS: ESCITALOPRAM OXALATE 10 MG TAB PO SCH (17:01)
[2018-05-02] MEDS: DONEPEZIL HCL 5 MG TAB PO SCH (20:43)
[2018-05-02] MEDS: PATCH REMOVAL 1 EA PATCH TD SCH (20:56)
[2018-05-03] MEDS: NAFCILLIN SODIUM 2 GM in D5W 100 ML IV SCH ×6 (02:43→21:18)
[2018-05-03] MEDS: HEPARIN/DEXTROSE 500 ML IV SCH ×2 (04:48→23:39)
[2018-05-03] MEDS: ACETAMINOPHEN 325 MG TAB PO PRN (06:32)
[2018-05-03] MEDS: DICLOFENAC SODIUM 1% 100 GM GEL TP SCH ×4 (06:39→21:30)
[2018-05-03] MEDS ORDERED: IOTHALAMATE MEG (CYSTO-CONRAY II) 250 ML VIAL BLADIN ONE ×2 (08:29→08:43)
[2018-05-03] MEDS: CARBIDOPA/LEVODOPA 25 MG/100 MG TAB PO SCH ×4 (08:32→21:20)
[2018-05-03] MEDS: FINASTERIDE 5 MG TAB PO SCH (08:32)
[2018-05-03] MEDS: CARVEDILOL 3.125 MG TAB PO SCH ×2 (08:32→21:20)
--- NOTE | 2018-05-03 09:26 | HOSPPROG ---
Hospitalist Progress Note Assessment/Plan: #MSSA Bacteremia: 3-4 cm TR vegetation involving pacer leads. On Nafcillin, note rising creatinine. -cont nafcillin per ID -CT surgery to consult today, discussed with Dr. Guzmán #Chronic diastolic HF: Dr. English reviewed echo and no significant change in EF from prior -did not tolerate CCB due to hypotension #Hypotension -resolved -cont to hold CCB #DESMOND: Cr up a little to 1.1 though down from 3.5 on arrival #Urethral injury with attempted placement of urethral catheter at nursing facility. Hematuria resolved. s/p cystoscopy with removal of multiple bladder clots complicated by small bladder perforation; unclear if due to surgery or the initial Chao -cystogram today shows persistent bladder wall injury, Dr. Arana notified #Encephalopathy: resolved #Parkinson's: stable #ABLA, stable #Permanent Afib with AC -currently on heparin gtt. Will have to determine if Lovenox or Coumadin safer agent based on cystogram results -cont heparin for now until decision made regarding CT surgery #h/o of SSS, s/p PPM #Deconditioning: planning for SNF Cont inpatient admission for IV abx, CT surgery evaluation Subjective: Pt feels well. No fevers/chills. No CP or SOB. Eating well. He is not sure he would want surgery if offered. Objective: Vital Signs Temp Pulse Resp BP Pulse Ox 36.9 C 73 18 129/82 H 98 05/03/18 07:57 05/03/18 07:57 05/03/18 07:57 05/03/18 07:57 05/03/18 07:57 Laboratory Results 05/02/18 05:40 05/03/18 06:30 05/02/18 05/03/18 05/04/18 05:59 05:59 05:59 Intake Total 200 1731 Output Total 1500 1400 Balance -1300 331 PT 20.6 SEC (12.0-15.0) H 04/30/18 17:15 INR 1.76 (0.83-1.16) H 04/30/18 17:15 - Physical Exam Constitutional: no apparent distress Eyes: PERRL Ears, Nose, Mouth, Throat: moist mucous membranes Cardiovascular: regular rate and rhythym Respiratory: no respiratory distress, clear to auscultation Gastrointestinal: normoactive bowel sounds, soft, non-tender abdomen Skin: warm Musculoskeletal: full muscle strength Neurologic: AAOx3 Psychiatric: interacting appropriately ICD10 Worksheet Patient Problems: Problems Problem Status Onset Acute renal insufficiency Acute Sepsis Acute Dehydration Acute Fall Acute Multiple skin tears Acute Pacemaker malfunction Acute Parkinson disease Acute Paroxysmal a-fib Acute UTI (urinary tract infection) Acute
[2018-05-03] MEDS ORDERED: POTASSIUM CL 10 MEQ TAB PO ONE ×2 (09:45→22:27)
--- NOTE | 2018-05-03 14:59 | PCMIDPN ---
Assessment/Plan: Assessment: MSSA right-sided endocarditis. Large tricuspid lesion which will likely need cardiothoracic surgery's input on removal. Pacer leads will need to be removed. Depending on the course chosen for the treatment of the endocarditis lesion these may be removed intraoperatively. Plan to continue the treatment with IV nafcillin. Patient clinically is doing very well currently on this medication. He feels like his strength has returned. They will be having a discussion with the surgeon later today about the course going forward. Plan: 1. Continue IV nafcillin at present dose. 2. Follow-up on cardiothoracic surgery recommendations. 04/26/18 10:40 04/26/18 10:43 05/03/18 14:56 Subjective: Patient is sitting up in a chair in his hospital room. Multiple family members are present. He states that he feels fairly well. Denies any fevers or chills. No rash. Objective: Nafcillin # 4 Vital Signs Temp Pulse Resp BP Pulse Ox 36.9 C 73 18 129/82 H 98 05/03/18 07:57 05/03/18 07:57 05/03/18 07:57 05/03/18 07:57 05/03/18 07:57 Laboratory Results 05/02/18 05:40 05/03/18 06:30 05/02/18 05/03/18 05/04/18 05:59 05:59 05:59 Intake Total 200 1731 800 Output Total 1500 1400 Balance -1300 331 800 - Physical Exam General Appearance: WD/WN, alert, no apparent distress, non-toxic Respiratory: lungs clear, normal breath sounds, No respiratory distress Cardiac/Chest: regular rate, rhythm, No tachycardia, No irregularly irregular Extremities: non-tender, normal inspection Skin: normal color, warm/dry, No rash Neuro/Psych: alert, normal mood/affect, oriented x 3 ICD10 Worksheet Patient Problems: Problems Problem Status Onset Acute renal insufficiency Acute Sepsis Acute Dehydration Acute Fall Acute Multiple skin tears Acute Pacemaker malfunction Acute Parkinson disease Acute Paroxysmal a-fib Acute UTI (urinary tract infection) Acute
--- NOTE | 2018-05-03 15:48 | ASMTCMCOM ---
CM Note CM Note Notes: Family requesting notary services as they wish to have a new POA drawn up. Per our notary, by law she can not assist them with this service as it has components of an advanced directive. She has given them outside sources to call. Per family they have seen Dr. Urban of [facility] and patient is not felt to be a surgical candidate CM to follow. Plan: Dc to [facility] when medically ready for discharge. Date Signed: 05/03/2018 03:47 PM Electronically Signed By:Ebony Polo RN
--- NOTE | 2018-05-03 17:32 | ECHO ---
[email or web address] [address] [address] Main: [phone] Fax: Transthoracic Echocardiogram Name: CHAVEZ SCHUMACHER MR#: [id number] Study Date: 05/03/2018 Study Time: 03:46 PM Date of : 1930 Age: 87 year(s) Height: 182.9 cm (72 in.) Weight: 90.72 kg (200 lb.) BSA: 2.13 m2 Gender: Male Examination: Limited Echo Indication: Eval Rt Image Quality: Contrast: Requested by: Delilah Mi BP: 129 mmHg/82 mmHg Heart Rate: Rhythm: Indication: Eval Rt Procedure Staff Application Support Developer: Yosef Borges RDCS Reading Physician: Delilah Mi MD Requesting Provider: Conclusions: Normal global systolic LV function. Eustachian valve discernible in right atrium. Moderate tricuspid regurgitation is present. The pulmonary artery pressure is mild to moderately increased. In some views there is a small, independently mobile structure associated with the tricuspid valve. No other vegetation seen, specifically no vegetation associated with the tricuspid valve annulus. Trivial pericardial effusion. Compared with GARCIA dated 04/28/2018 the TV vegetation is not well seen on current study Measurements: Chambers Valvular Assessment AV/MV Valvular Assessment TV/PV Normal Normal Normal Name Value Range Name Value Range Name Value Range TR Vmax: 3.43 mm/s ( - ) TR PGmax: 47 mmHg ( - ) syst. PAP: 52 mmHg ( - ) Continued Measurements: Valvular Assessment TV/PV Name Value CVP (est.): 5 mmHg Findings: Left Ventricle: Normal global systolic LV function. Right Atrium: Eustachian valve discernible in right atrium. Patient: CHAVEZ SCHUMACHER Study Date: 05/03/2018 Page 1 of 2 03:46 PM Tricuspid Valve: Moderate tricuspid regurgitation is present. The pulmonary artery pressure is mild to moderately increased. In some views there is a small, independently mobile structure associated with the tricuspid valve. No other vegetation seen, specifically no vegetation associated with the tricuspid valve annulus. Pericardium: Trivial pericardial effusion. Exam Comments: This is a limited echo to eval the right heart and pacemaker leads. Off axis views were obtained to get multiple views.. (No Signature Object) Patient: CHAVEZ SCHUMACHER Study Date: 05/03/2018 Page 2 of 2 03:46 PM [id number]
[2018-05-03] MEDS: ESCITALOPRAM OXALATE 10 MG TAB PO SCH (17:41)
[2018-05-03] MEDS: PATCH REMOVAL 1 EA PATCH TD SCH (19:54)
[2018-05-03] MEDS: DONEPEZIL HCL 5 MG TAB PO SCH (21:20)
[2018-05-04] MEDS: NAFCILLIN SODIUM 2 GM in D5W 100 ML IV SCH ×6 (01:25→21:18)
[2018-05-04] MEDS: DICLOFENAC SODIUM 1% 100 GM GEL TP SCH ×4 (04:40→21:21)
[2018-05-04] MEDS: CARVEDILOL 3.125 MG TAB PO SCH ×2 (08:55→21:19)
[2018-05-04] MEDS: CARBIDOPA/LEVODOPA 25 MG/100 MG TAB PO SCH ×4 (08:55→21:18)
[2018-05-04] MEDS: FINASTERIDE 5 MG TAB PO SCH (08:55)
--- NOTE | 2018-05-04 10:21 | PCMIDPN ---
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 Blood cx 04/23 are negative establishing clearance --continue Nafcillin 2gm IV q4. stop date 06/10/18 --CT surgery and lead extraction too high risk at this point based on assessment with Cardiology and CT surgery. In addition patient does not desire heart surgery and prefers medical therapy alone. --discussed code status with family # ARF :Trending up to Cr 0.7-->1.0-->1.1, now stable at 1.1 for a couple days # mild hypoxia, abnormal chest x-ray:I personally reviewed chest x-ray, some findings may be related to right-sided endocarditis. O2 requirements have been stable meds, Abx #12 nafcillin 2gm IV q4h, #5 Microbiology 04/20 blood cultures 2 sets MSSA 04/20 urine cultures Poly 04/23 blood cultures negative Time 40 min >50% time spent w care coordination with Dr. Landa, Dr. Guzmán and Cardiology Service. Reviewed results w patient, and family over phone. discussed risk associated w open heart surgery due to his poor functional status and comorbid conditions. Plan to continue with medical therapy alone. Subjective: no specific c/o having 3 loose BMs/day but not bothersome. Objective: Vital Signs Temp Pulse Resp BP Pulse Ox 36.9 C 77 14 133/84 H 92 05/04/18 07:39 05/04/18 08:55 05/04/18 07:39 05/04/18 08:55 05/04/18 07:39 Laboratory Results 05/04/18 04:35 05/04/18 04:35 05/03/18 05/04/18 05/05/18 05:59 05:59 05:59 Intake Total 1731 2766 Output Total 1400 650 600 Balance 331 2116 -600 - Physical Exam General Appearance: alert, no apparent distress EENT: pale conjunctiva, No scleral icterus Respiratory: lungs clear, No accessory muscle use Cardiac/Chest: regular rate, rhythm, systolic murmur Extremities: pedal edema (very mild) Abdomen: non-tender, soft Skin: pallor, No jaundice, No rash Neuro/Psych: alert, normal mood/affect, oriented x 3 - Line/s RUE PICC Lines: No drainage, No erythema - Time Spent With Patient Time Spent with Patient: greater than 35 minutes Time Spent with Patient: Greater than 35 minutes spent on this patients care, greater than 50% of time spent counseling, educating, and coordinating care regarding the above mentioned plan. ICD10 Worksheet Patient Problems: Problems Problem Status Onset Acute renal insufficiency Acute Sepsis Acute Dehydration Acute Fall Acute Multiple skin tears Acute Pacemaker malfunction Acute Parkinson disease Acute Paroxysmal a-fib Acute UTI (urinary tract infection) Acute
[2018-05-04] MEDS ORDERED: POTASSIUM CL 10 MEQ TAB PO ONE ×2 (11:13→21:23)
--- NOTE | 2018-05-04 11:36 | GCON ---
DATE OF CONSULTATION: 05/03/2018 The patient is seen at the request of Dr. Mi with the patient's permission. IMPRESSION: 1. Methicillin-sensitive Staphylococcus aureus bacteremia of uncertain source. The patient has indwe lling pacer leads 4 in total, 2 recent and 2 greater than 4 years old. 2. Questionable vegetation on tricuspid valve with an obvious thrombus/vegetation on the pacer lead. 3. Episode of acute hypoxemic respiratory insufficiency and acute systolic congestive heart failure. 4. Urinary retention requiring indwelling Chao and a recent acute renal failure, resolving, and sec ondary to hematuria. 5. Acute encephalopathy with Parkinson disease without evidence of known dementia. RECOMMENDATIONS: This is a rather complex situation. This is an elderly gentleman who is quite debil itated and has had decreasing mobility over the last 4 years due to mostly orthopedic and balance iss ues. The family denies any evidence of documented dementia, although the has been concerned abou t him over the last several years with short-term memory. At the present time, he is quite conversant and very oriented and alert and participates in this discussion along with multiple family members. On repeat echo on 05/03, there was no evidence of valve involvement or vegetation as suggested on tra nsesophageal echo done prior, but there is a persistent serpiginous thrombus or vegetation emanating likely from a permanent pacing wire. This patient did present with bacteremia, although he cleared qu ite easily with antibiotics and has no further fevers, no chills, and a normal white count, and he lomas s been culture positive for close to a week. Given these findings and his high risk for surgical inte rvention including laser or mechanical drawing teacher extraction, I would suggest that we continue antibiotics, complete the course, and then see how he does. We could revisit the options of lead extraction, alth ough I think he is at significant risk for perforation and necessitating cardiopulmonary bypass to re solve his indwelling infection. At the present time, I think the risk exceeds the benefit. The patien t does not want open heart surgery under any circumstances, and his family is in agreement. Therefore , I suggest we try antibiotics first, and if he fails that, we could proceed with high-senior risk analyst extr action and have that discussion at a later time. CHIEF COMPLAINT: A complicated patient with MSSA bacteremia, multiple bladder interventions and comp lications related to Chao placement, and a previous UTI. He does have a 4-year-old pacemaker, which required revision and 2 new leads placed several weeks ago because of malfunction of that pacer and l alfonso. At the present time, he has 4 indwelling leads. The remainder of his medical and surgical histo ry is as per documented in chart. /[id number]/MODL
[2018-05-04] MEDS: ENOXAPARIN 100 MG/ML SYR SC SCH ×2 (12:02→21:18)
--- NOTE | 2018-05-04 13:28 | HOSPPROG ---
Hospitalist Progress Note Assessment/Plan: #MSSA Bacteremia: 3-4 cm TR vegetation involving pacer leads. CT surgery consulted and advises surgical supplies sterilizer extraction poses risks that may outweigh benefits given patients overall debility and comorbidities. In addition, pt does not want surgery. -plan is to treat medically with IV atbx and if infection persists, revisit surgical option -cont nafcillin through 06/10 per ID #Chronic diastolic HF: Dr. English reviewed echo and no significant change in EF from prior. Euvolemic here. #Hypotension - resolved -cont to hold dilt #DESMOND: Cr up a little to 1.1 though down from 3.5 on arrival #Urethral injury with attempted placement of urethral catheter at nursing facility. Hematuria resolved. s/p cystoscopy with removal of multiple bladder clots complicated by small bladder perforation; unclear if due to surgery or the initial Toth -cystogram today shows persistent bladder wall injury, Dr. Arana notified and recommends to maintain toth for 2 weeks, then f/u with him in clinic #Encephalopathy: resolved #Parkinson's: stable #ABLA, stable #Permanent Afib with AC -dc heparin drip, transition to lovenox for now -will likely resume xarelto at discharge #h/o of SSS, s/p PPM #Deconditioning: planning for SNF, ADD tomorrow #Dispo - likely SNF in am Subjective: Pt feels well, eating lunch. No complaints. Denies CP or SOB. No fevers/chills or rigors. Objective: Vital Signs Temp Pulse Resp BP Pulse Ox 36.9 C 77 14 133/84 H 92 05/04/18 07:39 05/04/18 08:55 05/04/18 07:39 05/04/18 08:55 05/04/18 07:39 Laboratory Results 05/04/18 04:35 05/04/18 04:35 05/03/18 05/04/18 05/05/18 05:59 05:59 05:59 Intake Total 1731 2766 Output Total 1400 650 600 Balance 331 2116 -600 PT 20.6 SEC (12.0-15.0) H 04/30/18 17:15 INR 1.76 (0.83-1.16) H 04/30/18 17:15 - Physical Exam Constitutional: no apparent distress Eyes: PERRL Ears, Nose, Mouth, Throat: moist mucous membranes Cardiovascular: regular rate and rhythym Respiratory: no respiratory distress, clear to auscultation Gastrointestinal: normoactive bowel sounds, soft, non-tender abdomen Skin: warm Musculoskeletal: generalized weakness Psychiatric: interacting appropriately ICD10 Worksheet Patient Problems: Problems Problem Status Onset Acute renal insufficiency Acute Sepsis Acute Dehydration Acute Fall Acute Multiple skin tears Acute Pacemaker malfunction Acute Parkinson disease Acute Paroxysmal a-fib Acute UTI (urinary tract infection) Acute
[2018-05-04] MEDS: ESCITALOPRAM OXALATE 10 MG TAB PO SCH (17:31)
[2018-05-04] MEDS: ACETAMINOPHEN 325 MG TAB PO PRN (21:18)
[2018-05-04] MEDS: DONEPEZIL HCL 5 MG TAB PO SCH (21:19)
[2018-05-04] MEDS: PATCH REMOVAL 1 EA PATCH TD SCH (21:21)
[2018-05-05] MEDS: NAFCILLIN SODIUM 2 GM in D5W 100 ML IV SCH ×2 (01:47→05:43)
[2018-05-05] MEDS: DICLOFENAC SODIUM 1% 100 GM GEL TP SCH ×4 (05:32→21:58)
[2018-05-05] MEDS ORDERED: POTASSIUM CL 10 MEQ TAB PO ONE (07:23)
[2018-05-05] MEDS ORDERED: ACETAMINOPHEN 650 MG SUPP PR PRN (09:15)
--- NOTE | 2018-05-05 09:18 | PCMIDPN ---
Assessment/Plan: # High fever, AMS without non-focal neuro exam, elevated WBC and ARF: DDX recurrent bacteremia, drug reaction, episode followed toth trauma could consider CAUTI. Pulm source seems unlikely due to stable O2 sats. 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 Blood cx 04/23 are negative establishing clearance --hold Nafcillin, will have coverage w broader abx as above meds, Abx #13 nafcillin 2gm IV q4h, #6 Microbiology 04/20 blood cultures 2 sets MSSA 04/20 urine cultures Poly 04/23 blood cultures negative Patient examined at bedside with Dr. Landa and nursing team Subjective: Patient accidentally pulled his Toth last night and developed hematuria, subsequently high fever this a.m. And altered mental status. Few soft stools yesterday Objective: Vital Signs Temp Pulse Resp BP Pulse Ox 37.9 C 78 18 122/58 H 92 05/05/18 07:59 05/05/18 07:59 05/05/18 07:59 05/05/18 07:59 05/05/18 07:59 Laboratory Results 05/04/18 04:35 05/04/18 18:35 Laboratory Tests 05/05/18 05/05/18 09:15 09:15 WBC 13.63 H Hct 25.6 L Plt Count 171 Creatinine 1.9 H Total Bilirubin 2.0 H AST 18 ALT 19 L 05/04/18 05/05/18 05/06/18 05:59 05:59 05:59 Intake Total 2766 50 Output Total 650 1150 Balance 2116 -1100 - Physical Exam General Appearance: apparent distress, thin, other (rigors at time of my exam) EENT: pale conjunctiva, other (Dry mucous membranes) Respiratory: No accessory muscle use Cardiac/Chest: regular rate, rhythm, systolic murmur (Stable exam) Extremities: No pedal edema Abdomen: non-tender, soft Male Genitalia: toth (hematuria) Neuro/Psych: confused, No abnormal CN, No facial droop, No motor weakness - Line/s RUE PICC Lines: No drainage, No erythema - Time Spent With Patient Time Spent with Patient: greater than 35 minutes Time Spent with Patient: Greater than 35 minutes spent on this patients care, greater than 50% of time spent counseling, educating, and coordinating care regarding the above mentioned plan. ICD10 Worksheet Patient Problems: Problems Problem Status Onset Acute renal insufficiency Acute Sepsis Acute Dehydration Acute Fall Acute Multiple skin tears Acute Pacemaker malfunction Acute Parkinson disease Acute Paroxysmal a-fib Acute UTI (urinary tract infection) Acute
[2018-05-05 09:26] LABS: PLATELET COUNT 171 10^3/uL (150-400)
--- NOTE | 2018-05-05 09:27 | HOSPPROG ---
Hospitalist Progress Note Assessment/Plan: #MSSA Bacteremia: 3-4 cm TR vegetation involving pacer leads. CT surgery consulted and advises surgical physician assistant extraction poses risks that likely outweighs benefits given patients overall debility and comorbidities. In addition, pt does not want surgery. -plan is to treat medically with IV atbx and if infection persists, revisit surgical option -per ID, changing atbx from nafcillin to cefepime, see below #Fever - recurred this am with T 102 and associated rigors. No hypotension or tachycardia. No hypoxemia to suggest septic pulmonary emboli from TV veg. Discussed with ID and suspect either drug fever versus recurrent bacteremia 2/2 endocarditis versus CAUTI with fever following toth trauma -stat cbc, cmp, ua, BCxs -change atbx as above #Acute encephalopathy - suspect related to fever. -treat fever and if confusion persists, send for head CT #Chronic diastolic HF: Dr. English reviewed echo and no significant change in EF from prior. Euvolemic here. #Hypotension - resolved -cont to hold dilt, also hold BB with recurrent fever and bacteremic presentation #DESMOND: Cr up a little to 1.1 possibly related to nafcillin, though down from 3.5 on arrival -renally dose meds, avoid nephrotoxic agents #Urethral injury with attempted placement of urethral catheter at SNF. s/p cystoscopy with removal of multiple bladder clots complicated by small bladder perforation; unclear if due to surgery or the initial Toth. F/U cystogram yesterday showed persistent bladder wall injury, Dr. Arana notified and recommends to maintain toth for 2 weeks, then f/u with him in clinic. Had recurrent toth trauma overnight with new hematuria. -irrigate bladder -send ua -hold lovenox #Encephalopathy: resolved #Parkinson's: stable #ABLA, stable #Permanent Afib with AC - on xarelto at home. He was transitioned from heparin drip to lovenox yesterday. -holding lovenox due to hematuria #h/o of SSS, s/p PPM #Deconditioning: planning for SNF when stable #Dispo - cont inpt Subjective: Pt with fever to 102, rigors, confusion. Unable to open eyes to command or answer questions. Accidentally pulled on toth overnight and now with gross hematuria, RN irrigated clots from bladder, now draining conor blood. No hypotension or tachycardia. Objective: Vital Signs Temp Pulse Resp BP Pulse Ox 37.9 C 78 18 122/58 H 92 05/05/18 07:59 05/05/18 07:59 05/05/18 07:59 05/05/18 07:59 05/05/18 07:59 Laboratory Results 05/04/18 04:35 05/04/18 18:35 05/04/18 05/05/18 05/06/18 05:59 05:59 05:59 Intake Total 2766 50 Output Total 650 1150 Balance 2116 -1100 PT 20.6 SEC (12.0-15.0) H 04/30/18 17:15 INR 1.76 (0.83-1.16) H 04/30/18 17:15 - Physical Exam Constitutional: no apparent distress Eyes: PERRL Ears, Nose, Mouth, Throat: moist mucous membranes Cardiovascular: regular rate and rhythym, systolic murmur Respiratory: no respiratory distress, clear to auscultation Gastrointestinal: normoactive bowel sounds, soft, non-tender abdomen Skin: warm Psychiatric: encephalopathic ICD10 Worksheet Patient Problems: Problems Problem Status Onset Acute renal insufficiency Acute Sepsis Acute Dehydration Acute Fall Acute Multiple skin tears Acute Pacemaker malfunction Acute Parkinson disease Acute Paroxysmal a-fib Acute UTI (urinary tract infection) Acute
[2018-05-05] MEDS ORDERED: CEFEPIME HCL 2 GM in NS 100 ML IV SCH (10:00)
[2018-05-05] MEDS: CARVEDILOL 3.125 MG TAB PO SCH (10:08)
[2018-05-05] MEDS: CARBIDOPA/LEVODOPA 25 MG/100 MG TAB PO SCH ×4 (10:08→21:56)
[2018-05-05] MEDS: ENOXAPARIN 100 MG/ML SYR SC SCH (10:08)
[2018-05-05] MEDS: FINASTERIDE 5 MG TAB PO SCH (10:09)
[2018-05-05] MEDS: CEFEPIME HCL 2 GM in NS 100 ML IV SCH (12:31)
[2018-05-05] MEDS ORDERED: LIDOCAINE 2% JELLY 20 ML (UROJECT) UR ONE (13:45)
[2018-05-05] MEDS ORDERED: IOPAMIDOL (ISOVUE-300) 100 ML BTL ONE (14:04)
[2018-05-05] MEDS ORDERED: NS 1,000 ML IV ONE (14:15)
--- NOTE | 2018-05-05 14:17 | ASMTCMCOM ---
CM Note CM Note Notes: Patient plan of care reviewed in rounds. Unfortunately Scottie has experienced a significant decline over the past several hours starting with a change in mentation followed by high fever and rigors. He has been seen by STEFFEN Chandler who is following his valvular vegetation as well as hospital medicine Dr. Landa. Blood cultures have been sent, CXR done, UA sent and CT of head pending. Plan: TBD Date Signed: 05/05/2018 02:16 PM Electronically Signed By:Ebony Polo RN
[2018-05-05] MEDS ORDERED: HYDROmorphONE/DILAUDID 2 MG/ML INJ ONE (16:20)
[2018-05-05] MEDS: HYDROmorphONE/DILAUDID 1 MG/ML INJ IVP PRN (16:26)
[2018-05-05] MEDS: ESCITALOPRAM OXALATE 10 MG TAB PO SCH (16:59)
[2018-05-05] MEDS ORDERED: HYDROmorphONE/DILAUDID 1 MG/ML INJ IVP ONE (18:00)
--- NOTE | 2018-05-05 18:20 | SOAPPROG ---
SOAP Progress Note Assessment/Plan: Assessment: 1. Recurrent gross hematuria & urethral trauma due to severe acute catheter traction last night. Pt. is s/p intraoperative cystoscopy w/ clot evacuation on 04/21. Chao replaced this evening under cystoscopic guidance (see dictated Procedure note -- # [id number]). No active hematuria nor significant bladder clot appreciated at this time. Pelvic CT from earlier today does not reveal significant clot within the bladder, but there is evidence of retroperitoneal air focally in small pockets in the immediate perivesicular tissue as well as in the inguinal canals bilaterally (discussed & reviewed w/ Dr. Castano). 2. Left lateral wall retroperitoneal bladder perforation -- noted intraoperatively on 04/21. Follow-up cystogram on 05/03 reveals possible persistence with localized extravasation vs. an usual-appearing multiloculated bladder diverticulum. Plan: 1. Continue indwelling Chao for at least 2 more weeks. 2. Depending on clinical course, will tentatively plan on repeat cystogram vs. office cystoscopy in ~ 2 weeks. 3. Manually irrigate Chao prn. Subjective: Here to assess obstructed catheter and gross hematuria that began last night after pt. unknowingly placed excessive traction on indwelling Chao. Objective: Vital Signs Temp Pulse Resp BP Pulse Ox 37.8 C 76 18 113/56 L 96 05/05/18 15:20 05/05/18 15:20 05/05/18 15:20 05/05/18 16:34 05/05/18 15:20 Laboratory Results 05/05/18 09:15 05/05/18 09:15 05/04/18 05/05/18 05/06/18 05:59 05:59 05:59 Intake Total 2766 50 1000 Output Total 650 1150 500 Balance 2116 -1100 500 PT 20.6 SEC (12.0-15.0) H 04/30/18 17:15 INR 1.76 (0.83-1.16) H 04/30/18 17:15 Physical Exam - Physical Exam General Appearance: other (pt. minimally verbally responsive, does respond to tactile stimuli, appears to be in intermittently mild discomfort) Abdomen: non-tender, soft Male Genitalia: other (mild penile shaft edema, 22 Fr. 3-way Chao catheter not draining) ICD10 Worksheet Patient Problems: Problems Problem Status Onset Acute renal insufficiency Acute Sepsis Acute Dehydration Acute Fall Acute Multiple skin tears Acute Pacemaker malfunction Acute Parkinson disease Acute Paroxysmal a-fib Acute UTI (urinary tract infection) Acute
[2018-05-05] MEDS: DONEPEZIL HCL 5 MG TAB PO SCH (21:56)
[2018-05-05] MEDS: PATCH REMOVAL 1 EA PATCH TD SCH (22:10)
[2018-05-06 05:42] LABS: PLATELET COUNT 145 10^3/uL (150-400)
[2018-05-06] MEDS: CARBIDOPA/LEVODOPA 25 MG/100 MG TAB PO SCH ×5 (06:40→20:35)
[2018-05-06] MEDS: DICLOFENAC SODIUM 1% 100 GM GEL TP SCH ×4 (06:40→20:36)
--- NOTE | 2018-05-06 06:56 | GPN ---
DATE OF PROCEDURE: 05/05/2018 POSTOPERATIVE DIAGNOSIS: Urethral trauma and gross hematuria, status post complex urethral catheterization with cystoscopic guidance. DESCRIPTION OF PROCEDURE: I initially attempted to manually irrigate the existing indwelling 3-way silastic Chao catheter, but this was unsuccessful. I decided to replace the existing catheter in the event that a clot was adherent to the bladder aspect of the catheter, not allowing it to drain. After removing the existing indwelling 3-way catheter, I was unable to reinsert a 3-way 22-Faroese latex catheter due to resistance met in the region of the prostatic urethra. I then instilled 20 cc of 2% lidocaine jelly and clamped the penis for approximately 15 minutes. I then attempted to pass a 22-Faroese 2- way coude tipped catheter, but again met resistance within the prostatic urethra and this was unsuccessful. I then decided to proceed with bedside flexible cystoscopy. The cystoscope was inserted into the urethral meatus. Anterior urethra was unremarkable. There appeared to be a false passage in the region of the prostatic apex in the 6 o'clock position. I was able to navigate around this false passage and directe the cystoscope into the bladder. There did not appear to be a significant amount of clot obviously present within the bladder, athough visualization was limited due to the bedside circumstances of the procedure. A 0.032 inch guidewire was then inserted through the cystoscope and into the bladder. The cystoscope was withdrawn while keeping the guidewire in place. A 22-Faroese [place] tip catheter was then advanced over the guidewire into the bladder with return of relatively clear urine. Approximately 20 cc of sterile fluid was placed in the balloon. The guidewire was removed and the catheter was connected to bag drainage. The patient tolerated the procedure well overall. /[id number]/MODL MTDD
--- NOTE | 2018-05-06 08:02 | PCMIDPN ---
Assessment/Plan: # Fever, AMS without non-focal neuro exam, elevated WBC and ARF - overall better today, mentation much improved, fever appears to be trending down, white count improved, same DDX as yesterday including recurrent bacteremia from MSSA tricuspid valve endocarditis, episode followed toth trauma could consider CAUTI /bacteremia. Pulm source seems unlikely due to stable O2 sats but chest x-ray was worse yesterday. --cont. to hold nafcillin --cont. 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 Blood cx 04/23 are negative establishing clearance --hold Nafcillin, broader coverage as above will cover endocarditis meds, Abx #14 cefepime 2gm IV daily, # 2 Microbiology 04/20 blood cultures 2 sets MSSA 04/20 urine cultures Poly 04/23 blood cultures negative 05/05 blood cultures (2): Pending 05/05 urine culture: Pending (massive hematuria and pyuria on UA) Subjective: Patient much more awake, complaining of back pain Objective: Vital Signs Temp Pulse Resp BP Pulse Ox 36.6 C 75 16 129/71 H 92 05/06/18 05:18 05/06/18 05:18 05/06/18 05:18 05/06/18 05:18 05/06/18 05:18 Laboratory Results 05/06/18 05:00 05/06/18 05:00 05/05/18 05/06/18 05/07/18 05:59 05:59 05:59 Intake Total 50 1000 Output Total 1150 1100 Balance -1100 -100 - Physical Exam General Appearance: alert, no apparent distress EENT: dry mucous membranes Respiratory: coarse breath sounds, No accessory muscle use Cardiac/Chest: regular rate, rhythm Extremities: No pedal edema Abdomen: normal bowel sounds, non-tender, soft Male Genitalia: toth Neuro/Psych: alert - Line/s RUE PICC Lines: No drainage, No erythema - Time Spent With Patient Time Spent with Patient: greater than 35 minutes (Called daughter and updated on status and reviewed status with at bedside) Time Spent with Patient: Greater than 35 minutes spent on this patients care, greater than 50% of time spent counseling, educating, and coordinating care regarding the above mentioned plan. ICD10 Worksheet Patient Problems: Problems Problem Status Onset Acute renal insufficiency Acute Sepsis Acute Dehydration Acute Fall Acute Multiple skin tears Acute Pacemaker malfunction Acute Parkinson disease Acute Paroxysmal a-fib Acute UTI (urinary tract infection) Acute
[2018-05-06] MEDS: FINASTERIDE 5 MG TAB PO SCH (08:27)
[2018-05-06] MEDS: HYDROmorphONE/DILAUDID 1 MG/ML INJ IVP PRN (10:54)
[2018-05-06] MEDS: CEFEPIME HCL 2 GM in NS 100 ML IV SCH (10:57)
--- NOTE | 2018-05-06 13:21 | HOSPPROG ---
Hospitalist Progress Note Assessment/Plan: #MSSA Bacteremia: 3-4 cm TR vegetation involving pacer leads. CT surgery consulted and advises surgical asst extraction poses risks that likely outweighs benefits given patients overall debility and comorbidities. In addition, pt does not want surgery. -plan is to treat medically with IV atbx and if infection persists, revisit surgical option -per ID, changing atbx from nafcillin to cefepime, see below #Fever - recurred this am with Tmax 38. No hypotension or tachycardia. No hypoxemia to suggest septic pulmonary emboli from TV veg. Discussed with ID and suspect either drug fever versus recurrent bacteremia 2/2 endocarditis versus CAUTI with fever following toth trauma -change abx as above #Acute encephalopathy - suspect related to fever. -treat fever and if confusion persists, send for head CT #Chronic diastolic HF: Dr. English reviewed echo and no significant change in EF from prior. Euvolemic here. #Hypotension - resolved -cont to hold dilt, also hold BB with recurrent fever and bacteremic presentation #DESMOND: Cr up a little to 2.0 possibly related to nafcillin, though down from 3.5 on arrival -renally dose meds, avoid nephrotoxic agents #Urethral injury with attempted placement of urethral catheter at SNF. s/p cystoscopy with removal of multiple bladder clots complicated by small bladder perforation; unclear if due to surgery or the initial Toth. F/U cystogram yesterday showed persistent bladder wall injury, Dr. Arana notified and recommends to maintain toth for 2 weeks, then f/u with him in clinic. Had recurrent toth trauma overnight with new hematuria. -irrigate bladder -hold lovenox #Encephalopathy: resolved #Parkinson's: stable #ABLA, stable #Permanent Afib with AC - on xarelto at home. He was transitioned from heparin drip to lovenox yesterday. -holding lovenox due to hematuria #h/o of SSS, s/p PPM #Deconditioning: planning for SNF when stable #Dispo - cont inpt Subjective: Patient lethargic this morning, per RN was up eating breakfast earlier, did received IV Dilaudid Objective: Vital Signs Temp Pulse Resp BP Pulse Ox 37.1 C 76 17 113/69 93 05/06/18 13:04 05/06/18 13:04 05/06/18 13:04 05/06/18 13:04 05/06/18 13:04 Laboratory Results 05/06/18 05:00 05/06/18 05:00 05/05/18 05/06/18 05/07/18 05:59 05:59 05:59 Intake Total 50 1000 Output Total 1150 1100 Balance -1100 -100 PT 20.6 SEC (12.0-15.0) H 04/30/18 17:15 INR 1.76 (0.83-1.16) H 04/30/18 17:15 - Physical Exam Constitutional: no apparent distress, chronically ill appearing Cardiovascular: regular rate and rhythym Respiratory: no respiratory distress, clear to auscultation Gastrointestinal: soft, non-tender abdomen Genitourinary: toth in urethra Skin: warm Musculoskeletal: no joint effusions Neurologic: No AAOx3 Psychiatric: encephalopathic, No interacting appropriately ICD10 Worksheet Patient Problems: Problems Problem Status Onset Acute renal insufficiency Acute Sepsis Acute Dehydration Acute Fall Acute Multiple skin tears Acute Pacemaker malfunction Acute Parkinson disease Acute Paroxysmal a-fib Acute UTI (urinary tract infection) Acute
--- NOTE | 2018-05-06 15:00 | SOAPPROG ---
SOAP Progress Note Assessment/Plan: Assessment: 1. Recurrent gross hematuria & urethral trauma due to severe acute catheter traction on the night of 05/05. Pt. is s/p intraoperative cystoscopy w/ clot evacuation on 04/21. Chao replaced on 05/06 under cystoscopic guidance (see dictated Procedure note -- # [id number]). No active hematuria nor significant bladder clot appreciated at this time. Pelvic CT from yesterday does not reveal significant clot within the bladder, but there is evidence of retroperitoneal air focally in small pockets in the immediate perivesicular tissue as well as in the inguinal canals bilaterally (discussed & reviewed w/ Dr. Castano). 2. Left lateral wall retroperitoneal bladder perforation -- noted intraoperatively on 04/21. Follow-up cystogram on 05/03 reveals possible persistence with localized extravasation vs. an usual-appearing multiloculated bladder diverticulum. Plan: 1. Continue indwelling Chao for at least 2 more weeks, although may need to consider leaving indwelling Chao indefinitely, depending on his overall clinical course. I discussed & reviewed the pt's situation w/ his in detail today. 2. Depending on clinical course, will tentatively plan on repeat cystogram vs. office cystoscopy in ~ 2 weeks. 3. Manually irrigate Chao prn. Subjective: Doing better from a standpoint today. Pt. unable to answer questions at this time. I spoke extensively w/ his today. Objective: Vital Signs Temp Pulse Resp BP Pulse Ox 37.1 C 76 17 113/69 93 05/06/18 13:04 05/06/18 13:04 05/06/18 13:04 05/06/18 13:04 05/06/18 13:04 Laboratory Results 05/06/18 05:00 05/06/18 05:00 05/05/18 05/06/18 05/07/18 05:59 05:59 05:59 Intake Total 50 1000 Output Total 1150 1100 Balance -1100 -100 PT 20.6 SEC (12.0-15.0) H 04/30/18 17:15 INR 1.76 (0.83-1.16) H 04/30/18 17:15 Physical Exam - Physical Exam General Appearance: no apparent distress (decreased responsiveness (unchanged from last night)) Abdomen: soft Male Genitalia: other (urine completely clear via Chao) ICD10 Worksheet Patient Problems: Problems Problem Status Onset Acute renal insufficiency Acute Sepsis Acute Dehydration Acute Fall Acute Multiple skin tears Acute Pacemaker malfunction Acute Parkinson disease Acute Paroxysmal a-fib Acute UTI (urinary tract infection) Acute
[2018-05-06] MEDS: ESCITALOPRAM OXALATE 10 MG TAB PO SCH (18:28)
[2018-05-06] MEDS: DONEPEZIL HCL 5 MG TAB PO SCH (20:35)
[2018-05-06] MEDS: PATCH REMOVAL 1 EA PATCH TD SCH (20:36)
[2018-05-07] MEDS: HYDROmorphONE/DILAUDID 1 MG/ML INJ IVP PRN (01:30)
[2018-05-07 04:43] LABS: PLATELET COUNT 126 10^3/uL (150-400)
[2018-05-07] MEDS: DICLOFENAC SODIUM 1% 100 GM GEL TP SCH ×4 (05:08→19:53)
[2018-05-07] MEDS: CARBIDOPA/LEVODOPA 25 MG/100 MG TAB PO SCH ×4 (10:29→19:53)
[2018-05-07] MEDS: FINASTERIDE 5 MG TAB PO SCH (10:29)
[2018-05-07] MEDS: ACETAMINOPHEN 325 MG TAB PO PRN (10:43)
--- NOTE | 2018-05-07 10:51 | PCMIDPN ---
Assessment/Plan: Assessment: MSSA right-sided endocarditis. Decision made to forego cardiothoracic surgery in favor of medical option. Empiric change to cefepime given fever. Workup shows positive blood culture for Poly species. Will change his main therapy back to cefazolin 2 g q.8 hours for now. Cefazolin chosen over nafcillin secondary to continue creatinine increase. Will introduce micafungin 100 mg IV daily for treatment of fungemia. Will order PICC line to be removed. Will place a peripheral IV for access for the next couple of days prior to PICC line replacement if blood cultures clear. Plan: 1. Discontinue cefepime. 2. Start cefazolin 2 g IV q.8 hours. 3. Start micafungin 100 mg IV q.day. 4. Discontinue PICC line. 5. Start peripheral IV. 6. Anticipate redraw blood cultures to check clearance in 1-2 days. 05/07/18 10:48 Subjective: Patient is resting in his hospital bed. He states that he feels fair. No fevers over the last 24 hr. Denies any new particular complaint. Objective: Cefepime # 1 Vital Signs Temp Pulse Resp BP Pulse Ox 36.7 C 70 15 126/67 H 97 05/07/18 08:00 05/07/18 08:00 05/07/18 08:00 05/07/18 08:00 05/07/18 08:00 Microbiology 05/05/18 09:15 Blood Panel (PCR) - Final Blood Poly Albicans Laboratory Results 05/07/18 04:15 05/07/18 04:15 05/06/18 05/07/18 05/08/18 05:59 05:59 05:59 Intake Total 1000 120 Output Total 1100 700 Balance -100 -580 - Physical Exam General Appearance: WD/WN, alert, no apparent distress, non-toxic Respiratory: lungs clear, normal breath sounds, No respiratory distress Cardiac/Chest: regular rate, rhythm, No tachycardia, No diastolic murmur, No systolic murmur, No irregularly irregular Extremities: non-tender, normal inspection Skin: normal color, warm/dry, No rash Neuro/Psych: alert, normal mood/affect, oriented x 3 ICD10 Worksheet Patient Problems: Problems Problem Status Onset Acute renal insufficiency Acute Sepsis Acute Dehydration Acute Fall Acute Multiple skin tears Acute Pacemaker malfunction Acute Parkinson disease Acute Paroxysmal a-fib Acute UTI (urinary tract infection) Acute
[2018-05-07] MEDS: MICAFUNGIN NA 100 MG in NS 100 ML IV SCH (11:02)
--- NOTE | 2018-05-07 11:16 | ASMTLACE ---
LACE Length of stay for Answers: 14 days or more current admission Acuity / Level of Answers: Yes Care: Did the patient have an inpatient admission? Comorbidities - select Answers: Congestive heart failure all that apply Coronary Artery Disease Dementia Opioid dependence / Chronic pain Other Notes: AFib; Parkinson's disea se # of Emergency department Answers: 3-4 visits in the last 6 months Score: 25 Date Signed: 05/07/2018 11:15 AM Electronically Signed By:Juju Wu
--- NOTE | 2018-05-07 13:16 | ASMTCMCOM ---
CM Note CM Note Notes: ID following for treatment of patient's right-sided MSSA endocarditis. His PICC will be discontinued in favor of peripheral IVs for now. Repeat blood cultures in a few days. Patient is more awake and alert than in the past few days. Spiritual care has been checking in with his , Aldo. Discharge plan continues to be [facility]; however, date is TBD. Case Management will follow. Date Signed: 05/07/2018 01:15 PM Electronically Signed By:Catalina Abebe RN
[2018-05-07] MEDS: ceFAZolin 2 GM/DEXTROSE 100 ML IV SCH ×2 (13:22→23:37)
--- NOTE | 2018-05-07 14:40 | HOSPPROG ---
Hospitalist Progress Note Assessment/Plan: #MSSA Bacteremia: 3-4 cm TR vegetation involving pacer leads. CT surgery consulted and advises surgical clinical reviewer extraction poses risks that likely outweighs benefits given patients overall debility and comorbidities. In addition, pt does not want surgery. -plan is to treat medically with IV atbx and if infection persists, revisit surgical option -per ID, changing atbx from nafcillin to cefepime, see below * candidemia * New diagnosis * Micofungin started #Acute encephalopathy - suspect related to fever/fungemia * Will see how he does over the next day or 2 after treatment #Chronic diastolic HF: Dr. English reviewed echo and no significant change in EF from prior. Euvolemic here. #Hypotension - resolved -cont to hold dilt, also hold BB with recurrent fever and bacteremic presentation #DESMOND: * Creatinine trending up slightly * Will continue to monitor #Urethral injury with attempted placement of urethral catheter at SNF. s/p cystoscopy with removal of multiple bladder clots complicated by small bladder perforation; unclear if due to surgery or the initial Toth. F/U cystogram yesterday showed persistent bladder wall injury, Dr. Arana notified and recommends to maintain toth for 2 weeks, then f/u with him in clinic. Had recurrent toth trauma overnight with new hematuria. -irrigate bladder -hold lovenox #Encephalopathy: resolved #Parkinson's: stable #ABLA, stable #Permanent Afib with AC - on xarelto at home. He was transitioned from heparin drip to lovenox yesterday. -holding lovenox due to hematuria #h/o of SSS, s/p PPM #Deconditioning: planning for SNF when stable Subjective: A little bit more awake this morning but this afternoon more obtunded Objective: Vital Signs Temp Pulse Resp BP Pulse Ox 36.6 C 75 14 95/56 L 96 05/07/18 12:00 05/07/18 12:00 05/07/18 12:00 05/07/18 12:00 05/07/18 12:00 Microbiology 05/05/18 13:05 Urine Culture - Final Urine,Clean Catch Poly Albicans 05/05/18 09:15 Blood Panel (PCR) - Final Blood Poly Albicans Laboratory Results 05/07/18 04:15 05/07/18 04:15 1005/07/18 05/08/18 05:59 05:59 05:59 Intake Total 1000 120 Output Total 1100 700 Balance -100 -580 PT 20.6 SEC (12.0-15.0) H 04/30/18 17:15 INR 1.76 (0.83-1.16) H 04/30/18 17:15 - Physical Exam Constitutional: no apparent distress, appears nourished, not in pain Ears, Nose, Mouth, Throat: hearing normal Cardiovascular: regular rate and rhythym, edema (1+) Respiratory: no respiratory distress Skin: warm Neurologic: other (Currently sleeping) ICD10 Worksheet Patient Problems: Problems Problem Status Onset Acute renal insufficiency Acute Sepsis Acute Dehydration Acute Fall Acute Multiple skin tears Acute Pacemaker malfunction Acute Parkinson disease Acute Paroxysmal a-fib Acute UTI (urinary tract infection) Acute
[2018-05-07] MEDS: ESCITALOPRAM OXALATE 10 MG TAB PO SCH (18:05)
[2018-05-07] MEDS: DONEPEZIL HCL 5 MG TAB PO SCH (19:53)
[2018-05-07] MEDS: PATCH REMOVAL 1 EA PATCH TD SCH (22:50)
[2018-05-08 05:07] LABS: PLATELET COUNT 123 10^3/uL (150-400)
[2018-05-08] MEDS: ceFAZolin 2 GM/DEXTROSE 100 ML IV SCH ×3 (05:55→22:13)
[2018-05-08] MEDS: CARBIDOPA/LEVODOPA 25 MG/100 MG TAB PO SCH ×4 (05:55→22:14)
[2018-05-08] MEDS: DICLOFENAC SODIUM 1% 100 GM GEL TP SCH ×4 (05:56→23:57)
[2018-05-08] MEDS: FINASTERIDE 5 MG TAB PO SCH (09:45)
--- NOTE | 2018-05-08 09:51 | PCMIDPN ---
Assessment/Plan: Assessment: MSSA right-sided endocarditis. Decision made to forego cardiothoracic surgery in favor of medical option. Now on cefazolin 2 g q.8 hours and tolerating well. Creatinine is improving but not back to baseline yet. He is tolerating micafungin 100 mg IV daily for treatment of fungemia in appears to feel some clinical improvement. No fevers overnight. Currently has just a peripheral IV for access. We will redraw blood cultures today to try to document clearance of fungemia and if negative will have a PICC line replaced. Plan: 1. Continue cefazolin. 2. Continue micafungin 100 mg IV q.day. 3. Continue the use of peripheral IV. 4. Recheck blood cultures today. Subjective: Patient is resting comfortably in his hospital bed. He states that he is feeling somewhat better. He is in better spirits. States his energy is coming back. Also says his appetite is improving. No diarrhea. No rashes. No fevers. Objective: Cefazolin #1 Micafungin #2 Vital Signs Temp Pulse Resp BP Pulse Ox 36.6 C 70 96 H 118/73 2 L 05/08/18 07:48 05/08/18 07:48 05/08/18 07:48 05/08/18 07:48 05/08/18 07:48 Microbiology 05/05/18 09:15 Blood Panel (PCR) - Final Blood Poly Albicans 05/05/18 13:05 Urine Culture - Final Urine,Clean Catch Poly Albicans Laboratory Results 05/08/18 04:51 05/08/18 04:51 05/07/18 05/08/18 05/09/18 05:59 05:59 05:59 Intake Total 120 750 Output Total 700 300 Balance -580 450 - Physical Exam General Appearance: WD/WN, alert, no apparent distress, non-toxic Respiratory: lungs clear, normal breath sounds, No respiratory distress Cardiac/Chest: regular rate, rhythm, No tachycardia Extremities: non-tender, normal inspection Skin: normal color, warm/dry, No rash Neuro/Psych: alert, normal mood/affect, oriented x 3 ICD10 Worksheet Patient Problems: Problems Problem Status Onset Acute renal insufficiency Acute Sepsis Acute Dehydration Acute Fall Acute Multiple skin tears Acute Pacemaker malfunction Acute Parkinson disease Acute Paroxysmal a-fib Acute UTI (urinary tract infection) Acute
[2018-05-08] MEDS: MICAFUNGIN NA 100 MG in NS 100 ML IV SCH (09:59)
--- NOTE | 2018-05-08 15:29 | HOSPPROG ---
Hospitalist Progress Note Assessment/Plan: #MSSA Bacteremia: 3-4 cm TR vegetation involving pacer leads. CT surgery consulted and advises assistant professor surgical technology extraction poses risks that likely outweighs benefits given patients overall debility and comorbidities. In addition, pt does not want surgery. -plan is to treat medically with IV abx and if infection persists, revisit surgical option -per ID, changing abx from nafcillin to cefepime, see below * candidemia * Micofungin started * Repeat blood cultures performed this AM #Acute encephalopathy - suspect related to fever/fungemia * Continues to wax and wane, will see how he does over the next day or 2 after treatment #Chronic diastolic HF: Dr. English reviewed echo and no significant change in EF from prior. Euvolemic here. #Hypotension - resolved -cont to hold dilt, also hold BB with recurrent fever and bacteremic presentation #DESMOND: * Creatinine 1.2 this AM from peak of 2.0 * Will continue to monitor #Urethral injury with attempted placement of urethral catheter at SNF. s/p cystoscopy with removal of multiple bladder clots complicated by small bladder perforation; unclear if due to surgery or the initial Toth. F/U cystogram yesterday showed persistent bladder wall injury, Dr. Arana notified and recommends to maintain toth for 2 weeks, then f/u with him in clinic. Had recurrent toth trauma overnight with new hematuria. -irrigate bladder -hold lovenox #Parkinson's: stable #ABLA, stable #Permanent Afib with AC - on xarelto at home. He was transitioned from heparin drip to lovenox -holding lovenox due to hematuria #h/o of SSS, s/p PPM #Deconditioning: planning for SNF when stable Subjective: Patient reports no complaints this AM Objective: Vital Signs Temp Pulse Resp BP Pulse Ox 36.6 C 70 96 H 118/73 2 L 05/08/18 07:48 05/08/18 07:48 05/08/18 07:48 05/08/18 07:48 05/08/18 07:48 Microbiology 05/05/18 09:15 Blood Panel (PCR) - Final Blood Poly Albicans 05/05/18 13:05 Urine Culture - Final Urine,Clean Catch Poly Albicans Laboratory Results 05/08/18 04:51 05/08/18 04:51 05/07/18 05/08/18 05/09/18 05:59 05:59 05:59 Intake Total 120 750 Output Total 700 300 Balance -580 450 PT 20.6 SEC (12.0-15.0) H 04/30/18 17:15 INR 1.76 (0.83-1.16) H 04/30/18 17:15 - Physical Exam Constitutional: chronically ill appearing Eyes: PERRL Ears, Nose, Mouth, Throat: moist mucous membranes Cardiovascular: regular rate and rhythym, systolic murmur Respiratory: no respiratory distress Gastrointestinal: soft, non-tender abdomen Genitourinary: no bladder tenderness Skin: warm Musculoskeletal: generalized weakness Neurologic: No AAOx3 Psychiatric: interacting appropriately ICD10 Worksheet Patient Problems: Problems Problem Status Onset Acute renal insufficiency Acute Sepsis Acute Dehydration Acute Fall Acute Multiple skin tears Acute Pacemaker malfunction Acute Parkinson disease Acute Paroxysmal a-fib Acute UTI (urinary tract infection) Acute
[2018-05-08] MEDS: ESCITALOPRAM OXALATE 10 MG TAB PO SCH (16:51)
[2018-05-08] MEDS: DONEPEZIL HCL 5 MG TAB PO SCH (22:13)
[2018-05-08] MEDS: ACETAMINOPHEN 325 MG TAB PO PRN (22:14)
[2018-05-08] MEDS: PATCH REMOVAL 1 EA PATCH TD SCH (23:59)
[2018-05-09 05:01] LABS: PLATELET COUNT 131 10^3/uL (150-400)
[2018-05-09] MEDS: DICLOFENAC SODIUM 1% 100 GM GEL TP SCH ×4 (06:13→21:24)
[2018-05-09] MEDS: ceFAZolin 2 GM/DEXTROSE 100 ML IV SCH ×3 (06:13→21:24)
[2018-05-09] MEDS: CARBIDOPA/LEVODOPA 25 MG/100 MG TAB PO SCH ×4 (07:32→21:24)
--- NOTE | 2018-05-09 10:40 | PCMIDPN ---
Assessment/Plan: Assessment: MSSA right-sided endocarditis. Decision made to forego cardiothoracic surgery in favor of medical option. Now on cefazolin 2 g q.8 hours and tolerating well. Creatinine continues to improve but given recent disturbance, not eager to change back to nafcillin yet. He is tolerating micafungin 100 mg IV daily for treatment of fungemia in appears to feel some clinical improvement. No fevers recorded. Currently has just a peripheral IV for access. Blood cultures drawn yesterday are no growth so far. If negative tomorrow consider replacement of PICC. Plan: 1. Continue cefazolin. 2. Continue micafungin 100 mg IV q.day. 3. Continue the use of peripheral IV. 4. Follow repeat blood cultures. 05/09/18 10:38 Subjective: Patient is sleeping soundly. Per nurse he is doing very very well. Will not awakened at this time. Objective: Cefazolin # 2 Micafungin # 3 Vital Signs Temp Pulse Resp BP Pulse Ox 36.4 C 73 14 137/80 H 99 05/09/18 07:23 05/09/18 07:23 05/09/18 07:23 05/09/18 07:23 05/09/18 07:23 Microbiology 05/05/18 09:15 Blood Panel (PCR) - Final Blood Poly Albicans Laboratory Results 05/09/18 04:16 05/09/18 04:16 05/08/18 05/09/18 05/10/18 05:59 05:59 05:59 Intake Total 750 1195 Output Total 300 420 Balance 450 775 - Physical Exam General Appearance: WD/WN, no apparent distress, non-toxic ICD10 Worksheet Patient Problems: Problems Problem Status Onset Acute renal insufficiency Acute Sepsis Acute Dehydration Acute Fall Acute Multiple skin tears Acute Pacemaker malfunction Acute Parkinson disease Acute Paroxysmal a-fib Acute UTI (urinary tract infection) Acute
--- NOTE | 2018-05-09 10:56 | HOSPPROG ---
Hospitalist Progress Note Assessment/Plan: #MSSA Bacteremia - 3-4 cm TR vegetation involving pacer leads. - CT surgery consulted and advises surgical sales representative extraction poses risks that likely outweighs benefits given patients overall debility and comorbidities. In addition, pt does not want surgery. - plan is to treat medically with IV abx and if infection persists, revisit surgical option - per ID, changed abx from nafcillin to cefepime, no duration determined yet - Repeat blood cultures performed on 05/08 f/u results - IF blood cultures remain negative tomorrow, ID ok with PICC placement #Candidemia - Micofungin started - Repeat blood cultures performed on 05/08 #Acute encephalopathy - suspect related to fever/fungemia - Continues to wax and wane, however overall improving, continue to monitor #Chronic diastolic HF: - Dr. English reviewed echo and no significant change in EF from prior. Euvolemic here. #Hypotension - resolved -cont to hold dilt, also hold BB with recurrent fever and bacteremic presentation #DESMOND: - Creatinine 1.1 this AM from peak of 2.0 - Will continue to monitor #Urethral injury with attempted placement of urethral catheter at SNF. - s/p cystoscopy with removal of multiple bladder clots complicated by small bladder perforation; unclear if due to surgery or the initial Toth. - F/U cystogram showed persistent bladder wall injury, Dr. Arana notified and recommends to maintain toth for 2 weeks, then f/u with him in clinic. - Had recurrent toth trauma with new hematuria which has since resolved #Parkinson's: stable #ABLA, stable #Permanent Afib with AC - on xarelto at home. He was transitioned from heparin drip to lovenox -holding lovenox due to hematuria, restart tomorrow if hematuria remains resolved #h/o of SSS, s/p PPM #Deconditioning: planning for SNF when stable Subjective: Patient reports he is pain free this morning Objective: Vital Signs Temp Pulse Resp BP Pulse Ox 36.4 C 73 14 137/80 H 99 05/09/18 07:23 05/09/18 07:23 05/09/18 07:23 05/09/18 07:23 05/09/18 07:23 Microbiology 05/05/18 09:15 Blood Panel (PCR) - Final Blood Poly Albicans Laboratory Results 05/09/18 04:16 05/09/18 04:16 05/08/18 05/09/18 05/10/18 05:59 05:59 05:59 Intake Total 750 1195 Output Total 300 420 Balance 450 775 PT 20.6 SEC (12.0-15.0) H 04/30/18 17:15 INR 1.76 (0.83-1.16) H 04/30/18 17:15 - Physical Exam Constitutional: chronically ill appearing Eyes: PERRL Ears, Nose, Mouth, Throat: moist mucous membranes Cardiovascular: regular rate and rhythym, systolic murmur Respiratory: no respiratory distress Gastrointestinal: soft, non-tender abdomen Genitourinary: toth in urethra Skin: normal color Musculoskeletal: generalized weakness Neurologic: AAOx3 (AAOx2) Psychiatric: interacting appropriately ICD10 Worksheet Patient Problems: Problems Problem Status Onset Acute renal insufficiency Acute Sepsis Acute Dehydration Acute Fall Acute Multiple skin tears Acute Pacemaker malfunction Acute Parkinson disease Acute Paroxysmal a-fib Acute UTI (urinary tract infection) Acute
[2018-05-09] MEDS: MICAFUNGIN NA 100 MG in NS 100 ML IV SCH (11:34)
[2018-05-09] MEDS: FINASTERIDE 5 MG TAB PO SCH (11:36)
[2018-05-09] MEDS ORDERED: PROTOCOL POTASSIUM 1 DOSE MISC PRN (11:38)
[2018-05-09] MEDS ORDERED: POTASSIUM CL 10 MEQ TAB PO ONE ×2 (11:44→18:25)
[2018-05-09] MEDS: ESCITALOPRAM OXALATE 10 MG TAB PO SCH (17:05)
[2018-05-09] MEDS: DONEPEZIL HCL 5 MG TAB PO SCH (21:24)
[2018-05-09] MEDS: PATCH REMOVAL 1 EA PATCH TD SCH (21:25)
[2018-05-10] MEDS: ceFAZolin 2 GM/DEXTROSE 100 ML IV SCH ×3 (05:07→22:47)
[2018-05-10] MEDS: DICLOFENAC SODIUM 1% 100 GM GEL TP SCH ×4 (05:08→22:49)
[2018-05-10] MEDS ORDERED: POTASSIUM CL 10 MEQ TAB PO ONE (06:57)
[2018-05-10] MEDS: CARBIDOPA/LEVODOPA 25 MG/100 MG TAB PO SCH ×5 (07:47→22:48)
[2018-05-10] MEDS: FINASTERIDE 5 MG TAB PO SCH (10:42)
[2018-05-10] MEDS: MICAFUNGIN NA 100 MG in NS 100 ML IV SCH (10:43)
--- NOTE | 2018-05-10 13:36 | ASMTCMCOM ---
CM Note CM Note Notes: Patient plan of care reviewed in rounds. Scottie is still quite weak and somulent at times. Call from daughter Hilton in [place] asking to have intervention to get Scottie to [place] where there is a large family for support. Scottie has lived here in [place] with his present for the past 5 years. Per the daughter a new POA was drawn giving Aldo, Scottie's and his sone equal power. Hilton states they will pursue legal intervention if needed. I suggested that a family meeting be arranged for Thursday to discuss what is in the patient's best interest with the physician. I will try to arrange a family meeting at 3pm. CM to follow. Plan: TBD Date Signed: 05/10/2018 01:35 PM Electronically Signed By:Ebony Polo RN
[2018-05-10] MEDS ORDERED: ALTEPLASE 2 MG VIAL IVP PRN (14:02)
--- NOTE | 2018-05-10 15:36 | PCMIDPN ---
Assessment/Plan: Assessment/Plan: * MSSA bacteremia with pacemaker endocarditis: Continue cefazolin 2 g IV q.8 hours with anticipated 6 week course of therapy followed by chronic suppressive antibiotic therapy in the setting of retained pacemaker. Repeat blood cultures have showed clearance of bacteremia. * Candidemia: PICC associated. Repeat blood culture show clearing of candidemia. Will continue micafungin with anticipated 2 week course of therapy. Susceptibility pending on Poly isolate with reasonable likelihood will be azole susceptible allowing for completion of therapy with fluconazole. Will proceed with repeat PICC placement given negative blood cultures and limited access. Patient, , and daughter updated on clinical findings and plan of care. 05/10/18 15:33 05/10/18 15:34 05/10/18 15:34 Subjective: Patient without specific complaints. Objective: Vital Signs Temp Pulse Resp BP Pulse Ox 36.4 C 90 16 142/62 H 94 05/10/18 08:08 05/10/18 11:09 05/10/18 08:08 05/10/18 11:09 05/10/18 11:09 Microbiology 05/05/18 09:15 Blood Panel (PCR) - Final Blood Poly Albicans 05/05/18 09:30 Blood Culture - Final Blood Oply Albicans Laboratory Results 05/10/18 04:52 05/10/18 04:52 05/09/18 05/10/18 05/11/18 05:59 05:59 05:59 Intake Total 1195 100 Output Total 420 950 Balance 775 -850 Cefazolin # 3, antibiotics # 18 Micafungin # 4 Blood cultures 05/08/2018 no growth - Physical Exam General Appearance: alert, no apparent distress EENT: No scleral icterus, No thrush, No conjunctival petechiae Respiratory: lungs clear (Anterolaterally), No respiratory distress Cardiac/Chest: regular rate, rhythm, other (Pacemaker site nontender without erythema) Extremities: No inflammation Abdomen: non-tender, No distended Skin: No embolic lesions - Time Spent With Patient Time Spent with Patient: greater than 25 minutes Time Spent with Patient: Greater than 25 minutes spent on this patients care, greater than 50% of time spent counseling, educating, and coordinating care regarding the above mentioned plan. ICD10 Worksheet Patient Problems: Problems Problem Status Onset Acute renal insufficiency Acute Sepsis Acute Dehydration Acute Fall Acute Multiple skin tears Acute Pacemaker malfunction Acute Parkinson disease Acute Paroxysmal a-fib Acute UTI (urinary tract infection) Acute
[2018-05-10] MEDS: ESCITALOPRAM OXALATE 10 MG TAB PO SCH (17:56)
--- NOTE | 2018-05-10 19:04 | HOSPPROG ---
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 -BC finally clearing - to get PICC today -ancef 2gm IV Q8 x 6 week followed by chronic suppressive abx due to retained PCM * Candidemia - PICC line infection -micafungin x 2 weeks * Metabolic encephalopathy - mental status waxes and wanes * HTN -holding home meds * DESMOND - improved * Urethral injury due to toth trauma, complicated by bladder perf -toth x 2 weeks with outpatient urology follow-up * Parkinson's * Acute blood loss anemia * Afib with PCM -holding Xarelto due to acute bleed * Loculated pleural effusion * Acute/chronic diastolic CHF Subjective: no new complaints Objective: Vital Signs Temp Pulse Resp BP Pulse Ox 36.6 C 71 16 139/89 H 100 05/10/18 15:44 05/10/18 15:44 05/10/18 15:44 05/10/18 15:44 05/10/18 15:44 Microbiology 05/05/18 09:15 Blood Panel (PCR) - Final Blood Poly Albicans 05/05/18 09:30 Blood Culture - Final Blood Poly Albicans Laboratory Results 05/10/18 04:52 05/10/18 18:08 05/09/18 05/10/18 05/11/18 05:59 05:59 05:59 Intake Total 1195 100 300 Output Total 420 950 950 Balance 775 -850 -650 PT 20.6 SEC (12.0-15.0) H 04/30/18 17:15 INR 1.76 (0.83-1.16) H 04/30/18 17:15 CXR viewed, my personal interpretation is - bilateral infiltrates CT chest - loculated effusions - Physical Exam Constitutional: no apparent distress, appears nourished, not in pain Cardiovascular: regular rate and rhythym, no murmur, rub, or gallop Gastrointestinal: normoactive bowel sounds, soft, non-tender abdomen, no palpable masses Skin: no rashes or abrasions, no fluctuance, no induration Musculoskeletal: full muscle strength, no muscle tenderness, normal joint ROM Neurologic: No AAOx3 Psychiatric: encephalopathic, poor insight, poor judgement, poor memory, No interacting appropriately ICD10 Worksheet Patient Problems: Problems Problem Status Onset Paroxysmal a-fib Acute Multiple skin tears Acute Fall Acute Parkinson disease Acute UTI (urinary tract infection) Acute Dehydration Acute Pacemaker malfunction Acute Acute renal insufficiency Acute Sepsis Acute
[2018-05-10] MEDS ORDERED: POTASSIUM CL 20 MEQ TAB PO ONE (22:20)
[2018-05-10] MEDS: ACETAMINOPHEN 325 MG TAB PO PRN (22:48)
[2018-05-10] MEDS: DONEPEZIL HCL 5 MG TAB PO SCH (22:48)
[2018-05-10] MEDS: PATCH REMOVAL 1 EA PATCH TD SCH (22:48)
[2018-05-11] MEDS: ceFAZolin 2 GM/DEXTROSE 100 ML IV SCH ×3 (05:31→21:43)
[2018-05-11] MEDS: DICLOFENAC SODIUM 1% 100 GM GEL TP SCH ×4 (05:32→21:44)
[2018-05-11] MEDS ORDERED: POTASSIUM CL 10 MEQ TAB PO ONE (07:16)
[2018-05-11] MEDS: CARBIDOPA/LEVODOPA 25 MG/100 MG TAB PO SCH ×4 (07:40→21:43)
--- NOTE | 2018-05-11 08:13 | PCMIDPN ---
Assessment/Plan: # Candidemia associated w Toth trauma. PICC line associated but also could also consider urinary source due to onset of acute illness w toth trauma. Blood cultures neg 05/08. 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 Blood cx 04/23 are negative establishing clearance. with acute events related to candidemia and acute renal failure patient's nafcillin was discontinued and now patient has been maintained on high -dose cefazolin --cefazolin high dose stop date 06/10/18. At this point with fragile renal function and volume status will hold off on transition back to nafcillin for now. --plan indefinite PO suppressive therapy, likely with doxycycline at the end of therapy, will probably start off with 100 mg p.o. Twice daily due to severity of disease. meds, Abx #19 cefazolin 2 g IV Q 8 #4 micafungin #5 Microbiology 04/20 blood cultures 2 sets MSSA 04/20 urine cultures Poly 04/23 blood cultures negative 05/05 blood cultures (2/2): Poly albicans 05/05 urine culture: 100K poly 05/08 blood cx (2) NGTD Subjective: Patient without specific complaints today. He denies back pain. He slept well. Wanting to have a shower today. Objective: Vital Signs Temp Pulse Resp BP Pulse Ox 36.3 C 70 16 130/74 H 96 05/11/18 07:44 05/11/18 07:44 05/11/18 07:44 05/11/18 07:44 05/11/18 07:44 Microbiology 05/05/18 09:15 Blood Panel (PCR) - Final Blood Poly Albicans 05/05/18 09:30 Blood Culture - Final Blood Poly Albicans Laboratory Results 05/10/18 04:52 05/11/18 06:30 05/10/18 05/11/18 05/12/18 05:59 05:59 05:59 Intake Total 100 300 Output Total 950 1650 Balance -850 -1350 - Physical Exam General Appearance: alert, no apparent distress, non-toxic EENT: pale conjunctiva, No thrush Respiratory: other (Decreased breath sounds in the bases), No accessory muscle use Neck: No supple Cardiac/Chest: regular rate, rhythm, systolic murmur Extremities: pedal edema (Trace bilateral) Abdomen: normal bowel sounds, non-tender, soft Male Genitalia: toth (No hematuria) Skin: other (Scattered ecchymosis), No rash Neuro/Psych: alert, normal mood/affect, oriented x 3 - Line/s RUE PICC Lines: No drainage, No erythema - Time Spent With Patient Time Spent with Patient: greater than 35 minutes (Care reviewed with patient's over the phone.) Time Spent with Patient: Greater than 35 minutes spent on this patients care, greater than 50% of time spent counseling, educating, and coordinating care regarding the above mentioned plan. ICD10 Worksheet Patient Problems: Problems Problem Status Onset Acute renal insufficiency Acute Sepsis Acute Dehydration Acute Fall Acute Multiple skin tears Acute Pacemaker malfunction Acute Parkinson disease Acute Paroxysmal a-fib Acute UTI (urinary tract infection) Acute
[2018-05-11] MEDS: FINASTERIDE 5 MG TAB PO SCH (09:15)
[2018-05-11] MEDS: MICAFUNGIN NA 100 MG in NS 100 ML IV SCH (09:16)
--- NOTE | 2018-05-11 15:15 | ASMTCMCOM ---
CM Note CM Note Notes: Patient plan of care reviewed in rounds. He is nearing discharge. A family meeting is planned for tomorrow at 3pm. See note from Jenn Morel. Aldo Harrell's is reluctant to have patient move to [place]. CM to follow. As of right now the plan is for the patient to return to [facility]. Plan: TBD Date Signed: 05/11/2018 03:14 PM Electronically Signed By:Ebony Polo RN
--- NOTE | 2018-05-11 16:08 | PDIAF ---
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 & Candidema Code Status: Full Code - Medication Management Discharge Medications: Medications to Continue on Transfer Diltiazem Cd [Cardizem ER 120 MG (*)] 120 mg PO DAILY@0730 03/20/18 [Last Taken 04/20/18 09:00] Donepezil HCl [Aricept 5 MG (*)] 10 mg PO HS 03/20/18 [Last Taken 04/19/18] Carbidopa/Levodopa 25/100Mg [Sinemet 25/100 MG (*)] 1 tab PO QID@0730,12,17,21 03/22/18 [Last Taken 04/20/18 12:00] Patch Removal 1 ea TD DAILY21 patch 03/26/18 [Last Taken 04/19/18] Lidocaine 4%/Menthol 1% [Icy Hot Lidocaine/Menthol 4%/1% Patch (*)] 1 patch TD DAILY PRN 03/31/18 [Last Taken 04/20/18 05:00] Rivaroxaban [Xarelto] 20 mg PO DAILY #30 tab 04/12/18 [Last Taken 04/20/18 09:00 ] Acetaminophen [Tylenol 325mg (*)] 650 mg PO TID 04/20/18 [Last Taken 04/20/18 14 :00] Diclofenac Sodium 1% [Voltaren Gel (*)] 4 gm TP QID 04/20/18 [Last Taken 12:00] Escitalopram Oxalate [Lexapro] 20 mg PO 1700 04/20/18 [Last Taken 04/19/18 17:00 ] Finasteride [Proscar 5 MG (*)] 5 mg PO DAILY 04/20/18 [Last Taken 04/20/18 09:00 ] Gabapentin [Neurontin 100 MG (*)] 200 mg PO TID 04/20/18 [Last Taken 04/20/18 12 :00] Herbals/Supplements -Info Only 1 ea PO DAILY 04/20/18 [Last Taken 04/20/18 09:00 ] amLODIPine BESYLATE [Norvasc 2.5 mg (*)] 2.5 mg PO DAILY 04/20/18 [Last Taken 09:00] Buttonhole Tacker Antibiotics: cefazolin 2gm IV [id number]; micafungin 100mg IV daily Buttonhole Tacker Antibiotic Stop Date: 06/10/18 (micafungin through 05/22/18) Discharge Medications: Refer to the Discharge Home Medication list for PRN reason. PICC Care - Routine: Yes - Orders Isolation Type: None Diet Texture: Regular Texture Diet, Thin Liquids, Meds Whole in Puree - Labs/Radiology CBC w/diff Date: 05/17/18 (Weekly Thursday) CMP Date: 05/17/18 (Weekly Thursday) Call or Fax Lab and Imaging Results to: Dr Maria A Chandler at [facility] [phone] - Follow Up Care Current Providers and Referrals: Patient,NotPresent [Unknown] - As per Instructions Maria A Chandler MD [Medical Doctor] - 05/20/18 11:00 am
--- NOTE | 2018-05-11 16:40 | HOSPPROG ---
Hospitalist Progress Note Assessment/Plan: * MSSA sepsis (POA) - as evidenced by leukocytosis and fever * Tricuspic valve and pacemaker wire endocarditis -decision made to leave PCM in place -BC finally clearing - s/p PICC -ancef 2gm IV Q8 x 6 week followed by chronic suppressive abx due to retained PCM * Candidemia - PICC line vs toth as source -micafungin x 2 weeks * Metabolic encephalopathy - mental status waxes and wanes * HTN -home meds + coreg added * DESMOND - improved * Urethral injury due to toth trauma, complicated by bladder perf -toth x 2 weeks with outpatient urology follow-up * Parkinson's * Acute blood loss anemia * Afib with PCM -holding Xarelto due to acute bleed -restart Xarelto soon * Loculated pleural effusion - chronic -previous attempt at thoracentesis with fluid too thick to aspirate -doubt benefit to VATS due to advance age and chronic illness * Acute/chronic diastolic CHF -BNP up but clinically euvolemic Family meeting scheduled 05/12 at 3:00pm when daughter arrives from [place]. There is some conflict with Aldo who has medical POA. Aldo and children's step-mother. Children want [facility] Car[facility]ales [facility] but patient and has clearly stated they wish to stay in [place] for now. Plan is transfer to SN[facility] in 1-3 days. Subjective: denies complaints. Objective: Vital Signs Temp Pulse Resp BP Pulse Ox 36.5 C 76 18 147/90 H 100 05/11/18 15:40 05/11/18 15:40 05/11/18 15:40 05/11/18 15:40 05/11/18 15:40 Microbiology 05/05/18 09:15 Blood Panel (PCR) - Final Blood Poly Albicans 05/05/18 09:30 Blood Culture - Final Blood Poly Albicans Laboratory Results 05/10/18 04:52 05/11/18 06:30 05/10/18 05/11/18 05/12/18 05:59 05:59 05:59 Intake Total 100 300 Output Total 950 1650 Balance -850 -1350 PT 20.6 SEC (12.0-15.0) H 04/30/18 17:15 INR 1.76 (0.83-1.16) H 04/30/18 17:15 CXR - worsened loculation CT chest personally reviewed - my interpretation is - posterior mid lung loculations of fluid in fissure which correlate with mass like lesions on CXR - Physical Exam Constitutional: no apparent distress, appears nourished, not in pain Cardiovascular: regular rate and rhythym, no murmur, rub, or gallop Respiratory: no respiratory distress, no rales or rhonchi, clear to auscultation Gastrointestinal: normoactive bowel sounds, soft, non-tender abdomen, no palpable masses Skin: no rashes or abrasions, no fluctuance, no induration Psychiatric: encephalopathic, poor insight, poor judgement, poor memory, other ( waxes and wanes, less good today than yesterday), No interacting appropriately ICD10 Worksheet Patient Problems: Problems Problem Status Onset Paroxysmal a-fib Acute Multiple skin tears Acute Fall Acute Parkinson disease Acute UTI (urinary tract infection) Acute Dehydration Acute Pacemaker malfunction Acute Acute renal insufficiency Acute Sepsis Acute
[2018-05-11] MEDS: ESCITALOPRAM OXALATE 10 MG TAB PO SCH (17:18)
[2018-05-11] MEDS: PATCH REMOVAL 1 EA PATCH TD SCH (19:30)
[2018-05-11] MEDS: DONEPEZIL HCL 5 MG TAB PO SCH (21:43)
[2018-05-12] MEDS: DICLOFENAC SODIUM 1% 100 GM GEL TP SCH ×4 (05:22→20:34)
[2018-05-12] MEDS: ceFAZolin 2 GM/DEXTROSE 100 ML IV SCH ×3 (05:22→21:37)
[2018-05-12 05:38] LABS: PLATELET COUNT 156 10^3/uL (150-400)
[2018-05-12] MEDS: CARBIDOPA/LEVODOPA 25 MG/100 MG TAB PO SCH ×4 (08:52→20:32)
[2018-05-12] MEDS: FINASTERIDE 5 MG TAB PO SCH (08:53)
[2018-05-12] MEDS: MICAFUNGIN NA 100 MG in NS 100 ML IV SCH (08:53)
--- NOTE | 2018-05-12 08:55 | HOSPPROG ---
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 -BC cleared 04/23 - s/p PICC on 05/10 -ancef 2gm IV Q8 x 6 week (thru 06/10) followed by chronic suppressive abx with doxycycline due to retained PCM * Candidemia - PICC line vs toth as source -micafungin x 2 weeks (thru 05/22) * Metabolic encephalopathy - oriented today, mental status waxes and wanes * HTN -home meds, holding coreg which was started this admit * DESMOND - improved but not totally resolved -recheck in AM * Urethral injury due to toth trauma, complicated by bladder perf -toth x 2 weeks with outpatient urology follow-up * Parkinson's * Acute blood loss anemia - H/H stable for few days * Afib with PCM -restart Xarelto today at 20mg daily, monitor for bleeding * Loculated pleural effusion - chronic -previous attempt at thoracentesis with fluid too thick to aspirate -doubt benefit to VATS due to advance age and chronic illness * Acute/chronic diastolic CHF -BNP up but clinically euvolemic, hold on diuresis Family meeting scheduled today (05/12) at 3:00pm when daughter arrives from [place]. There is some conflict with Aldo who has medical POA. Aldo is children's step-mother. Children want Mr. Sykes transported to [place] for rehab but patient and has clearly stated they wish to stay in [place] for now. Plan is transfer [facility], likely 05/13. Subjective: No complaints, feeling well Objective: Vital Signs Temp Pulse Resp BP Pulse Ox 36.4 C 75 16 127/79 H 99 05/12/18 07:49 05/12/18 07:49 05/12/18 07:49 05/12/18 07:49 05/12/18 07:49 Laboratory Results 05/12/18 05:28 05/11/18 06:30 05/11/18 05/12/18 05/13/18 05:59 05:59 05:59 Intake Total 300 710 Output Total 1650 Balance -1350 710 PT 20.6 SEC (12.0-15.0) H 04/30/18 17:15 INR 1.76 (0.83-1.16) H 04/30/18 17:15 - Physical Exam Constitutional: no apparent distress, appears nourished, not in pain Eyes: PERRL, anicteric sclera, EOMI Ears, Nose, Mouth, Throat: moist mucous membranes, hearing normal, ears appear normal, no oral mucosal ulcers Cardiovascular: regular rate and rhythym, no murmur, rub, or gallop, edema ( trace pitting edema at ankles), No JVD Respiratory: no respiratory distress, reduced air movement (at bilateral bases) , No expiratory wheeze Gastrointestinal: normoactive bowel sounds, soft, non-tender abdomen, no palpable masses Genitourinary: toth in urethra (yellow urine in bag) Musculoskeletal: generalized weakness Neurologic: AAOx3, sensation intact bilaterally Psychiatric: interacting appropriately, not anxious, not encephalopathic, thought process linear ICD10 Worksheet Patient Problems: Problems Problem Status Onset Acute renal insufficiency Acute Sepsis Acute Dehydration Acute Fall Acute Multiple skin tears Acute Pacemaker malfunction Acute Parkinson disease Acute Paroxysmal a-fib Acute UTI (urinary tract infection) Acute
--- NOTE | 2018-05-12 09:38 | PCMIDPN ---
Assessment/Plan: Assessment/Plan: * MSSA bacteremia with pacemaker endocarditis: Continues 1 cefazolin with anticipated 6 week course of therapy - stop date of 06/10/2018. Tolerating therapy well to date. Anticipate indefinite suppressive oral antibiotic therapy after completion of cefazolin given involvement of pacemaker. * Candidemia: Reviewed further with Dr. Chandler noting that candidemia occurred at time of Chao catheter trauma and urine culture also with growth of Poly albicans making this likely etiology over PICC line. Completing 2 weeks of micafungin with negative cultures obtained on 05/08/18. Reassess CMP on anti fungal therapy as well as cefazolin. 05/12/18 09:35 05/12/18 09:37 Subjective: Patient without complaints and notes feels significantly improved. Objective: Vital Signs Temp Pulse Resp BP Pulse Ox 36.4 C 75 16 127/79 H 99 05/12/18 07:49 05/12/18 07:49 05/12/18 07:49 05/12/18 08:52 05/12/18 07:49 Laboratory Results 05/12/18 05:28 05/11/18 06:30 05/11/18 05/12/18 05/13/18 05:59 05:59 05:59 Intake Total 300 710 Output Total 1650 Balance -1350 710 Cefazolin # 5 (stop date 06/10/2018), antibiotics # 20 Micafungin # 6 (stop date 05/22/2018) - Physical Exam General Appearance: alert, no apparent distress, non-toxic EENT: No scleral icterus, No thrush, No conjunctival petechiae Respiratory: lungs clear, No respiratory distress Cardiac/Chest: regular rate, rhythm, other (Pacemaker site nontender without erythema or drainage) Extremities: No inflammation Abdomen: non-tender, No distended - Line/s RUE PICC Lines: No drainage, No erythema ICD10 Worksheet Patient Problems: Problems Problem Status Onset Acute renal insufficiency Acute Sepsis Acute Dehydration Acute Fall Acute Multiple skin tears Acute Pacemaker malfunction Acute Parkinson disease Acute Paroxysmal a-fib Acute UTI (urinary tract infection) Acute
--- NOTE | 2018-05-12 16:20 | ASMTCMCOM ---
CM Note CM Note Notes: Patient family meeting held at 3pm with Scottie's 2 daughters and his Aldo as well as Aldo's daughter. Dr. Shaw was also in attendance. Scottie essentially has a family here in [place] and his biological family in [place]. There has been some dispute over where Scottie belong's . Per MD he believes the patient to have decisional capacity and that Scottie desires to remain in [place]. The family feels Scottie is covering up his desire to be kind to his Aldo. The outcome of the meeting is that both parties care deeply for Scottie and have his best interest's at heart. They are to approach Scottie again to try to determine what his real desire is and Aldo is agreeable for Scottie to be transported back to a rehab facility closer to his [place] home in about 2 weeks. CM to continue to follow. Plan: Dc to SNF Date Signed: 05/12/2018 04:20 PM Electronically Signed By:Ebony Polo RN
[2018-05-12] MEDS: RIVAROXABAN 20 MG TAB PO SCH (17:29)
[2018-05-12] MEDS: ESCITALOPRAM OXALATE 10 MG TAB PO SCH (17:29)
[2018-05-12] MEDS: DONEPEZIL HCL 5 MG TAB PO SCH (20:32)
[2018-05-12] MEDS: PATCH REMOVAL 1 EA PATCH TD SCH (20:33)
[2018-05-13] MEDS: ceFAZolin 2 GM/DEXTROSE 100 ML IV SCH ×3 (06:20→21:35)
[2018-05-13] MEDS: DICLOFENAC SODIUM 1% 100 GM GEL TP SCH ×4 (06:21→21:36)
[2018-05-13] MEDS: MICAFUNGIN NA 100 MG in NS 100 ML IV SCH (09:38)
[2018-05-13] MEDS: FINASTERIDE 5 MG TAB PO SCH (09:38)
[2018-05-13] MEDS: CARBIDOPA/LEVODOPA 25 MG/100 MG TAB PO SCH ×4 (09:38→21:35)
[2018-05-13] MEDS: DILTIAZEM CD 120 MG CAP PO SCH (09:39)
--- NOTE | 2018-05-13 12:17 | PCMIDPN ---
Assessment/Plan: # Candidemia associated w Toth trauma. PICC line associated but also could also consider urinary source due to onset of acute illness w toth trauma. Blood cultures neg 05/08. 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 Blood cx 04/23 are negative establishing clearance. with acute events related to candidemia and acute renal failure patient's nafcillin was discontinued and now patient has been maintained on high -dose cefazolin --cefazolin high dose stop date 06/10/18. At this point with fragile renal function and volume status will hold off on transition back to nafcillin for now. --plan indefinite PO suppressive therapy, likely with doxycycline at the end of therapy, will probably start off with 100 mg p.o. Twice daily due to severity of disease. --dc okay from ID standpoint meds, Abx #21 cefazolin 2 g IV Q 8 #6 micafungin #7 Microbiology 04/20 blood cultures 2 sets MSSA 04/20 urine cultures Poly 04/23 blood cultures negative 05/05 blood cultures (2/): Poly albicans 05/05 urine culture: 100K poly 05/08 blood cx (2) NGTD Subjective: feeling better today daughters at bedside Objective: Vital Signs Temp Pulse Resp BP Pulse Ox 36.4 C 76 16 136/82 H 95 05/13/18 08:28 05/13/18 09:39 05/13/18 08:28 05/13/18 09:39 05/13/18 08:28 Laboratory Results 05/13/18 06:15 05/13/18 06:15 05/12/18 05/13/18 05/14/18 05:59 05:59 05:59 Intake Total 710 1000 Output Total 1000 Balance 710 0 - Physical Exam General Appearance: alert, no apparent distress EENT: No scleral icterus Respiratory: other (decreased bs B), No accessory muscle use Neck: supple Cardiac/Chest: regular rate, rhythm, systolic murmur Abdomen: normal bowel sounds, non-tender, soft Male Genitalia: toth Skin: other (Scattered ecchymosis), No rash Neuro/Psych: alert, normal mood/affect, oriented x 3 - Line/s RUE PICC Lines: No drainage, No erythema - Time Spent With Patient Time Spent with Patient: greater than 35 minutes Time Spent with Patient: Greater than 35 minutes spent on this patients care, greater than 50% of time spent counseling, educating, and coordinating care regarding the above mentioned plan. ICD10 Worksheet Patient Problems: Problems Problem Status Onset Acute renal insufficiency Acute Sepsis Acute Dehydration Acute Fall Acute Multiple skin tears Acute Pacemaker malfunction Acute Parkinson disease Acute Paroxysmal a-fib Acute UTI (urinary tract infection) Acute
--- NOTE | 2018-05-13 13:33 | ASMTCMCOM ---
CM Note CM Note Notes: Patient plan of care reviewed in rounds. He is clinically stable and nearing discharge back to [facility]. Likely to discharge tomorrow. Returning to [facility]. CM to follow. Plan: To [facility] when medically cleared. Date Signed: 05/13/2018 01:32 PM Electronically Signed By:Ebony Polo RN
--- NOTE | 2018-05-13 16:42 | HOSPPROG ---
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 -BC cleared 04/23 - s/p PICC on 05/10 -ancef 2gm IV Q8 x 6 week (thru 06/10) followed by chronic suppressive abx with doxycycline due to retained PCM * Candidemia - PICC line vs toth as source -micafungin x 2 weeks (thru 05/22) * Anemia - initially attributed to urethral blood loss, now slightly trended down likely from blood draws -type and screen, transfuse 1u PRBC, monitor for volume overload * Metabolic encephalopathy - oriented today, mental status waxes and wanes * HTN -home meds, holding coreg which was started this admit * DESMOND - resolved * Urethral injury due to toth trauma, complicated by bladder perf -toth x 2 weeks with outpatient urology follow-up * Parkinson's * Afib with PCM -restarted Xarelto at 20mg daily, monitor for bleeding * Loculated pleural effusion - chronic -previous attempt at thoracentesis with fluid too thick to aspirate -doubt benefit to VATS due to advance age and chronic illness * Acute/chronic diastolic CHF -BNP up but clinically euvolemic, hold on diuresis Dispo: Family meeting 05/12, plan to dc to SNF in [facility], likely tomorrow. Subjective: Feeling well. No new complaints. Ready to leave hospital. Objective: Vital Signs Temp Pulse Resp BP Pulse Ox 36.5 C 75 14 116/68 96 05/13/18 16:00 05/13/18 16:00 05/13/18 16:00 05/13/18 16:00 05/13/18 16:00 Microbiology 05/08/18 11:55 Blood Culture - Final Blood 05/08/18 10:15 Blood Culture - Final Blood Laboratory Results 05/13/18 06:15 05/13/18 06:15 05/12/18 05/13/18 05/14/18 05:59 05:59 05:59 Intake Total 710 1000 Output Total 1000 Balance 710 0 PT 20.6 SEC (12.0-15.0) H 04/30/18 17:15 INR 1.76 (0.83-1.16) H 04/30/18 17:15 - Physical Exam Constitutional: no apparent distress, appears nourished, not in pain Eyes: PERRL, anicteric sclera, EOMI Ears, Nose, Mouth, Throat: moist mucous membranes, hearing normal, ears appear normal, no oral mucosal ulcers Cardiovascular: regular rate and rhythym, no murmur, rub, or gallop Respiratory: no respiratory distress, no rales or rhonchi, clear to auscultation Gastrointestinal: normoactive bowel sounds, soft, non-tender abdomen, no palpable masses Genitourinary: no bladder fullness, no bladder tenderness, no renal bruits, toth in urethra Skin: no rashes or abrasions, no fluctuance, no induration Musculoskeletal: full muscle strength, no muscle tenderness, normal joint ROM Neurologic: AAOx3, sensation intact bilaterally Psychiatric: interacting appropriately, not anxious, not encephalopathic, thought process linear ICD10 Worksheet Patient Problems: Problems Problem Status Onset Acute renal insufficiency Acute Sepsis Acute Dehydration Acute Fall Acute Multiple skin tears Acute Pacemaker malfunction Acute Parkinson disease Acute Paroxysmal a-fib Acute UTI (urinary tract infection) Acute
[2018-05-13] MEDS: ESCITALOPRAM OXALATE 10 MG TAB PO SCH (16:48)
[2018-05-13] MEDS: RIVAROXABAN 20 MG TAB PO SCH (16:48)
[2018-05-13] MEDS: PATCH REMOVAL 1 EA PATCH TD SCH (20:01)
[2018-05-13] MEDS: DONEPEZIL HCL 5 MG TAB PO SCH (21:35)
[2018-05-14] MEDS: ceFAZolin 2 GM/DEXTROSE 100 ML IV SCH ×2 (05:26→14:36)
[2018-05-14] MEDS: DICLOFENAC SODIUM 1% 100 GM GEL TP SCH ×3 (05:27→18:27)
--- NOTE | 2018-05-14 08:16 | PCMIDPN ---
Assessment/Plan: # Candidemia associated w Toth trauma. PICC line associated but also could also consider urinary source due to onset of acute illness w toth trauma. Blood cultures neg 05/08. 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 Blood cx 04/23 are negative establishing clearance. with acute events related to candidemia and acute renal failure patient's nafcillin was discontinued and now patient has been maintained on high -dose cefazolin. Patient remained stable today without significant changes. --cefazolin high dose stop date 06/10/18. At this point with fragile renal function and volume status will hold off on transition back to nafcillin for now. --plan indefinite PO suppressive therapy, likely with doxycycline at the end of therapy, will probably start off with 100 mg p.o. Twice daily due to severity of disease. --dc okay from ID standpoint, f/u appt w me in discharge tab meds, Abx #22 cefazolin 2 g IV Q 8 #7 micafungin #8 Xarelto Microbiology 04/20 blood cultures 2 sets MSSA 04/20 urine cultures Poly 04/23 blood cultures negative 05/05 blood cultures (2/2): Poly albicans 05/05 urine culture: 100K poly 05/08 blood cx (2) Neg Subjective: Patient reports trouble sleeping Objective: Vital Signs Temp Pulse Resp BP Pulse Ox 36.5 C 73 18 142/81 H 91 L 05/14/18 00:00 05/14/18 00:00 05/14/18 00:00 05/14/18 00:00 05/14/18 00:00 Microbiology 05/08/18 11:55 Blood Culture - Final Blood 05/08/18 10:15 Blood Culture - Final Blood Laboratory Results 05/14/18 05:40 05/13/18 06:15 05/13/18 05/14/18 05/15/18 05:59 05:59 05:59 Intake Total 1000 1480 Output Total 1000 600 Balance 0 880 - Physical Exam General Appearance: alert, no apparent distress EENT: dry mucous membranes, No thrush Respiratory: normal breath sounds (Except for shallow inspiratory effort and decreased breath sounds in the bases), No accessory muscle use Cardiac/Chest: regular rate, rhythm, systolic murmur Extremities: pedal edema (Mild) Abdomen: normal bowel sounds, non-tender, soft Male Genitalia: toth (No hematuria) Skin: other (Scattered ecchymosis), No rash Neuro/Psych: alert, normal mood/affect, oriented x 3 - Line/s RUE PICC Lines: No drainage, No erythema - Time Spent With Patient Time Spent with Patient: greater than 35 minutes Time Spent with Patient: Greater than 35 minutes spent on this patients care, greater than 50% of time spent counseling, educating, and coordinating care regarding the above mentioned plan. ICD10 Worksheet Patient Problems: Problems Problem Status Onset Acute renal insufficiency Acute Sepsis Acute Dehydration Acute Fall Acute Multiple skin tears Acute Pacemaker malfunction Acute Parkinson disease Acute Paroxysmal a-fib Acute UTI (urinary tract infection) Acute
[2018-05-14] MEDS: FINASTERIDE 5 MG TAB PO SCH (08:30)
[2018-05-14] MEDS: CARBIDOPA/LEVODOPA 25 MG/100 MG TAB PO SCH ×3 (08:30→17:24)
[2018-05-14] MEDS: DILTIAZEM CD 120 MG CAP PO SCH (08:30)
[2018-05-14] MEDS: MICAFUNGIN NA 100 MG in NS 100 ML IV SCH (10:13)
--- NOTE | 2018-05-14 10:20 | PDDCSUM ---
Discharge Summary Discharge Summary: Date of Admission: 04/20/2018 Date of Discharge: 05/14/2018 Consultants: infectious disease (Dr Chandler), urology (Dr Arana), CT surgery ( Dr Guzmán) Procedures/Studies: 1. LUE duplex US - negative for DVT 2. RUE PICC placement 3. TTE 05/03/18 - normal LV function, moderate TR, mobile structure on TV, PASP mild-moderate increased 4. GARCIA - normal LV and RV function, LA and RA severely dilated, mild-moderate MR , large mobile vegetation attached to atrial side of septal tricuspid valve leaflet 5. Cystourethroscopy with evacuation of multiple obstructing bladder clots 04/21 6. Videofluoroscopic swallow study - no risk for aspiration Disposition: discharge to [facility] for ongoing rehab Discharge Diagnoses: 1. 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 Candidemia 3. Sepsis, resolved 4. Subacute blood loss anemia 2/2 urethral trauma from toth placement 5. Bladder perforation 6. Metabolic encephalopathy, resolved 7. Acute kidney injury, resolved 8. Acute hypoxemic respiratory insufficiency 9. Atrial fibrillation on anticoagulation 10. Sick sinus syndrome s/p pacemaker placement 11. Chronic mild systolic CHF, compensated 12. Chronic bilateral loculated pleural effusions 13. Parkinson's disease 14. Hypertension Brief Hospital Course by Problem: 87yo M with Parkinson's, atrial fibrillation on anticoagulation presented after having toth placement at living facility complicated by urethral trauma and subsequent bleeding and obstructive DESMOND. Anticoagulation held. Urology performed cystoscopy and removed obstructing clots in bladder, replaced toth correctly, and also noted a small lateral bladder perforation (unsure if present prior to procedure of developed during evacuation of clots). Anticoagulation was restarted and he tolerated this well. Received 1 unit of PRBC this admission. His renal function returned to baseline. His toht is in place with plans to follow up with urology in 1-2 weeks. He is on proscar as well. Early during this hospitalization, his blood cultures returned + for MSSA. Subsequent work up revealed a large tricuspid valve vegetation. He has a dual chamber pacemaker and consideration was made to remove this device. After careful consideration and CT surgery consultation, patient decided that he would not want removal of pacemaker or surgical intervention on TV. Thus, decision was made to treat with antibiotics (initial blood cultures cleared ). ID has recommended that he continue IV cefazolin for 6 week course ( through 06/10) followed by suppressive doxycycline therapy indefinitely. Additionally, he developed candidemia with Poly albicans. It was felt that the source of this was either his PICC or related to toth trauma. He is to complete a 2 week course of IV micafungin on 05/22. His PICC has been replaced and blood cultures have been negative for poly since 05/08. His mental status did wax and wane throughout the course of this lengthy hospitalization. This was due to infection and environmental processes. He has been alert and oriented for several days prior to discharge however he remains significantly deconditioned requiring ongoing PT and OT. Of note, he has chronic bilateral loculated pleural effusions. These have been attempted to be tapped in the past without success to due the loculated nature of them. We do not feel that these are actively infected. We did discuss possible VATS procedure but this is against the patient's wishes. He is requiring 1-2L NC due to compressive atelectasis from these effusions. Medications: Please refer to EMR for complete list. Changes this admission include addition of IV cefazolin, IV micafungin, finasteride. His gabapentin has been discontinued. Follow Up Plan: 1. Continue IV cefazolin through 06/10 then plan to switch to doxycycline 100mg BID 2. Continue IV micafungin through 05/22 3. Labs (CBC, CMP) on 05/17 and then weekly, ordered 4. Clinic visit with Dr Chandler on 05/20 5. Clinic visit with Dr Arana in 1-2 weeks with possible repeat cystogram Physical Exam: Vitals reviewed, afebrile and normotensive. Alert and oriented without focal neurologic deficit. RRR with subtle murmur on exam. Lungs with diminished breath sounds at bases but no wheezes or rales. Abdomen soft and nontender. No pitting edema or JVD. Scattered extremity bruising. RUE PICC line clean.
--- NOTE | 2018-05-14 12:04 | PDIAF ---
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 PICC Care - Routine: Yes - Orders Isolation Type: None Oxygen: Requiring 1-2L/min via NC continuously. Diet Texture: Regular Texture Diet, Thin Liquids, Meds Whole in Puree Additional Instructions: Here are your discharge instructions: 1. Continue your antibiotic (cefazolin) through 06/10 and antifungal (micafungin ) through 05/22. 2. Once you finish your antibiotic, plan is to start doxycycline 100mg twice daily indefinitely. 3. You have follow up with Dr Maria A Chandler in the infectious disease clinic on at 11am. 4. I have made a referral to Dr Arana's urology clinic. He would like to see you in 1-2 weeks time to assess if you still need the catheter in your bladder. His office should be contacting you to set up appointment but you can call to set up as well. 5. You are on finasteride for your prostate and we have discontinued your gabapentin. Otherwise, we did not make any medication changes. 6. You are being discharged on supplemental oxygen at 1-2L/min. This can be attempted to be weaned off as able. - Labs/Radiology CBC w/diff Date: 05/17/18 (Weekly Thursday) CMP Date: 05/17/18 (Weekly Thursday) Call or Fax Lab and Imaging Results to: Dr Maria A Chandler at [facility] [phone] - Follow Up Care Current Providers and Referrals: Maria A Chandler MD [Medical Doctor] - 05/20/18 11:00 am Andrea Arana MD [Medical Doctor] - follow up in 2 weeks Patient,NotPresent [Unknown] - As per Instructions
[2018-05-14 16:01] VITALS: BP 132/83
--- NOTE | 2018-05-14 16:25 | ASMTDCNOTE ---
Case Management Discharge Discharge Order Complete? Answers: Yes Patient to Obtain Answers: Other Notes: [facility] Medic[facility] Transportation Arranged Answers: [facility] will Pick (Date 05/14/2018 05:30 PM & Time) Case Management Transport Answers: Yes Form Complete Faxed Final Orders Answers: Yes Agency/Facility Transfer Answers: Yes Report Printed & Faxed to Receiving Agency Family Notified Answers: Yes Discharge Comments Notes: Pt is discharging to [facility] today. D/C order, meds, facility transfer sent via [employer]. Transportation arranged by . Date Signed: 05/14/2018 04:24 PM Electronically Signed By:MISAEL Hughes
--- NOTE | 2018-05-14 16:28 | ASDISCHSUM ---
Discharge Information Plan Status:SNF Medically Cleared to Leave:05/14/2018 Discharge Date:05/14/2018 CM D/C Disposition:[facility] Facility ADT D/C Disposition:[facility] Facility Projected Discharge Date:05/14/2018 11:00 AM Transportation at D/C:ALS/BLS Discharge Delay Reason: Follow-Up Date:05/14/2018 11:00 AM Discharge Slot: Final Diagnosis:Lethargy, DESMOND Placement Information Referral Type:*Skilled Nursing/SNF Referral ID:[id number] Provider Name:[facility] Address 1:[address] Address 2: City:[place] Selection Factors: State:[place] Referral Type:*Hospice Referral ID:[id number] Provider Name:[facility] Address 1:[address] Phone Number: Address 2: Fax Number: [facility]:[place] Selection Factors: State:[place] Patient Contact Information Contact Name:HERMILA Relationship: Address:[address] Work Phone: City:[place] Alternate Phone: [facility]/Zip Code:[place] [address] Email: Financial Information Financial Class:Medicare Advantage Plans Primary Plan Desc:FidelisO Primary Plan Number:[id number] Secondary Plan Desc: Secondary Plan Number: Assessment Information LACE LACE Length of stay for Answers: 14 days or more current admission Acuity / Level of Answers: Yes Care: Did the patient have an inpatient admission? Comorbidities - select Answers: Congestive heart failure all that apply Coronary Artery Disease Dementia Opioid dependence / Chronic pain Other Notes: AFib; Parkinson's disea se # of Emergency department Answers: 3-4 visits in the last 6 months Score: 25 Date Signed: 05/07/2018 11:15 AM Electronically Signed By:Juju Wu [facility] CM Progress Note CM Note CM Note Notes: 87yr old male recently admitted to replace pacemaker, now with Lethargy, DESMOND. Patient has a Hx of Chronic Afib, Hrt block, HTN, MSSA, UTI, PE's, Parkinson's, Dementia. He was at [facility] for Rehab before admitting to [facility]. Patient has a and a son. CM to follow for possible discharge needs. Date Signed: 04/21/2018 09:16 AM Electronically Signed By:Nicolette Lopez LCSW [facility] Progress Note CM Note CM Note Notes: Family states that pt is "mentally sharp" at baseline. He will likely need out-pt IV antibiotics. PT and OT recommend rehab. [facility] is planning to accept him back when he is ready for d/c. CM to follow. D/C Plan: Anticipate [facility]. Date Signed: 04/23/2018 02:47 PM Electronically Signed By:Any Hartley [facility] CM Progress Note CM Note CM Note Notes: Pt referred to [facility]; there is a mtg at [facility] Thursday at 1:30PM. CM to follow. D/C Plan: [facility] Date Signed: 04/26/2018 02:54 PM Electronically Signed By:Any Hartley [facility] CM Progress Note CM Note CM Note Notes: Patient plan of care reviewed in rounds. He is to have a palliative care evaluation today with the plan being going to [facility] as previously planned. CM to follow for needs, Plan: TBD Date Signed: 04/27/2018 02:38 PM Electronically Signed By:Ebony Polo RN [facility] CM Progress Note CM Note CM Note Notes: Patient plan of care reviewed in rounds. He is currently in [facility] for GARCIA with Dr. English. I met with his earlier and she voices concerns about his grown children having separate wishes from hers. I verified that she is the acting POA and we also discussed that the ultimate decision is up to Scottie as long as he has the ability to make his decisions. ID also following for bacteremia,PICC placed yesterday. expressed she was fine with the care he was receiving at [facility]. Plan: TBD Date Signed: 04/28/2018 03:11 PM Electronically Signed By:Ebony Polo RN [facility] CM Progress Note CM Note CM Note Notes: Patient plan of care reviewed in interdisciplinary rounds. 87 year old male admitted from [facility] with bacteremia. He has had a palliative consult with [facility]. His grown children would like to see him return to [place]. His Aldo would prefer to stay in this area. He may have some vegetation on his valve per GARCIA. ID following . Plan of care still uncertain at this time. CM to follow for needs. Plan: TBD Date Signed: 04/29/2018 02:30 PM Electronically Signed By:Ebony Polo RN [facility] Progress Note CM Note CM Note Notes: Patient plan of care reviewed in rounds. He has large vegetation on valve. Cardiology and ID involved and had prolonged discussion with family . Curative treatment would require the removal of his pacemaker apparatus and potentially emergency open heart surgery. No definitive plans yet. MD to start anti-coagulation . Patient wishes to remain [facility] as that is what family wishes. CM to follow. Plan: TBD Date Signed: 04/30/2018 12:51 PM Electronically Signed By:Ebony Polo RN [facility] Progress Note CM Note CM Note Notes: Family requesting notary services as they wish to have a new POA drawn up. Per our notary, by law she can not assist them with this service as it has components of an advanced directive. She has given them outside sources to call. Per family they have seen Dr. Urban of [facility] and patient is not felt to be a surgical candidate CM to follow. Plan: Dc to [facility] when medically ready for discharge. Date Signed: 05/03/2018 03:47 PM Electronically Signed By:Ebony Polo RN [facility] CM Progress Note CM Note CM Note Notes: Patient plan of care reviewed in rounds. Unfortunately Scottie has experienced a significant decline over the past several hours starting with a change in mentation followed by high fever and rigors. He has been seen by STEFFEN Chandler who is following his valvular vegetation as well as hospital medicine Dr. Landa. Blood cultures have been sent, CXR done, UA sent and CT of head pending. Plan: TBD Date Signed: 05/05/2018 02:16 PM Electronically Signed By:Ebony Polo RN [facility] CM Progress Note CM Note CM Note Notes: ID following for treatment of patient's right-sided MSSA endocarditis. His PICC will be discontinued in favor of peripheral IVs for now. Repeat blood cultures in a few days. Patient is more awake and alert than in the past few days. Spiritual care has been checking in with his , Aldo. Discharge plan continues to be [facility]; however, date is TBD. Case Management will follow. Date Signed: 05/07/2018 01:15 PM Electronically Signed By:Catalina Abebe RN [facility] Progress Note CM Note CM Note Notes: Patient plan of care reviewed in rounds. Scottie is still quite weak and somulent at times. Call from daughter Hilton in [place] asking to have intervention to get Scottie to [place] where there is a large family for support. Scottie has lived here in [place] with his present for the past 5 years. Per the daughter a new POA was drawn giving Aldo, Scottie's and his sone equal power. Hilton states they will pursue legal intervention if needed. I suggested that a family meeting be arranged for Thursday to discuss what is in the patient's best interest with the physician. I will try to arrange a family meeting at 3pm. CM to follow. Plan: TBD Date Signed: 05/10/2018 01:35 PM Electronically Signed By:Ebony Polo RN [facility] Progress Note CM Note CM Note Notes: Patient plan of care reviewed in rounds. He is nearing discharge. A family meeting is planned for tomorrow at 3pm. See note from Jenn Morel. Aldo Harrell's is reluctant to have patient move to [place]. CM to follow. As of right now the plan is for the patient to return to [facility]. Plan: TBD Date Signed: 05/11/2018 03:14 PM Electronically Signed By:Ebony Polo RN [facility] Progress Note CM Note CM Note Notes: Patient family meeting held at 3pm with Scottie's 2 daughters and his Aldo as well as Aldo's daughter. Dr. Shaw was also in attendance. Scottie essentially has a family here in [place] and his biological family in [place]. There has been some dispute over where Scottie belong's . Per MD he believes the patient to have decisional capacity and that Scottie desires to remain in [place]. The family feels Scottie is covering up his desire to be kind to his Aldo. The outcome of the meeting is that both parties care deeply for Scottie and have his best interest's at heart. They are to approach Scottie again to try to determine what his real desire is and Aldo is agreeable for Scottie to be transported back to a rehab facility closer to his [place] home in about 2 weeks. CM to continue to follow. Plan: Dc to SNF Date Signed: 05/12/2018 04:20 PM Electronically Signed By:Ebony Polo RN [facility] Progress Note CM Note CM Note Notes: Patient plan of care reviewed in rounds. He is clinically stable and nearing discharge back to [facility]. Likely to discharge tomorrow. Returning to [facility]. CM to follow. Plan: To [facility] when medically cleared. Date Signed: 05/13/2018 01:32 PM Electronically Signed By:Ebony Polo RN Case Management Discharge Plan Note Case Management Discharge Discharge Order Complete? Answers: Yes Patient to Obtain Answers: Other Notes: [facility] Medic[facility] Transportation Arranged Answers: [facility] Transport will Pick (Date 05/14/2018 05:30 PM & Time) Case Management Transport Answers: Yes Form Complete Faxed Final Orders Answers: Yes Agency/Facility Transfer Answers: Yes Report Printed & Faxed to Receiving Agency Family Notified Answers: Yes Discharge Comments Notes: Pt is discharging to [facility] today. D/C order, meds, facility transfer sent via [employer]. Transportation arranged by . Date Signed: 05/14/2018 04:24 PM Electronically Signed By:MISAEL Hughes Intervention Information Intervention Type:*IM-Signed Date of Service:05/14/2018 12:39 PM Patient Type:Inpatient Staff Member:Rosi Rosales Hours: Discipline: Severity: Comment:
[2018-05-14] MEDS: ESCITALOPRAM OXALATE 10 MG TAB PO SCH (17:23)
[2018-05-14] MEDS: RIVAROXABAN 20 MG TAB PO SCH (17:24)
--- NOTE | 2018-05-17 18:56 | POSTANESTH ---
Post Anesthetic Evaluation Cardiovascular Status: Normal, Stable Respiratory Status: Normal, Stable Level of Consciousness/Mental Status: Can Participate in Eval Pain Control: Adequate, Prn Tx Ordered Nausea/Vomiting Control: Adequate, Prn Tx Ordered
== END 2018-05-14 20:00 | DRG 871 ==
LOC: EDUNIT# → F2N 19:22 → F1N 04-22 15:38
PROVIDERS: ADMIT Internal Medicine; ATTEND Internal Medicine
PROC: 0TCB8ZZ Extirpation of Matter from Bladder, Via Natural or Artificial Opening Endoscopic (ICD-10-PCS; principal; 2018-04-21 09:00)
PROC: 0T9B80Z Drainage of Bladder with Drainage Device, Via Natural or Artificial Opening Endoscopic (ICD-10-PCS; principal; 2018-04-21 09:00)
PROC: 02HV33Z Insertion of Infusion Device into Superior Vena Cava, Percutaneous Approach (ICD-10-PCS; 2018-04-27)
PROC: 0T9B80Z Drainage of Bladder with Drainage Device, Via Natural or Artificial Opening Endoscopic (ICD-10-PCS; 2018-05-05)
PROC: 02H633Z Insertion of Infusion Device into Right Atrium, Percutaneous Approach (ICD-10-PCS; 2018-05-10)
PROC: 30233N1 Transfusion of Nonautologous Red Blood Cells into Peripheral Vein, Percutaneous Approach (ICD-10-PCS; 2018-05-13)
DX: A41.01 Sepsis due to Methicillin susceptible Staphylococcus aureus (principal); G93.41 Metabolic encephalopathy; J96.01 Acute respiratory failure with hypoxia; I39 Endocarditis and heart valve disorders in diseases classified elsewhere; D62 Acute posthemorrhagic anemia; S37.29XA Other injury of bladder, initial encounter; N17.9 Acute kidney failure, unspecified; I11.0 Hypertensive heart disease with heart failure; I50.22 Chronic systolic (congestive) heart failure; J90 Pleural effusion, not elsewhere classified; S37.39XA Other injury of urethra, initial encounter; Y84.6 Urinary catheterization as the cause of abnormal reaction of the patient, or of later complication, without mention of misadventure at the time of the procedure; Y92.129 Unspecified place in nursing home as the place of occurrence of the external cause; B37.9 Candidiasis, unspecified; I48.2 Chronic atrial fibrillation; G20 Parkinson's disease; N40.1 Benign prostatic hyperplasia with lower urinary tract symptoms; R31.0 Gross hematuria; R33.9 Retention of urine, unspecified; Z79.01 Long term (current) use of anticoagulants; Z95.0 Presence of cardiac pacemaker
CPT/HCPCS: 85520-90; 87186-90; 92507-GN; 92523-GN; 92526-GN; 92610-GN; 92611-GN; 97116-GP; 97162-GP; 97166-GO; 97530-GO; 97530-GP; 97535-GO; C1751; C1769; G8978-GP-CK; G8978-GP-CL; G8978-GP-CM; G8979-GP-CJ; G8979-GP-CK; G8987-GO-CL; G8987-GO-CM; G8988-GO-CK; G8996-GN-CI; G8996-GN-CJ; G8997-GN-CI; G8997-GN-CJ; G8998-GN-CJ; G9165-GN-CL; G9166-GN-CK; J0690; J0692; J0696; J1170; J1644; J1650; J1940; J2248; J2250; J2704; J3010; J3370; J3475; P9016; Q9957; Q9961; Q9967

== ENCOUNTER 2018-06-10 07:55 | Day surgery (SDC) | payer OTHER ==
[2018-06-10] MEDS ORDERED: MIDAZOLAM 2 MG/2 ML VIAL IVP ONE (08:10)
[2018-06-10] MEDS ORDERED: fentaNYL 100 MCG/2 ML INJ IVP ONE (08:10)
[2018-06-10] MEDS ORDERED: NS 500 ML IV ONE (08:10)
[2018-06-10] MEDS ORDERED: BENZOCAINE UNIT DOSE SPRAY HURRICAINE MM ONE (08:10)
[2018-06-10] MEDS ORDERED: NALOXONE HCL 0.4 MG/ML INJ IVP PRN (09:08)
[2018-06-10] MEDS ORDERED: ALBUTEROL 3 ML DEYVIAL IH PRN (09:08)
--- NOTE | 2018-06-10 09:08 | PDANEPAE ---
ANE Past Medical History - Cardiovascular History Hx Hypertension: Yes Hx Arrhythmias: Yes Hx Coronary Artery / Peripheral Vascular Disease: No Hx CHF / Valvular Disease: No Hx Palpitations: No - Pulmonary History Hx COPD: No Hx Asthma/Reactive Airway Disease: No Hx Oxygen in Use at Home: No Hx Sleep Apnea: No - Endocrine History Hx Diabetes: No - Chronic Pain History Chronic Pain: Yes ANE Review of Systems Review of Systems: - Pacemaker Date Pacemaker Last Checked: 04/06/18 ANE Patient History - Allergies Allergies/Adverse Reactions: No Known Allergies Allergy (Verified 04/20/18 16:03) - Home Medications Home Medications: Diltiazem Cd [Cardizem ER 120 MG (*)] 120 mg PO DAILY@0730 03/20/18 [Last Taken 04/20/18 09:00] Donepezil HCl [Aricept 5 MG (*)] 10 mg PO HS 03/20/18 [Last Taken 04/19/18] Carbidopa/Levodopa 25/100Mg [Sinemet 25/100 MG (*)] 1 tab PO QID@0730,12,17,21 03/22/18 [Last Taken 04/20/18 12:00] Lidocaine 4%/Menthol 1% [Icy Hot Lidocaine/Menthol 4%/1% Patch (*)] 1 patch TD DAILY PRN 03/31/18 [Last Taken 04/20/18 05:00] Diclofenac Sodium 1% [Voltaren Gel (*)] 4 gm TP QID 04/20/18 [Last Taken 12:00] Escitalopram Oxalate [Lexapro] 20 mg PO 1700 04/20/18 [Last Taken 04/19/18 17:00 ] Finasteride [Proscar 5 MG (*)] 5 mg PO DAILY 04/20/18 [Last Taken 04/20/18 09:00 ] Herbals/Supplements -Info Only 1 ea PO DAILY 04/20/18 [Last Taken 04/20/18 09:00 ] amLODIPine BESYLATE [Norvasc 2.5 mg (*)] 2.5 mg PO DAILY 04/20/18 [Last Taken 09:00] - Smoking Hx Smoking Status: Never smoked ANE Physical Exam - Airway Neck exam: decreased ROM Mallampati Score: Class 2 Mouth exam: poor dentition - Pulmonary Pulmonary: no respiratory distress, no rales or rhonchi - Cardiovascular Cardiovascular: regular rate and rhythym, other (paced) - ASA Status ASA Status: IV ANE Anesthesia Plan Anesthesia Plan: GA with mask
--- NOTE | 2018-06-10 09:12 | PDGENHP ---
History & Physical Chief Complaint: history of endocarditis History of Present Illness: 88 yo M with hx of TV/pacemaker endocarditis. Now finishing IV abx, needs follow up GARCIA Pertinent Past, Social, Family History: reviewed Cardiorespiratory Assessment: stable. Sedation will be provided by the anesthesia.
[2018-06-10] MEDS ORDERED: PROPOFOL 200 MG/20 ML VIAL ONE (09:15)
--- NOTE | 2018-06-10 09:52 | POSTANESTH ---
Post Anesthetic Evaluation Cardiovascular Status: Normal, Stable, Similar to Pre-Op Cond Respiratory Status: Normal, Stable, Similar to Pre-op Cond. Level of Consciousness/Mental Status: Moderately Sleepy Pain Control: Adequate, Prn Tx Ordered Nausea/Vomiting Control: Adequate, Prn Tx Ordered Complications Possibly Related to Anesthesia: None Noted
--- NOTE | 2018-06-10 10:47 | ECHO ---
[email or web address] [address] [address] Main: [phone] Fax: Transesophageal Echocardiography Name: CHAVEZ SCHUMACHER MR#: [id number] Study Date: 06/10/2018 Study Time: 09:28 AM Date of : 1930 Age: 88 year(s) Height: ( ) Weight: ( ) BSA: Gender: Male Examination: GARCIA Indication: Follow up on large right side vegetation. Image Quality: Contrast: Requested by: Delilah Mi Heart Rate: Rhythm: Normal sinus rhythm BP: / Procedure Staff Parachute Inspector: Yosef Borges RDCS Reading Physician: Delilah Mi MD Requesting Provider: GARCIA Exam Details Conclusions: Normal global systolic LV function. Normal RV function. There is a pacemaker lead noted in the right ventricle. 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 Pacer lead seen. Mild to moderate mitral regurgitation. The aortic valve is normal in appearance. No aortic valve stenosis is present. Trivial to mild aortic valve regurgitation. Moderate tricuspid regurgitation is present. There is no obvious vegetation associated with the tricuspid valve or pacemaker. Compared directly with 04/28/2018 GARCIA the previously noted large mobile vegetation associated with the tricuspid valve is not seen on current study. Cannot completely rule out very small vegetation but there are no obvious vegetations seen. Measurements: Chambers Valvular Assessment AV/MV Valvular Assessment TV/PV Normal Normal Normal Name Value Range Name Value Range Name Value Range TR Vmax: 2.43 mm/s ( - ) TR PGmax: 24 mmHg ( - ) syst. PAP: 29 mmHg ( - ) Additional Measurements: Patient: CHAVEZ SCHUMACHER Study Date: 06/10/2018 Page 1 of 2 09:28 AM Valvular Assessment TV/PV Name Value CVP (est.): 5 mmHg Findings: Left Ventricle: Normal global systolic LV function. Right Ventricle: Normal RV function. There is a pacemaker lead noted in the right ventricle. Right Atrium: Chiari's network discernible in right atrium. Pacer lead seen. Mitral Valve: Mild to moderate mitral regurgitation. Aortic Valve: The aortic valve is tri-leaflet. The aortic valve is normal in appearance. No aortic valve stenosis is present. Trivial to mild aortic valve regurgitation. Tricuspid Valve: Moderate tricuspid regurgitation is present. There is no obvious vegetation associated with the tricuspid valve or pacemaker. Pulmonic Valve: The pulmonic valve is normal in appearance and function. Aorta: The aorta is normal. Pericardium: No pericardial effusion. l1n (No Signature Object) Patient: CHAVEZ SCHUMACHER Study Date: 06/10/2018 Page 2 of 2 09:28 AM [id number]
== END 2018-06-10 11:42 | disposition home or self-care (01) ==
LOC: FCATH 07:55
PROVIDERS: ATTEND Internal Medicine Cardiovascular Disease
PROC: B246ZZ4 Ultrasonography of Right and Left Heart, Transesophageal (ICD-10-PCS; principal; 2018-06-10)
DX: I38 Endocarditis, valve unspecified (principal); Z95.0 Presence of cardiac pacemaker
CPT/HCPCS: J2250; J2704

== ENCOUNTER 2018-06-18 07:58 | Inpatient (IN) | payer OTHER ==
--- NOTE | 2018-06-18 08:30 | EDPHY ---
H & P Stated Complaint: mechanical fall last night Time Seen by Provider: 06/18/18 08:09 HPI/ROS: CHIEF COMPLAINT: Fall, right hip pain HISTORY OF PRESENT ILLNESS: This is an 88-year-old male with multiple medical problems including Parkinson's disease, endocarditis, atrial fibrillation on anticoagulation, pacemaker, indwelling Chao catheter and history of bladder trauma. He arrives by ambulance after falling at home. He was hospitalized at [facility] from April 20 through May 14 and during that hospitalization he was treated for endocarditis involving the tricuspid valve. He has completed IV antibiotics and is currently taking oral doxycycline. From the hospital he went to [facility] for rehabilitation. He was discharged from [facility] on June 11. He has 24 hr care. Last night he apparently fell and was assisted back into bed. This morning he complained of pain in his right hip. He is wheelchair-bound. This prompted a 911 call. His tells me that he has not been doing well since returning home. She thinks that he is showing more confusion and increased parkinsonian tremors. She believes that he might be hallucinating. No recent significant changes in his medications. He has an indwelling Chao that was recently changed. His notes blood in the catheter this morning and tells me that it was clear yesterday. REVIEW OF SYSTEMS: A ten system review of systems was performed and is negative with the exception of the items mentioned in the HPI. Past medical history: 1. MSSE endocarditis 2. Atrial fibrillation on Xarelto 3. BPH with indwelling Chao, urethral trauma related to Chao placement 4. Benign brain mass 5. Hypertension 6. Parkinson's disease 7. Chronic bilateral loculated pleural effusions 8. Hypertension 9. History of UTI/sepsis Past surgical history: 1. Pacemaker 2. Resection of right temporal subcortical mass 3. Back surgery x3 Social history: He lives with his . He does not use tobacco or alcohol. General Appearance: Alert. Vital signs reviewed. Blood pressure 108/98. Head: There is an abrasion above the year along the right temporal lesion region. No palpable skull deformity. Eyes: Pupils equal and round, no conjunctival injection, no discharge. Anicteric. ENT, Mouth: Mucous membranes are dry, no oropharyngeal erythema or edema. Neck: No lymphadenopathy, supple. Nontender to palpation over the cervical spine in the midline. Respiratory: Lungs are clear to auscultation anterolaterally; no wheezes, rales , or rhonchi. Thorax: There is an abrasion along the right mid to lower chest extending onto the posterior thorax. No crepitus. No chest pain with palpation. Cardiovascular: Regular rate and rhythm; no murmur, rub, or gallop. Gastrointestinal: Abdomen is soft and nontender, no masses or organomegaly, bowel sounds normal. Genitalia: Indwelling Chao. Skin: Warm and dry, no rashes on exposed skin, normal color. Skin tear along right lateral elbow and forearm full active range of motion of right elbow. Back: Nontender to palpation over the thoracolumbar spine. No CVAT. Extremities: No lower extremity edema, no calf tenderness or swelling. Pain with palpation over the right the upper femur. No shortening or rotation of right leg. Pulses: 2+ bilateral dorsalis pedis pulses. Neurological: Alert and oriented to person and hospital. Moving all four extremities spontaneously. Constant tremor of all 4 extremities while at rest. ALMITA. EOMI. Tongue midline. Facial expressions symmetric. Psychiatric: Normal affect. - Personal History Current Tetanus Diphtheria and Acellular Pertussis (TDAP): Unsure - Medical/Surgical History Hx Asthma: No Hx Chronic Respiratory Disease: No Hx Diabetes: No Hx Cardiac Disease: Yes Hx Renal Disease: No Hx Cirrhosis: No Hx Alcoholism: No Hx HIV/AIDS: No Hx Splenectomy or Spleen Trauma: No Other PMH: spinal stenosis, SSS with pacemaker, parkensons, afib, CHF - Social History Smoking Status: Never smoked Constitutional: Initial Vital Signs Temperature (C) 36.9 C 06/18/18 08:00 Heart Rate 75 06/18/18 08:00 Respiratory Rate 18 06/18/18 08:00 Blood Pressure 108/98 H 06/18/18 08:00 O2 Sat (%) 90 L 06/18/18 08:00 O2 Delivery Mode Nasal Cannula O2 (L/minute) 3 Allergies/Adverse Reactions: No Known Allergies Allergy (Verified 04/20/18 16:03) Home Medications: Medication Instructions Recorded Diltiazem Cd [Cardizem ER 120 MG 120 mg PO DAILY@0730 03/20/18 (*)] Donepezil HCl [Aricept 5 MG (*)] 10 mg PO HS 03/20/18 Carbidopa/Levodopa 25/100Mg 1 tab PO QID@0730,12,,03/22/18 [Sinemet 25/100 MG (*)] Escitalopram Oxalate [Lexapro] 20 mg PO 1700 04/20/18 Finasteride [Proscar 5 MG (*)] 5 mg PO HS 04/20/18 Doxycycline Hyclate [Vibramycin 100 mg PO BID 06/18/18 100 MG (*)] Rivaroxaban [Xarelto] 20 mg PO 1700 06/18/18 Acetaminophen [Tylenol ES 500 mg 1,000 mg PO TID PRN #30 tab 06/22/18 (*)] Fluconazole [Diflucan (*)] 200 mg PO DAILY #5 tab 06/22/18 traMADol [Ultram 50 mg (*)] 25 mg PO Q8H PRN #20 tab 06/22/18 Medical Decision Making Differential Diagnosis: I considered a differential diagnosis that includes but is not limited to intracranial hemorrhage, fracture, contusion, laceration. I also considered differential diagnosis of altered mental status including but not limited to medication effect, Parkinson's disease, hypoglycemia, infectious process, electrolyte abnormality, head injury and intoxicants. - Data Points Laboratory Results: Laboratory Results 06/18/18 08:50 06/18/18 08:50 Medications Given: Discontinued Medications Acetaminophen (Tylenol) 1,000 mg PO TID [facility] Stop: 12/15/18 15:59 Last Admin: 06/21/18 20:04 Dose: Not Given Acetaminophen (Tylenol) 1,000 mg PO TID PRN PRN Reason: Pain, Mild Able to Take PO Stop: 12/15/18 15:59 Last Admin: 06/22/18 12:37 Dose: 500 mg Carbidopa/Levodopa (Sinemet) 1 tab PO EDNOW ONE Stop: 06/18/18 10:41 Last Admin: 06/18/18 11:05 Dose: 1 tab Carbidopa/Levodopa (Sinemet) 1 tab PO QID@0730,,, [facility] Stop: 12/15/18 16:59 Last Admin: 06/22/18 16:19 Dose: 1 tab Diltiazem HCl (Cardizem Er Q24hr) 120 mg PO DAILY@0730 [facility] Stop: 12/17/18 07:29 Last Admin: 06/22/18 07:48 Dose: 120 mg Donepezil HCl (Aricept) 10 mg PO HS [facility] Stop: 12/15/18 20:59 Last Admin: 06/21/18 20:50 Dose: 10 mg Doxycycline Hyclate (Doxycycline Hyclate) 100 mg PO BID [facility] PRN Reason: Protocol Stop: 07/18/18 20:59 Last Admin: 06/22/18 09:29 Dose: 100 mg Escitalopram Oxalate (Lexapro) 20 mg PO DAILY@1700 [facility] Stop: 12/15/18 16:59 Last Admin: 06/22/18 16:19 Dose: 20 mg Fentanyl (Sublimaze) 75 mcg IVP EDNOW ONE Stop: 06/18/18 10:05 Last Admin: 06/18/18 10:08 Dose: 75 mcg Fentanyl (Sublimaze) 50 mcg IVP Q4HRS PRN PRN Reason: Pain, Severe Unable to Take PO Stop: 06/28/18 12:58 Last Admin: 06/18/18 14:28 Dose: 50 mcg Finasteride (Proscar) 5 mg PO HS [facility] Stop: 12/18/18 20:59 Last Admin: 06/21/18 20:50 Dose: 5 mg Sodium Chloride (Ns) 1,000 mls @ 0 mls/hr IV ONCE ONE; Wide Open PRN Reason: Protocol Stop: 06/18/18 08:32 Last Admin: 06/18/18 08:46 Dose: 1,000 mls Sodium Chloride (Ns) 1,000 mls @ 75 mls/hr IV CONT [facility] Stop: 12/15/18 11:14 Last Admin: 06/19/18 02:28 Dose: 1,000 mls Ceftriaxone Sodium/Dextrose (Rocephin 1 Gm (Premix)) 50 mls @ 100 mls/hr IV DAILY [facility] PRN Reason: Protocol Stop: 07/18/18 11:29 Last Admin: 06/21/18 08:45 Dose: 50 mls Micafungin Sodium 100 mg/ (Sodium Chloride) 100 mls @ 100 mls/hr IV DAILY [facility]Y Stop: 07/19/18 10:59 Last Admin: 06/22/18 09:30 Dose: 100 mls Sodium Chloride (Ns) 500 mls @ 1,500 mls/hr IV ONCE ONE Stop: 06/20/18 14:31 Last Admin: 06/20/18 14:47 Dose: 500 mls Lidocaine (Uroject Lidocaine 2% Jelly) 0 ml UR ONCE ONE Stop: 06/20/18 17:16 Last Admin: 06/20/18 17:27 Dose: 20 ml Olanzapine (Zyprexa) 2.5 mg PO DAILY PRN PRN Reason: Agitation Stop: 12/15/18 17:25 Last Admin: 06/19/18 21:21 Dose: 2.5 mg Rivaroxaban (Xarelto) 20 mg PO 1700 [facility] Stop: 12/16/18 16:59 Last Admin: 06/19/18 16:48 Dose: 20 mg Tramadol HCl (Ultram) 25 mg PO Q8H PRN PRN Reason: Pain, Moderate Able to Take PO Stop: 12/15/18 15:26 Last Admin: 06/20/18 01:17 Dose: 25 mg Departure - Departure Disposition: [facility] Acute Clinical Impression: Parkinson disease, Hypotension Fracture of femoral neck, closed Qualifiers: Encounter type: initial encounter Laterality: right Qualified Code(s): S72.001A - Fracture of unspecified part of neck of right femur, initial encounter for closed fracture Condition: Fair
[2018-06-18] MEDS ORDERED: NS 1,000 ML IV ONE (08:31)
[2018-06-18 09:01] LABS: PLATELET COUNT 201 10^3/uL (150-400)
[2018-06-18] MEDS ORDERED: fentaNYL 100 MCG/2 ML INJ IVP ONE (10:04)
[2018-06-18] MEDS ORDERED: ACETAMINOPHEN 325 MG TAB PO PRN ×2 (10:31→12:59)
[2018-06-18] MEDS ORDERED: ONDANSETRON DISINTEGRATING 4 MG TAB PO PRN (10:31)
[2018-06-18] MEDS ORDERED: ONDANSETRON 4 MG/2 ML VIAL IVP PRN (10:31)
[2018-06-18] MEDS ORDERED: CARBIDOPA/LEVO CR 25 MG/100 MG TAB PO ONE (10:37)
[2018-06-18] MEDS ORDERED: CARBIDOPA/LEVODOPA 25 MG/100 MG TAB PO ONE (10:40)
[2018-06-18] MEDS ORDERED: cefTRIAXone 1 GM/DEXTROSE 1 GM/50 ML BAG IV ONE (11:33)
--- NOTE | 2018-06-18 12:01 | PDGENHP ---
History and Physical History and Physical: spoke with Dr Husain Images reviewed h/o parkinsons reported mechanical fall R hip nondisplaced fem neck fx consider R hip fixation, CRPP with screws. d/c eloquis for 2-3 days prior to surgery consider CRPP on Thursday Dr Mane
--- NOTE | 2018-06-18 12:11 | GHP ---
DATE OF ADMISSION: 06/18/2018 CHIEF COMPLAINT: Fall, right femur fracture, hypotension. 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 He was just discharged home from [facility] on June 11. His history is provided by family, who is at bedside here in the ER. Last night, he fell out of bed, unwitnessed, complained of some pain, but went back to bed without issue. His awoke this morning at 5:30 and noticed that he was having increased pain in his right hip. This brought him into the emergency room. They have noticed increased confusion, delusions, and tremors related to his Parkinson's disease over the past week. He had a chronic indwelling Toth placed by Dr. Arana 06/08. Plan was to keep this in through the end of June. They have not noted nausea, vomiting, diarrhea. No sweats. Hip x-ray in the ER shows transverse nondisplaced subcapital proximal right femoral neck fracture. CT head: No acute intracranial findings. Recently completed IV antibiotics for his endocarditis. He is followed by Dr. Chandler in Infectious Disease and is currently on doxycycline twice daily. REVIEW OF SYSTEMS: I completed a 10-point review of systems and negative except in HPI. PAST MEDICAL HISTORY: 1. 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 TTE 2017: Normal LV with moderate TR. GARCIA, moderate mitral regurgitation. 2. Atrial fibrillation. 3. BPH. 4. Benign brain mass. 5. Hypertension. 6. Parkinson's disease. PAST SURGICAL HISTORY: 1. Resection of a right temporal subcortical mass. 2. Pacemaker. 3. Three back surgeries, now with metal cage in his lumbar region. FAMILY HISTORY: Noncontributory. SOCIAL HISTORY: Discharged from [facility] a week ago. Lives with his in [place]. No alcohol, tobacco, or illicits. HOME MEDICATIONS: Norvasc 2.5 mg daily, Xarelto 20 mg daily, Lidoderm patch, herbal supplement, Proscar 5 mg daily, Lexapro 20 mg at night, Aricept 10 mg at bedtime, diltiazem 120 mg daily, Voltaren gel, carbidopa 1 tab four times daily , Tylenol. ALLERGIES: No known drug allergies. PHYSICAL EXAMINATION: VITAL SIGNS: Temperature 36.9, blood pressure is 98/59, heart rate is in the 70s, respiration 91% on 4 L. GENERAL: He is ill appearing , lying in bed, no acute distress. HEENT: PERRLA. Dry mucous membranes. CV: Regular rate and rhythm. LUNGS: Clear anteriorly. ABDOMEN: Soft, nontender. No grimace with palpation. : Toth in place. Yellow urine with some clots. NEURO: 2 through 12 intact. Cogwheeling, significant tremor at rest. PSYCH: He is alert, not oriented to place, person, or time. LABS: WBC is 12, hemoglobin 9.3, hematocrit 28, platelets 201. Lactate is pending. Sodium 140, potassium 4.7, chloride 106, carbon dioxide 25, creatinine is 1. Glucose is 134. Urine 50-182 whites, +3 mucus. Elbow x-ray, right. Negative for fracture. CT head, see above. Right hip x- ray, see above in HPI. ASSESSMENT AND PLAN: 1. Hypotension: Blood pressure is in the 90s, likely multifactorial with dehydration, Parkinson's disease, and possible urinary tract infection. -If clinically declines, add Micafungin 2. Right femoral neck fracture: Dr. Mane consulted. Possible surgery on Thursday. 3. Acute metabolic encephalopathy: Per family, he is normally alert and oriented x3. This is an acute change in his mental status. Has a positive UA, which could be colonization, but given acute change in mental status, we will treat with ceftriaxone. Urine cultures are pending. Electrolytes are within normal. CT head without acute abnormality. 4. Pyuria: Again, could be colonization with chronic indwelling Toth, but given acute change in mental status, we will treat with ceftriaxone. 5. Atrial fibrillation: Currently rate controlled. We will hold BP medications with low blood pressure. 6. Benign prostatic hypertrophy: hold Proscar with hypotension. 7. History of brain mass, was benign, resected. 8. History of MSSA bacteremia/TB/pacemaker endocarditis: completed a course of antibiotics and micafungin. Followed by Dr. Chandler. Currently on doxycycline. Will continue this. Blood cultures are drawn. 9. Chronic indwelling toth: He is followed by Dr. Arana. 10. h/o Poly UTI: previous treated with Micafungin 11. DVT prophylaxis: SCDs. 12: Goals: I had a long discussion with the patient's son, [id number] and . Has high-risk morbidity. They completed new MOST today, now DNR. DISPOSITION: Warrants PCU for telemetry, IV antibiotics, fluids and further evaluation. CRITICAL TIME SPENT: 60 minutes evaluating patient, bedside with family, reviewing records and discussing case with Dr. Husain. /[id number]/MODL MTDD
[2018-06-18] MEDS ORDERED: fentaNYL 100 MCG/2 ML INJ IVP PRN (12:59)
[2018-06-18] MEDS: NS 1,000 ML IV SCH (13:22)
[2018-06-18] MEDS ORDERED: ACETAMINOPHEN 500 MG TAB PO PRN (13:30)
--- NOTE | 2018-06-18 14:03 | ASMTCMCOM ---
CM Note CM Note Notes: CM spoke to Dr. Kevin regarding d/c POC. Pt is a 88 y/o man admitted for fall, right femur fracture and hypotension. Pt has a complicated medical hx, please see H&P. Pt recently d/c from [facility] on 06/11. Neurology has been consulted. Therapies have been ordered and awaiting recommendations. Pt is current w/ [facility]. CM to follow. Plan: TBD Date Signed: 06/18/2018 02:02 PM Electronically Signed By:JASMIN Alarcon
--- NOTE | 2018-06-18 14:22 | PDMN ---
Medical Necessity Medical necessity: Pt meets inpt criteria per MD order and Musculoskeletal GRG. 88 y/o w/recent hospitalization 04/20/18-05/14/18 for MSSA endocarditis involving tricuspid valve and pacer wires, now presenting after unwitnessed fall w/pain and AMS, admitted w/R femoral neck fx, acute metabolic encephalopathy, +UA: cultures pending (chronic indwelling toth cath), pyuria, hypotension, and dehydration. Ortho consult- possible surg intervention once off eloquis for 2-3 d prior to surg. IVF, IV ABX's, PCU monitoring, PT/OT pending, neuro consult pending. Anticipate>2MN for ongoing eval/management of above.
--- NOTE | 2018-06-18 15:07 | ASMTCMCOM ---
CM Note CM Note Notes: Ami from [facility] stopped by and visited w/ pt. Pt is current / [facility] palliative services. Pt signed a DNR status. Dr. Kevin will sign. Updates sent to [facility]. Date Signed: 06/18/2018 03:06 PM Electronically Signed By:JASMIN Alarcon
--- NOTE | 2018-06-18 15:26 | CPEKG ---
Test Reason : OPEN Blood Pressure : / mmHG Vent. Rate : 137 BPM Atrial Rate : 000 BPM P-R Int : 144 ms QRS Dur : 083 ms QT Int : 264 ms P-R-T Axes : 248 056 035 degrees QTc Int : 399 ms Ventricular-paced complexes Confirmed by Ayse Husain ([id number]) on 06/18/2018 3:26:14 PM Referred By: Confirmed By:Ayse Husain
[2018-06-18] MEDS ORDERED: traMADol 50 MG TAB PO PRN (15:27)
[2018-06-18] MEDS: ACETAMINOPHEN 500 MG TAB PO SCH ×2 (15:49→23:01)
[2018-06-18] MEDS: ESCITALOPRAM OXALATE 10 MG TAB PO SCH (16:35)
[2018-06-18] MEDS: CARBIDOPA/LEVODOPA 25 MG/100 MG TAB PO SCH ×2 (16:35→20:03)
[2018-06-18] MEDS ORDERED: OLANZapine DISINTEGR 5 MG TAB PO PRN (17:25)
[2018-06-18] MEDS ORDERED: OLANZapine 2.5 MG TAB PO PRN (17:26)
--- NOTE | 2018-06-18 19:23 | SOAPPROG ---
SOAP Progress Note Assessment/Plan: Assessment: R hip minimally displaced fem neck fx. Multiple comorbidities. High risk surgical candidate Plan: 06/18/18 19:20 after lengthy discussion with family, non operative mgmt. with inherent risks understood WBAT transfers as tolerated movement as tolerated repeat R hip xrays in 2-3 days dispo consider long term care administrator nursing care consider relocation back to [place] with family support Subjective: HD 1 R hip fem neck fx minimally displaced Objective: Vital Signs Temp Pulse Resp BP Pulse Ox 36.9 C 73 13 93/75 L 94 06/18/18 15:23 06/18/18 15:23 06/18/18 15:23 06/18/18 15:23 06/18/18 15:23 06/17/18 06/18/18 06/19/18 05:59 05:59 05:59 Intake Total 2659 Output Total 200 Balance 2459 family at bedside agitated toth with bloody urine mobile R hip spontaneously grabs at hip and wants to get out of bed ICD10 Worksheet Patient Problems: Problems Problem Status Onset Fracture of femoral neck, closed Acute Hypotension Acute Parkinson disease Acute Acute renal insufficiency Acute Dehydration Acute Fall Acute Multiple skin tears Acute Pacemaker malfunction Acute Paroxysmal a-fib Acute Sepsis Acute UTI (urinary tract infection) Acute
[2018-06-18] MEDS: DOXYCYCLINE HYCLATE 100 MG CAP/TAB PO SCH (20:03)
[2018-06-18] MEDS: DONEPEZIL HCL 5 MG TAB PO SCH (20:03)
--- NOTE | 2018-06-18 20:34 | GHP ---
DATE OF ADMISSION: 06/18/2018 CHIEF COMPLAINT: 1. Right hip pain. ASSOCIATED DIAGNOSES: 1. Altered mental status. 2. Urinary tract infection. 3. Parkinson. 4. Pacemaker with atrial fibrillation. Julio Cesar is a well known to [facility]. Well known to the Cardiology service and Infectious D robby. He is 88-year-old male with multiple comorbidities. Recently was discharged from [facility] about a week ago and was at home. He lives in [place] with his , Aldo. He fell and injured hi s right hip. He was triaged to the emergency room. Please see details of ER H and P and admitting H and P. PERTINENT ORTHOPEDIC EXAMINATION: At the bedside reveals a cooperative gentleman. Slightly altered mental status. He wants to get out of bed. He has a Chao in with blood-tinged urine. The right hi p is painful with motion, but he does have spontaneous hip flexion and ankle motion. He does grab at his hip as if he is in pain. IMAGING: X-ray, 2 view of the hip show minimally displaced femoral neck fracture. Does look mostly cracked on the tension side. On the compression side, looks nondisplaced at the medial calcar. IMPRESSION/RECOMMENDATION: A 30-minute conversation with the family at the bedside and his daughter in [place]. Initially considering surgical fixation, but after further discussion and family conver andreia, because of his multiple comorbidities, he has been wheelchair-bound in transfers for the last 3 months. They opted for nonsurgical management, which I agree. We will make him activity as anabel ated, transfers as tolerated, mobility as tolerated. Consider repeat 2-view right hip in 3-4 days to assess the outcome of his activity on the hip fracture. Thirty minutes at the bedside. /[id number]/MODL
--- NOTE | 2018-06-18 22:22 | NEUROPROG ---
Assessment: [id number] - Neurology Consult: - CC: Parkinsons Disease in setting of hip fracture - HPI: Pt with multiple medical problems was recently at [facility] on 04/20/18 to 05/14/18 for endocarditis. He was discharged from [facility] on 06/11/18. On 06/17/18 he fell out of bed (unwitnessed) but went back to sleep. He awoke on 06/18/18 and noted right hip pain so came to [facility] ER. It was reported the patient had increasing confusion, delusions, and tremor felt to be from his Parkinsons disease in the last week. [facility] ER x-ray showed a right hip fracture. Head CT wo showed nothing acute. He was also noted to be hypotensive and have a possible UTI. I initially saw the patient on 06/18/18. He was delerious with his children and at bedside. He had bilateral tremor in both hands that seemed worse with movement. There was no bradykinesia or clear rigidity but testing was difficult and limited. 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, afib, BPH, benign brain mass, HTN, Parkinsons Disease PSHx: resection of R temporal subcortical mass, pacemaker, 3 back surgeries, - Home Meds: norvasc, xarelto, lidoderm patch, proscar, lexapro, aricept, diltiazem, voltaren, Sinemet 25/100 mg QID - SHx: no tobacco FHx: NC - ROS: Pt denied acute fever, total vision loss, active severe chest pain, respiratory failure, total body severe rash, total bowel/bladder incontinence, psychosis, active seizures, or active bleeding - O: VS reviewed General: delerious Eyes: Fundoscopic exam not able to visualize optic disks CV: Heart RRR, no murmur, no carotid bruit Lungs: Clear to auscultation bilaterally, no rhonchi or rales Neuro: - Mental: . Oriented x 0, confused . concentration appears reduced . speech fluency/comprehension normal . memory appears reduced . fund of knowledge appear reduced - Cranial Nerves: . II: PERRL, VFFTC . III/IV/: EOMI, no nystagmus, normal smooth pursuits, no Ptosis . V: facial sensation intact to LT . VII: face symmetric to eye closure and smile . VIII: hearing intact to conversation . IX/X: uvula raises symmetrically . XI: SCM 5/5 B/L strength . XII: tongue protrudes midline w/nl strength - Motor: . Tone: normal tone in all 4 extremity, bilateral hand tremor . Strength: strength 5/5 throughout - Reflexes: B/L bic/BR/patella 2/4 - Sensory: all 4 extremity intact to light touch - Coord: no ataxia seen - Gait: deferred - Labs: 06/18/18- Chem Gluc 134 - Rads: 06/18/18- Head CT wo: no acute changes, atrophy/CMVD, old R craniotomy (I Personally visualized the images on 06/18/18) - Assessment: 1. Possible Parkinsonian Syndrome: Reviewed Dr. Shelby outpatient clinic notes (Pts prior neurologist who managed his tremors) and it was not definitive that he has Parkinsons Disease as he has not clearly responded to Sinemet. The patient will need a referral to a movement disorder expert after hospital discharge to formal diagnosis and manage his symptoms as he has not clearly responded to Sinemet. I would not recommend any mediation changes in his Sinemet until he sees this expert. - 2. Right hip fx: Surgery planned for Thursday - 3. Afib on anticoagulation - 4. Recent endocarditis - 5. Possible UTI - Plan: - Continue Sinemet 25/100 mg QID - No further inpatient evaluation needed from neurology standpoint, neurology will sign off - F/U by phone in neurology clinic after hospital discharge to obtain referral to movement disorder expert to assess and manage his possible parkinsonian syndrome Objective: Vital Signs Temp Pulse Resp BP Pulse Ox 36.8 C 75 21 H 111/58 L 92 06/18/18 19:28 06/18/18 19:28 06/18/18 19:28 06/18/18 19:28 06/18/18 19:28 06/17/18 06/18/18 06/19/18 05:59 05:59 05:59 Intake Total 2659 Output Total 200 Balance 2459 Allergies/Adverse Reactions: No Known Allergies Allergy (Verified 04/20/18 16:03)
[2018-06-19] MEDS: NS 1,000 ML IV SCH (02:28)
[2018-06-19] MEDS: CARBIDOPA/LEVODOPA 25 MG/100 MG TAB PO SCH ×4 (08:49→21:21)
--- NOTE | 2018-06-19 08:50 | HOSPPROG ---
Hospitalist Progress Note Assessment/Plan: #Hypotension: resolved. Multifactorial with dehydration, possible UTI #Right femoral neck fracture: evaluated by Dr. Mane. Given comorbidities, wheel- chair bound, family opted for nonsurgical treatment. WBAT #Acute metabolic encephalopathy: UTI? CTH with no acute process #Pyuria vx. CAUTI: h/o toth trauma. Culture with yeast. Add Micafungin. Discussed with Dr. Chandler #Atrial fibrillation: restart dilt when BP stable. Xarelto #BPH: home meds #h/o MSSA bacteremia/TB/pacemaker endocarditis: completed IV abx, now on Doxycycline. Followed by Dr. Chandler. -echo today shows progressive TR, no vegetation #Chronic indwelling toth: followed by Dr. Arana. Will need to replaced prior to DC #Parkinson's: Dr. Driver evaluated. Not clear if truly Parkinson's since not well- responsive to Sinemet. Cont current dosage #Agitation: low-dose Zyprexa #DVT ppx: Xarelto #Goal: discussed with family, now DNR. Followed by Viviana. Now DNR, MOST in chart. NATALIIA. Family plans on taking him back to [place] #Disp: inpatient admission for IV abx, culture pending. Subjective: still confused per Objective: Vital Signs Temp Pulse Resp BP Pulse Ox 37.1 C 71 16 119/85 H 95 06/19/18 08:00 06/19/18 08:00 06/19/18 08:00 06/19/18 08:00 06/19/18 08:00 Laboratory Results 06/19/18 04:22 06/19/18 04:22 06/18/18 06/19/18 06/20/18 05:59 05:59 05:59 Intake Total 2809 Output Total 275 Balance 2534 - Time Spent With Patient Time Spent with Patient: greater than 35 minutes Time Spent with Patient: Greater than 35 minutes spent on this patients care, greater than 50% of time spent counseling, educating, and coordinating care regarding the above mentioned plan. - Physical Exam Constitutional: chronically ill appearing Eyes: PERRL Ears, Nose, Mouth, Throat: moist mucous membranes Cardiovascular: regular rate and rhythym, systolic murmur Respiratory: reduced air movement Gastrointestinal: normoactive bowel sounds Genitourinary: toth in urethra (hematuria, clots) Musculoskeletal: other (mitts on hands, roller belt in place) Psychiatric: encephalopathic, poor insight, poor judgement ICD10 Worksheet Patient Problems: Problems Problem Status Onset Fracture of femoral neck, closed Acute Hypotension Acute Parkinson disease Acute Acute renal insufficiency Acute Dehydration Acute Fall Acute Multiple skin tears Acute Pacemaker malfunction Acute Paroxysmal a-fib Acute Sepsis Acute UTI (urinary tract infection) Acute
[2018-06-19] MEDS: ACETAMINOPHEN 500 MG TAB PO SCH ×3 (08:53→21:21)
[2018-06-19] MEDS: DOXYCYCLINE HYCLATE 100 MG CAP/TAB PO SCH (08:53)
--- NOTE | 2018-06-19 11:24 | PCMIDPN ---
Assessment/Plan: # Delirium and tremulousness, recent fall : reasonable to r/o infectious etiology as precipitant of delirium. With Toth manipulation urinary source leading etiology but could also consider recurrence of MSSA bacteremia/ endocarditis. 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 Very large vegetation 3-4cm associated with tricuspid valve. Course complicated by Toth trauma and Candidemia. Patient is s/p 6 weeks Cefazolin 2gm IV q8h stop 06/10/18 then started on PO doxycycline 100mg BID and 2 weeks of micafungin for candidemia from urinary source (caused by urinary toth trauma). Recent repeat GARCIA showed (surprisingly) resolution of vegetation 1 week ago patient went home from longterm facility the and has been with full 24 hours care. Patient has intermittent bouts of visual hallucination per seeing 100s of bugs, this occurs at random times. 2017 patient was seen by his son who noted increased tremulousness since his last visit although he felt he had more vigor to his eyes and face. Once seeing him the son had concern for ensuing fall. had not noticed significant decline. Night of 06/17 patient got up out of bed and fell and fractured R hip. Operation is not planned due to co-morbidities and lack of mobility. No f/c/ns were noted prior to hospitalization, but patient is chronically trying to manipulate toth. ID asked to evaluate for possible infectious precipitant to fall and if causing his ongoing delirium. Objective: Vital Signs Temp Pulse Resp BP Pulse Ox 37.1 C 71 16 119/85 H 95 06/19/18 08:00 06/19/18 08:00 06/19/18 08:00 06/19/18 08:00 06/19/18 08:00 Laboratory Results 06/19/18 04:22 06/19/18 04:22 06/18/18 06/19/18 06/20/18 05:59 05:59 05:59 Intake Total 2809 Output Total 275 Balance 2534 - Physical Exam General Appearance: alert EENT: dry mucous membranes, No thrush Respiratory: lungs clear, No accessory muscle use Neck: supple Cardiac/Chest: regular rate, rhythm, systolic murmur (2 to 3/6) Abdomen: normal bowel sounds, non-tender, soft Male Genitalia: toth, other (Hematuria), No scrotal edema Skin: other (Scattered ecchymosis , noted on right face as well) Neuro/Psych: alert, confused (but recongized me, and son) - Time Spent With Patient Time Spent with Patient: greater than 35 minutes (care discussed w and son at bedside, care coordinated with hospitalist) Time Spent with Patient: Greater than 35 minutes spent on this patients care, greater than 50% of time spent counseling, educating, and coordinating care regarding the above mentioned plan. ICD10 Worksheet Patient Problems: Problems Problem Status Onset Fracture of femoral neck, closed Acute Hypotension Acute Parkinson disease Acute Acute renal insufficiency Acute Dehydration Acute Fall Acute Multiple skin tears Acute Pacemaker malfunction Acute Paroxysmal a-fib Acute Sepsis Acute UTI (urinary tract infection) Acute
[2018-06-19] MEDS: MICAFUNGIN NA 100 MG in NS 100 ML IV SCH (11:36)
--- NOTE | 2018-06-19 14:54 | ECHO ---
[email or web address] [address] [address] Main: [phone] Fax: Transthoracic Echocardiogram Name: CHAVEZ SCHUMACHER MR#: [id number] Study Date: 06/19/2018 Study Time: 11:49 AM Date of : 1930 Age: 88 year(s) Height: 182.9 cm (72 in.) Weight: 86.18 kg (190 lb.) BSA: 2.08 m2 Gender: Male Examination: Echo Indication: h/o pacemaker endocarditis, inc murmur Image Quality: Adequate Contrast: Requested by: Maria A Chandler BP: 105 mmHg/54 mmHg Heart Rate: Rhythm: Indication: h/o pacemaker endocarditis, inc murmur Procedure Staff Gas Meter Installer: Trini Evans [facility] Reading Physician: Serg English MD Requesting Provider: Conclusions: Normal size left ventricle. Mild to moderate LVH. EF is 53 %. No regional wall motion abnormality. Mildly dilated right ventricle. There is a pacemaker lead noted in the right ventricle. No vegetation noted on RV pacemaker wire, this does not excude endocarditis. There is mild thickening of the mitral valve leaflets. Mild mitral valve regurgitation is present. Aortic sclerosis is present. Mild aortic valve regurgitation is present. Severe tricuspid regurgitation is present. Right ventricular systolic pressure measures 70mmHg. Small pericardial effusion. No echocardiographic evidence of hemodynamic compromise. Compared to 06/10/2018, the degree of TR and the PA systolic pressure have increased. There is no evidence of the large vegetation(s) associated with the tricuspid valve and pacemaker lead in April. Measurements: Chambers Valvular Assessment AV/MV Valvular Assessment TV/PV Normal Normal Normal Name Value Range Name Value Range Name Value Range Ao Julia (MM): 3.6 cm (2.2 cm-3.7 AV Vmax: 1.24 m/s (1 m/s-1.7 TR Vmax: 3.71 mm/s ( - ) cm) m/s) TR PGmax: 55 mmHg ( - ) IVSd (2D): 1.4 cm (0.6 cm-1.1 AV maxP mmHg ( - ) syst. PAP: 70 mmHg ( - ) cm) LVOT Vmax: 0.87 m/s (0.7 m/s-1.1 PV Vmax: 0.73 m/s (0.6 m/s-0.9 LVDd (2D): 5.0 cm (4.2 cm-5.9 m/s) m/s) cm) KAMERON (Vmax): 2.4 cm2 ( - ) PV PGmax: 2 mmHg ( - ) MV E Vmax: 0.83 m/s ( - ) Patient: CHAVEZ SCHUMACHER Study Date: 06/19/2018 Page 1 of 2 11:49 AM LVDs (2D): 3.2 cm (2.1 cm-4 MV A Vmax: 0.19 m/s ( - ) cm) MV E/A: 4.37 ( - ) LVPWd (2D): 1.2 cm (0.6 cm-1 cm) LVOTd 2.1 cm 2.1 cm mm LVEF (MOD4): 53 % (>=55 %) Continued Measurements: Chambers Valvular Assessment TV/PV Name Value Name Value LADs: 3.4 cm CVP (est.): 15 mmHg Additional Vessels Name Value Ao Ascendin.3 cm Findings: Left Ventricle: Normal size left ventricle. Mild to moderate LVH. Low normal left ventricular systolic function. EF is 53 %. No regional wall motion abnormality. Unable to assess diastolic dysfunction. Right Ventricle: Mildly dilated right ventricle. Normal RV function. There is a pacemaker lead noted in the right ventricle. No vegetation noted on RV pacemaker wire, this does not excude endocarditis. Left Atrium: The left atrium is mildly dilated. Right Atrium: The right atrium is mildly dilated. 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 Pacemaker lead in RA not well visualized. Mitral Valve: There is mild thickening of the mitral valve leaflets. Mild mitral valve regurgitation is present. No mitral stenosis is present. There is no mitral valve vegetation. Aortic Valve: The aortic valve is tri-leaflet and functions normally. Aortic sclerosis is present. Mild aortic valve regurgitation is present. No aortic valve stenosis is present. There is no aortic valve vegetation. Tricuspid Valve: The tricuspid valve is normal in appearance and function. Severe tricuspid regurgitation is present. Right ventricular systolic pressure measures 70mmHg. The pulmonary artery pressure is severely increased. No tricuspid valve vegetation. Pulmonic Valve: The pulmonic valve is normal in appearance. Trivial pulmonic valve regurgitation. There is no pulmonary valve vegetation. Aorta: Normal size aortic root measuring 3.6 cm. Normal size ascending aorta measuring 3.3 cm. IVC: The IVC is dilated. There is less than 50% respiratory excursion. Pericardium: Small pericardial effusion. No echocardiographic evidence of hemodynamic compromise. (No Signature Object) Patient: CHAVEZ SCHUMACHER Study Date: 06/19/2018 Page 2 of 2 11:49 AM [id number]
--- NOTE | 2018-06-19 16:07 | ASMTCMCOM ---
CM Note CM Note Notes: CM spoke with pts daughter, Hilton per RN request. Pt requested information on hiring sitter and pt provided education that MD and Nursing staff is doing everything possible to maintain safety/ fall prevention and if any other questions should arise to ask nursing staff. Hilton also said family is trying to decide if they want to send pt back to [place] or send to facility in [facility]. CM to continue to follow. Pts is MDPOA. Plan at this time: [place] care with [facility] (vs going to [place]) Date Signed: 06/19/2018 04:06 PM Electronically Signed By:JASMIN Yates
[2018-06-19] MEDS: ESCITALOPRAM OXALATE 10 MG TAB PO SCH (16:47)
[2018-06-19] MEDS ORDERED: RIVAROXABAN 20 MG TAB PO SCH (17:00)
[2018-06-19] MEDS: DONEPEZIL HCL 5 MG TAB PO SCH (21:21)
[2018-06-20] MEDS ORDERED: DILTIAZEM CD 120 MG CAP PO SCH (07:30)
[2018-06-20] MEDS: ACETAMINOPHEN 500 MG TAB PO SCH ×3 (10:01→22:05)
[2018-06-20] MEDS: DILTIAZEM CD 120 MG CAP PO SCH (10:02)
[2018-06-20] MEDS: CARBIDOPA/LEVODOPA 25 MG/100 MG TAB PO SCH ×4 (10:02→22:05)
--- NOTE | 2018-06-20 10:53 | HOSPPROG ---
Hospitalist Progress Note Assessment/Plan: #Hypotension: resolved. Multifactorial with dehydration, possible UTI #Hematuria: clotting overnight. Hold Xarelto. Consulted Dr. Bernabe with Urology #Right femoral neck fracture: evaluated by Dr. Mane. Given comorbidities, wheel- chair bound, family opted for nonsurgical treatment. WBAT #Acute metabolic encephalopathy: improved today. UTI? CTH with no acute process #Pyuria vx. CAUTI: h/o toth trauma. Culture with yeast. Add Micafungin. Discussed with Dr. Chandler #Atrial fibrillation: restart dilt when BP stable. Xarelto #BPH: home meds #h/o MSSA bacteremia/TB/pacemaker endocarditis: completed IV abx, now on Doxycycline. Followed by Dr. Chandler. -echo today shows progressive TR, no vegetation #Chronic indwelling toth: followed by Dr. Arana. Will need to replaced prior to DC #Parkinson's: Dr. Driver evaluated. Not clear if truly Parkinson's since not well- responsive to Sinemet. Cont current dosage #Agitation: low-dose Zyprexa #DVT ppx: Xarelto #Goal: discussed with family, now DNR. -need to meet with Ak[place]oon and family on Thursday for goals of care and next steps. -DNR, MOST in chart. MDPPITO. Family may take him back to [place] #Disp: inpatient admission for IV abx, culture pending. Subjective: more lucid per son this morning Objective: Vital Signs Temp Pulse Resp BP Pulse Ox 36.4 C 83 16 134/93 H 90 L 06/20/18 08:00 06/20/18 10:02 06/20/18 08:00 06/20/18 10:02 06/20/18 08:00 Laboratory Results 06/20/18 03:36 06/20/18 03:36 06/19/18 06/20/18 06/21/18 05:59 05:59 05:59 Intake Total 2809 520 Output Total 809 7400 Balance 1328 -004 - Time Spent With Patient Time Spent with Patient: greater than 35 minutes Time Spent with Patient: Greater than 35 minutes spent on this patients care, greater than 50% of time spent counseling, educating, and coordinating care regarding the above mentioned plan. - Physical Exam Constitutional: chronically ill appearing Eyes: PERRL Ears, Nose, Mouth, Throat: moist mucous membranes Cardiovascular: regular rate and rhythym, systolic murmur Respiratory: reduced air movement Genitourinary: toth in urethra (with gross hematuria) Musculoskeletal: full muscle strength Neurologic: other (alert to [facility]) Psychiatric: encephalopathic (still confused, but improved) ICD10 Worksheet Patient Problems: Problems Problem Status Onset Fracture of femoral neck, closed Acute Hypotension Acute Parkinson disease Acute Acute renal insufficiency Acute Dehydration Acute Fall Acute Multiple skin tears Acute Pacemaker malfunction Acute Paroxysmal a-fib Acute Sepsis Acute UTI (urinary tract infection) Acute
[2018-06-20] MEDS: MICAFUNGIN NA 100 MG in NS 100 ML IV SCH (11:08)
--- NOTE | 2018-06-20 12:20 | PCMIDPN ---
Assessment/Plan: Assessment/Plan: * Delirium/fall with resultant hip fracture: Unclear if infectious precipitant present to explain delirium. Mild leukocytosis has now normalized. Urine showing growth of yeast and now with hematuria after possible Chao trauma related to pulling on catheter. Blood cultures are no growth. Will continue both ceftriaxone and micafungin with plans to discontinue ceftriaxone with resumption of suppressive doxycycline tomorrow if blood cultures remain negative. Ideally would use fluconazole in this circumstance but has potential for QT prolongation with Lexapro. * History of MSSA pacemaker endocarditis status post antibiotic therapy: Currently covered by ceftriaxone. Will resume suppressive doxycycline once ceftriaxone discontinued. * History of candidemia: [place] to be secondary to urinary source. See above discussion. 06/20/18 12:16 06/20/18 12:21 Subjective: Clinical findings and history reviewed. Readmitted with right hip fracture after fall. Noted to have confusion. Chronic indwelling Chao in place now with gross hematuria. Note by Dr. Chandler yesterday has been reviewed. Objective: Vital Signs Temp Pulse Resp BP Pulse Ox 36.4 C 83 16 134/93 H 90 L 06/20/18 08:00 06/20/18 10:02 06/20/18 08:00 06/20/18 10:02 06/20/18 08:00 Laboratory Results 06/20/18 03:36 06/20/18 03:36 06/19/18 06/20/18 06/21/18 05:59 05:59 05:59 Intake Total 2809 520 Output Total 275 1440 Balance 2534 -920 Ceftriaxone # 3 Micafungin # 2 Blood cultures x2 no growth Urine culture greater than 100,000 yeast - Physical Exam General Appearance: other (Somnolent but arousable) EENT: dry mucous membranes, No scleral icterus, No thrush Respiratory: lungs clear, other (No tenderness or erythema over pacemaker), No respiratory distress Cardiac/Chest: regular rate, rhythm Extremities: pedal edema Abdomen: non-tender, No distended Skin: No embolic lesions Neuro/Psych: confused (Able to state he is at [facility]; unable to state the year) ICD10 Worksheet Patient Problems: Problems Problem Status Onset Paroxysmal a-fib Acute Multiple skin tears Acute Fall Acute Parkinson disease Acute UTI (urinary tract infection) Acute Dehydration Acute Pacemaker malfunction Acute Acute renal insufficiency Acute Sepsis Acute Fracture of femoral neck, closed Acute Hypotension Acute
[2018-06-20] MEDS ORDERED: NS 500 ML IV ONE (14:12)
--- NOTE | 2018-06-20 14:22 | SOAPPROG ---
SOAP Progress Note Assessment/Plan: Called bedside for less responsiveness per son PE: BP 105/70, HR 80s Gen: eyes open to sternal rub HEENT: pupils, small reactive CV: irreg, irregular : toth in with hematuria Musk: full strength hand-show host or hostess, follows commands: opens eyes, wiggles feet Neuro: encephalopathic 06/20/18 14:22 #Somnolence: no sedative drugs this morning. No acute focal neuro deficits -glucose >100. BP down slightly -Bolus small IVF, stat H/H, EKG Additional direct care time spent: 30 min bedside evaluating pt, explaining further eval with son (14:15-14:45) 06/21/18 16:25 Objective: Vital Signs Temp Pulse Resp BP Pulse Ox 36.4 C 69 14 134/83 H 95 06/20/18 12:00 06/20/18 12:00 06/20/18 12:00 06/20/18 12:00 06/20/18 12:00 Laboratory Results 06/20/18 03:36 06/20/18 03:36 06/19/18 06/20/18 06/21/18 05:59 05:59 05:59 Intake Total 2809 520 Output Total 275 1440 Balance 2534 -920 ICD10 Worksheet Patient Problems: Problems Problem Status Onset Fracture of femoral neck, closed Acute Hypotension Acute Parkinson disease Acute Acute renal insufficiency Acute Dehydration Acute Fall Acute Multiple skin tears Acute Pacemaker malfunction Acute Paroxysmal a-fib Acute Sepsis Acute UTI (urinary tract infection) Acute
--- NOTE | 2018-06-20 16:11 | POSTOPPROG ---
Post Op Note Date of Operation: 06/20/18 Surgeon: Gene Bernabe Anesthesia: Local (Specify) (viscous lidocaine) Pre-op Diagnosis: clot retention Post-op Diagnosis: same Procedure: complicated catheter Findings: [id number] Inf/Abcess present in the surg proc area at time of surgery?: No
--- NOTE | 2018-06-20 16:30 | GOP ---
DATE OF OPERATION: 06/20/2018 SURGEON: Lonnie Bernabe MD ANESTHESIA: Local. PREOPERATIVE DIAGNOSIS: Clot retention. POSTOPERATIVE DIAGNOSIS: Clot retention. PROCEDURE PERFORMED: Complicated catheter insertion. FINDINGS: ESTIMATED BLOOD LOSS: Minimal. DESCRIPTION OF PROCEDURE: With the patient at the bedside, his small catheter, 2-way was removed. 2 0 cc of viscous lidocaine were placed in the patient's penis, allowed to dwell. An 18-Libyan 3 Chao catheter was then inserted in the lubricated penis, carefully guided into the patient's bladder. 30 cc were placed in the balloon. The bladder was placed on continuous irrigation and the urine prompt ly cleared to pale yellow. COMPLICATIONS: None. DRAINS: An 18-Libyan 3 Chao catheter. /[id number]/MODL
[2018-06-20] MEDS ORDERED: LIDOCAINE 2% JELLY 20 ML (UROJECT) UR ONE (17:15)
[2018-06-20] MEDS: ESCITALOPRAM OXALATE 10 MG TAB PO SCH (17:19)
--- NOTE | 2018-06-20 17:41 | GCON ---
CONSULTATION DATE OF CONSULTATION: 06/20/2018 REASON FOR CONSULTATION: Clot retention. HISTORY OF PRESENT ILLNESS: This is an 88-year-old male with history of catheter trauma, cystoscopy, clot evacuation and complicated catheter insertion who was admitted after a fall from Parkinson dise ase. The patient has multiple comorbidities. He also has a history of candiduria. The procedure wi Dr. Arana was on June 08. Because of complicated catheter insertion and gross hematuria, uro logy was consulted. PAST MEDICAL HISTORY: Tricuspid valve, pacemaker lead, endocarditis, atrial fibrillation, BPH, brain mass, hypertension, Parkinson disease. PAST SURGICAL HISTORY: As above. Also, resection of right temporal subcortical mass, pacemaker, 3 b ack surgeries. FAMILY HISTORY: Noncontributory. SOCIAL HISTORY: He is discharged to [facility] a week ago. Lives with his in [place]. MEDICATIONS: Norvasc, Xarelto, Lidoderm patch, herbal supplement, Proscar, Lexapro, Aricept, diltiaz em, Voltaren, carbidopa. ALLERGIES: None. PHYSICAL EXAM: VITAL SIGNS: Temp 36.9, blood pressure 98/59, heart rate 70s. RESPIRATORY: 91% on 4 L. GENERAL: He is very lethargic, minimally responsive. HEENT: His extraocular movements are in tact. NECK: Supple. LUNGS: Respiratory effort is minimally labored. ABDOMEN: Soft, nontender, n ondistended. He has a normal male penis with indwelling catheter. Normal scrotum. EXTREMITIES: No ntender. The blood in the urine drainage bag shows gross blood. ASSESSMENT: Clot retention. PLAN: Cystoscopy, three-way Chao catheter insertion and bladder irrigation. /[id number]/MODL
[2018-06-20] MEDS: DONEPEZIL HCL 5 MG TAB PO SCH (22:05)
[2018-06-21] MEDS: DILTIAZEM CD 120 MG CAP PO SCH (08:44)
[2018-06-21] MEDS: CARBIDOPA/LEVODOPA 25 MG/100 MG TAB PO SCH ×4 (08:44→20:50)
[2018-06-21] MEDS: ACETAMINOPHEN 500 MG TAB PO SCH ×2 (08:45→20:04)
[2018-06-21] MEDS: MICAFUNGIN NA 100 MG in NS 100 ML IV SCH (10:10)
--- NOTE | 2018-06-21 11:30 | PCMIDPN ---
Assessment/Plan: Assessment: Confusion leading to fall and fractured hip. Question of whether the patient had a urinary tract infection. Yeast growing in his urine culture. Patient is on micafungin for this. He was on empiric ceftriaxone for coverage of possible bacteremia. His initial blood cultures do not show any sign of this. We will discontinue the ceftriaxone today. 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 Plan: 1. Discontinue IV ceftriaxone. 2. Continue IV micafungin. Probable total of 7 days. 06/21/18 11:27 Subjective: Patient is awake and alert in his bed. He is in good spirits and very conversational. Denies any fevers or chills. Objective: Ceftriaxone # 4 Micafungin # 3 Doxycycline Vital Signs Temp Pulse Resp BP Pulse Ox 35.9 C L 55 L 14 119/68 99 06/21/18 07:31 06/21/18 07:31 06/21/18 07:31 06/21/18 07:31 06/21/18 07:31 Laboratory Results 06/20/18 14:15 06/20/18 03:36 06/20/18 06/21/18 06/22/18 05:59 05:59 05:59 Intake Total 520 500 Output Total 1440 2350 3050 Balance -920 -1850 -3050 - Physical Exam General Appearance: WD/WN, alert, no apparent distress, non-toxic Respiratory: lungs clear, normal breath sounds, No respiratory distress Cardiac/Chest: regular rate, rhythm, No tachycardia Skin: normal color, warm/dry, No rash Neuro/Psych: alert, normal mood/affect, oriented x 3 ICD10 Worksheet Patient Problems: Problems Problem Status Onset Fracture of femoral neck, closed Acute Hypotension Acute Parkinson disease Acute Acute renal insufficiency Acute Dehydration Acute Fall Acute Multiple skin tears Acute Pacemaker malfunction Acute Paroxysmal a-fib Acute Sepsis Acute UTI (urinary tract infection) Acute
--- NOTE | 2018-06-21 13:49 | ASMTCMCOM ---
CM Note CM Note Notes: I had a long conversation with patient's Aldo about discharge planning. She wanted information on machine long goods helper care facilities. I explained that patient would most likely transfer to a SNF and then the facility would transition him to machine long goods helper care. I suggested [facility], [facility], and [facility] d/t their proximity to patient's . I strongly encouraged Aldo to visit each place. I called [facility] and found that patient has used 41/100 rehab days, so he does have more covered SNF days remaining. I relayed this to Aldo. Then, I got a call from patient's daughter in [place], Eladia ([phone]). She was fairly adament that we have a conference call regarding patient's plan of care. She is in contact with Aldo and is allowing Aldo autonomy in making decisions for patient as MDPOA but she seems skeptical of these decisions and wants [facility] to influence them. I explained that I talked w Aldo about SNFs and short term v machine long goods helper rehab. Eladia mentioned bringing patient home to [place], but this never came up in my conversation w Aldo. I discussed the above w Dr Chang, hospitalist, who believes that d/c to a nursing facility is most appropriate. If family wants to relocate patient after that, they may. I also relayed this to Joseph quinn [facility] and [facility]. Patient's daughter requested a family meeting phone call Weds @ 12; we will work to accommodate this, but with so many moving parts, we may need to pursue other arrangements. Case Management will follow. Date Signed: 06/21/2018 01:49 PM Electronically Signed By:Catalina Abebe RN
--- NOTE | 2018-06-21 14:31 | SOAPPROG ---
SOAP Progress Note Assessment/Plan: Assessment: R hip minimally displaced fem neck fx. Multiple comorbidities. High risk surgical candidate Plan: 06/18/18 19:20 after lengthy discussion with family, non operative mgmt. with inherent risks understood WBAT transfers as tolerated movement as tolerated repeat R hip xrays in 2-3 days dispo consider die casting machine setter nursing care consider relocation back to [place] with family support 06/21/18 14:31 continue non op mgmt dispo activity as tolerated consider 2 view hip xrays in one week Subjective: patient resting and asleep in bed Objective: Vital Signs Temp Pulse Resp BP Pulse Ox 36.6 C 56 L 14 100/63 93 06/21/18 11:37 06/21/18 11:37 06/21/18 11:37 06/21/18 11:37 06/21/18 11:37 Laboratory Results 06/20/18 14:15 06/20/18 03:36 06/20/18 06/21/18 06/22/18 05:59 05:59 05:59 Intake Total 520 500 Output Total 1440 2350 3050 Balance -920 -1850 -3050 xrays reviewed no interval change in fem neck fx ICD10 Worksheet Patient Problems: Problems Problem Status Onset Fracture of femoral neck, closed Acute Hypotension Acute Parkinson disease Acute Acute renal insufficiency Acute Dehydration Acute Fall Acute Multiple skin tears Acute Pacemaker malfunction Acute Paroxysmal a-fib Acute Sepsis Acute UTI (urinary tract infection) Acute
--- NOTE | 2018-06-21 16:36 | HOSPPROG ---
Hospitalist Progress Note Assessment/Plan: * Right femoral neck fracture -non-surgical - WBAT -repeat right hip xray 1 week * Metabolic encephalopathy - probably due to UTI -slow improvement in mental status * Hematuria with clots and urinary retention -urology placed CBI last night -urine is currently clear -holding Xarelto * Yeast UTI -IV micafungin for 7 days * AFib/PCM -PO diltiazem -? restart Xarelto - clearly falling * BPH -Flomax, Proscar * Chronic toth (POA) -h/o toth trauma with bladder perf -plan per urology was toth catheter through end of Jun * Parkinson's -Sinemet * Recent MSSA endocarditis TV and PCM wire -IV antibiotics complete -chronic suppressive doxycycline * Chronic loculated pleural effusions * Chronic diastolic CHF Subjective: still confused Objective: Vital Signs Temp Pulse Resp BP Pulse Ox 37.2 C 78 13 116/69 99 06/21/18 15:39 06/21/18 15:39 06/21/18 15:39 06/21/18 15:39 06/21/18 15:39 Laboratory Results 06/20/18 14:15 06/20/18 03:36 06/20/18 06/21/18 06/22/18 05:59 05:59 05:59 Intake Total 520 500 Output Total 1440 2350 3550 Balance -920 -1850 -3550 Old chart reviewed - complicated recent course Hip xray - no change CXR viewed, my personal interpretation is - possible CHF, loculated effusions - Physical Exam Constitutional: no apparent distress, appears nourished, not in pain Cardiovascular: regular rate and rhythym, no murmur, rub, or gallop Respiratory: no respiratory distress, no rales or rhonchi, clear to auscultation Gastrointestinal: normoactive bowel sounds, soft, non-tender abdomen, no palpable masses Skin: no rashes or abrasions, no fluctuance, no induration Musculoskeletal: generalized weakness Neurologic: weakness, No AAOx3 Psychiatric: encephalopathic, poor insight, poor judgement, poor memory, No interacting appropriately ICD10 Worksheet Patient Problems: Problems Problem Status Onset Paroxysmal a-fib Acute Multiple skin tears Acute Fall Acute Parkinson disease Acute UTI (urinary tract infection) Acute Dehydration Acute Pacemaker malfunction Acute Acute renal insufficiency Acute Sepsis Acute Fracture of femoral neck, closed Acute Hypotension Acute
[2018-06-21] MEDS: ACETAMINOPHEN 500 MG TAB PO PRN (16:50)
[2018-06-21] MEDS: ESCITALOPRAM OXALATE 10 MG TAB PO SCH (17:53)
[2018-06-21] MEDS: DONEPEZIL HCL 5 MG TAB PO SCH (20:50)
[2018-06-21] MEDS: DOXYCYCLINE HYCLATE 100 MG CAP/TAB PO SCH (20:50)
[2018-06-21] MEDS ORDERED: FINASTERIDE 5 MG TAB PO SCH (21:00)
[2018-06-22] MEDS: CARBIDOPA/LEVODOPA 25 MG/100 MG TAB PO SCH ×3 (07:48→16:19)
[2018-06-22] MEDS: DILTIAZEM CD 120 MG CAP PO SCH (07:48)
[2018-06-22] MEDS: DOXYCYCLINE HYCLATE 100 MG CAP/TAB PO SCH (09:29)
[2018-06-22] MEDS: MICAFUNGIN NA 100 MG in NS 100 ML IV SCH (09:30)
--- NOTE | 2018-06-22 10:42 | PCMIDPN ---
Assessment/Plan: # Delirium and tremulousness, recent fall leading to R hip fracture: better than my exam 2 days ago, but still not to baseline. # C. parapsilosis UTI: could have precipitated confusion/fall. Toth changed. --rec'd 4 days micafungin. Plan 10 day of treatment, can start fluconazole 200mg PO x 6 more days # H/o MSSA TV/pacemaker endocarditis: severe TV dysfunction worse than a couple weeks ago --follow up ID first week of Jul --continue doxycycline 100mg PO BID indefinitely Microbiology 06/18/18 Urine,Cx: C. parapsilosis 06/18/18 Blood cx (2) NGTD Subjective: "They tell me that my R hip may not be fractured now" no other c/o Objective: Vital Signs Temp Pulse Resp BP Pulse Ox 36.6 C 66 16 143/74 H 95 06/22/18 07:54 06/22/18 07:54 06/22/18 07:54 06/22/18 07:54 06/22/18 07:54 Laboratory Results 06/20/18 14:15 06/20/18 03:36 06/21/18 06/22/18 06/23/18 05:59 05:59 05:59 Intake Total 271 937 8057 Output Total 2350 3550 Balance -1850 -3200 1999 - Physical Exam General Appearance: alert, no apparent distress, other (chr ill appearing) Respiratory: No accessory muscle use Neck: supple Cardiac/Chest: regular rate, rhythm, systolic murmur Abdomen: non-tender, soft Male Genitalia: toth, other (no hematuria) Skin: pallor Neuro/Psych: alert, normal mood/affect, other (fluctuating orientation but much improved) - Time Spent With Patient Time Spent with Patient: greater than 35 minutes Time Spent with Patient: Greater than 35 minutes spent on this patients care, greater than 50% of time spent counseling, educating, and coordinating care regarding the above mentioned plan. ICD10 Worksheet Patient Problems: Problems Problem Status Onset Fracture of femoral neck, closed Acute Hypotension Acute Parkinson disease Acute Acute renal insufficiency Acute Dehydration Acute Fall Acute Multiple skin tears Acute Pacemaker malfunction Acute Paroxysmal a-fib Acute Sepsis Acute UTI (urinary tract infection) Acute
[2018-06-22 12:00] VITALS: BP 119/76
[2018-06-22] MEDS: ACETAMINOPHEN 500 MG TAB PO PRN (12:37)
--- NOTE | 2018-06-22 13:37 | PDIAF ---
- Diagnosis Diagnosis: Hematuria, hip fracture, fungal UTI Code Status: Do Not Resuscitate - Medication Management [facility] Antibiotics: PO diflucan stop date Mcfp Antibiotic Stop Date: 06/29/18 Discharge Medications: electronically signed and located in the Home Medication List. - Orders Services needed: Physical Therapy, Occupational Therapy, Speech Language Pathologist Isolation Type: None Diet Texture: Dysphagia 3 - Advanced - Moist, Bite-Size, Thin Liquids Toth: Yes (Remove toth tomorrow at 8:00 - replace only if unable to void) Activity/Weight Bearing Restrictions: WBAT Additional Instructions: Hold Xarelto for 2 days, then okay to resume if he remains without hematuria Repeat Hip Xray 1 week - Follow Up Care Current Providers and Referrals: Patient,NotPresent [Unknown] - As per Instructions Erum Mane MD [Medical Doctor] - () Andrea Arana MD [Medical Doctor] - 07/14/18 9:00 am (appoinment scheduled)
[2018-06-22] MEDS: ESCITALOPRAM OXALATE 10 MG TAB PO SCH (16:19)
--- NOTE | 2018-06-22 17:25 | GDS ---
DISCHARGE DIAGNOSES: 1. Right femoral neck fracture nonsurgical. 2. Metabolic encephalopathy due to urinary tract infection. 3. Hematuria with clots and urinary retention status post continuous bladder irrigation. 4. Poly parapsilosis urinary tract infection. 5. Atrial fibrillation with pacemaker. 6. BPH. 7. Recent bladder and Chao trauma with ongoing need for Chao catheterization. 8. Parkinson's. 9. 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 Now on chronic suppressive antibiotics. 10. Chronic loculated pleural effusions. 11. Chronic diastolic congestive heart failure. HISTORY: The patient is an 88-year-old male, who fell sustaining a right femoral neck fracture. It is nonsurgical and Orthopedic surgery is clearing him to be weightbearing as tolerated. They are rec ommending a repeat hip x-ray in 1 week. He is [facility] to [facility] for [facility]ita tion. He was also significantly confused during this hospitalization and felt to have metabolic encephalopa thy due to urinary tract infection. He is recently on a Chao catheter which was present on admissio n for history of Chao trauma and bladder perforation. He is followed by Dr. Arana of Urology. Uri ne culture grew Poly parapsilosis. He developed hematuria due to repeated Chao trauma. Urology h ad to come in during this hospitalization for difficult re catheterization and they initiated CBI for his hematuria and his urine rapidly cleared. We held his Xarelto. Dr. Arana is now saying Chao ca theter can be removed tomorrow morning at the [facility] facility with voiding trial to be done there. Followup appointment is scheduled. Xarelto can be resumed in a couple of days once we know th e hematuria is resolved. The patient recently went through a course of IV antibiotics for MSSA endocarditis of tricuspid valve and of his pacemaker wire. Given his debilitated state he did not undergo surgery and so he has not received definitive treatment for his endocarditis and will require chronic suppressive antibiotics i gilberto. Unfortunately his echocardiogram is showing worsening valve disease now with severe tri cuspid regurgitation and right ventricular systolic pressure of 70 mmHg. Palliative Care is followin g him. The family is hopeful to bring him back to [place] where he has increased family support. H owever the patient as of yet has not desired transfer to [place] and continues to want to stay wit h his current here in [place]. DISCHARGE MEDICATIONS: Please see computer record for full detailed list. New medications: Diflucan to be continued through June 29, 2018. ADDITIONAL DISCHARGE INSTRUCTIONS: 1. Transfer to [facility] for PT, OT, speech therapy. Dysphagia 3 advanced diet. 2. [facility] Palliative Care following. 3. Remove Chao catheter tomorrow morning 8 a.m. and replace only if unable to void. 4. Weightbearing as tolerated for hip fracture. 5. Hold Xarelto for 2 days and okay to resume if he remains without hematuria. 6. Repeat hip x-ray 1 week and follow up with Dr. Mane of orthopedic surgery. Greater than 30 minutes' time was spent arranging this discharge. Patient seen and examined by me on day of discharge. /[id number]/MODL
--- NOTE | 2018-06-22 21:26 | ASDISCHSUM ---
Discharge Information Plan Status:SNF Medically Cleared to Leave:06/21/2018 Discharge Date:06/21/2018 CM D/C Disposition:Halfway Facility ADT D/C Disposition:Halfway Facility Projected Discharge Date:06/22/2018 11:00 AM Transportation at D/C:Wheelchair Van Discharge Delay Reason: Follow-Up Date:06/22/2018 11:00 AM Discharge Slot: Final Diagnosis: Placement Information Referral Type:*Home Health Care Services Referral ID:[id number] Provider Name: Address 1: Phone Number: Address 2: Fax Number: City: Selection Factors: State: Referral Type:Palliative Care Referral ID:[id number] Provider Name:[facility] Address 1:[address] Phone Number: Address 2: Fax Number: [facility]:[place] Selection Factors: State:[place] Referral Type:*[place]/SNF Referral ID:[id number] Provider Name:[facility] Address 1:[address] Address 2: City:[place] Selection Factors: State:[place] Patient Contact Information Contact Name:HERMILA Relationship: Address:[address] Work Phone: City:[place] Alternate Phone: [facility]/Zip Code:[place] [address] Email: Financial Information Financial Class:Medicare Advantage Plans Primary Plan Desc:VISUAL [employer] PPO Primary Plan Number:[id number] Secondary Plan Desc: Secondary Plan Number: Assessment Information [facility] Progress Note CM Note CM Note Notes: CM spoke to Dr. Kevin regarding d/c POC. Pt is a 88 y/o man admitted for fall, right femur fracture and hypotension. Pt has a complicated medical hx, please see H&P. Pt recently d/c from [facility] on 06/11. Neurology has been consulted. Therapies have been ordered and awaiting recommendations. Pt is current w/ HC. CM to follow. Plan: TBD Date Signed: 06/18/2018 02:02 PM Electronically Signed By:JASMIN Alarcon [facility] Progress Note CM Note CM Note Notes: Ami from [facility] stopped by and visited w/ pt. Pt is current [facility] palliative services. Pt signed a DNR status. Dr. Kevin will sign. Updates sent to [facility]. Date Signed: 06/18/2018 03:06 PM Electronically Signed By:JASMIN Alarcon [facility] CM Progress Note CM Note CM Note Notes: CM spoke with pts daughterHilton per RN request. Pt requested information on hiring sitter and pt provided education that MD and Nursing staff is doing everything possible to maintain safety/ fall prevention and if any other questions should arise to ask nursing staff. Hilton also said family is trying to decide if they want to send pt back to [place] or send to facility in [facility]. CM to continue to follow. Pts is MDPOA. Plan at this time: [facility] with Berta Charly. (vs going to [place]) Date Signed: 06/19/2018 04:06 PM Electronically Signed By:JASMIN Yates LACE LACE Length of stay for Answers: 4-6 days current admission Acuity / Level of Answers: Yes Care: Did the patient have an inpatient admission? Comorbidities - select Answers: Congestive heart failure all that apply Dementia Opioid dependence / Chronic pain Other Notes: AFib; Endocarditis # of Emergency department Answers: 5-8 visits in the last 6 months Score: 21 Date Signed: 06/22/2018 01:48 PM Electronically Signed By:Jeannine Mcnulty RN [facility] [place] Progress Note CM Note CM Note Notes: I had a long conversation with patient's Aldo about discharge planning. She wanted information on [facility] care facilities. I explained that patient would most likely transfer to a SNF and then the facility would transition him to computer clerk care. I suggested [facility], [facility], and [facility] d/t their proximity to patient's . I strongly encouraged Aldo to visit each place. I called [facility] and found that patient has used 41/100 rehab days, so he does have more covered SNF days remaining. I relayed this to Aldo. Then, I got a call from patient's daughter in [place], Eladia ([phone]). She was fairly adament that we have a conference call regarding patient's plan of care. She is in contact with Aldo and is allowing Aldo autonomy in making decisions for [facility] but she seems skeptical of these decisions and wants [facility] to influence them. I explained that I talked w Aldo about SNFs and short term v computer clerk rehab. Eladia mentioned bringing patient home to [place], but this never came up in my conversation w Aldo. I discussed the above w Dr Chang, hospitalist, who believes that d/c to a nursing facility is most appropriate. If family wants to relocate patient after that, they may. I also relayed this to Joseph quinn [facility] Palliative and [facility]. Patient's daughter requested a family meeting phone call Weds @ 12; we will work to accommodate this, but with so many moving parts, we may need to pursue other arrangements. Case Management will follow. Date Signed: 06/21/2018 01:49 PM Electronically Signed By:Catalina Abebe RN Case Management Discharge Plan Note Case Management Discharge Discharge Order Complete? Answers: Yes Patient to Obtain Answers: Other Notes: [facility] Medications Transportation Arranged Answers: Other Notes: [facility] w/c transport arranged by [facility] Faxed Final Orders Answers: Yes Notes: to [facility] Agency/Facility Transfer Answers: Yes Notes: to [facility] Report Printed & Faxed to Receiving Agency Family Notified Answers: Yes Notes: aldo notified Discharge Comments Notes: 06/22/2018 Case Management Note [facility] arranged transport with [facility] (w/c with O2) 1630 diamond picker. Faxed discharge orders via all scripts. RN to call report. Aldo notified. notified daughter of d/c plan. Notified Berta Gaviria. Case Management d/c poc: [facility] rehab. Date Signed: 06/22/2018 01:53 PM Electronically Signed By:Jeannine Mcnulty RN Intervention Information Intervention Type:*IM-Signed Date of Service:06/22/2018 02:56 PM Patient Type:Inpatient Staff Member:Juju Wu Hours: Discipline: Severity: Comment:
--- NOTE | 2018-06-22 21:32 | ASMTLACE ---
LACE Length of stay for Answers: 4-6 days current admission Acuity / Level of Answers: Yes Care: Did the patient have an inpatient admission? Comorbidities - select Answers: Congestive heart failure all that apply Dementia Opioid dependence / Chronic pain Other Notes: AFib; Endocarditis # of Emergency department Answers: 5-8 visits in the last 6 months Score: 21 Date Signed: 06/22/2018 01:48 PM Electronically Signed By:Jeannine Mcnulty RN
--- NOTE | 2018-06-22 21:32 | ASMTDCNOTE ---
Case Management Discharge Discharge Order Complete? Answers: Yes Patient to Obtain Answers: Other Notes: [facility] Medications Transportation Arranged Answers: Other Notes: [facility] w/c transport arranged by [facility] Faxed Final Orders Answers: Yes Notes: to [facility] Agency/Facility Transfer Answers: Yes Notes: to [facility] Report Printed & Faxed to Receiving Agency Family Notified Answers: Yes Notes: staci notified Discharge Comments Notes: 06/22/2018 Case Management Note [facility] arranged transport with [facility] (w/c with O2) 1630 chart picker. Faxed discharge orders via all scripts. RN to call report. Staci notified. notified daughter of d/c plan. Notified [facility]. Case Management d/c poc: [facility] rehab. Date Signed: 06/22/2018 01:53 PM Electronically Signed By:Jeannine Mcnulty RN
[2018-06-23] MEDS ORDERED: FLUCONAZOLE 100 MG TAB PO SCH (09:00)
== END 2018-06-22 17:52 | DRG 535 ==
LOC: EDBD → EDUNIT# → EDSEX → F2W 12:36
PROVIDERS: ADMIT Internal Medicine; ATTEND Internal Medicine
PROC: 0T9B70Z Drainage of Bladder with Drainage Device, Via Natural or Artificial Opening (ICD-10-PCS; principal; 2018-06-20)
DX: S72.001A Fracture of unspecified part of neck of right femur, initial encounter for closed fracture (principal); G93.41 Metabolic encephalopathy; N39.0 Urinary tract infection, site not specified; J90 Pleural effusion, not elsewhere classified; I50.32 Chronic diastolic (congestive) heart failure; W19.XXXA Unspecified fall, initial encounter; E86.9 Volume depletion, unspecified; R33.9 Retention of urine, unspecified; R31.9 Hematuria, unspecified; B37.9 Candidiasis, unspecified; I48.91 Unspecified atrial fibrillation; N40.1 Benign prostatic hyperplasia with lower urinary tract symptoms; G20 Parkinson's disease; I07.1 Rheumatic tricuspid insufficiency; Z79.2 Long term (current) use of antibiotics; Z95.0 Presence of cardiac pacemaker; Z79.01 Long term (current) use of anticoagulants
CPT/HCPCS: 92610-GN; 96374; 97110-GP; 97116-GP; 97163-GP; 97167-GO; 97530-GP; 97535-GO; C1769; C2627; G8978-GP-CM; G8979-GP-CK; G8987-GO-CM; G8988-GO-CL; G8996-GN-CI; G8997-GN-CI; J0696; J2248; J3010

== ENCOUNTER 2018-06-29 16:39 | Inpatient (IN) | payer OTHER ==
--- NOTE | 2018-06-29 16:48 | EDPHY ---
H & P Time Seen by Provider: 06/29/18 16:47 HPI/ROS: CHIEF COMPLAINT: Right hip pain HISTORY OF PRESENT ILLNESS: Arrives by EMS, history from them as he fell 2 weeks ago was treated non operatively for right hip fracture. Discharged on June 22 from our hospital. Increasing pain over the last 2 days, can't walk, brought in by EMS. Radiates to the back of his hip and his pelvis. Worse with movement. Mild at rest and severe with any movement. REVIEW OF SYSTEMS: Eye: no change in vision ENT: no sore throat Cardiac: no chest pain or syncope Pulmonary: no cough or SOB Abdomen: no vomiting, diarrhea, abdominal pain Musculoskeletal: HPI Skin: no rash Neuro: no headache Constitutional: no fever : no urinary symptoms A comprehensive 10 point review of systems is otherwise negative aside from elements mentioned in the history of present illness. PAST MEDICAL HISTORY: Includes atrial fibrillation on Xarelto, pacemaker, Parkinson's, right hip fracture, hypertension, prostatic hypertrophy. Diastolic CHF. Social history: Current [facility] resident General Appearance: Alert and conversant, cooperative. Eyes: No scleral icterus. ENT, Mouth: Normal mucous membranes. Respiratory: Normal respiratory effort, breath sounds equal, lungs are clear to auscultation. Cardiovascular: Regular rate and rhythm. Gastrointestinal: Abdomen is soft and non tender. Neurological: Alert, face symmetric, normal motor and sensory in extremities. Skin: Warm and dry, no rashes. Patient has a Mepilex dressing over a chronic wound on his right flank. Musculoskeletal: Right hip pain with any rotation or axial loading. No other extremity pain or deformity. Psychiatric: Not agitated. Emergency Department course/MDM: Repeat x-ray shows displaced right femoral neck fracture, admit hospitalist Dr. Garza discussed at 1714. Hematocrit noted is low at 30, which is chronic for him. Orthopedic consultation. 1720: Results discussed with patient and . 1731: Discussed Faiza BIRD for Alhaji/[place]. 1738: discussed with Dr. Mao, will consult, NPO after MN. Smoking Status: Never smoked Constitutional: Initial Vital Signs Temperature (C) 36.6 C 06/29/18 16:46 Heart Rate 76 06/29/18 16:46 Respiratory Rate 18 06/29/18 16:46 Blood Pressure 138/79 H 06/29/18 16:46 O2 Sat (%) 96 12/18/18 16:46 O2 Delivery Mode Nasal Cannula O2 (L/minute) 2 Allergies/Adverse Reactions: No Known Allergies Allergy (Verified 04/20/18 16:03) Home Medications: Medication Instructions Recorded Diltiazem Cd [Cardizem ER 120 MG 120 mg PO DAILY@0730 03/20/18 (*)] Carbidopa/Levodopa 25/100Mg 1 tab PO QID@0730,12,17,21 03/22/18 [Sinemet 25/100 MG (*)] Escitalopram Oxalate [Lexapro] 20 mg PO DAILY 04/20/18 Finasteride [Proscar 5 MG (*)] 5 mg PO HS 04/20/18 Doxycycline Hyclate [Vibramycin 100 mg PO BID 06/18/18 100 MG (*)] Rivaroxaban [Xarelto] 20 mg PO DAILY 06/18/18 Acetaminophen [Tylenol ES 500 mg 1,000 mg PO Q8H PRN 06/29/18 (*)] Donepezil HCl [Aricept] 10 mg PO HS 06/29/18 traMADol [Ultram 50 mg (*)] 25 - 50 mg PO Q4H PRN 06/29/18 Medical Decision Making - Diagnostics Imaging Results: Imaging Impressions Hip X-Ray 06/29/18 16:46 Impression: Comminuted, mildly displaced fracture of the right femoral neck. Imaging: I viewed and interpreted images myself Differential Diagnosis: Differential considered for right hand pain including but not limited to hematoma, femoral neck fracture, pelvic fracture, hip joint dislocation or contusion. - Data Points Laboratory Results: Laboratory Results 06/29/18 16:56 06/29/18 16:56 06/29/18 06/29/18 16:56 16:56 WBC 8.34 10^3/uL 10^3/uL (3.80-9.50) RBC 3.11 10^6/uL L 10^6/uL (4.40-6.38) Hgb 10.0 g/dL L g/dL (13.7-17.5) Hct 30.5 % L % (40.0-51.0) MCV 98.1 fL fL (81.5-99.8) MCH 32.2 pg pg (27.9-34.1) MCHC 32.8 g/dL g/dL (32.4-36.7) RDW 15.7 % H % (11.5-15.2) Plt Count 245 10^3/uL 10^3/uL (150-400) MPV 9.1 fL fL (8.7-11.7) Neut % (Auto) 83.1 % H % (39.3-74.2) Lymph % (Auto) 7.7 % L % (15.0-45.0) Martin % (Auto) 6.0 % % (4.5-13.0) Eos % (Auto) 1.4 % % (0.6-7.6) Baso % (Auto) 0.5 % % (0.3-1.7) Nucleat RBC Rel Count 0.0 % % (0.0-0.2) Absolute Neuts (auto) 6.93 10^3/uL H 10^3/uL (1.70-6.50) Absolute Lymphs (auto) 0.64 10^3/uL L 10^3/uL (1.00-3.00) Absolute Monos (auto) 0.50 10^3/uL 10^3/uL (0.30-0.80) Absolute Eos (auto) 0.12 10^3/uL 10^3/uL (0.03-0.40) Absolute Basos (auto) 0.04 10^3/uL 10^3/uL (0.02-0.10) Absolute Nucleated RBC 0.00 10^3/uL 10^3/uL (0-0.01) Immature Gran % 1.3 % H % (0.0-1.1) Immature Gran # 0.11 10^3/uL H 10^3/uL (0.00-0.10) Sodium 138 mEq/L mEq/L (135-145) Potassium 3.2 mEq/L L mEq/L (3.5-5.2) Chloride 106 mEq/L mEq/L (97-110) Carbon Dioxide 27 mEq/l mEq/l (22-31) Anion Gap 5 mEq/L L mEq/L (6-14) BUN 11 mg/dL mg/dL (7-23) Creatinine 0.8 mg/dL mg/dL (0.7-1.3) Estimated GFR > 60 Glucose 102 mg/dL H mg/dL (70-100) Calcium 8.8 mg/dL mg/dL (8.5-10.4) Departure - Departure Disposition: [facility] Inpatient Acute Clinical Impression: Displaced fracture of right femoral neck Condition: Good
[2018-06-29 17:03] LABS: PLATELET COUNT 245 10^3/uL (150-400)
[2018-06-29] MEDS ORDERED: ONDANSETRON 4 MG/2 ML VIAL IVP PRN (18:21)
[2018-06-29] MEDS ORDERED: ONDANSETRON DISINTEGRATING 4 MG TAB PO PRN (18:21)
[2018-06-29] MEDS ORDERED: HYDROmorphONE/DILAUDID 1 MG/ML INJ IVP PRN (18:21)
[2018-06-29] MEDS ORDERED: oxyCODONE IR 5 MG TAB PO PRN (18:21)
[2018-06-29] MEDS ORDERED: ACETAMINOPHEN 325 MG TAB PO PRN (18:21)
[2018-06-29] MEDS ORDERED: PROMETHAZINE HCL 25 MG/ML INJ IVP PRN (18:21)
[2018-06-29] MEDS ORDERED: PROTOCOL MAGNESIUM 1 DOSE IV PRN (18:23)
[2018-06-29] MEDS ORDERED: PROTOCOL POTASSIUM 1 DOSE MISC PRN (18:23)
[2018-06-29] MEDS ORDERED: traMADol 50 MG TAB PO PRN (18:48)
[2018-06-29] MEDS: HYDROCODONE/APAP 5/325 TAB PO PRN (19:34)
[2018-06-29] MEDS ORDERED: POTASSIUM CL 10 MEQ TAB PO ONE (20:15)
--- NOTE | 2018-06-29 20:50 | PDGENHP ---
History and Physical - Chief Complaint right leg pain, weakness - History of Present Illness 88 yo M with PMH that includes TV endocarditis, a fib, Parkinson's disease and recent fall with non displaced right femur fracture presenting now with worsening right hip pain and weakness. Patient was initially treated non operatively for this right sided femur fracture, discharged on 06/22 to rehab at [facility]. He was cleared to be WBAT. He notes that today he walked further than he had previously, but did not otherwise injure himself that he is aware of , he did not fall or have any acute pain but noted that after walking for some time he felt very tired and was having trouble continuing walking and noticed the leg hurt more. He states he is otherwise doing much better in terms of his general health. His is present at bedside, she notes that before today he seemed to be doing well also, she states she is his MDPOA but notes that his family on the [facility] also needs to be notified of any plans for surgery and give their consent. History Information - Allergies/Home Medication List Allergies/Adverse Reactions: No Known Allergies Allergy (Verified 04/20/18 16:03) Home Medications: Diltiazem Cd [Cardizem ER 120 MG (*)] 120 mg PO DAILY@0730 03/20/18 [Last Taken 06/29/18] Carbidopa/Levodopa 25/100Mg [Sinemet 25/100 MG (*)] 1 tab PO QID@0730,12,17,21 03/22/18 [Last Taken 06/29/18 NOON] Escitalopram Oxalate [Lexapro] 20 mg PO DAILY 04/20/18 [Last Taken 06/28/18] Finasteride [Proscar 5 MG (*)] 5 mg PO HS 04/20/18 [Last Taken 06/28/18] Doxycycline Hyclate [Vibramycin 100 MG (*)] 100 mg PO BID 06/18/18 [Last Taken 06/29/18 AM] Rivaroxaban [Xarelto] 20 mg PO DAILY 06/18/18 [Last Taken 06/28/18] Acetaminophen [Tylenol ES 500 mg (*)] 1,000 mg PO Q8H PRN 06/29/18 [Last Taken 06/28/18] Donepezil HCl [Aricept] 10 mg PO HS 06/29/18 [Last Taken 06/28/18] traMADol [Ultram 50 mg (*)] 25 - 50 mg PO Q4H PRN 06/29/18 [Last Taken 06/29/18 AM] I have personally reviewed and updated: family history, medical history, social history, surgical history - Past Medical History atrial fibrillation (on chronic AC), CHF (diastolic), dementia, hypertension Additional medical history: Parkinson's Disease. 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 candidemia. BPH. benign brain mass. chronic loculated pleural effusions. SSS. pulm htn. 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 Review of Systems Review of Systems: ROS: 10pt was reviewed & negative except for what was stated in HPI & below Physical Exam Physical Exam: Temp Pulse Resp BP Pulse Ox 36.6 C 71 18 141/79 H 94 06/29/18 18:25 06/29/18 18:25 06/29/18 18:25 06/29/18 18:25 06/29/18 18:25 O2 (L/minute) 3 Constitutional: no apparent distress, chronically ill appearing Eyes: PERRL, anicteric sclera Ears, Nose, Mouth, Throat: moist mucous membranes, hearing normal Cardiovascular: regular rate and rhythym, no murmur, rub, or gallop, systolic murmur Respiratory: no respiratory distress, no rales or rhonchi Gastrointestinal: normoactive bowel sounds, soft, non-tender abdomen Genitourinary: no bladder tenderness Skin: warm, normal color Musculoskeletal: pain with ROM, No normal joint ROM Neurologic: AAOx3 Psychiatric: interacting appropriately, not anxious, not encephalopathic Lab Data & Imaging Review 06/29/18 16:56 06/29/18 16:56 WBC 8.34 10^3/uL (3.80-9.50) 06/29/18 16:56 RBC 3.11 10^6/uL (4.40-6.38) L 06/29/18 16:56 Hgb 10.0 g/dL (13.7-17.5) L 06/29/18 16:56 Hct 30.5 % (40.0-51.0) L 06/29/18 16:56 MCV 98.1 fL (81.5-99.8) 18 16:56 MCH 32.2 pg (27.9-34.1) 06/29/18 16:56 MCHC 32.8 g/dL (32.4-36.7) 06/29/18 16:56 RDW 15.7 % (11.5-15.2) H 06/29/18 16:56 Plt Count 245 10^3/uL (150-400) 06/29/18 16:56 MPV 9.1 fL (8.7-11.7) 06/29/18 16:56 Neut % (Auto) 83.1 % (39.3-74.2) H 06/29/18 16:56 Lymph % (Auto) 7.7 % (15.0-45.0) L 06/29/18 16:56 [place] % (Auto) 6.0 % (4.5-13.0) 06/29/18 16:56 Eos % (Auto) 1.4 % (0.6-7.6) 06/29/18 16:56 Baso % (Auto) 0.5 % (0.3-1.7) 06/29/18 16:56 Nucleat RBC Rel Count 0.0 % (0.0-0.2) 06/29/18 16:56 Absolute Neuts (auto) 6.93 10^3/uL (1.70-6.50) H 06/29/18 16:56 Absolute Lymphs (auto) 0.64 10^3/uL (1.00-3.00) L 06/29/18 16:56 Absolute Monos (auto) 0.50 10^3/uL (0.30-0.80) 06/29/18 16:56 Absolute Eos (auto) 0.12 10^3/uL (0.03-0.40) 06/29/18 16:56 Absolute Basos (auto) 0.04 10^3/uL (0.02-0.10) 06/29/18 16:56 Absolute Nucleated RBC 0.00 10^3/uL (0-0.01) 06/29/18 16:56 Immature Gran % 1.3 % (0.0-1.1) H 06/29/18 16:56 Immature Gran # 0.11 10^3/uL (0.00-0.10) H 06/29/18 16:56 Sodium 138 mEq/L (135-145) 06/29/18 16:56 Potassium 3.2 mEq/L (3.5-5.2) L 06/29/18 16:56 Chloride 106 mEq/L (97-110) 06/29/18 16:56 Carbon Dioxide 27 mEq/l (22-31) 06/29/18 16:56 Anion Gap 5 mEq/L (6-14) L 06/29/18 16:56 BUN 11 mg/dL (7-23) 06/29/18 16:56 Creatinine 0.8 mg/dL (0.7-1.3) 06/29/18 16:56 Estimated GFR > 60 06/29/18 16:56 Glucose 102 mg/dL (70-100) H 06/29/18 16:56 Calcium 8.8 mg/dL (8.5-10.4) 06/29/18 16:56 Magnesium 1.7 mg/dL (1.6-2.3) 06/29/18 16:56 Visualized and Interpreted imaging results: Yes Interpretation: hip xray: comminuted and mildly displaced right femur fx Assessment & Plan Assessment: Displaced fracture of right femoral neck (Acute) 88 yo M with recent femur fracture treated non operatively presenting now with displaced femur fx # displaced right femur fx: initial injury occurred in last couple of weeks, initially non displaced and treated conservatively but now progressed and is displaced. Presumably will need surgical intervention, Dr. 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 Old records reviewed and summarized as above. Care plan reviewed with ER doctor as above, further hx obtained from patients present at bedside.
[2018-06-29] MEDS: FINASTERIDE 5 MG TAB PO SCH (21:35)
[2018-06-29] MEDS: DOXYCYCLINE HYCLATE 100 MG CAP/TAB PO SCH (21:35)
[2018-06-29] MEDS: DONEPEZIL HCL 5 MG TAB PO SCH (21:35)
[2018-06-29] MEDS: CARBIDOPA/LEVODOPA 25 MG/100 MG TAB PO SCH (21:37)
[2018-06-30] MEDS: NS 1,000 ML IV SCH ×2 (02:11→11:15)
[2018-06-30 05:09] LABS: PLATELET COUNT 208 10^3/uL (150-400)
--- NOTE | 2018-06-30 05:49 | SOAPPROG ---
POLLY Progress Note Assessment/Plan: Assessment: R femoral neck fx con't R hip pain Plan: Discussed plan with daughter last night. Leaning toward perc. screw fixation later today 06/30/18 05:47 Objective: Vital Signs Temp Pulse Resp BP Pulse Ox 36.6 C 76 16 121/74 H 97 06/30/18 04:00 06/30/18 04:00 06/30/18 04:00 06/30/18 04:00 06/30/18 04:00 Laboratory Results 06/30/18 04:50 06/30/18 04:50 06/28/18 06/29/18 06/30/18 05:59 05:59 05:59 Output Total 300 Balance -300 ICD10 Worksheet Patient Problems: Problems Problem Status Onset Displaced fracture of right femoral neck Acute Acute renal insufficiency Acute Dehydration Acute Fall Acute Fracture of femoral neck, closed Acute Hypotension Acute Multiple skin tears Acute Pacemaker malfunction Acute Parkinson disease Acute Paroxysmal a-fib Acute Sepsis Acute UTI (urinary tract infection) Acute
--- NOTE | 2018-06-30 06:06 | GCON ---
REASON FOR CONSULTATION: Right femoral neck fracture. HISTORY RELATIVE TO CONSULTATION: The patient is an 88-year-old, very limited household ambulator wi th multiple medical problems who sustained a right femoral neck fracture approximately 2 weeks ago. The fracture was nondisplaced and a decision at that point to treat it nonsurgically was made. The p atient was doing some walking today and felt an increase in pain. He presents to the emergency room for further evaluation. EXAMINATION: He has a very slight shortening of his right leg. He holds his leg in a slightly outwa rdly rotated position. Gentle hip range of motion produces pain in the groin region. Distal neurova scular exam is grossly intact. IMAGING: Radiographs of his hip show evidence of a mid cervical femoral neck fracture which has infe riorly displaced approximately 1 cm. ASSESSMENT: Right femoral neck fracture. PLAN: I spoke with the patient and his medical power of compliance attorney at length regarding his treatment o ptions. Options involve both nonoperative and operative options. The risks and benefits of both wer e well delineated. From a nonoperative standpoint, the femoral neck fracture can be treated without surgery. This would mean transfers from bed to a chair with assistance. From an operative standpoin t, an attempt at percutaneous screw stabilization could be considered. This is likely going to "fail " from the fracture he healing standpoint, but based on his longevity may provide adequate stabilizat ion to make him more comfortable. His ability to ambulate would certainly be limited with this optio n, but the surgical risk would be lessened somewhat. The third option includes implant hemiarthropla sty. This would potentially enable him to resume a limited household ambulation status, but comes wi th an increased anesthetic risk, increased blood loss, and increased perioperative risk. The patient wishes to consider his options. He wishes to discuss this with his daughter before making any decis ions. /[id number]/MODL
--- NOTE | 2018-06-30 08:42 | ASMTLACE ---
BAKARI Acuity / Level of Answers: Yes Care: Did the patient have an inpatient admission? Comorbidities - select Answers: Congestive heart failure all that apply Dementia History of falls Other Notes: Parkinson's disease; HTN; AFib # of Emergency department Answers: 5-8 visits in the last 6 months Score: 16 Date Signed: 06/30/2018 08:41 AM Electronically Signed By:Juju Wu
[2018-06-30] MEDS: HYDROCODONE/APAP 5/325 TAB PO PRN (08:50)
[2018-06-30] MEDS: DOXYCYCLINE HYCLATE 100 MG CAP/TAB PO SCH ×2 (08:53→22:56)
[2018-06-30] MEDS: DILTIAZEM CD 120 MG CAP PO SCH (08:53)
[2018-06-30] MEDS: ESCITALOPRAM OXALATE 10 MG TAB PO SCH (08:53)
[2018-06-30] MEDS: CARBIDOPA/LEVODOPA 25 MG/100 MG TAB PO SCH ×5 (08:56→22:56)
[2018-06-30] MEDS ORDERED: POTASSIUM CL 10 MEQ TAB PO ONE (09:25)
--- NOTE | 2018-06-30 10:19 | PDMN ---
Medical Necessity Medical necessity: Pt meets inpt criteria per MD order and [facility] S-[id number], Hip Fracture, Open Repair, 3 days. 88 y/o w/hx Parkinsons disease recently hospitalized w/non-displaced R femoral neck fx and treated conservatively, now progressing and worsening pain, admitted w/displaced R femoral neck fx, ortho consult, pt will likely have surg intervention of perc screw fixation today. Anticipate>2MN for ongoing eval/management of above.
--- NOTE | 2018-06-30 12:21 | ASMTCMCOM ---
CM Note CM Note Notes: CM reviewed chart and discussed with RN. Pt last discharged to [facility] with [facility] from 2 on 06/22/18. Pt presents with right femoral neck fracture. Pt's , Aldo is [place]POA but pt has children involved that live in [place]. Surgery today. Evals pending, CM to follow. Plan: TBD Date Signed: 06/30/2018 12:20 PM Electronically Signed By:JASMIN Yates
--- NOTE | 2018-06-30 12:43 | HOSPPROG ---
Hospitalist Progress Note Assessment/Plan: 88 yo M with recent femur fracture treated non operatively presenting now with displaced femur fx. First encounter, chart reviewed. # displaced right femur fx -initial injury occurred in last couple of weeks, initially non displaced and treated conservatively but now is displaced. 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 Subjective: Julio Cesar is having some pain in his right hip area. Objective: Vital Signs Temp Pulse Resp BP Pulse Ox 36.7 C 73 16 107/68 99 06/30/18 11:52 06/30/18 11:52 06/30/18 11:52 06/30/18 11:52 06/30/18 11:52 Laboratory Results 06/30/18 04:50 06/30/18 04:50 06/29/18 06/30/18 07/01/18 05:59 05:59 05:59 Intake Total 700 Output Total 950 Balance -250 - Physical Exam Constitutional: appears nourished, uncomfortable, No not in pain Eyes: PERRL Ears, Nose, Mouth, Throat: hearing normal Cardiovascular: regular rate and rhythym Respiratory: no respiratory distress, reduced air movement Skin: warm Musculoskeletal: other (right leg rotated out) Neurologic: AAOx3 Psychiatric: interacting appropriately ICD10 Worksheet Patient Problems: Problems Problem Status Onset Displaced fracture of right femoral neck Acute Acute renal insufficiency Acute Dehydration Acute Fall Acute Fracture of femoral neck, closed Acute Hypotension Acute Multiple skin tears Acute Pacemaker malfunction Acute Parkinson disease Acute Paroxysmal a-fib Acute Sepsis Acute UTI (urinary tract infection) Acute
--- NOTE | 2018-06-30 14:03 | CPEKG ---
Test Reason : OPEN Blood Pressure : / mmHG Vent. Rate : 071 BPM Atrial Rate : 000 BPM P-R Int : 195 ms QRS Dur : 168 ms QT Int : 487 ms P-R-T Axes : 172 -81 080 degrees QTc Int : 530 ms Accelerated junctional rhythm IVCD, consider atypical RBBB ) Confirmed by Luis Alberto Whiteside ([id number]) on 06/30/2018 2:02:48 PM Referred By: Confirmed By:Luis Alberto Whiteside
[2018-06-30] MEDS ORDERED: BUPIVACAINE/EPI 0.5% 30 ML SDV ONE (16:11)
[2018-06-30] MEDS ORDERED: LR 1,000 ML IV ONE (16:56)
[2018-06-30] MEDS ORDERED: ceFAZolin 2 GM/DEXTROSE 100 ML IV ONE (16:58)
--- NOTE | 2018-06-30 17:07 | PDANEPAE ---
ANE History of Present Illness R hip ORIF ANE Past Medical History - Cardiovascular History Hx Hypertension: Yes Hx Arrhythmias: Yes Hx Coronary Artery / Peripheral Vascular Disease: No Hx CHF / Valvular Disease: No Hx Palpitations: No Cardiovascular History Comment: pacemaker, atrial fibrillation, Hx of CHF,. recent endocarditis, moderate tricuspid regurgitation - Pulmonary History Hx COPD: No Hx Asthma/Reactive Airway Disease: No Hx Recent Upper Respiratory Infection: No Hx Oxygen in Use at Home: Yes O2 in Use at Home (L/minute): 2 Hx Sleep Apnea: Yes Sleep Apnea Screening Result - Last Documented: Positive - Endocrine History Hx Diabetes: No Hypothyroid: No Hyperthyroid: No Obesity: no - Renal History Hx Renal Disorders: No - Liver History Hx Hepatic Disorders: No - Neurological & Psychiatric Hx Hx Neurological and Psychiatric Disorders: Yes Neurological / Psychiatric History Comment: Parkinson disease since for 2 years , ambulates with cane, denies difficulty swallowing (confirmed by spouse). Depression. mild dementia - GI History GERD: no - Chronic Pain History Chronic Pain: Yes (back and L shoulder) ANE Review of Systems Review of Systems: - Exercise capacity METS (RN): 3 METS - Pacemaker Pacemaker Manager Distribution: [employer] Pacemaker Model: [id number] Date Pacemaker Last Checked: 04/06/18 ANE Patient History - Allergies Allergies/Adverse Reactions: No Known Allergies Allergy (Verified 04/20/18 16:03) - Home Medications Home Medications: Diltiazem Cd [Cardizem ER 120 MG (*)] 120 mg PO DAILY@0730 03/20/18 [Last Taken 06/29/18] Carbidopa/Levodopa 25/100Mg [Sinemet 25/100 MG (*)] 1 tab PO QID@0730,,,03/22/18 [Last Taken 06/29/18 NOON] Escitalopram Oxalate [Lexapro] 20 mg PO DAILY 04/20/18 [Last Taken 06/28/18] Finasteride [Proscar 5 MG (*)] 5 mg PO HS 04/20/18 [Last Taken 06/28/18] Doxycycline Hyclate [Vibramycin 100 MG (*)] 100 mg PO BID 06/18/18 [Last Taken 06/29/18 AM] Rivaroxaban [Xarelto] 20 mg PO DAILY 06/18/18 [Last Taken 06/28/18] Acetaminophen [Tylenol ES 500 mg (*)] 1,000 mg PO Q8H PRN 06/29/18 [Last Taken 06/28/18] Donepezil HCl [Aricept] 10 mg PO HS 06/29/18 [Last Taken 06/28/18] traMADol [Ultram 50 mg (*)] 25 - 50 mg PO Q4H PRN 06/29/18 [Last Taken 06/29/18 AM] - NPO status NPO Since - Liquids (Date): 06/30/18 NPO Since - Liquids (Time): 00:05 NPO Since - Solids (Date): 06/30/18 NPO Since - Solids (Time): 00:05 - Smoking Hx Smoking Status: Never smoked - Alcohol Use Alcohol Use: None ANE Labs/Vital Signs - Labs Result Diagrams: 06/30/18 04:50 06/30/18 04:50 - Vital Signs Blood Pressure: 139/78 Heart Rate: 73 Respiratory Rate: 16 O2 Sat (%): 95 Height: 182.88 cm Weight: 86.183 kg ANE Physical Exam - Airway Neck exam: decreased ROM Mallampati Score: Class 2 Mouth exam: normal dental/mouth exam - Pulmonary Pulmonary: clear to auscultation - Cardiovascular Cardiovascular: regular rate and rhythym, systolic murmur - ASA Status ASA Status: III ANE Anesthesia Plan Anesthesia Plan: GA w LMA (Procedure/risks/alternatives discussed with patient and his spouse. Questions answered.)
[2018-06-30] MEDS ORDERED: PROPOFOL 200 MG/20 ML VIAL ONE (17:22)
[2018-06-30] MEDS ORDERED: fentaNYL 100 MCG/2 ML INJ ONE (17:22)
[2018-06-30] MEDS ORDERED: DEXAMETHASONE 4 MG/ML VIAL ONE (17:22)
[2018-06-30] MEDS ORDERED: fentaNYL 100 MCG/2 ML INJ IVP PRN (18:19)
[2018-06-30] MEDS ORDERED: NALOXONE HCL 0.4 MG/ML INJ IVP PRN (18:19)
[2018-06-30] MEDS ORDERED: ONDANSETRON 4 MG/2 ML VIAL ONE (18:31)
--- NOTE | 2018-06-30 18:38 | POSTOPPROG ---
Post Op Note Date of Operation: 06/30/18 Surgeon: Ulisses Mao Anesthesia: LMA Pre-op Diagnosis: R femoral neck fx Post-op Diagnosis: same Procedure: CR, perc screws R fem neck fx Inf/Abcess present in the surg proc area at time of surgery?: No EBL: Minimal
--- NOTE | 2018-06-30 21:09 | POSTANESTH ---
Post Anesthetic Evaluation Cardiovascular Status: Similar to Pre-Op Cond Respiratory Status: Normal, Stable Level of Consciousness/Mental Status: Can Participate in Eval Pain Control: Adequate, Prn Tx Ordered Nausea/Vomiting Control: Adequate, Prn Tx Ordered Complications Possibly Related to Anesthesia: Other, See Comments (Confused about place in PACU.)
[2018-06-30] MEDS: FINASTERIDE 5 MG TAB PO SCH (22:56)
[2018-06-30] MEDS: DONEPEZIL HCL 5 MG TAB PO SCH (22:56)
[2018-07-01 06:23] LABS: PLATELET COUNT 221 10^3/uL (150-400)
--- NOTE | 2018-07-01 07:13 | GOP ---
DATE OF OPERATION: 06/30/2018 SURGEON: Ulisses Mao MD ANESTHESIA: General. PREOPERATIVE DIAGNOSIS: Right femoral neck fracture. POSTOPERATIVE DIAGNOSIS: Right femoral neck fracture. PROCEDURE PERFORMED: 1. Closed reduction, percutaneous screw fixation, right femoral neck fracture. 2. Intraoperative use of fluoroscopy. FINDINGS: ESTIMATED BLOOD LOSS: Minimal. INDICATIONS: The patient is an 88-year-old limited household ambulator who 2 weeks prior sustained a femoral neck fracture. At the time of that injury, he was having significant medical conditions, wh ich made operative treatment extremely high risk. Decision at that point was made to treat it nonope ratively. The patient presented the night prior to surgery with increasing pain and radiographs show ing an inferior displacement of the femoral head segment. After prolonged discussion with the patien t and his family regarding treatment options, including continued nonoperative management, reduction and percutaneous screw fixation, or implant hemiarthroplasty, decision was made to pursue reduction a nd screw fixation. This was based due in part to the patient's significant health condition and risk of a more involved surgery such as hemiarthroplasty as well as his limited ambulatory status. He ac knowledged potential risks, including but not limited to, bleeding, infection, neurovascular damage, loss of limb or limb function, malunion, nonunion, need for hardware removal, pain or functional limi tations despite operative treatment, and anesthetic risks. He additionally acknowledged that if disp lacement were to occur or nonunion were to occur, ultimately an implant hemiarthroplasty may be neces kunal. It would be hopeful that should this occur, his health would be improved lowering his operativ e risks. He gave consent for the operative procedure. DESCRIPTION OF PROCEDURE: The patient was brought to the operating room, and after IV antibiotics we re administered. General anesthetic was administered. [facility] with his right leg placed in a well-padded traction boot, and the left leg placed in a well-padd ed well-leg ramirez. Closed reduction maneuver with traction was performed. Fluoroscopic views confi rmed anatomic reduction of the fracture. The right thigh and hip were prepped and draped in standard sterile fashion. Under fluoroscopic guidance, location of proposed screws was planned. K-wires fro m the [employer] 7.3 mm cannulated screw set were placed percutaneously in the skin and various points g aining purchase into the superior, central, and middle aspect of the femoral head on AP view and ante rior, central, and posterior aspects on the lateral view. Appropriate length 7.3 mm cannulated screw s with 16 mm threads were then placed over the cannulated guide pins. Favorable purchase was achieve d. Fluoroscopic views confirmed favorable screw position. An additional screw was placed more super iorly in a transverse manner replicating the compressive trabeculae in a means of gaining further pur mary alice and hopefully minimizing the risk of displacement. A screw was placed over this guide pin of a ppropriate length. Attention was directed toward closure. The skin was closed with 3-0 nylon interrupted sutures. The wounds were dressed with sterile Adaptic, 4 x 4, and OpSite. The patient was transferred to the frances very room, extubated in stable condition postoperatively. All sponge, needle, and instrument counts were reported as being correct. DRAINS: None. COMPLICATIONS: None. PLAN: The patient be admitted for medical management. He will be "touchdown" as much as possible on his operative extremity. /[id number]/MODL
[2018-07-01] MEDS: HYDROCODONE/APAP 5/325 TAB PO PRN (08:54)
[2018-07-01] MEDS: ESCITALOPRAM OXALATE 10 MG TAB PO SCH (08:54)
[2018-07-01] MEDS: DOXYCYCLINE HYCLATE 100 MG CAP/TAB PO SCH ×2 (08:54→21:23)
[2018-07-01] MEDS: CARBIDOPA/LEVODOPA 25 MG/100 MG TAB PO SCH ×4 (08:54→21:23)
[2018-07-01] MEDS: DILTIAZEM CD 120 MG CAP PO SCH (08:54)
--- NOTE | 2018-07-01 11:01 | PCMIDPN ---
Assessment/Plan: # Persistent but intermittent delirium s/p hip fracture now repaired 06/30 # C. parapsilosis UTI:s/p Rx. 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 parapsilosis 06/18/18 Blood cx (2) Neg care coordinated w Ioana Chowdhury NP Family updated Subjective: patient states R hip pain is better "I am only bothered by all the people in my bed" Objective: Vital Signs Temp Pulse Resp BP Pulse Ox 36.8 C 69 14 119/71 98 07/01/18 07:57 07/01/18 08:54 07/01/18 07:57 07/01/18 08:54 07/01/18 07:57 Laboratory Results 07/01/18 05:56 07/01/18 05:56 06/30/18 07/01/18 07/02/18 05:59 05:59 05:59 Intake Total 700 700 Output Total 950 870 Balance -250 -170 - Physical Exam General Appearance: alert, no apparent distress, thin EENT: pale conjunctiva Respiratory: other (decreased BS in bases), No accessory muscle use Neck: supple Cardiac/Chest: regular rate, rhythm, systolic murmur Extremities: No pedal edema Abdomen: non-tender, soft Male Genitalia: toth Skin: No rash Neuro/Psych: alert, normal mood/affect - Time Spent With Patient Time Spent with Patient: greater than 25 minutes Time Spent with Patient: Greater than 25 minutes spent on this patients care, greater than 50% of time spent counseling, educating, and coordinating care regarding the above mentioned plan. ICD10 Worksheet Patient Problems: Problems Problem Status Onset Displaced fracture of right femoral neck Acute Acute renal insufficiency Acute Dehydration Acute Fall Acute Fracture of femoral neck, closed Acute Hypotension Acute Multiple skin tears Acute Pacemaker malfunction Acute Parkinson disease Acute Paroxysmal a-fib Acute Sepsis Acute UTI (urinary tract infection) Acute
--- NOTE | 2018-07-01 11:45 | HOSPPROG ---
Hospitalist Progress Note Assessment/Plan: 88 yo M with recent femur fracture treated non operatively presenting now with displaced femur fx. Reviewed his care w Dr Chandler. # displaced right femur fx -s/p repair -scheduled Tylenol -bowel protocol # Parkinson's disease -has a resting tremor #gait instability w falls -PT and OT #hypotension -asymptomatic #confusion -improves w re-orientation, multifactorial -had anaesthesia, pain meds (adjusted the dosing) -avoid narcotics when possible # gait instability w falls -PT and OT # permanent a fib -resumed anticoagulation -reviewed his 12 lead which shows a v paced rhythm -his echo in April showed normal LV function #anemia -reviewed his previous admissions and labs today close to baseline -may need a transfusion during his stay, will follow # BPH -toth, had issues w a toth in the recent past and difficulty w urination # VHD/CHF -chronic, diastolic heart failure and moderate mr/tr #chronic endocarditis on chronic abx- (doxycycline) # Plan: avoid pain medications, keep curtains open during the day, repeat labs in a.m., resume OAC Subjective: Julio Cesar said his right upper leg hurts w activity. Objective: Vital Signs Temp Pulse Resp BP Pulse Ox 36.6 C 76 13 88/53 L 95 07/01/18 11:33 07/01/18 11:33 07/01/18 11:33 07/01/18 11:33 07/01/18 11:33 Laboratory Results 07/01/18 05:56 07/01/18 05:56 06/30/18 07/01/18 07/02/18 05:59 05:59 05:59 Intake Total 700 700 Output Total 950 870 Balance -250 -170 - Physical Exam Constitutional: appears nourished, uncomfortable Eyes: PERRL Ears, Nose, Mouth, Throat: hearing normal Cardiovascular: regular rate and rhythym Respiratory: no respiratory distress, reduced air movement Skin: other (right upper thigh, hip area w swelling) Musculoskeletal: generalized weakness Neurologic: other (alert and oriented to himself and place, gets confused w using the phone and tv remote control. Knows he had surgery. ) Psychiatric: interacting appropriately, poor memory ICD10 Worksheet Patient Problems: Problems Problem Status Onset Displaced fracture of right femoral neck Acute Acute renal insufficiency Acute Dehydration Acute Fall Acute Fracture of femoral neck, closed Acute Hypotension Acute Multiple skin tears Acute Pacemaker malfunction Acute Parkinson disease Acute Paroxysmal a-fib Acute Sepsis Acute UTI (urinary tract infection) Acute
[2018-07-01] MEDS ORDERED: NS 250 ML IV ONE (11:52)
[2018-07-01] MEDS ORDERED: BISACODYL 10 MG SUPP PR PRN (11:55)
[2018-07-01] MEDS ORDERED: MAGNESIUM HYDROXIDE 30 ML UDCUP PO PRN (11:55)
[2018-07-01] MEDS ORDERED: LACTULOSE 20 GM/30 ML UDCUP PO PRN (11:55)
[2018-07-01] MEDS ORDERED: oxyCODONE IR 5 MG TAB PO PRN (11:56)
[2018-07-01] MEDS: RIVAROXABAN 20 MG TAB PO SCH (14:16)
[2018-07-01] MEDS: ACETAMINOPHEN 500 MG TAB PO SCH ×2 (14:16→21:23)
[2018-07-01] MEDS ORDERED: MAGNESIUM SULF 1 GM/DEXTROSE 100 ML IV ONE (15:31)
--- NOTE | 2018-07-01 16:58 | SOAPPROG ---
SOAP Progress Note Assessment/Plan: a/p 88 yo male, s/p femoral neck fracture s/p femoral neck percutaneus screw placement by dr. smith on 06/30/18 doing well -cont med management -proph: larry hoes/scd's, and incentive spirometry -continue narcotic pain med minimal use to hopefully aid the confusion improvement. -RLE: Toe Touch Down Weight Bearing with assistance -PT/OT: transfer training -dispo mending med clearence to probable SNF Subjective: at bedside, joshua reports no issues over night, but per and nurse he has been mildly confused, but joshua reports pain is controlled, denies any fevers /chills/chest pain/sob, denies falls/injuries. reports he would "like to go home to [place]" when he is ready. but re-oriented him and they will be staying at a rehab facility once cleared by medicine and eventually they will aim to end up at their [place] home. Objective: RLE: dressing c/d/i, no surrounding erythema, minimally ttp, grossly nvid w/ full ankle/diigital rom, pt/dp 2+ Vital Signs Temp Pulse Resp BP Pulse Ox 36.7 C 75 13 95/60 L 100 07/01/18 16:00 07/01/18 16:00 07/01/18 16:00 07/01/18 16:00 07/01/18 16:00 Laboratory Results 07/01/18 05:56 07/01/18 05:56 06/30/18 07/01/18 07/02/18 05:59 05:59 05:59 Intake Total 700 700 Output Total 950 870 Balance -250 -170 - Pending Discharge Pending Discharge Within 24 Hours: No ICD10 Worksheet Patient Problems: Problems Problem Status Onset Displaced fracture of right femoral neck Acute Acute renal insufficiency Acute Dehydration Acute Fall Acute Fracture of femoral neck, closed Acute Hypotension Acute Multiple skin tears Acute Pacemaker malfunction Acute Parkinson disease Acute Paroxysmal a-fib Acute Sepsis Acute UTI (urinary tract infection) Acute
[2018-07-01] MEDS: POLYETHYLENE GLYCOL 3350 17 GM PKT PO SCH (17:40)
[2018-07-01] MEDS: FINASTERIDE 5 MG TAB PO SCH (21:22)
[2018-07-01] MEDS: SENNOSIDES/DOCUSATE SODIUM TAB PO SCH (21:22)
[2018-07-01] MEDS: DONEPEZIL HCL 5 MG TAB PO SCH (21:22)
--- NOTE | 2018-07-02 05:53 | SOAPPROG ---
SOAP Progress Note Assessment/Plan: Assessment: R femoral neck fx con't R hip pain Plan: Discussed plan with daughter last night. Leaning toward perc. screw fixation later today 06/30/18 05:47 07/02/18 05:51 S/P CRPP R fem neck fx Confused this am Pain minimal R thigh dressing intact, no D/C Min pain with hip ROM OOB/PT OK for transfer (SNF vs home with 24 hr care) from ortho standpoint F/U 2 wks Objective: Vital Signs Temp Pulse Resp BP Pulse Ox 36.6 C 74 16 116/66 90 L 07/02/18 03:27 07/02/18 03:27 07/02/18 03:27 07/02/18 03:27 07/02/18 03:27 Laboratory Results 07/02/18 04:45 07/02/18 04:45 06/30/18 07/01/18 07/02/18 05:59 05:59 05:59 Intake Total 203 456 3625 Output Total 950 870 Balance -250 -170 1350 ICD10 Worksheet Patient Problems: Problems Problem Status Onset Displaced fracture of right femoral neck Acute Acute renal insufficiency Acute Dehydration Acute Fall Acute Fracture of femoral neck, closed Acute Hypotension Acute Multiple skin tears Acute Pacemaker malfunction Acute Parkinson disease Acute Paroxysmal a-fib Acute Sepsis Acute UTI (urinary tract infection) Acute
[2018-07-02] MEDS: ACETAMINOPHEN 500 MG TAB PO SCH ×2 (05:58→12:43)
[2018-07-02] MEDS: DILTIAZEM CD 120 MG CAP PO SCH (08:27)
[2018-07-02] MEDS: RIVAROXABAN 20 MG TAB PO SCH (08:27)
[2018-07-02] MEDS: ESCITALOPRAM OXALATE 10 MG TAB PO SCH (08:27)
[2018-07-02] MEDS: SENNOSIDES/DOCUSATE SODIUM TAB PO SCH (08:27)
[2018-07-02] MEDS: POLYETHYLENE GLYCOL 3350 17 GM PKT PO SCH (08:27)
[2018-07-02] MEDS: DOXYCYCLINE HYCLATE 100 MG CAP/TAB PO SCH (08:27)
[2018-07-02] MEDS: CARBIDOPA/LEVODOPA 25 MG/100 MG TAB PO SCH ×2 (08:28→12:43)
[2018-07-02 11:31] VITALS: BP 100/56
--- NOTE | 2018-07-02 12:37 | PDIAF ---
- Diagnosis Diagnosis: Hip Fracture Code Status: Do Not Resuscitate - Medication Management Discharge Medications: electronically signed and located in the Home Medication List. - Orders Services needed: Registered Nurse, Certified Police Sergeant, Physical Therapy, Occupational Therapy Isolation Type: None Diet Recommendation: no restrictions on diet Additional Instructions: touch down weight bearing R toe - Labs/Radiology HCT/HGB Date: 07/05/18 - Follow Up Care Current Providers and Referrals: Patient,NotPresent [Unknown] - As per Instructions Ulisses Mao MD [Medical Doctor] - (2 weeks for post-op)
--- NOTE | 2018-07-02 13:36 | ASMTDCNOTE ---
Case Management Discharge Discharge Order Complete? Answers: Yes Patient to Obtain Answers: Other Notes: [facility] Medications Transportation Arranged Answers: RALF Aguirre Faxed Final Orders Answers: Yes Agency/Facility Transfer Answers: Yes Report Printed & Faxed to Receiving Agency Family Notified Answers: Yes Discharge Comments Notes: Pt d/hebert to [facility]. notified. Date Signed: 07/02/2018 01:36 PM Electronically Signed By:Any Hartley
--- NOTE | 2018-07-02 15:04 | GDS ---
ALL DIAGNOSES: 1. Right hip fracture, status post repair by Dr. Mao. 2. Parkinson disease. 3. Gait instability and falls. 4. Mild asymptomatic hypotension. 5. Confusion. 6. Permanent atrial fibrillation, on anticoagulation. 7. Anemia, chronic. 8. Benign prostatic hypertrophy. 9. Chronic endocarditis, on suppressive doxycycline. 10. Chronic diastolic heart failure. 11. Moderate mitral regurgitation and tricuspid regurgitation. HOSPITAL COURSE: This is an 88-year-old man who sustained a hip fracture previously. He had been di scharged with nonoperative management to [facility]. He returned with ongoing right pain. Thus, he underwent an ORIF by Dr. Mao. He has done well postoperatively. He was slightly confused. His p ain medications have been adjusted. On the day of discharge, he is at his baseline, oriented and con versant. He remains toe touchdown weightbearing on discharge. He should follow up with Dr. Mayco kebede 2 weeks for postop followup. He is in atrial fibrillation. He was returned on his Xarelto the day prior to discharge. He has a pacemaker in place. He is on diltiazem for rate control. Rates have been in the 70s. He has chronic endocarditis and is on suppressive doxycycline. He was discharged in stable condition to [facility] for ongoing physical therapy and occupational the rapy. BILLING: I spent more than 30 minutes on the day of discharge coordinating care. /[id number]/MODL
== END 2018-07-02 16:53 | DRG 481 ==
LOC: EDUNIT# → F3N 18:10
PROVIDERS: ADMIT Internal Medicine; ATTEND Internal Medicine
PROC: 0QS635Z Reposition Right Upper Femur with External Fixation Device, Percutaneous Approach (ICD-10-PCS; principal; 2018-06-29)
DX: S72.001A Fracture of unspecified part of neck of right femur, initial encounter for closed fracture (principal); W19.XXXA Unspecified fall, initial encounter; I48.2 Chronic atrial fibrillation; G20 Parkinson's disease; I11.0 Hypertensive heart disease with heart failure; I50.32 Chronic diastolic (congestive) heart failure; N39.0 Urinary tract infection, site not specified; R26.89 Other abnormalities of gait and mobility; N40.0 Benign prostatic hyperplasia without lower urinary tract symptoms; I08.1 Rheumatic disorders of both mitral and tricuspid valves; R41.0 Disorientation, unspecified; D64.9 Anemia, unspecified; Z86.19 Personal history of other infectious and parasitic diseases; Z86.011 Personal history of benign neoplasm of the brain; Z95.810 Presence of automatic (implantable) cardiac defibrillator; Z79.01 Long term (current) use of anticoagulants; Z79.2 Long term (current) use of antibiotics; Z66 Do not resuscitate
CPT/HCPCS: 97163-GP; 97166-GO; 97530-GO; 97530-GP; 97535-GO; C1713; C1769; G8978-GP-CL; G8979-GP-CK; G8987-GO-CM; G8988-GO-CK; J0690; J1100; J1170; J2405; J2704; J3010; J3475

== ENCOUNTER 2018-09-25 08:00 | Inpatient (IN) | payer OTHER ==
--- NOTE | 2018-09-25 08:21 | EDPHY ---
H & P Time Seen by Provider: 09/25/18 08:19 HPI/ROS: Chief complaint. Weakness HPI. Patient is 88-year-old male with history of Parkinson's disease. He has been home from rehab for about 2 and half weeks. Yesterday and today his has not been able to get him up with the assistance of there 02/02 associate director career services. Patient tells me his legs feel heavy and he just can walk. He can wiggle his legs. Does not have pain or numbness. No chest pain or shortness of breath. No fever. No abdominal pain. Patient and his 's main complaint is that he can't walk and that the and food service manager are unable to care for him at home today. ROS 10 systems were reviewed and negative with the exception of the elements mentioned in the history of present illness Past Medical/Surgical History: Parkinson's disease, spinal stenosis, sick sinus syndrome with pacemaker, atrial fibrillation, congestive heart failure, hip fracture Social History: , nonsmoker, no alcohol Smoking Status: Never smoked Physical Exam: General Appearance: Alert well-developed male mild distress vital signs are stable with initial O2 saturation room air 86% Eyes: Pupils equal and round no pallor or injection. ENT, Mouth: Mucous membranes are moist. Respiratory: There are no retractions, lungs are clear to auscultation. Cardiovascular: Regular rate and rhythm. Gastrointestinal: Abdomen is soft and nontender, no masses, bowel sounds normal. Neurological: Awake and alert, sensory and motor exams grossly normal. Patient can move his legs has normal sensation. He just has a hard time walking. Skin: Warm and dry, no rashes. Musculoskeletal: Neck is supple nontender. Extremities symmetrical, full range of motion. Psychiatric: Patient is oriented X 3, there is no agitation. Constitutional: Initial Vital Signs Temperature (C) 36.7 C 09/25/18 08:05 Heart Rate 72 09/25/18 08:05 Respiratory Rate 16 09/25/18 08:05 Blood Pressure 147/95 H 09/25/18 08:05 O2 Sat (%) 86 L 09/25/18 08:05 O2 Delivery Mode Room Air O2 (L/minute) 2 Allergies/Adverse Reactions: No Known Allergies Allergy (Verified 09/25/18 08:08) Home Medications: Medication Instructions Recorded Diltiazem Cd [Cardizem ER 120 MG 120 mg PO DAILY@0730 03/20/18 (*)] Carbidopa/Levodopa 25/100Mg 1 tab PO QID@0730,12,17,21 03/22/18 [Sinemet 25/100 MG (*)] Escitalopram Oxalate [Lexapro] 20 mg PO DAILY 04/20/18 Finasteride [Proscar 5 MG (*)] 5 mg PO HS 04/20/18 Doxycycline Hyclate [Vibramycin 100 mg PO BID 06/18/18 100 MG (*)] Rivaroxaban [Xarelto] 20 mg PO DAILY@17 06/18/18 Acetaminophen [Tylenol ES 500 mg 1,000 mg PO Q8H PRN 06/29/18 (*)] Donepezil HCl [Aricept] 10 mg PO HS 06/29/18 Polyethylene Glycol 3350 [Miralax 17 gm PO DAILY PRN 09/25/18 17 gm (*)] QUEtiapine FUMARATE [Seroquel 25 12.5 mg PO HS 09/25/18 mg (*)] Medical Decision Making - Diagnostics EKG Interpretation: EKG interpreted by me shows atrial fibrillation left axis deviation interventricular conduction delay. Ventricular response 70 Imaging Results: Imaging Impressions Chest X-Ray 09/25/18 08:20 Impression: Chronic mild CHF/fluid overload, small bilateral pleural effusions , and hypoventilation. Chest x-ray shows chronic changes with mild CHF. Small bilateral pleural effusions. No significant change from 4 months prior Procedures: IV normal saline, monitor Sinemet in the ED ED Course/Re-evaluation: Re-evaluation patient is stable. Patient, his , and I discussed imaging lab EKG findings. We discussed treatment plan including recommendation for admission. They expressed understanding and agreement I consulted and discussed case with Dr. Zuñiga, hospitalist, who agrees to the admission Differential Diagnosis: Patient having difficulty ambulating. This apparently secondary to his Parkinson's disease. There is no evidence for acute illness or CVA - Data Points Laboratory Results: Laboratory Results 09/25/18 08:50 09/25/18 08:50 09/25/18 09/25/18 09/25/18 08:53 08:50 08:50 WBC RBC Hgb Hct MCV MCH MCHC RDW Plt Count MPV Neut % (Auto) Lymph % (Auto) [place] % (Auto) Eos % (Auto) Baso % (Auto) Nucleat RBC Rel Count Absolute Neuts (auto) Absolute Lymphs (auto) Absolute Monos (auto) Absolute Eos (auto) Absolute Basos (auto) Absolute Nucleated RBC Immature Gran % Immature Gran # RBC/WBC/PLT Morphology Platelet Estimate PT 23.6 SEC H SEC (12.0-15.0) INR 2.23 H (0.83-1.16) APTT 40.9 SEC H SEC (23.0-38.0) Sodium 143 mEq/L mEq/L (135-145) Potassium 4.0 mEq/L mEq/L (3.5-5.2) Chloride 107 mEq/L mEq/L (97-110) Carbon Dioxide 30 mEq/l mEq/l (22-31) Anion Gap 6 mEq/L mEq/L (6-14) BUN 20 mg/dL mg/dL (7-23) Creatinine 1.0 mg/dL mg/dL (0.7-1.3) Estimated GFR > 60 Glucose 96 mg/dL mg/dL (70-100) Calcium 9.2 mg/dL mg/dL (8.5-10.4) POC Troponin I 0.00 ng/mL ng/mL (0.00-0.08) NT-Pro-B Natriuret Pep < 0 pg/mL L pg/mL (0-450) 09/25/18 08:50 WBC 8.31 10^3/uL 10^3/uL (3.80-9.50) RBC 3.82 10^6/uL L 10^6/uL (4.40-6.38) Hgb 11.8 g/dL L g/dL (13.7-17.5) Hct 37.0 % L % (40.0-51.0) MCV 96.9 fL fL (81.5-99.8) MCH 30.9 pg pg (27.9-34.1) MCHC 31.9 g/dL L g/dL (32.4-36.7) RDW 14.3 % % (11.5-15.2) Plt Count 167 10^3/uL 10^3/uL (150-400) MPV 9.4 fL fL (8.7-11.7) Neut % (Auto) 83.3 % H % (39.3-74.2) Lymph % (Auto) 5.2 % L % (15.0-45.0) [place] % (Auto) 9.5 % % (4.5-13.0) Eos % (Auto) 1.1 % % (0.6-7.6) Baso % (Auto) 0.2 % L % (0.3-1.7) Nucleat RBC Rel Count 0.0 % % (0.0-0.2) Absolute Neuts (auto) 6.92 10^3/uL H 10^3/uL (1.70-6.50) Absolute Lymphs (auto) 0.43 10^3/uL L 10^3/uL (1.00-3.00) Absolute Monos (auto) 0.79 10^3/uL 10^3/uL (0.30-0.80) Absolute Eos (auto) 0.09 10^3/uL 10^3/uL (0.03-0.40) Absolute Basos (auto) 0.02 10^3/uL 10^3/uL (0.02-0.10) Absolute Nucleated RBC 0.00 10^3/uL 10^3/uL (0-0.01) Immature Gran % 0.7 % % (0.0-1.1) Immature Gran # 0.06 10^3/uL 10^3/uL (0.00-0.10) RBC/WBC/PLT Morphology TNP Platelet Estimate TNP PT INR APTT Sodium Potassium Chloride Carbon Dioxide Anion Gap BUN Creatinine Estimated GFR Glucose Calcium POC Troponin I NT-Pro-B Natriuret Pep Medications Given: Carbidopa/Levodopa (Sinemet) 1 tab PO QID@0730,12,17,21 [facility] Stop: 03/24/19 11:59 Last Admin: 09/25/18 12:28 Dose: 1 tab Potassium Chloride/Sodium Chloride (Ns W/ 20 Kcl/L) 1,000 mls @ 75 mls/hr IV CONT [facility] Stop: 09/26/18 01:04 Last Admin: 09/25/18 12:28 Dose: 1,000 mls Discontinued Medications Carbidopa/Levodopa (Sinemet) 1 tab PO TID ONE Stop: 09/25/18 08:29 Last Admin: 09/25/18 09:05 Dose: 1 tab Sodium Chloride (Ns) 1,000 mls @ 0 mls/hr IV EDNOW ONE; Wide Open PRN Reason: Protocol Stop: 09/25/18 08:21 Last Admin: 09/25/18 08:48 Dose: 1,000 mls Point of Care Test Results: Chemistry 09/25/18 08:53 POC Troponin I 0.00 ng/mL ng/mL (0.00-0.08) Departure - Departure Disposition: [facility] Acute Clinical Impression: Parkinson disease, Failure to thrive in adult Condition: Fair
[2018-09-25] MEDS ORDERED: CARBIDOPA/LEVODOPA 25 MG/100 MG TAB PO ONE (08:28)
[2018-09-25] MEDS: NS 1,000 ML IV ONE ×2 (08:48→09:03)
[2018-09-25 08:59] LABS: PLATELET COUNT 167 10^3/uL (150-400)
--- NOTE | 2018-09-25 09:33 | CPEKG ---
Test Reason : OPEN Blood Pressure : / mmHG Vent. Rate : 070 BPM Atrial Rate : 000 BPM P-R Int : 216 ms QRS Dur : 161 ms QT Int : 465 ms P-R-T Axes : 000 -78 084 degrees QTc Int : 502 ms Atrial fibrillation Ventricular premature complex IVCD, consider atypical RBBB Anterolateral infarct, old Confirmed by Jagdeep Bernal ([id number]) on 09/25/2018 9:32:59 AM Referred By: Jagdeep Bernal Confirmed By:Jagdeep Bernal
[2018-09-25 09:42] LABS: INR 2.23 (0.83-1.16); PROTIME(PATIENT) 23.6 SEC (12.0-15.0)
[2018-09-25] MEDS ORDERED: NS W/ 20 KCl/L 1,000 ML IV SCH (11:45)
--- NOTE | 2018-09-25 11:54 | PDGENHP ---
History and Physical - Chief Complaint Weakness - History of Present Illness Patient is 88-year-old male with history of Parkinson's disease. He has been home from rehab for about 2 and half weeks. Yesterday and today his has not been able to get him up with the assistance of there 02/02 career development coordinator. Patient tells me his legs feel heavy and he just cant walk. He can wiggle his legs. Does not have pain or numbness. No chest pain or shortness of breath. No fever. The and fitter and turner are unable to care for him. Denies cough, sob, n/v/d, abdominal pain, fever, malaise, rash, visual deficits Past Medical/Surgical History: Parkinson's disease, spinal stenosis, sick sinus syndrome with pacemaker, atrial fibrillation, congestive heart failure, hip fracture, chronic AC, chronic endocarditis, gait instability Social History: , nonsmoker, no alcohol FMHx: non contributory History Information - Allergies/Home Medication List Allergies/Adverse Reactions: No Known Allergies Allergy (Verified 09/25/18 08:08) Home Medications: Diltiazem Cd [Cardizem ER 120 MG (*)] 120 mg PO DAILY@0730 03/20/18 [Last Taken 09/24/18] Carbidopa/Levodopa 25/100Mg [Sinemet 25/100 MG (*)] 1 tab PO QID@0730,12,,03/22/18 [Last Taken 09/24/18] Escitalopram Oxalate [Lexapro] 20 mg PO DAILY 04/20/18 [Last Taken 09/24/18] Finasteride [Proscar 5 MG (*)] 5 mg PO HS 04/20/18 [Last Taken 09/24/18] Doxycycline Hyclate [Vibramycin 100 MG (*)] 100 mg PO BID 06/18/18 [Last Taken 09/24/18] Rivaroxaban [Xarelto] 20 mg PO DAILY@17 06/18/18 [Last Taken 09/24/18] Acetaminophen [Tylenol ES 500 mg (*)] 1,000 mg PO Q8H PRN 06/29/18 [Last Taken 06/28/18] Donepezil HCl [Aricept] 10 mg PO HS 06/29/18 [Last Taken 09/24/18] Polyethylene Glycol 3350 [Miralax 17 gm (*)] 17 gm PO DAILY PRN 09/25/18 [Last Taken 09/24/18] QUEtiapine FUMARATE [Seroquel 25 mg (*)] 12.5 mg PO HS 09/25/18 [Last Taken ] I have personally reviewed and updated: medical history, social history - Past Medical History atrial fibrillation (on chronic AC), CHF (diastolic), dementia, hypertension Additional medical history: Parkinson's Disease. 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 candidemia. BPH. benign brain mass. chronic loculated pleural effusions. SSS. pulm htn. 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 Review of Systems Review of Systems: ROS: 10pt was reviewed & negative except for what was stated in HPI & below Physical Exam Physical Exam: Temp Pulse Resp BP Pulse Ox 36.6 C 72 17 125/81 H 97 09/25/18 11:14 09/25/18 11:14 09/25/18 11:14 09/25/18 11:14 09/25/18 11:14 O2 (L/minute) 2 Constitutional: no apparent distress Eyes: PERRL, EOMI Ears, Nose, Mouth, Throat: moist mucous membranes, hearing normal Cardiovascular: regular rate and rhythym, No edema Respiratory: no respiratory distress, no rales or rhonchi, clear to auscultation Gastrointestinal: normoactive bowel sounds, soft, non-tender abdomen Skin: warm Musculoskeletal: generalized weakness Neurologic: AAOx3 Psychiatric: interacting appropriately, not anxious, not encephalopathic Lymph, Heme, Immunologic: No petechiae Lab Data & Imaging Review 09/25/18 08:50 09/25/18 08:50 WBC 8.31 10^3/uL (3.80-9.50) 09/25/18 08:50 RBC 3.82 10^6/uL (4.40-6.38) L 09/25/18 08:50 Hgb 11.8 g/dL (13.7-17.5) L 09/25/18 08:50 Hct 37.0 % (40.0-51.0) L 09/25/18 08:50 MCV 96.9 fL (81.5-99.8) 09/25/18 08:50 MCH 30.9 pg (27.9-34.1) 09/25/18 08:50 MCHC 31.9 g/dL (32.4-36.7) L 09/25/18 08:50 RDW 14.3 % (11.5-15.2) 09/25/18 08:50 Plt Count 167 10^3/uL (150-400) 09/25/18 08:50 MPV 9.4 fL (8.7-11.7) 09/25/18 08:50 Neut % (Auto) 83.3 % (39.3-74.2) H 09/25/18 08:50 Lymph % (Auto) 5.2 % (15.0-45.0) L 09/25/18 08:50 [place] % (Auto) 9.5 % (4.5-13.0) 09/25/18 08:50 Eos % (Auto) 1.1 % (0.6-7.6) 09/25/18 08:50 Baso % (Auto) 0.2 % (0.3-1.7) L 09/25/18 08:50 Nucleat RBC Rel Count 0.0 % (0.0-0.2) 09/25/18 08:50 Absolute Neuts (auto) 6.92 10^3/uL (1.70-6.50) H 09/25/18 08:50 Absolute Lymphs (auto) 0.43 10^3/uL (1.00-3.00) L 09/25/18 08:50 Absolute Monos (auto) 0.79 10^3/uL (0.30-0.80) 09/25/18 08:50 Absolute Eos (auto) 0.09 10^3/uL (0.03-0.40) 09/25/18 08:50 Absolute Basos (auto) 0.02 10^3/uL (0.02-0.10) 09/25/18 08:50 Absolute Nucleated RBC 0.00 10^3/uL (0-0.01) 09/25/18 08:50 Immature Gran % 0.7 % (0.0-1.1) 09/25/18 08:50 Immature Gran # 0.06 10^3/uL (0.00-0.10) 09/25/18 08:50 RBC/WBC/PLT Morphology TNP 09/25/18 08:50 Platelet Estimate TNP 09/25/18 08:50 PT 23.6 SEC (12.0-15.0) H 09/25/18 08:50 INR 2.23 (0.83-1.16) H 09/25/18 08:50 APTT 40.9 SEC (23.0-38.0) H 09/25/18 08:50 Sodium 143 mEq/L (135-145) 09/25/18 08:50 Potassium 4.0 mEq/L (3.5-5.2) 09/25/18 08:50 Chloride 107 mEq/L (97-110) 09/25/18 08:50 Carbon Dioxide 30 mEq/l (22-31) 09/25/18 08:50 Anion Gap 6 mEq/L (6-14) 09/25/18 08:50 BUN 20 mg/dL (7-23) 09/25/18 08:50 Creatinine 1.0 mg/dL (0.7-1.3) 09/25/18 08:50 Estimated GFR > 60 09/25/18 08:50 Glucose 96 mg/dL (70-100) 09/25/18 08:50 Calcium 9.2 mg/dL (8.5-10.4) 09/25/18 08:50 POC Troponin I 0.00 ng/mL (0.00-0.08) 09/25/18 08:53 NT-Pro-B Natriuret Pep < 0 pg/mL (0-450) L 09/25/18 08:50 Assessment & Plan Assessment: #Generalized Weakness #Parkinson's #Permanent Afib #Chronic AC #Chronic Endocarditis, on suppressive Doxycycline Plan: -overall the patient seems very stable, possibly not too far off baseline -Hydration -dont see a clear source of infection and he denies infectious like symptoms. He has had a complicated urinary tract infection in the past but does not have any urinary symptoms currently. Re-evaluate after hydration. If still symptomatic, consider UA -PT/OT -Appropriate home meds -cont chronic anticoagulation -Full code, confirmed at bedside
[2018-09-25] MEDS ORDERED: POLYETHYLENE GLYCOL 3350 17 GM PKT PO PRN (11:55)
[2018-09-25] MEDS ORDERED: ONDANSETRON 4 MG/2 ML VIAL IVP PRN (11:56)
[2018-09-25] MEDS ORDERED: ONDANSETRON DISINTEGRATING 4 MG TAB PO PRN (11:56)
--- NOTE | 2018-09-25 12:07 | ASMTCMCOM ---
CM Note CM Note Notes: Reviewed chart. Pt presented to the Emergency Department for generalized weakness. History includes Parkinson's disease, spinal stenosis, SSS with PPM, Afib, diastolic CHF, right hip fracture (Jun 2018), gait instability, frequent falls, anemia, BPH, chronic endocarditis, moderate mitral and tricuspid regurg. Pt is and lives with his in [place]. Per records, pt was admitted to [facility] on 06/29/18 for a hip fracture. He was discharged 07/02/18 to [facility]. The pt has had multiple recent hospitalizations. Per MD notes, the pt recently returned home from rehab (approximately 2 wks ago). Pt to be admitted to the hospital today for further evaluation and treatment. Discharge needs remain unclear at this time. CM will await MD/ PT/OT aldair and will continue to follow. Discharge Plan: To be determined Date Signed: 09/25/2018 12:05 PM Electronically Signed By:Corinne Fontanez RN
[2018-09-25] MEDS: CARBIDOPA/LEVODOPA 25 MG/100 MG TAB PO SCH ×3 (12:28→21:24)
--- NOTE | 2018-09-25 14:37 | PDMN ---
Medical Necessity Medical necessity: [employer] neurology- M62.81 weakness generalized - 2 days 88yoM with Parkinson's, gen, weakness, afib, - chronic endocarditis, anticipate > 2 MN ongoing med nec care- rehydrate IV, further monitoring, eval and tx.
[2018-09-25] MEDS: RIVAROXABAN 20 MG TAB PO SCH (17:13)
[2018-09-25] MEDS: DOXYCYCLINE HYCLATE 100 MG CAP/TAB PO SCH (21:24)
[2018-09-25] MEDS: DONEPEZIL HCL 5 MG TAB PO SCH (21:25)
[2018-09-25] MEDS: QUEtiapine FUMARATE 25 MG TAB PO SCH (21:25)
[2018-09-25] MEDS: FINASTERIDE 5 MG TAB PO SCH (21:26)
[2018-09-25] MEDS: ACETAMINOPHEN 325 MG TAB PO PRN (23:12)
[2018-09-26] MEDS: ACETAMINOPHEN 325 MG TAB PO PRN (05:07)
[2018-09-26 05:15] LABS: PLATELET COUNT 157 10^3/uL (150-400)
[2018-09-26] MEDS: CARBIDOPA/LEVODOPA 25 MG/100 MG TAB PO SCH ×4 (08:01→20:17)
[2018-09-26] MEDS: DOXYCYCLINE HYCLATE 100 MG CAP/TAB PO SCH ×2 (08:01→20:19)
[2018-09-26] MEDS: ESCITALOPRAM OXALATE 10 MG TAB PO SCH (08:01)
[2018-09-26] MEDS: DILTIAZEM CD 120 MG CAP PO SCH (08:01)
--- NOTE | 2018-09-26 12:42 | HOSPPROG ---
Hospitalist Progress Note Assessment/Plan: 88y male with c/o weakness. First encounter, chart reviewed. #Generalized Weakness -multifactorial #Parkinson's -neurology consult ordered -D/W Dr Roa #Permanent Afib -stable #Chronic AC -follow labs #Chronic Endocarditis -on suppressive Doxycycline #Dispo -await PT/OT recs -may need SNF -cont supportive care -Hydration -cont chronic anticoagulation Subjective: Sleeping arousable. Feeling ok. Still very tired Objective: Vital Signs Temp Pulse Resp BP Pulse Ox 36.6 C 73 14 131/79 H 100 09/26/18 12:00 09/26/18 12:00 09/26/18 12:00 09/26/18 12:00 09/26/18 12:00 Laboratory Results 09/26/18 04:50 09/26/18 04:50 09/25/18 09/26/18 09/27/18 05:59 05:59 05:59 Intake Total 1450 Output Total 25 Balance 1425 PT 23.6 SEC (12.0-15.0) H 09/25/18 08:50 INR 2.23 (0.83-1.16) H 09/25/18 08:50 - Physical Exam Constitutional: appears nourished, chronically ill appearing, No obese Eyes: PERRL, anicteric sclera, EOMI Ears, Nose, Mouth, Throat: moist mucous membranes, hearing normal, ears appear normal Cardiovascular: regular rate and rhythym, No JVD, No edema Respiratory: no respiratory distress, no rales or rhonchi, reduced air movement Gastrointestinal: normoactive bowel sounds, No tenderness, No ascites Skin: warm, normal color, No mottled Musculoskeletal: normal joint ROM, no joint effusions, generalized weakness Neurologic: No AAOx3 Psychiatric: not anxious, not encephalopathic, poor insight, poor memory ICD10 Worksheet Patient Problems: Problems Problem Status Onset Paroxysmal a-fib Acute Multiple skin tears Acute Fall Acute Parkinson disease Acute UTI (urinary tract infection) Acute Dehydration Acute Pacemaker malfunction Acute Acute renal insufficiency Acute Sepsis Acute Fracture of femoral neck, closed Acute Hypotension Acute Displaced fracture of right femoral neck Acute Failure to thrive in adult Acute
[2018-09-26] MEDS: RIVAROXABAN 20 MG TAB PO SCH (17:17)
--- NOTE | 2018-09-26 17:21 | GCON ---
[f rep st] CONSULTATION REFERRING PHYSICIAN: Sonam Montalvo NP CHIEF COMPLAINT: Parkinson disease. 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 He is followed by my colleague, Dr. Benjie Peralta, for Parkinson disease. I reviewed his most recent notes, which indicate the patient is on Sinemet 25/100 one tablet 4 times a day and has been doing well and responding in terms of his parkinsonism. The patient unfortunately had a hip fracture late last year and has been in rehabilitation. The patient was recently discharged from rehabilitation apparently and had been home for about 2-1/2 weeks and his brought him to the emergency department yesterday because she is having trouble getting him up without assistance 02/02. Essentially, there was no acute change , but the lack of resources to care for him at home and, therefore, he was brought to the hospital for further recommendations and treatment. The patient is having trouble walking on his own due to multifactorial problems including recent hip fracture, parkinsonism, general deconditioning. A 10-point review was done and only pertinent in the HPI. For past medical history, social history, family history, home medications, allergies, see the History and Physical by Dr. Zuñiga. PHYSICAL EXAM: VITAL SIGNS: Blood pressure is 130s over 70s, afebrile at 36.6 centigrade, respiration 14 to 16. GENERALLY: The patient is awake, alert, very pleasant. NEUROLOGICAL: On cranial nerve exam, he does have some decreased facial expression, but normal extraocular movements. On motor exam, he has intermittent parkinsonian tremor in both upper extremities, maximal right. There is both a rest and action component. In the lower extremities, power was normal at the hips, with the anterior tibialis there was some weakness at the right, which the patient states is chronic from a foot injury from childhood. Not entirely clear. IMPRESSION/PLAN: 1. Parkinson's disease. The patient is having some general decline in the setting of advanced age, cardiovascular history, recent hip fracture, and progressive Parkinson disease. This is not unexpected with these conditions. He is on Sinemet 25/100 one tablet four times daily. He has had no side effects from this medication and has had definite response and improvement of his symptoms according to the patient. I have recommended we increase it to 1-1 /2 tablets, 1 tablet, 1-1/2 tablets, 1 tablet going forward. We discussed potential risks, benefits, and alternatives of this modest increase in dosage. I have contacted the hospitalist regarding the increase by a half tablet with the first and third doses as well. I will let his primary neurologist, Dr. Peralta, know as well of the prescription adjustment so it can be renewed going forward as an outpatient. No further recommendations now. We will continue to follow the patient as needed while he is in the hospital. Please do not hesitate to call if there are any questions or changes in neurologic status. We switch services tomorrow morning and Dr. Driver will take over the service. Fifty total minutes on the floor today reviewing outpatient, inpatient records; over 50% in direct counseling and coordination of care. We appreciate the referral. /[id number]/MODL MTDD
[2018-09-26] MEDS: DONEPEZIL HCL 5 MG TAB PO SCH (20:18)
[2018-09-26] MEDS: FINASTERIDE 5 MG TAB PO SCH (20:18)
[2018-09-26] MEDS: QUEtiapine FUMARATE 25 MG TAB PO SCH (20:18)
[2018-09-27] MEDS: DILTIAZEM CD 120 MG CAP PO SCH (08:04)
[2018-09-27] MEDS: CARBIDOPA/LEVODOPA 25 MG/100 MG TAB PO SCH ×4 (08:04→21:19)
[2018-09-27] MEDS: ESCITALOPRAM OXALATE 10 MG TAB PO SCH (08:05)
[2018-09-27] MEDS: DOXYCYCLINE HYCLATE 100 MG CAP/TAB PO SCH ×2 (08:05→21:18)
--- NOTE | 2018-09-27 14:07 | ASMTCMCOM ---
CM Note CM Note Notes: Pt/ want SNF d/c, today PT/OT rec SNF. Pt Aldo requests referral to [facility] where pt was three weeks ago. [facility] can accept pt and have sent for [place] insurance auth. D/c plan of care: [facility] Date Signed: 09/27/2018 02:07 PM Electronically Signed By:MISAEL Raman
--- NOTE | 2018-09-27 14:32 | HOSPPROG ---
Hospitalist Progress Note Assessment/Plan: 88y male with c/o weakness. #Generalized Weakness -multifactorial -not at baseline #Parkinson's -appreciate neurology consult -adjusted sinemet dose #Permanent Afib -stable #Chronic AC -follow labs #Chronic Endocarditis -on suppressive Doxycycline #Dispo -Pt needs SNF -not at baseline -cont supportive care -Hydration -cont chronic anticoagulation Subjective: Up in chair. Feels tired. No pain. Objective: Vital Signs Temp Pulse Resp BP Pulse Ox 36.8 C 80 16 136/81 H 96 09/27/18 07:33 09/27/18 08:04 09/27/18 07:33 09/27/18 08:04 09/27/18 07:33 Laboratory Results 09/26/18 04:50 09/26/18 04:50 09/26/18 09/27/18 09/28/18 05:59 05:59 05:59 Intake Total 1450 500 Output Total 25 102 Balance 1425 398 PT 23.6 SEC (12.0-15.0) H 09/25/18 08:50 INR 2.23 (0.83-1.16) H 09/25/18 08:50 - Physical Exam Constitutional: appears nourished, not in pain, chronically ill appearing Eyes: PERRL, anicteric sclera Ears, Nose, Mouth, Throat: moist mucous membranes, hearing normal Cardiovascular: No JVD, No edema Respiratory: no respiratory distress, reduced air movement Gastrointestinal: No tenderness, No ascites Skin: warm, normal color Musculoskeletal: no joint effusions, generalized weakness Psychiatric: not anxious, poor judgement, poor memory ICD10 Worksheet Patient Problems: Problems Problem Status Onset Paroxysmal a-fib Acute Multiple skin tears Acute Fall Acute Parkinson disease Acute UTI (urinary tract infection) Acute Dehydration Acute Pacemaker malfunction Acute Acute renal insufficiency Acute Sepsis Acute Fracture of femoral neck, closed Acute Hypotension Acute Displaced fracture of right femoral neck Acute Failure to thrive in adult Acute
--- NOTE | 2018-09-27 15:37 | WOCRNPDOC ---
WOCRN Advanced Assessment Note - Skin Integrity Problem, Advanced Assess Left Anterior Thigh Unknown Dressing Type: Allevyn Life Dressing Description: Clean/Dry, Intact Exudate Amount: Minimal Exudate Color: Yellow Exudate Characteristic(s): Cloudy Integumentary Issue Intervention: Dressing Changed, Dressing Initialed & Dated, Hydrogel Applied, Mechanical Debridement Shellie Wound Tissue: Scarred Wound Bed Constitution: Granulation Tissue Wound Edges: Epithelizing, Attached, Irregular, Scarred Site Measurement - Head-to-Toe Length X Width X Depth (cm): 1.3x1.2x0.1 Skin Integrity Problem Comment: Healing full thickness burn. The wound is at least a couple of months old and has been trying to heal. It is not along a proper healing trajectory and likely will close in the next 2-3 weeks. Supportive care will be initiated. There is a significant amount of scar tissue beneath the remaining open wound. Cleaned with ns and gauze. Wound gel and allevyn to cover. Wound care will follow. Alton WATKINS in room for care.
[2018-09-27] MEDS: RIVAROXABAN 20 MG TAB PO SCH (17:58)
[2018-09-27] MEDS: QUEtiapine FUMARATE 25 MG TAB PO SCH (21:18)
[2018-09-27] MEDS: FINASTERIDE 5 MG TAB PO SCH (21:18)
[2018-09-27] MEDS: DONEPEZIL HCL 5 MG TAB PO SCH (21:18)
[2018-09-28 07:34] VITALS: BP 141/76
[2018-09-28] MEDS: CARBIDOPA/LEVODOPA 25 MG/100 MG TAB PO SCH ×2 (08:25→12:00)
[2018-09-28] MEDS: DOXYCYCLINE HYCLATE 100 MG CAP/TAB PO SCH (08:26)
[2018-09-28] MEDS: DILTIAZEM CD 120 MG CAP PO SCH (08:26)
[2018-09-28] MEDS: ESCITALOPRAM OXALATE 10 MG TAB PO SCH (08:26)
--- NOTE | 2018-09-28 13:00 | PDIAF ---
- Diagnosis Diagnosis: weakness Code Status: Full Code - Medication Management Discharge Medications: electronically signed and located in the Home Medication List. PICC Care - Routine: N/A - Orders Services needed: Registered Nurse, Physical Therapy, Occupational Therapy Isolation Type: None Diet Recommendation: no restrictions on diet Additional Instructions: Please follow up within 3- 4 weeks of discharge with outpatient [facility] if you continue to have issues with your wounds: You may reach them at [phone] for an appointment and continued management of your wounds. Please call them kaleb to schedule your appointment as they fill up quickly. If before that time you have any issues, please follow up with your PCP. Change dressings to left thigh every 3 days and prn. 1. Clean with ns and gauze or with soap and water. 2. Wound gel to wound bed 3. Cover with Aquacel Ag border dressing Melanie Torab CWON. - Follow Up Care Current Providers and Referrals: Patient,NotPresent [Unknown] - As per Instructions
--- NOTE | 2018-09-28 13:38 | ASMTCMCOM ---
CM Note CM Note Notes: Met with Pt. Pt accepted to [facility] and contacted. [facility] has set up transport w/ [place] at 1500 with w/c and o2 needs. PT informed. PLAN Discharge to [facility] Date Signed: 09/28/2018 01:37 PM Electronically Signed By:Shanthi Bejarano
--- NOTE | 2018-09-28 13:39 | ASMTLACE ---
BAKARI Length of stay for Answers: 4-6 days current admission Acuity / Level of Answers: Yes Care: Did the patient have an inpatient admission? Comorbidities - select Answers: Congestive heart failure all that apply Other Notes: Parkinson's disease, spinal stenosis, SSS w/ PPM, Afib, BPH, R hi p fracture, chronic anemia, chronic endocarditis, moderate mitral and tricuspid valve regurg # of Emergency department Answers: 12+ visits in the last 6 months Score: 16 Date Signed: 09/28/2018 01:38 PM Electronically Signed By:Shanthi Bejarano
--- NOTE | 2018-09-28 15:28 | GDS ---
[f rep st] DISCHARGE SUMMARY DISCHARGE DIAGNOSES: 1. Weakness. 2. Parkinson disease. 3. Permanent atrial fibrillation. 4. Chronic anticoagulation. 5. Chronic endocarditis. PHYSICAL EXAM: GENERAL: The patient is alert. VITAL SIGNS: Afebrile at 36.6, pulse 76, respirator y rate 14, blood pressure is 141/76. He is saturating 95% on 2 L. I have seen and evaluated the pat ient on the day of discharge. HOSPITAL COURSE: This patient is an 88-year-old male who has a history of Parkinson disease, who pre sented to the hospital with complaints of generalized weakness. He was evaluated and diagnosed with: 1. Generalized weakness. This was multifactorial during this hospitalization. He will continue phy sical therapy and occupational therapy in the outpatient setting as he is not at his baseline. 2. Parkinson's. He did receive a consultation from Neurology during this hospitalization. His Sine met has been adjusted and will continue his new dose in the outpatient setting. 3. Permanent atrial fibrillation. This is stable. 4. Chronic anticoagulation. His laboratory values are stable. 5. Chronic endocarditis. His suppressive doxycycline has been continued. 6. Disposition. [facility] and ma nagement. There are no pending studies. DISCHARGE MEDICATIONS: Please refer to EMR form. Medication adjustments include Sinemet dosage, oth er medications have remained the same. FOLLOWUP: Will be at the [facility] as well as with Neurology in the outpatient setting. TIME SPENT WITH PATIENT: I spent greater than 35 minutes in the care, coordination, and management o f the patient's disposition. /[id number]/MODL
--- NOTE | 2018-09-29 15:39 | ASDISCHSUM ---
Discharge Information Plan Status:SNF Medically Cleared to Leave: Discharge Date:09/28/2018 03:31 PM CM D/C Disposition: ADT D/C Disposition:Fdc Facility Projected Discharge Date:09/28/2018 11:00 AM Transportation at D/C: Discharge Delay Reason: Follow-Up Date:09/28/2018 11:00 AM Discharge Slot: Final Diagnosis: Placement Information Referral Type:*Longterm/SNF Referral ID:[id number] Provider Name:[facility] Address 1:[address] Address 2: City:[place] Selection Factors: State:[place] Patient Contact Information Contact Name:HERMILA Relationship: Address:[address] Work Phone: [facility]:[place] Alternate Phone: State/Zip Code:[place] [address] Email: Financial Information Financial Class:Medicare Advantage Plans Primary Plan Desc:[facility] Primary Plan Number:[id number] Secondary Plan Desc: Secondary Plan Number: Assessment Information LACE LACE Length of stay for Answers: 4-6 days current admission Acuity / Level of Answers: Yes Care: Did the patient have an inpatient admission? Comorbidities - select Answers: Congestive heart failure all that apply Other Notes: Parkinson's disease, spinal stenosis, SSS w/ PPM, Afib, BPH, R hi p fracture, chronic anemia, chronic endocarditis, moderate mitral and tricuspid valve regurg # of Emergency department Answers: 12+ visits in the last 6 months Score: 16 Date Signed: 09/28/2018 01:38 PM Electronically Signed By:Shantih Bejarano [facility] CM Progress Note CM Note CM Note Notes: Reviewed chart. Pt presented to the Emergency Department for generalized weakness. History includes Parkinson's disease, spinal stenosis, SSS with PPM, Afib, diastolic CHF, right hip fracture (Jun 2018), gait instability, frequent falls, anemia, BPH, chronic endocarditis, moderate mitral and tricuspid regurg. Pt is and lives with his in [place]. Per records, pt was admitted to [facility] on 06/29/18 for a hip fracture. He was discharged 07/02/18 to [facility]. The pt has had multiple recent hospitalizations. Per MD notes, the pt recently returned home from rehab (approximately 2 wks ago). Pt to be admitted to the hospital today for further evaluation and treatment. Discharge needs remain unclear at this time. CM will await MD/ PT/OT evals and will continue to follow. Discharge Plan: To be determined Date Signed: 09/25/2018 12:05 PM Electronically Signed By:Corinne Fontanez RN [facility] CM Progress Note CM Note CM Note Notes: Pt/ want SNF d/c, today PT/OT rec SNF. Pt Aldo requests referral to [facility] where pt was three weeks ago. [facility] can accept pt and have sent for [place] insurance auth. D/c plan of care: [facility] Date Signed: 09/27/2018 02:07 PM Electronically Signed By:MISAEL Raman [facility] CM Progress Note CM Note CM Note Notes: Met with Pt. Pt accepted to [facility] and contacted. [facility] has set up transport w/ [facility] at 1500 with w/c and o2 needs. PT informed. PLAN Discharge to [facility] Date Signed: 09/28/2018 01:37 PM Electronically Signed By:Shanthi Bejarano Intervention Information Intervention Type:*IM-Signed Date of Service:09/28/2018 02:13 PM Patient Type:Inpatient Staff Member:Juju Wu Hours: Discipline: Severity: Comment:
== END 2018-09-28 15:31 | DRG 948 ==
LOC: EDUNIT# → F3N 10:25
PROVIDERS: ADMIT Family Medicine; ATTEND Family Medicine
DX: R53.1 Weakness (principal); I50.32 Chronic diastolic (congestive) heart failure; G20 Parkinson's disease; I36.8 Other nonrheumatic tricuspid valve disorders; I48.2 Chronic atrial fibrillation; E86.9 Volume depletion, unspecified; N40.0 Benign prostatic hyperplasia without lower urinary tract symptoms; S72.001D Fracture of unspecified part of neck of right femur, subsequent encounter for closed fracture with routine healing; Z95.810 Presence of automatic (implantable) cardiac defibrillator; Z79.01 Long term (current) use of anticoagulants; Z79.2 Long term (current) use of antibiotics
CPT/HCPCS: 84484-ER; 97116-GP; 97162-GP; 97166-GO; 97530-GP; 97535-GO

== ENCOUNTER 2018-11-17 08:01 | Inpatient (IN) | payer OTHER ==
--- NOTE | 2018-11-17 07:57 | EDPHY ---
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 Associated with chills and symptoms were severe. Saturation in the 70s on EMS arrival, but they gave him a nebulizer and placed a month supplemental oxygen and he felt better afterwards. Not associated with chest pain. He does have chronic bilateral leg swelling which is unchanged. No known fevers but chills are present. REVIEW OF SYSTEMS: Eye: no change in vision ENT: no sore throat Cardiac: no chest pain or syncope Pulmonary: HPI Abdomen: no vomiting, diarrhea, abdominal pain Musculoskeletal: Chronic leg swelling Skin: no rash Neuro: no headache Constitutional: no fever : no urinary symptoms A comprehensive 10 point review of systems is otherwise negative aside from elements mentioned in the history of present illness. PAST MEDICAL HISTORY: Discharge summary dated 09/28/2018 personally reviewed includes Parkinson's, atrial fibrillation, chronic endocarditis on tetracyclines hand spinal stenosis, CHF, hip fracture. 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 General Appearance: Alert and conversant, cooperative. Eyes: No scleral icterus. ENT, Mouth: Normal mucous membranes. Respiratory: Crackles bilaterally full lung castro, increased work of breathing , saturation 74% on room air. Cardiovascular: Irregular rate, distant heart sounds. Gastrointestinal: Abdomen is soft and non tender. Neurological: Alert, face symmetric, normal motor and sensory in extremities. Skin: Warm and dry, no rashes. Musculoskeletal: Bilateral peripheral edema but no calf tenderness. Psychiatric: Not agitated. Emergency Department course/MDM: Supplemental oxygen placed with Oxymizer mask to get him saturating in the 90's. With chills suspicion for pneumonia or worsening endocarditis or other infection such as UTI or influenza or sepsis. 910: [place] for Dr. Ross. Admission step-down, IV Zosyn 3.375g for possible Hcap with chills and new infiltrate lower segment RUL, will need cardiology evaluation as well. No fluids with evidence of volume overload on chest x-ray and history of CHF. Constitutional: Initial Vital Signs Temperature (C) 36.8 C 11/17/18 08:10 Heart Rate 70 11/17/18 08:10 Respiratory Rate 20 11/17/18 08:10 Blood Pressure 140/70 H 11/17/18 08:10 O2 Sat (%) 74 L 11/17/18 08:10 O2 Delivery Mode Room Air O2 (L/minute) 10 Allergies/Adverse Reactions: No Known Allergies Allergy (Verified 11/17/18 08:10) Home Medications: Medication Instructions Recorded Diltiazem Cd [Cardizem ER 120 MG 120 mg PO DAILY@72903/20/18 (*)] Escitalopram Oxalate [Lexapro] 20 mg PO DAILY@72904/20/18 Finasteride [Proscar 5 MG (*)] 5 mg PO HS 04/20/18 Doxycycline Hyclate [Vibramycin 100 mg PO DAILY@72906/18/18 100 MG (*)] Rivaroxaban [Xarelto] 20 mg PO DAILY@17 06/18/18 Acetaminophen [Tylenol ES 500 mg 1,000 mg PO Q8H PRN 06/29/18 (*)] Polyethylene Glycol 3350 [Miralax 17 gm PO DAILY PRN 09/25/18 17 gm (*)] QUEtiapine FUMARATE [Seroquel 25 25 mg PO HS 09/25/18 mg (*)] Carbidopa/Levodopa 25/100Mg 1 tab PO BID@1200,2100 tab 09/28/18 [Sinemet 25/100 MG (*)] Carbidopa/Levodopa 25/100Mg 1.5 tab PO BID@0730,1700 tab 09/28/18 [Sinemet 25/100 MG (*)] Medical Decision Making - Diagnostics EKG Interpretation: 12-lead EKG interpreted by me; official reading is in computer system. My interpretation is V paced rate 68. Imaging Results: Imaging Impressions Chest X-Ray 11/17/18 08:12 Impression: Increased bibasilar consolidation with probable moderate bilateral pleural effusions, slight increase in loculated fluid along the minor fissure, and cardiomegaly, most likely related to fluid overload/CHF, however pneumonia cannot be excluded. Imaging: I viewed and interpreted images myself Differential Diagnosis: Differential diagnosis considered for shortness of breath including but not limited to pulmonary infectious process, COPD, asthma, pulmonary embolus and congestive heart failure. On Xarelto, PE unlikely. Critical Care Time: Critical care time spent by me, Dr. Hardin, exclusively with the care of this patient was 35 minutes, exclusive of PA or DIETARY WORKER time and exclusive of separate procedures. The organ system at risk was pulmonary and cardiac and I ordered supplemental oxygen, multiple diagnostics, IV antibiotics and hospital admission to stabilize the patient and prevent worsening of the patient's condition. - Data Points Laboratory Results: Laboratory Results 11/17/18 08:00 11/17/18 08:00 11/17/18 11/17/18 11/17/18 08:50 08:34 08:00 WBC RBC Hgb Hct MCV MCH MCHC RDW Plt Count MPV Neut % (Auto) Lymph % (Auto) Sabine % (Auto) Eos % (Auto) Baso % (Auto) Nucleat RBC Rel Count Absolute Neuts (auto) Absolute Lymphs (auto) Absolute Monos (auto) Absolute Eos (auto) Absolute Basos (auto) Absolute Nucleated RBC Immature Gran % Immature Gran # RBC/WBC/PLT Morphology Platelet Estimate PT INR APTT VBG Lactic Acid 1.8 mmol/L mmol/L (0.7-2.1) Sodium 142 mEq/L mEq/L (135-145) Potassium 3.9 mEq/L mEq/L (3.5-5.2) Chloride 107 mEq/L mEq/L (97-110) Carbon Dioxide 25 mEq/l mEq/l (22-31) Anion Gap 10 mEq/L mEq/L (6-14) BUN 17 mg/dL mg/dL (7-23) Creatinine 0.8 mg/dL mg/dL (0.7-1.3) Estimated GFR > 60 Glucose 116 mg/dL H mg/dL (70-100) Calcium 9.1 mg/dL mg/dL (8.5-10.4) Total Bilirubin 1.1 mg/dL mg/dL (0.1-1.4) POC Troponin I 0.00 ng/mL ng/mL (0.00-0.08) NT-Pro-B Natriuret Pep 2400 pg/mL H pg/mL (0-450) 11/17/18 11/17/18 08:00 08:00 WBC 10.65 10^3/uL H 10^3/uL (3.80-9.50) RBC 3.97 10^6/uL L 10^6/uL (4.40-6.38) Hgb 12.1 g/dL L g/dL (13.7-17.5) Hct 38.8 % L % (40.0-51.0) MCV 97.7 fL fL (81.5-99.8) MCH 30.5 pg pg (27.9-34.1) MCHC 31.2 g/dL L g/dL (32.4-36.7) RDW 14.4 % % (11.5-15.2) Plt Count 155 10^3/uL 10^3/uL (150-400) MPV 9.5 fL fL (8.7-11.7) Neut % (Auto) 89.4 % H % (39.3-74.2) Lymph % (Auto) 2.8 % L % (15.0-45.0) Sabine % (Auto) 6.2 % % (4.5-13.0) Eos % (Auto) 0.8 % % (0.6-7.6) Baso % (Auto) 0.2 % L % (0.3-1.7) Nucleat RBC Rel Count 0.0 % % (0.0-0.2) Absolute Neuts (auto) 9.52 10^3/uL H 10^3/uL (1.70-6.50) Absolute Lymphs (auto) 0.30 10^3/uL L 10^3/uL (1.00-3.00) Absolute Monos (auto) 0.66 10^3/uL 10^3/uL (0.30-0.80) Absolute Eos (auto) 0.09 10^3/uL 10^3/uL (0.03-0.40) Absolute Basos (auto) 0.02 10^3/uL 10^3/uL (0.02-0.10) Absolute Nucleated RBC 0.00 10^3/uL 10^3/uL (0-0.01) Immature Gran % 0.6 % % (0.0-1.1) Immature Gran # 0.06 10^3/uL 10^3/uL (0.00-0.10) RBC/WBC/PLT Morphology TNP Platelet Estimate TNP PT 20.4 SEC H SEC (12.0-15.0) INR 1.84 H (0.83-1.16) APTT 37.3 SEC SEC (23.0-38.0) VBG Lactic Acid Sodium Potassium Chloride Carbon Dioxide Anion Gap BUN Creatinine Estimated GFR Glucose Calcium Total Bilirubin POC Troponin I NT-Pro-B Natriuret Pep Medications Given: Discontinued Medications Piperacillin/Tazobactam/Dextrose (Zosyn 3.375 Gm (Premix)) 50 mls @ 100 mls/hr IV EDNOW ONE PRN Reason: Protocol Stop: 11/17/18 09:41 Last Admin: 11/17/18 09:32 Dose: 50 mls Point of Care Test Results: Chemistry 11/17/18 08:34 POC Troponin I 0.00 ng/mL ng/mL (0.00-0.08) Departure - Departure Disposition: [facility] Inpatient Acute Clinical Impression: Hypoxemia Acute exacerbation of congestive heart failure Qualifiers: Heart failure type: unspecified Qualified Code(s): I50.9 - Heart failure, unspecified Condition: Serious
[2018-11-17 08:42] LABS: PLATELET COUNT 155 10^3/uL (150-400)
--- NOTE | 2018-11-17 08:54 | CPEKG ---
Test Reason : OPEN Blood Pressure : / mmHG Vent. Rate : 068 BPM Atrial Rate : 000 BPM P-R Int : 055 ms QRS Dur : 168 ms QT Int : 481 ms P-R-T Axes : 000 268 084 degrees QTc Int : 512 ms Afib/flut and V-paced complexes Confirmed by Bib Hardin ([id number]) on 11/17/2018 8:54:00 AM Referred By: Bib Hardin Confirmed By:Bib Hardin
[2018-11-17] MEDS ORDERED: PIPERACILLIN/TAZO 3.375 GM/DEX 50 ML IV ONE (09:12)
[2018-11-17 09:19] LABS: INR 1.84 (0.83-1.16); PROTIME(PATIENT) 20.4 SEC (12.0-15.0)
[2018-11-17] MEDS ORDERED: ONDANSETRON DISINTEGRATING 4 MG TAB PO PRN (09:32)
[2018-11-17] MEDS ORDERED: ONDANSETRON 4 MG/2 ML VIAL IVP PRN (09:32)
[2018-11-17] MEDS ORDERED: FUROSEMIDE 40 MG/4 ML VIAL IVP ONE (09:53)
[2018-11-17] MEDS ORDERED: POLYETHYLENE GLYCOL 3350 17 GM PKT PO PRN (12:11)
--- NOTE | 2018-11-17 16:13 | PDGENHP ---
History and Physical - Chief Complaint SOB, Chills - History of Present Illness Julio Cesar Sykes is a 88 yo M with a PMHx of Parkinson's disease, A Fib on Xarelto, dCHF on 2L 02, Endocarditis on Chronic Abx Suppression, Hip Fracture s/p Repair 06/2018 who presents to [facility] for SOB and chills. He reports that he had acute onset of shortness of breath since early this morning. He reports associated shaking chills. He denies any chest pain, palpitations, fevers, d/c, n/v. He notes b/l LE edema R>L since R hip surgery in June. He also notes productive cough of thick sputum. History Information - Allergies/Home Medication List Allergies/Adverse Reactions: No Known Allergies Allergy (Verified 11/17/18 08:10) Home Medications: Diltiazem Cd [Cardizem ER 120 MG (*)] 120 mg PO DAILY@72903/20/18 [Last Taken 11/17/18] Escitalopram Oxalate [Lexapro] 20 mg PO DAILY@72904/20/18 [Last Taken 11/17/18 ] Finasteride [Proscar 5 MG (*)] 5 mg PO HS 04/20/18 [Last Taken 11/16/18] Doxycycline Hyclate [Vibramycin 100 MG (*)] 100 mg PO DAILY@72906/18/18 [Last Taken 11/17/18] Rivaroxaban [Xarelto] 20 mg PO DAILY@17 06/18/18 [Last Taken 11/16/18] Acetaminophen [Tylenol ES 500 mg (*)] 1,000 mg PO Q8H PRN 06/29/18 [Last Taken 11/16/18 21:00] Polyethylene Glycol 3350 [Miralax 17 gm (*)] 17 gm PO DAILY PRN 09/25/18 [Last Taken 09/24/18] QUEtiapine FUMARATE [Seroquel 25 mg (*)] 25 mg PO HS 09/25/18 [Last Taken ] I have personally reviewed and updated: family history, medical history, social history, surgical history - Past Medical History atrial fibrillation (on chronic AC), CHF (diastolic), dementia, hypertension Additional medical history: Parkinson's Disease. 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 candidemia. BPH. benign brain mass. chronic loculated pleural effusions. SSS. pulm htn. 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 Review of Systems Review of Systems: ROS: 10pt was reviewed & negative except for what was stated in HPI & below Physical Exam Physical Exam: Temp Pulse Resp BP Pulse Ox 36.3 C 68 18 144/79 H 98 11/17/18 10:56 11/17/18 10:56 11/17/18 10:56 11/17/18 10:56 11/17/18 10:56 O2 (L/minute) 5 Constitutional: chronically ill appearing Eyes: PERRL Ears, Nose, Mouth, Throat: moist mucous membranes Cardiovascular: regular rate and rhythym, edema (2+ non-pitting edema b/l LE R>L ) Respiratory: reduced air movement, inspiratory crackles Gastrointestinal: soft, non-tender abdomen Skin: warm Musculoskeletal: full muscle strength Neurologic: AAOx3 Psychiatric: interacting appropriately Lab Data & Imaging Review 11/17/18 08:00 11/17/18 08:00 WBC 10.65 10^3/uL (3.80-9.50) H 11/17/18 08:00 RBC 3.97 10^6/uL (4.40-6.38) L 11/17/18 08:00 Hgb 12.1 g/dL (13.7-17.5) L 11/17/18 08:00 Hct 38.8 % (40.0-51.0) L 11/17/18 08:00 MCV 97.7 fL (81.5-99.8) 11/17/18 08:00 MCH 30.5 pg (27.9-34.1) 11/17/18 08:00 MCHC 31.2 g/dL (32.4-36.7) L 11/17/18 08:00 RDW 14.4 % (11.5-15.2) 11/17/18 08:00 Plt Count 155 10^3/uL (150-400) 11/17/18 08:00 MPV 9.5 fL (8.7-11.7) 11/17/18 08:00 Neut % (Auto) 89.4 % (39.3-74.2) H 11/17/18 08:00 Lymph % (Auto) 2.8 % (15.0-45.0) L 11/17/18 08:00 [place] % (Auto) 6.2 % (4.5-13.0) 11/17/18 08:00 Eos % (Auto) 0.8 % (0.6-7.6) 11/17/18 08:00 Baso % (Auto) 0.2 % (0.3-1.7) L 11/17/18 08:00 Nucleat RBC Rel Count 0.0 % (0.0-0.2) 11/17/18 08:00 Absolute Neuts (auto) 9.52 10^3/uL (1.70-6.50) H 11/17/18 08:00 Absolute Lymphs (auto) 0.30 10^3/uL (1.00-3.00) L 11/17/18 08:00 Absolute Monos (auto) 0.66 10^3/uL (0.30-0.80) 11/17/18 08:00 Absolute Eos (auto) 0.09 10^3/uL (0.03-0.40) 11/17/18 08:00 Absolute Basos (auto) 0.02 10^3/uL (0.02-0.10) 11/17/18 08:00 Absolute Nucleated RBC 0.00 10^3/uL (0-0.01) 11/17/18 08:00 Immature Gran % 0.6 % (0.0-1.1) 11/17/18 08:00 Immature Gran # 0.06 10^3/uL (0.00-0.10) 11/17/18 08:00 RBC/WBC/PLT Morphology TNP 11/17/18 08:00 Platelet Estimate TNP 11/17/18 08:00 PT 20.4 SEC (12.0-15.0) H 11/17/18 08:00 INR 1.84 (0.83-1.16) H 11/17/18 08:00 APTT 37.3 SEC (23.0-38.0) 11/17/18 08:00 VBG Lactic Acid 1.8 mmol/L (0.7-2.1) 11/17/18 08:50 Sodium 142 mEq/L (135-145) 11/17/18 08:00 Potassium 3.9 mEq/L (3.5-5.2) 11/17/18 08:00 Chloride 107 mEq/L (97-110) 11/17/18 08:00 Carbon Dioxide 25 mEq/l (22-31) 11/17/18 08:00 Anion Gap 10 mEq/L (6-14) 11/17/18 08:00 BUN 17 mg/dL (7-23) 11/17/18 08:00 Creatinine 0.8 mg/dL (0.7-1.3) 11/17/18 08:00 Estimated GFR > 60 11/17/18 08:00 Glucose 116 mg/dL (70-100) H 11/17/18 08:00 Calcium 9.1 mg/dL (8.5-10.4) 11/17/18 08:00 Total Bilirubin 1.1 mg/dL (0.1-1.4) 11/17/18 08:00 POC Troponin I 0.00 ng/mL (0.00-0.08) 11/17/18 08:34 NT-Pro-B Natriuret Pep 2400 pg/mL (0-450) H 11/17/18 08:00 Urine Color YELLOW 11/17/18 11:05 Urine Appearance CLEAR 11/17/18 11:05 Urine pH 7.0 (5.0-7.5) 11/17/18 11:05 Ur Specific [place] 1.017 (1.002-1.030) 11/17/18 11:05 Urine Protein NEGATIVE (NEGATIVE) 11/17/18 11:05 Urine Ketones NEGATIVE (NEGATIVE) 11/17/18 11:05 Urine Blood NEGATIVE (NEGATIVE) 11/17/18 11:05 Urine Nitrate NEGATIVE (NEGATIVE) 11/17/18 11:05 Urine Bilirubin NEGATIVE (NEGATIVE) 11/17/18 11:05 Urine Urobilinogen NEGATIVE EU (0.2-1.0) 11/17/18 11:05 Ur Leukocyte Esterase NEGATIVE (NEGATIVE) 11/17/18 11:05 Urine Glucose NEGATIVE (NEGATIVE) 11/17/18 11:05 Assessment & Plan Assessment: Shortness of Breathing - Acute onset this morning with associated shaking chills - CXR on admission showing b/l basilar consolidations with moderate b/l pleural effusions and cardiomegaly, most likely related to fluid overload/CHF, however PNA cannot be ruled out - Afebrile on admission, WBC slightly elevated to 10.6, LA 1.8 - BNP elevated to 2,400 on admission - Differential Acute Exacerbation of CHF vs. PNA vs. PE vs. URI - S/p Zosyn in ED, will hold off on further abx for now, if becomes febrile or worsening leukocytosis will reinitiate - S/p 40 mg IVP Lasix on admission, will dose 40 mg IV BID for now (not on diuretics at home) - Cardiology consulted this AM given hx of dCHF, severe TR, chronic endocarditis , recommend repeat TTE (last 06/2018), f/u recommendations - Monitor I/O, BMP while on IV diuretics dCHF - Noted on past TTE - Management of Acute exacerbation as above - Repeat TTE pending, cardiology consult Hypoxemia (Acute) - 02 sat 74% on RA on admission, usually on 2L 02 chronically - 2/2 to above - Wean 02 as tolerated back to baseline A Fib - S/p PPM - On Xarelto, Diltiazem, will continue - Continue to monitor Parkinson's Disease - Continue home Sinemet Endocarditis - Vegetation noted on TTE from 04/28/2018, not noted on repeat TTE from 06/2018 - Continue home Doxycycline - Cards consult as above BPH - Continue home Finasteride FEN: Cardiac DVT PPx: Home Xarelto Code: DNR Dispo: Admit to Medicine
--- NOTE | 2018-11-17 16:15 | ECHO ---
[email or web address] [address] Main: [phone] Echocardiography Examination Transthoracic Name: CHAVEZ SCHUMACHER MR#: [id number] Study Date: 11/17/2018 Study Time: 01:37 PM Date of : 1930 Age: 88 year(s) Height: 182.9 cm (72 in.) Weight: 90.27 kg (199 lb.) BSA: 2.13 m2 Gender: Male Examination: Echo Contrast: Image Quality: Adequate Rhythm: Heart Rate: BP: 144 mmHg/79 mmHg Indication: CHF Procedure Staff Referring Physician: Stripper And Printer: Trini Evans [facility] Reading Physician: Chavez Singh MD Requesting Provider: Ordering Physician: Rae Granda Indication: CHF Measurements Chambers AV/MV Label Value Normal Value Label Value Normal Value LVOT Vmax 0.68 m/s (0.7m/s - 1.1m/s) AR PHT 0.54 s LVOTd 2.1 cm (1.9cm - 2.1cm) AR PHT 539 ms LVDd, 2D 5.3 cm (4.2cm - 5.9cm) AR Vena contracta 0.2 cm LVDs, 2D 4 cm (2.1cm - 4cm) AR Vmax 4.28 m/s IVSd, 2D 1.3 cm (0.6cm - 1.1cm) AV PGmax 7 mmHg LVPWd, 2D 0.9 cm (0.6cm - 1cm) AV Vmax 1.32 m/s LVEF, BP 51 % (55% - 70%) KAMERON (Vmax) 1.8 cm2 LVEF, 2D 50 % (54% - 74%) MV E Vmax 0.74 m/s RVDd, 2D 4 cm (1.9cm - 3.8cm) MV A Vmax 0.36 m/s TAPSE 1.5 cm MV E/A 2.06 LA Volume, BP 108 ml (18ml - 58ml) MV E/E' lateral 8.2 LAESV index, BP 50.7 ml/m2 MV E/E' septal 15.7 (0.45 - 1.25) RA Area 27.5 cm2 MV E' septal 0.05 m/s Additional Vessels MV E' lateral 0.09 m/s Label Value Normal Value MV E/E' mean 10.57 AoAsc 3.9 cm MV E' mean 0.07 m/s AoRoot, 2D 3.7 cm (1.4cm - 2.6cm) TV/PV Label Value Normal Value RA Pressure 15 mmHg Patient: CHAVEZ SCHUMACHER Study Date: 11/17/2018 Page 1 of 3 01:37 PM RVSP 78 mmHg TR Pmax 63 mmHg TR Vmax 3.98 m/s PV PGmax 2 mmHg PV Vmax, Caliper 0.72 m/s (0.6m/s - 0.9m/s) Conclusions (1) Left ventricular systolic ejection fraction was mildly reduced (50%) - mild to moderate LVH was noted - diastolic dysfunction (Grade III) was present (2) Dilation of the RV cavity with mild reduction in systolic function - ICD/pacer wire was present to the RV chamber (3) Severe biatrial dilation (4) Mild to moderate MR with mild MAC (5) Trileaflet aortic valve with mild AI and mild sclerosis (but no stenosis) (6) Moderate TR - RVSP was 78 mm Hg (7) Mild PI (8) Ascending aorta was 3.9 cm (9) Small pericardial effusion was present without tamponade physiology Findings Left Ventricle: Left ventricle is normal in size. Mildly reduced systolic left ventricular function. EF evaluated by EF (biplane Thomason's). The ejection fraction, measured by Simpsons method, is 51 %. EF range is estimated at 50 % - 55 %. There is mild to moderate concentric left ventricular hypertrophy. There are no regional wall motion abnormalities. Grade III Diastolic Dysfunction. Right Ventricle: Dilated right ventricle. Right ventricular systolic function is mildly reduced. There is a pacing/ICD wire present in the right ventricle. Thickened moderater band noted in the right ventricle. Left Atrium: The left atrium is severely dilated. Right Atrium: The right atrium is severely dilated. A line (catheter or pacing wire) is present in the right atrium. Mitral Valve: Mitral valve appears structurally normal. Mild to moderate mitral regurgitation. No mitral valve stenosis. There is mild mitral thickening. There is mild mitral annular calcification. Aortic Valve: The aortic valve is structurally normal and trileaflet. Mild aortic regurgitation is present. There is no aortic stenosis. Aortic leaflets exhibit mild calcification. Tricuspid Valve: Moderate tricuspid regurgitation. Right Ventricular systolic pressure is measured at 78 mmHg. Pulmonic Valve: Pulmonic leaflets are structurally normal. Mild pulmonic valve regurgitation is present. Aorta: The aortic root size in 2D measures 3.7 cm. The aortic root exhibits normal size. The ascending aorta measures 3.9 cm. The ascending aorta is borderline dilated. Aorta Measurements AoRoot, 2D is 3.7 cm. IVC: The inferior vena cava is dilated. There is less than 50% respiratory excursion. Pericardium: A small pericardial effusion was identified. Patient: CHAVEZ SCHUMACHER Study Date: 11/17/2018 Page 2 of 3 01:37 PM Exam Details Procedure Ordered: Echo Procedure Status: Routine study Image Quality: Adequate Facility Location: Cardiac Echo 1 (No Signature Object) Patient: CHAVEZ SCHUMACHER Study Date: 11/17/2018 Page 3 of 3 01:37 PM [id number]
--- NOTE | 2018-11-17 17:08 | PDCARCONS ---
Cardiology Consult Reason for Consult: Fast heart rate at home with associated shortness of breath Chief Complaint: Fast heart rate Requesting Physician: Hospitalist team History of Present Illness: Patient is an 88 y/o male with history of Parkinson's Disease, HTN, endocarditis (with chronic antibiotic suppression), atrial fibrillation (on Xarelto with [id number] score of 4), diastolic CHF, and SSS s/p PPM, who presents to [facility] with complaints of "fast heart rate" and associated shortness of breath. This morning, the patient voiced shaking chills, but no mention of fevers. No chest pains or pressure. No PND or orthopnea. Compliance with medical therapy has been good. Recent tooth extraction, and there continues to be some mild bleeding from the site. Since this morning, the patient reports that he is currently feeling well. None of the symptoms that led to the admission are still noted. Labs in the ER with elevation to the BNP noted. Telemetry with ventricular paced rhythm. Echocardiography was performed and low normal LVEF was noted (about 50%) with severe biatrial dilation, mild to moderate MR, mild AI, and moderate TR with RVSP to 75-80 mm Hg. At present, the patient voices that is his comfortable and without either of the symptoms noted at the time of admission Remainder of the 12 point review of systems was unremarkable History Information - Allergies/Home Medication List Allergies/Adverse Reactions: No Known Allergies Allergy (Verified 11/17/18 08:10) Home Medications: Diltiazem Cd [Cardizem ER 120 MG (*)] 120 mg PO DAILY@72903/20/18 [Last Taken 11/17/18] Escitalopram Oxalate [Lexapro] 20 mg PO DAILY@72904/20/18 [Last Taken 11/17/18 ] Finasteride [Proscar 5 MG (*)] 5 mg PO HS 04/20/18 [Last Taken 11/16/18] Doxycycline Hyclate [Vibramycin 100 MG (*)] 100 mg PO DAILY@72906/18/18 [Last Taken 11/17/18] Rivaroxaban [Xarelto] 20 mg PO DAILY@06/18/18 [Last Taken 11/16/18] Acetaminophen [Tylenol ES 500 mg (*)] 1,000 mg PO Q8H PRN 06/29/18 [Last Taken 11/16/18 21:00] Polyethylene Glycol 3350 [Miralax 17 gm (*)] 17 gm PO DAILY PRN 09/25/18 [Last Taken 09/24/18] QUEtiapine FUMARATE [Seroquel 25 mg (*)] 25 mg PO HS 09/25/18 [Last Taken ] I have personally reviewed and updated: family history, medical history, social history, surgical history Past Medical History: - Past Medical History atrial fibrillation, hypertension Additional medical history: SSS s/p PPM, Parkinson's Disease - Surgical History Reports: pacemaker/AICD - Family History Positive for: non-pertinent - Social History Smoking Status: Never smoked Alcohol Use: None Drug Use: None Cardiac History - Cardiac History Cardiac Risk Factors: hypertension (>140/90), age > 65, male Timing/Duration: Hours Severity: moderate Severity Scale: 5 Activities at Onset: none Modifying Factors: improves with: oxygen, rest Associated Symptoms: shortness of breath Physical Exam Physical Exam: Temp Pulse Resp BP Pulse Ox 36.3 C 68 18 144/79 H 98 11/17/18 10:56 11/17/18 10:56 11/17/18 10:56 11/17/18 10:56 11/17/18 10:56 O2 (L/minute) 5 Constitutional: no apparent distress, appears nourished, not in pain, unkempt Eyes: PERRL, EOMI Ears, Nose, Mouth, Throat: moist mucous membranes Cardiovascular: regular rate and rhythym, pulses symmetric bilaterally, No JVD, No edema Peripheral Pulses: 2+: dorsalis-pedis (R), dorsalis-pedis (L) Respiratory: no respiratory distress, no rales or rhonchi Gastrointestinal: normoactive bowel sounds Skin: warm Musculoskeletal: full muscle strength, no muscle tenderness Neurologic: AAOx3, sensation intact bilaterally, CN II-XII Intact Psychiatric: interacting appropriately, not anxious Lab and Imaging 11/17/18 08:00 11/17/18 08:00 WBC 10.65 10^3/uL (3.80-9.50) H 11/17/18 08:00 RBC 3.97 10^6/uL (4.40-6.38) L 11/17/18 08:00 Hgb 12.1 g/dL (13.7-17.5) L 11/17/18 08:00 Hct 38.8 % (40.0-51.0) L 11/17/18 08:00 MCV 97.7 fL (81.5-99.8) 11/17/18 08:00 MCH 30.5 pg (27.9-34.1) 11/17/18 08:00 MCHC 31.2 g/dL (32.4-36.7) L 11/17/18 08:00 RDW 14.4 % (11.5-15.2) 11/17/18 08:00 Plt Count 155 10^3/uL (150-400) 11/17/18 08:00 MPV 9.5 fL (8.7-11.7) 11/17/18 08:00 Neut % (Auto) 89.4 % (39.3-74.2) H 11/17/18 08:00 Lymph % (Auto) 2.8 % (15.0-45.0) L 11/17/18 08:00 [place] % (Auto) 6.2 % (4.5-13.0) 11/17/18 08:00 Eos % (Auto) 0.8 % (0.6-7.6) 11/17/18 08:00 Baso % (Auto) 0.2 % (0.3-1.7) L 11/17/18 08:00 Nucleat RBC Rel Count 0.0 % (0.0-0.2) 11/17/18 08:00 Absolute Neuts (auto) 9.52 10^3/uL (1.70-6.50) H 11/17/18 08:00 Absolute Lymphs (auto) 0.30 10^3/uL (1.00-3.00) L 11/17/18 08:00 Absolute Monos (auto) 0.66 10^3/uL (0.30-0.80) 11/17/18 08:00 Absolute Eos (auto) 0.09 10^3/uL (0.03-0.40) 11/17/18 08:00 Absolute Basos (auto) 0.02 10^3/uL (0.02-0.10) 11/17/18 08:00 Absolute Nucleated RBC 0.00 10^3/uL (0-0.01) 11/17/18 08:00 Immature Gran % 0.6 % (0.0-1.1) 11/17/18 08:00 Immature Gran # 0.06 10^3/uL (0.00-0.10) 11/17/18 08:00 RBC/WBC/PLT Morphology TNP 11/17/18 08:00 Platelet Estimate TNP 11/17/18 08:00 PT 20.4 SEC (12.0-15.0) H 11/17/18 08:00 INR 1.84 (0.83-1.16) H 11/17/18 08:00 APTT 37.3 SEC (23.0-38.0) 11/17/18 08:00 VBG Lactic Acid 1.8 mmol/L (0.7-2.1) 11/17/18 08:50 Sodium 142 mEq/L (135-145) 11/17/18 08:00 Potassium 3.9 mEq/L (3.5-5.2) 11/17/18 08:00 Chloride 107 mEq/L (97-110) 11/17/18 08:00 Carbon Dioxide 25 mEq/l (22-31) 11/17/18 08:00 Anion Gap 10 mEq/L (6-14) 11/17/18 08:00 BUN 17 mg/dL (7-23) 11/17/18 08:00 Creatinine 0.8 mg/dL (0.7-1.3) 11/17/18 08:00 Estimated GFR > 60 11/17/18 08:00 Glucose 116 mg/dL (70-100) H 11/17/18 08:00 Calcium 9.1 mg/dL (8.5-10.4) 11/17/18 08:00 Total Bilirubin 1.1 mg/dL (0.1-1.4) 11/17/18 08:00 POC Troponin I 0.00 ng/mL (0.00-0.08) 11/17/18 08:34 NT-Pro-B Natriuret Pep 2400 pg/mL (0-450) H 11/17/18 08:00 Urine Color YELLOW 11/17/18 11:05 Urine Appearance CLEAR 11/17/18 11:05 Urine pH 7.0 (5.0-7.5) 11/17/18 11:05 Ur Specific [place] 1.017 (1.002-1.030) 11/17/18 11:05 Urine Protein NEGATIVE (NEGATIVE) 11/17/18 11:05 Urine Ketones NEGATIVE (NEGATIVE) 11/17/18 11:05 Urine Blood NEGATIVE (NEGATIVE) 11/17/18 11:05 Urine Nitrate NEGATIVE (NEGATIVE) 11/17/18 11:05 Urine Bilirubin NEGATIVE (NEGATIVE) 11/17/18 11:05 Urine Urobilinogen NEGATIVE EU (0.2-1.0) 11/17/18 11:05 Ur Leukocyte Esterase NEGATIVE (NEGATIVE) 11/17/18 11:05 Urine Glucose NEGATIVE (NEGATIVE) 11/17/18 11:05 Visualized and Interpreted Chest x-ray results: Yes Chest X-ray Interpretation: infiltrate, effusion Interpretation: bibasilar consolidation was noted with moderate bilatearl pleural effusions. Difficult to know if this is CHF versus pneumonia EKG additional interpertation: ventricular paced rhythm Telemetry: ventricular paced rhythm Echocardiogram: Low normal LVEF (50%) - mild to moderate LVH Dilation of the RV cavity was noted Severe biatrial dilation Mild to moderate MR Mild AI Mod TR Ascending aorta to 3.9 cm A/P Assessment: Patient is an 88 y/o male with history of Parkinson's Disease, chronic diastolic CHF, SSS s/p PPM with underlying atrial fibrillation (on Xarelto), with HTN and endocarditis history (on chronic antibiotics), who presented to [facility] with "fast heart rates" and "shortness of breath". IV lasix was given the in the ER, and oral therapy has been continued on the floor. Difficult to know that the patient's baseline BNP with history of atrial fibrillation has been ( since 2018 until now, this BNP is the lowest one that has been noted). Echocardiography today with mild reduction in LVEF noted (50%) with valvular pathology appreciated. Review of outpatient EMR without recent cardiology visits appreciated, and would question if the patient might be seen by an outside group. At present, the patient is feeling better. Ongoing "ooze" from the recent dental extraction. No shortness of breath is appreciated, and on telemetry, no conor tachycardia is noted. Plan: (1) Would maintain diuresis as at present (with oral therapy) (2) According to the patient, he is on oxygen at home, chronically, and while in house, off this therapy, oxygen levels quickly drop to 80% on room air (3) Maintain anticoagulation for atrial fibrillation on Xarelto as a present - patient with moderate CVA risk (4) Would continue cardizem for HTN history (5) Would consider repeat CXR tomorrow - still without certainty on the etiology of the CXR findings (6) BNP is elevated, but review of patient's past BNP assessment, this is the lowest that has been noted for some time (7) Consider pacer interrogation (8) Uncertain when the patient last had MPI testing, but if over 3 years, would consider this testing
[2018-11-17] MEDS: CARBIDOPA/LEVODOPA 25 MG/100 MG TAB PO SCH ×2 (17:34→20:27)
[2018-11-17] MEDS: RIVAROXABAN 20 MG TAB PO SCH (17:34)
--- NOTE | 2018-11-17 18:54 | PDMN ---
Medical Necessity Medical necessity: [facility] M190 Heart Failure, A-2 days: 88 yo w/ acute SOB and shaking chills. WBC elevated. Eval reveals BL basilar consolidations with moderate B/L pleural effusions and cardiomegaly, most likely related to fluid overload/CHF, however PNA cannot be ruled out. O2 sat 74% on RA. Pt requiring 5-10L O2, IV diuresis, cardio consult. BC pending. Meets [facility] IP criteria for HF w/ poss precip case for acute decomp (PNA), and 'other condition, tx, or monitoring requiring IP admission' - new need for O2 to keep sat>90%, advanced age, multiple comorbidities. Anticipate>2MN for ongoing med nec care. 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
[2018-11-17] MEDS: QUEtiapine FUMARATE 25 MG TAB PO SCH (20:27)
[2018-11-17] MEDS: FINASTERIDE 5 MG TAB PO SCH (20:27)
[2018-11-17] MEDS: ACETAMINOPHEN 325 MG TAB PO PRN (20:33)
[2018-11-18 04:36] LABS: PLATELET COUNT 136 10^3/uL (150-400)
[2018-11-18] MEDS ORDERED: FUROSEMIDE 40 MG/4 ML VIAL IVP SCH (09:00)
[2018-11-18] MEDS: CARBIDOPA/LEVODOPA 25 MG/100 MG TAB PO SCH ×4 (09:26→21:28)
[2018-11-18] MEDS: DILTIAZEM CD 120 MG CAP PO SCH (09:27)
[2018-11-18] MEDS: DOXYCYCLINE HYCLATE 100 MG CAP/TAB PO SCH (09:30)
[2018-11-18] MEDS: ESCITALOPRAM OXALATE 10 MG TAB PO SCH (09:31)
--- NOTE | 2018-11-18 12:21 | PDCARPN ---
Cardiology Progress Note Chief Complaint: Patient is feeling better today. was at bedside, and was able to clarify some of the statements made by the patient. Assessment/Plan: Assessment: 11-18-18 reported the the dental extraction was weeks ago (but there was some bleeding from the site yesterday). No voiced cardiovascular complaints. Patient feels that he is nearly back to baseline, and collaborates this statement. Dementia and memory are worse that appreciated. Short term memory is not good, but hidden (per patient). No events overnight. Patient was sitting up in chair today. No bleeding from oral site noted today. reported that it has been "years" since any form of stress testing was performed. 11-17-18 Patient is an 88 y/o male with history of Parkinson's Disease, HTN, endocarditis (with chronic antibiotic suppression), atrial fibrillation (on Xarelto with [id number] score of 4), diastolic CHF, and SSS s/p PPM, who presents to [facility] with complaints of "fast heart rate" and associated shortness of breath. This morning, the patient voiced shaking chills, but no mention of fevers. No chest pains or pressure. No PND or orthopnea. Compliance with medical therapy has been good. Recent tooth extraction, and there continues to be some mild bleeding from the site. Since this morning, the patient reports that he is currently feeling well. None of the symptoms that led to the admission are still noted. Labs in the ER with elevation to the BNP noted. Telemetry with ventricular paced rhythm. Echocardiography was performed and low normal LVEF was noted (about 50%) with severe biatrial dilation, mild to moderate MR, mild AI, and moderate TR with RVSP to 75-80 mm Hg. At present, the patient voices that is his comfortable and without either of the symptoms noted at the time of admission Plan: (1) Would arrange for Trish MPI for tomorrow - this is a better, non invasive means to assess the CAD risk for this patient (2) Would continue Xarelto for atrial fibrillation history (3) Cardizem for both HTN and some degree of heart rate control (4) Would maintain therapy on lasix (BNP elevation is indicative of CHF, but the elevation noted is far less than that which has been noted in the past) (5) Further recommendations after testing has been completed Subjective: No cardiovascular complaints today Reviewed/Discussed With: family Objective: Vital Signs (8 Hrs) Temp Pulse Resp BP Pulse Ox 11/18/18 09:27 73 135/75 H 11/18/18 07:45 36.9 C 70 16 120/65 94 11/18/18 04:52 36.5 C 73 16 125/70 H 94 Intake/Output (24 Hrs) 11/17/18 11/18/18 11/19/18 05:59 05:59 05:59 Intake Total 300 Output Total 1125 575 Balance -825 -575 Intake: Oral (ml) 300 IV Intake (ml) 0 Output: Urine (ml) 1125 575 Catheter 950 575 Urinal 175 Other: Weight 90.6 kg Number of Voids Incontinence 2 Result Diagrams: 11/18/18 03:40 11/18/18 03:40 Telemetry: ventricular paced rhythm - Physical Exam Constitutional: WDWN, healthy appearing, no apparent distress Eyes: PERRL, EOMI Ears, Nose, Mouth, Throat: moist mucous membranes Cardiovascular: regular rate and rhythm, no murmurs, no rubs, no gallops, pulses symmetric bilat, No jugular vein distention Peripheral Pulses: 2+: dorsalis-pedis (R), dorsalis-pedis (L) Respiratory: clear to auscultate bilat, no crackles, no wheezes Gastrointestinal: normoactive bowel sounds Skin: no rashes, no edema Musculoskeletal: no muscular tenderness, no joint effusions Neurologic: AAOx3, CN II-XII grossly intact Psychiatric: cooperative, interactive, following commands ICD10 Worksheet Patient Problems: Problems Problem Status Onset Acute exacerbation of congestive heart failure Acute Hypoxemia Acute Acute renal insufficiency Acute Dehydration Acute Displaced fracture of right femoral neck Acute Failure to thrive in adult Acute Fall Acute Fracture of femoral neck, closed Acute Hypotension Acute Multiple skin tears Acute Pacemaker malfunction Acute Parkinson disease Acute Paroxysmal a-fib Acute Sepsis Acute UTI (urinary tract infection) Acute
--- NOTE | 2018-11-18 13:04 | ASMTCMCOM ---
CM Note CM Note Notes: Patient admitted for SOB, "fast heart rate." He has a detailed cardiac hx and a hx of Parkinson's. Last admit in September. He lives at home with his Aldo. He was at [facility] in September. He currently has 24/7 care from [facility] and PT from [facility] (he did have other skilled services with [facility] in the past). He is open to [facility]. His discharge needs are TBD at this time; PT/OT are ordered and pending. Case Management will follow. Date Signed: 11/18/2018 01:03 PM Electronically Signed By:Catalina Abebe RN
--- NOTE | 2018-11-18 13:26 | HOSPPROG ---
Hospitalist Progress Note Assessment/Plan: Shortness of Breathing - Acute onset with associated shaking chills - CXR on admission showing b/l basilar consolidations with moderate b/l pleural effusions and cardiomegaly, most likely related to fluid overload/CHF, however PNA cannot be ruled out - Afebrile, WBC 10.6, LA 1.8 on admission - BNP elevated to 2,400 on admission - Differential Acute Exacerbation of CHF vs. PNA vs. PE vs. URI - S/p Zosyn in ED, holding off on further abx for now, if becomes febrile or worsening leukocytosis will reinitiate (WBC down to 8.2 this AM) - S/p 40 mg IVP Lasix on admission, s/p 40 mg IVP this AM, net negative 825 ml over past 24 hours, will transition to PO 40 mg Lasix qd per cardiology - Cardiology consulted, recommending transition to PO Lasix as above, MPS ordered for tomorrow (NPO after midnight) dCHF - Noted on past TTE - Management of Acute exacerbation as above Hypoxemia (Acute) - 02 sat 74% on RA on admission, usually on 2L 02 chronically - 2/2 to above - Back to baseline 02 this AM 2L A Fib - S/p PPM - On Xarelto, Diltiazem, will continue - Continue to monitor Parkinson's Disease - Continue home Sinemet Endocarditis - Vegetation noted on TTE from 04/28/2018, not noted on repeat TTE from 06/2018 - Continue home Doxycycline - Cards consult as above BPH - Continue home Finasteride FEN: Cardiac DVT PPx: Home Xarelto Code: DNR Dispo: Pending clinical course Subjective: Patient reports no SOB this AM Objective: Vital Signs Temp Pulse Resp BP Pulse Ox 36.3 C 77 20 105/57 L 95 11/18/18 12:00 11/18/18 12:00 11/18/18 12:00 11/18/18 12:00 11/18/18 12:00 Laboratory Results 11/18/18 03:40 11/18/18 03:40 11/17/18 11/18/18 11/19/18 05:59 05:59 05:59 Intake Total 300 Output Total 1125 575 Balance -825 -575 PT 20.4 SEC (12.0-15.0) H 11/17/18 08:00 INR 1.84 (0.83-1.16) H 11/17/18 08:00 - Physical Exam Constitutional: chronically ill appearing Eyes: PERRL Ears, Nose, Mouth, Throat: moist mucous membranes Cardiovascular: irregularly irregular, edema Respiratory: reduced air movement, No inspiratory crackles Gastrointestinal: soft, non-tender abdomen Skin: warm Musculoskeletal: full muscle strength Neurologic: AAOx3 Psychiatric: interacting appropriately ICD10 Worksheet Patient Problems: Problems Problem Status Onset Acute exacerbation of congestive heart failure Acute Hypoxemia Acute Acute renal insufficiency Acute Dehydration Acute Displaced fracture of right femoral neck Acute Failure to thrive in adult Acute Fall Acute Fracture of femoral neck, closed Acute Hypotension Acute Multiple skin tears Acute Pacemaker malfunction Acute Parkinson disease Acute Paroxysmal a-fib Acute Sepsis Acute UTI (urinary tract infection) Acute
[2018-11-18] MEDS: QUEtiapine FUMARATE 25 MG TAB PO SCH (21:27)
[2018-11-18] MEDS: ACETAMINOPHEN 325 MG TAB PO PRN (21:27)
[2018-11-18] MEDS: FINASTERIDE 5 MG TAB PO SCH (21:28)
[2018-11-19] MEDS: ESCITALOPRAM OXALATE 10 MG TAB PO SCH (08:47)
[2018-11-19] MEDS: DOXYCYCLINE HYCLATE 100 MG CAP/TAB PO SCH (08:47)
[2018-11-19] MEDS: CARBIDOPA/LEVODOPA 25 MG/100 MG TAB PO SCH ×4 (08:48→20:45)
[2018-11-19] MEDS: DILTIAZEM CD 120 MG CAP PO SCH (08:48)
[2018-11-19] MEDS ORDERED: FUROSEMIDE 40 MG TAB PO SCH (09:00)
[2018-11-19] MEDS ORDERED: REGADENOSON 0.4 MG/5 ML SYR IVP ONE (09:26)
--- NOTE | 2018-11-19 11:22 | PDCARST ---
CAR Stress Test Results Type of Stress Test: Lexiscan stress Indication: dyspnea/CHF Description of Procedure: After informed consent was obtained, pt was established to ECG, blood pressure, HR and oximetry monitoring. STRESS EKG AND HEMODYNAMIC DATA. Resting heart rate: 80 BPM. Resting ECG: paced rhythm. Resting blood pressure: 118/76 mmHg. O2 saturation at rest: 95%. No changes with Lexiscan. Impression: Uneventful Lexiscan infusion. Conclusion: Await nuclear images.
--- NOTE | 2018-11-19 14:01 | PDIAF ---
- Diagnosis Code Status: Do Not Resuscitate - Medication Management Discharge Medications: electronically signed and located in the Home Medication List. - Orders Services needed: Home Care, Registered Nurse, Certified Fire Sprinkler Service Technician, Master Qa Auditor, Physical Therapy, Occupational Therapy, Speech Language Pathologist Home Care Face to Face: I certify that this patient was under my care and that I had the required [id number] encounter meeting the encounter requirements on the discharge day. My findings support the fact that the patient is homebound as defined in Home Care Face to Face Continued: CMS Chapter 7 Medicare Benefits Manual 30.1.1 , The condition of the patient is such that there exists a normal inability to leave home and consequently, leaving home would require a considerable and taxing effort. Isolation Type: None - Follow Up Care Current Providers and Referrals: Patient,NotPresent [Unknown] - As per Instructions
--- NOTE | 2018-11-19 14:07 | ASMTLACE ---
LACE Length of stay for Answers: 2 days current admission Acuity / Level of Answers: Yes Care: Did the patient have an inpatient admission? Comorbidities - select Answers: Coronary Artery Disease all that apply Other Notes: Parkinsons # of Emergency department Answers: 3-4 visits in the last 6 months Score: 11 Date Signed: 11/19/2018 02:06 PM Electronically Signed By:Catalina Abebe RN
--- NOTE | 2018-11-19 14:18 | ASMTDCNOTE ---
Case Management Discharge Discharge Order Complete? Answers: Yes Patient to Obtain Answers: Independently Medications Transportation Arranged Answers: Family/Friends Faxed Final Orders Answers: Yes Family Notified Answers: Yes Discharge Comments Notes: Patient discharged home with and services from [facility] (skilled homecare), [facility] (02/02 care), and [facility]. Date Signed: 11/19/2018 02:17 PM Electronically Signed By:Catalina Abebe RN
--- NOTE | 2018-11-19 14:36 | PDDCSUM ---
Discharge Summary Discharge Summary: Date of Admission: 11/17/2018 Date of Discharge: 11/20/2018 Consults: Cardiology Procedures: TTE, MPS Followup: PCP, Cardiology (Dr. Whiteside) Hospital Course Problem List: Shortness of Breathing - Acute onset with associated shaking chills - CXR on admission showing b/l basilar consolidations with moderate b/l pleural effusions and cardiomegaly, most likely related to fluid overload/CHF - Afebrile, WBC 10.6, LA 1.8 on admission - BNP elevated to 2,400 on admission - Differential Acute Exacerbation of CHF vs. PNA vs. PE vs. URI - S/p Zosyn in ED, held on further abx, remained afebrile with no leukocytosis during admisison - S/p 40 mg IVP Lasix on admission, s/p 40 mg IVP on 11/18, transitioned to PO 20 mg Lasix qd, will f/u with cardiology for further evaluation and management of diuretic therapy - Cardiology consulted, MPS performed on day of discharge which did not reveal any ischemia dCHF - Noted on past TTE - Management of Acute exacerbation as above Hypoxemia (Acute) - 02 sat 74% on RA on admission, usually on 2L 02 chronically - 2/2 to above - Back to baseline 02 this AM 2L A Fib - S/p PPM - On Xarelto, Diltiazem, will continue - Continue to monitor Parkinson's Disease - Continue home Sinemet Endocarditis - Vegetation noted on TTE from 04/28/2018, not noted on repeat TTE from 06/2018 - Continue home Doxycycline - Cards consult as above BPH - Continue home Finasteride Time spent on discharge was >35 minutes with >50% of time spent on patient education and counseling.
--- NOTE | 2018-11-19 14:37 | HOSPPROG ---
Hospitalist Progress Note Assessment/Plan: Shortness of Breathing - Acute onset with associated shaking chills - CXR on admission showing b/l basilar consolidations with moderate b/l pleural effusions and cardiomegaly, most likely related to fluid overload/CHF - Afebrile, WBC 10.6, LA 1.8 on admission - BNP elevated to 2,400 on admission - Differential Acute Exacerbation of CHF vs. PNA vs. PE vs. URI - S/p Zosyn in ED, held on further abx, remained afebrile with no leukocytosis during admisison - S/p 40 mg IVP Lasix on admission, s/p 40 mg IVP on 11/18, transitioned to PO 20 mg Lasix qd, will f/u with cardiology for further evaluation and management of diuretic therapy - Cardiology consulted, MPS performed today which did not reveal any ischemia dCHF - Noted on past TTE - Management of Acute exacerbation as above Hypoxemia (Acute) - 02 sat 74% on RA on admission, usually on 2L 02 chronically - 2/2 to above - Back to baseline 02 this AM 2L A Fib - S/p PPM - On Xarelto, Diltiazem, will continue - Continue to monitor Parkinson's Disease - Continue home Sinemet Endocarditis - Vegetation noted on TTE from 04/28/2018, not noted on repeat TTE from 06/2018 - Continue home Doxycycline - Cards consult as above BPH - Continue home Finasteride FEN: Cardiac DVT PPx: Home Xarelto Code: DNR Dispo: Pending clinical course Subjective: Pt reports no complaints this AM Objective: Vital Signs Temp Pulse Resp BP Pulse Ox 36.3 C 76 16 117/76 98 11/19/18 11:01 11/19/18 11:01 11/19/18 11:01 11/19/18 11:01 11/19/18 11:01 Laboratory Results 11/19/18 03:42 11/19/18 03:42 11/18/18 11/19/18 11/20/18 05:59 05:59 05:59 Intake Total 300 100 480 Output Total 1125 2450 600 Balance -825 -2350 -120 PT 20.4 SEC (12.0-15.0) H 11/17/18 08:00 INR 1.84 (0.83-1.16) H 11/17/18 08:00 - Physical Exam Constitutional: chronically ill appearing Eyes: PERRL Ears, Nose, Mouth, Throat: moist mucous membranes Cardiovascular: regular rate and rhythym Respiratory: reduced air movement Gastrointestinal: soft, non-tender abdomen Skin: warm Musculoskeletal: full muscle strength Neurologic: AAOx3 Psychiatric: interacting appropriately ICD10 Worksheet Patient Problems: Problems Problem Status Onset Acute exacerbation of congestive heart failure Acute Hypoxemia Acute Acute renal insufficiency Acute Dehydration Acute Displaced fracture of right femoral neck Acute Failure to thrive in adult Acute Fall Acute Fracture of femoral neck, closed Acute Hypotension Acute Multiple skin tears Acute Pacemaker malfunction Acute Parkinson disease Acute Paroxysmal a-fib Acute Sepsis Acute UTI (urinary tract infection) Acute
--- NOTE | 2018-11-19 14:52 | PDCARPN ---
Cardiology Progress Note Chief Complaint: Patient doing well today. No voiced cardiovascular complaints Assessment/Plan: Assessment: 11-19-18 Patient doing well today. No voiced cardiovascular complaints. No chest pains or pressure. Uneventful night. Stress testing was performed today, and no ischaemia or infarction patterns were noted. Normal systolic function was noted. was present with the patient in the room today. No further oral bleeding has been noted with ongoing Xarelto. There does appear to be rather significant dementia noted on the part of the patient. 11-18-18 reported the the dental extraction was weeks ago (but there was some bleeding from the site yesterday). No voiced cardiovascular complaints. Patient feels that he is nearly back to baseline, and collaborates this statement. Dementia and memory are worse that appreciated. Short term memory is not good, but hidden (per patient). No events overnight. Patient was sitting up in chair today. No bleeding from oral site noted today. reported that it has been "years" since any form of stress testing was performed. 11-17-18 Patient is an 88 y/o male with history of Parkinson's Disease, HTN, endocarditis (with chronic antibiotic suppression), atrial fibrillation (on Xarelto with [id number] score of 4), diastolic CHF, and SSS s/p PPM, who presents to [facility] with complaints of "fast heart rate" and associated shortness of breath. This morning, the patient voiced shaking chills, but no mention of fevers. No chest pains or pressure. No PND or orthopnea. Compliance with medical therapy has been good. Recent tooth extraction, and there continues to be some mild bleeding from the site. Since this morning, the patient reports that he is currently feeling well. None of the symptoms that led to the admission are still noted. Labs in the ER with elevation to the BNP noted. Telemetry with ventricular paced rhythm. Echocardiography was performed and low normal LVEF was noted (about 50%) with severe biatrial dilation, mild to moderate MR, mild AI, and moderate TR with RVSP to 75-80 mm Hg. At present, the patient voices that is his comfortable and without either of the symptoms noted at the time of admission Plan: (1) Xarelto therapy for atrial fibrillation history to continue (2) Cardizem therapy for both HTN and some rate/rhythm control assistance (3) Outpatient follow up with cardiology should be arranged (4) Regular and routine exercise as tolerated Subjective: No cardiovascular complaints Reviewed/Discussed With: family Objective: Vital Signs (8 Hrs) Temp Pulse Resp BP Pulse Ox 11/19/18 11:01 36.3 C 76 16 117/76 98 11/19/18 07:03 36.5 C 70 10 L 122/75 H 95 Intake/Output (24 Hrs) 11/18/18 11/19/18 11/20/18 05:59 05:59 05:59 Intake Total 300 100 480 Output Total 1125 2450 600 Balance -825 -2350 -120 Intake: Oral (ml) 300 100 480 IV Intake (ml) 0 0 Output: Urine (ml) 1125 2450 600 Catheter 950 2200 350 Urinal 175 250 250 Other: Weight 90.6 kg Number of Voids Incontinence 2 4 Urinal 2 Number of Stools Catheter 1 Result Diagrams: 11/19/18 03:42 11/19/18 03:42 Telemetry: atrial fibrillation - Physical Exam Constitutional: WDWN, healthy appearing, no apparent distress Eyes: PERRL, EOMI Ears, Nose, Mouth, Throat: moist mucous membranes Cardiovascular: irregularly irregular, pulses symmetric bilat, No jugular vein distention Peripheral Pulses: 2+: dorsalis-pedis (R), dorsalis-pedis (L) Respiratory: clear to auscultate bilat, no crackles, no wheezes Gastrointestinal: normoactive bowel sounds Skin: no rashes, no edema Musculoskeletal: no muscular tenderness Neurologic: AAOx3, CN II-XII grossly intact Psychiatric: cooperative, interactive, following commands, encephalopathic ( consistent with dementia) ICD10 Worksheet Patient Problems: Problems Problem Status Onset Acute exacerbation of congestive heart failure Acute Hypoxemia Acute Acute renal insufficiency Acute Dehydration Acute Displaced fracture of right femoral neck Acute Failure to thrive in adult Acute Fall Acute Fracture of femoral neck, closed Acute Hypotension Acute Multiple skin tears Acute Pacemaker malfunction Acute Parkinson disease Acute Paroxysmal a-fib Acute Sepsis Acute UTI (urinary tract infection) Acute
[2018-11-19] MEDS ORDERED: PROTOCOL POTASSIUM 1 DOSE MISC PRN (16:10)
[2018-11-19] MEDS: RIVAROXABAN 20 MG TAB PO SCH (18:28)
[2018-11-19] MEDS ORDERED: POTASSIUM CL 10 MEQ TAB PO ONE (19:40)
[2018-11-19] MEDS: FINASTERIDE 5 MG TAB PO SCH (20:45)
[2018-11-19] MEDS: QUEtiapine FUMARATE 25 MG TAB PO SCH (20:46)
[2018-11-20] MEDS ORDERED: POTASSIUM CL 10 MEQ TAB PO ONE (07:54)
[2018-11-20 08:09] VITALS: BP 113/85
[2018-11-20] MEDS: CARBIDOPA/LEVODOPA 25 MG/100 MG TAB PO SCH ×2 (08:23→12:18)
[2018-11-20] MEDS: DOXYCYCLINE HYCLATE 100 MG CAP/TAB PO SCH (08:24)
[2018-11-20] MEDS: ESCITALOPRAM OXALATE 10 MG TAB PO SCH (08:24)
[2018-11-20] MEDS: DILTIAZEM CD 120 MG CAP PO SCH (08:24)
[2018-11-20] MEDS ORDERED: FUROSEMIDE 20 MG TAB PO SCH (09:00)
--- NOTE | 2018-11-20 09:48 | ASMTCMCOM ---
CM Note DOMINGO Note Notes: D/w , patient discharging today, Kelsey at [facility] and [facility] notified. CM spoke with , she has set up transport for noon. She also has [facility] for 24hr non skilled care. to bulk picker Lasix at [facility], CM available for any changes. DC Plan: Homecare ([facility]), [facility] 02/02, and [facility] Date Signed: 11/20/2018 09:46 AM Electronically Signed By:Mirta Good RN
== END 2018-11-20 12:55 | DRG 293 ==
LOC: EDUNIT# → F2W 10:29
PROVIDERS: ADMIT Internal Medicine; ATTEND Internal Medicine
DX: I11.0 Hypertensive heart disease with heart failure (principal); I50.33 Acute on chronic diastolic (congestive) heart failure; G20 Parkinson's disease; I48.91 Unspecified atrial fibrillation; I49.5 Sick sinus syndrome; I08.3 Combined rheumatic disorders of mitral, aortic and tricuspid valves; N40.0 Benign prostatic hyperplasia without lower urinary tract symptoms; Z95.810 Presence of automatic (implantable) cardiac defibrillator; Z79.01 Long term (current) use of anticoagulants
CPT/HCPCS: 84484-ER; 96365; 97162-GP; 97166-GO; 97530-GO; 97530-GP; 97535-GO; A9500; J1940; J2543; J2785